=== PATIENT | female | born 1950 | race Caucasian/White ===

== ENCOUNTER 2019-08-12 07:03 | Outpatient (CLI) | payer MEDICARE, SELFPAY ==
--- NOTE | ~2019-08-12 | XR_ITS ---
XR UGI wo kub DATE: 08/12/2019 08:24 INDICATION: History of gastric sleeve. TECHNIQUE: Air contrast upper gastrointestinal series 0.5 minutes fluoroscopy time DAP: 56.621 COMPARISON: None FINDINGS: There is a small sliding hiatal hernia with Schatzki's ring. Normal deglutition and esophageal peristalsis. No stricture, mucosal fold thickening, erosion, ulcer ation or intraluminal mass lesion of the esophagus or stomach or small bowel is detected. IMPRESSION: Small sliding hiatal hernia with Schatzki's ring Reviewed, dictated and finalized at [facility]. Reviewed, dictated and finalized at location [facility].
== END 2019-08-12 07:04 | disposition home or self-care (01) ==
LOC: ANHIMG 07:17
DX: Z90.3 Acquired absence of stomach [part of] (principal); K44.9 Diaphragmatic hernia without obstruction or gangrene; K22.2 Esophageal obstruction
CPT/HCPCS: 74240

== ENCOUNTER 2019-08-18 14:41 | Outpatient (RCR) | payer MEDICARE, SELFPAY | END 2019-11-18 14:44 | disposition home or self-care (01) | LOC: CHSSENLIFE 14:41 | PROVIDERS: Visit Provider Psychiatry & Neurology Psychiatry | DX: F33.41 Major depressive disorder, recurrent, in partial remission (principal) | CPT/HCPCS: 90792; 90834; 90837; 90853; 99213; 99214; G0463 ==

== ENCOUNTER 2019-11-23 10:41 | Outpatient (RCR) | payer MEDICARE, SELFPAY | END 2020-02-10 14:13 | disposition home or self-care (01) | LOC: CHSSENLIFE 10:41 | PROVIDERS: PCP Internal Medicine; Visit Provider Psychiatry & Neurology Psychiatry | DX: F33.41 Major depressive disorder, recurrent, in partial remission (principal) | CPT/HCPCS: 90853; 99213; 99214; G0463 ==

== ENCOUNTER 2021-05-14 11:21 | Outpatient (CLI) | payer BC, MEDICARE, SELFPAY ==
--- NOTE | 2021-05-14 11:29 | EST_ITS ---
Patient Info Name: Dinora Gusman Age: 71 years : 1950 Gender: Female Ht: 59 in Wt: 275 lbs BSA: 2.37 m2 Exam Date: 05/14/2021 12:26 PM Exam Location: [facility] Patient Status: Outpatient Admit Date: 05/14/2021 Staff Ordering Physician: Jani Zamudio DO Attending Provider: Jani Zamudio DO Exam Type: CA stress patricio w NM Summary 1. 1. Negative lexiscan stress test for ischemic ST changes by ECG criteria. 2. 2. Baseline hypertension. 3. 3. Nuclear scan to follow and will be reported separately. Please correlate with it. 4. 4. Patient informed of the above results. Protocol: LEXISCAN Stress ECG Details Stage: REST Duration (min): 4 min : 53 sec HR (bpm): 68 SBP (mmHg): 192 DBP (mmHg): 88 Stage: REST Duration (min): 10 min : 19 sec HR (bpm): 74 SBP (mmHg): 192 DBP (mmHg): 88 Stage: STAGE 1 Duration (min): 0 min : 5 sec HR (bpm): 74 SBP (mmHg): 192 DBP (mmHg): 88 Stage: RECOVERY Duration (min): 0 min : 54 sec HR (bpm): 86 SBP (mmHg): 192 DBP (mmHg): 88 Stage: RECOVERY Duration (min): 1 min : 54 sec HR (bpm): 85 SBP (mmHg): 192 DBP (mmHg): 88 Stage: RECOVERY Duration (min): 2 min : 54 sec HR (bpm): 78 SBP (mmHg): 157 DBP (mmHg): 82 Stage: RECOVERY Duration (min): 3 min : 54 sec HR (bpm): 76 SBP (mmHg): 169 DBP (mmHg): 80 Stage: RECOVERY Duration (min): 4 min : 54 sec HR (bpm): 76 SBP (mmHg): 169 DBP (mmHg): 80 Stage: RECOVERY Duration (min): 5 min : 54 sec HR (bpm): 76 SBP (mmHg): 169 DBP (mmHg): 78 Stage: RECOVERY Duration (min): 6 min : 2 sec HR (bpm): 73 SBP (mmHg): 169 DBP (mmHg): 78 Rest HR: 74 bpm Peak HR: 87 bpm Rest Sys BP: 192 mmHg Peak Sys BP: 169 mmHg Max Pred HR: 150 bpm % Max Pred HR: 58 % Target HR: 128 bpm Max RPP: 14,703 bpm*mmHg Termination Reason: Completed protocol Cardiac Symptoms: Shortness of breath Total Time: 0 min : 5 sec Rest Pitt BP: 88 mmHg Peak Pitt BP: 80 mmHg Total Dose: 0.4 mg Resting ECG Sinus rhythm. Stress ECG No ST changes. Arrhythmias None. Report Signatures
--- NOTE | 2021-05-14 15:29 | WPDCARIOSTRE ---
Nuclear Stress Test INDICATIONS Indications: MCNAIR PROCEDURE Procedure Performed: Myocardial Perf Spect-Multi Procedure: Patient underwent a lexiscan stress test and immediately was injected with 34.5 mCi of cardiolyte. Multiple tomographic images were obtained. These are of good quality. There is evidence of small size, mild inferior perfusion defect with stress imaging. A separate resting images were obtained after patient was injected with 10.7 mCi of cardiolyte. Multiple tomographic images were obtained. These are of good quality. There is evidence of small size, mild inferior perfusion defect with rest imaging. CONCLUSION Conclusion: 1. Myocardial perfusion imaging demonstrating fixed small inferior perfusion defect which is suggestive of diaphragmatic attenuation artifact. 2. No evidence of reversible ischemia. 3. Left ventriculogram demonstrates measured ejection fraction of 73%. No wall motion abnormalities. 4. TID score 1.06 is normal.
== END 2021-05-14 11:22 | disposition home or self-care (01) ==
LOC: CHSIMG 11:25
PROVIDERS: PCP Physician Assistant; Visit Provider Internal Medicine Cardiovascular Disease
DX: R07.9 Chest pain, unspecified (principal)
CPT/HCPCS: 78452; 93017; A9502; J2785

== ENCOUNTER 2021-05-16 10:00 | Outpatient (RCR) | payer BC, MEDICARE, SELFPAY | END 2021-05-16 23:59 | disposition home or self-care (01) | LOC: CHSSENLIFE 10:00 | PROVIDERS: PCP Family Medicine; Visit Provider Psychiatry & Neurology Psychiatry | DX: F32.9 Major depressive disorder, single episode, unspecified (principal) | CPT/HCPCS: 90792; 90837; 90853; 99213; 99214; G0463; J1170; J2250; J3010 ==

== ENCOUNTER 2021-08-14 10:00 | Outpatient (RCR) | payer BC, SELFPAY | END 2021-08-15 23:59 | disposition home or self-care (01) | LOC: CHSSENLIFE 10:00 | PROVIDERS: PCP Family Medicine; Visit Provider Psychiatry & Neurology Psychiatry | DX: F32.9 Major depressive disorder, single episode, unspecified (principal) | CPT/HCPCS: 90853; 99213; G0463 ==

== ENCOUNTER 2021-10-10 11:14 | Inpatient (IN) | payer MEDICARE, MEDICAID, SELFPAY ==
[2021-10-10] VITALS (12 sets, daily range): BP systolic 120–199; BP diastolic 51–90; PULSE 85–114; RESP 16–90; TEMP 36.6–38.8; O2SAT 84–96; BMI 63.5
--- NOTE | ~2021-10-10 | XR_ITS ---
EXAMINATION: XR tibia fibula LT 2V INDICATION: Left leg pain TECHNIQUE: Two views of the left tibia and fibula are obtained. COMPARISON: 04/01/2005 FINDINGS: There is advanced osteoarthritis of the knee and ankle. No fracture is identified. IMPRESSION: 1. No acute osseous abnormality. Reviewed, dictated and finalized at location [facility].
--- NOTE | ~2021-10-10 | XR_ITS ---
EXAMINATION: XR chest 1V portable INDICATION: Shortness of breath TECHNIQUE: Portable AP chest at 1242 hours COMPARISON: 07/21/2009 FINDINGS: Cardiomegaly is noted. There is a mild diffuse interstitial pattern. There is no pleural ef fusion or pneumothorax. IMPRESSION: 1. Cardiomegaly with mild pulmonary edema. Reviewed, dictated and finalized at location [facility].
--- NOTE | ~2021-10-10 | XR_ITS ---
EXAMINATION: XR shoulder RT min 2V INDICATION: Right shoulder pain TECHNIQUE: Three views of the right shoulder are submitted. COMPARISON: None FINDINGS: The examination is limited by the patient's body habitus. Normal alignment. No fracture. Moderate glenohumeral and acromioclavicular osteoarthritis. Soft tissues are unremarkable. IMPRESSION: 1. Moderate osteoarthritis, limited sensitivity for fracture. Reviewed, dictated and finalized at location A.
--- NOTE | ~2021-10-10 | US_ITS ---
EXAMINATION:US venous doppler LE LT INDICATION:Calf pain TECHNIQUE: Multiple grayscale, color flow and Doppler images of the left lower extremity deep venous systems were obtained and reviewed. COMPARISON:No prior studies for comparison. FINDINGS: The common femoral, superficial femoral and popliteal veins demonstrate normal respiratory variation, augmentation and compressibility. Color flow is also seen within the posterior tibial, pe roneal, greater saphenous and profunda veins. IMPRESSION: 1: No lower extremity deep venous thrombosis. Reviewed, dictated and finalized at location A.
--- NOTE | 2021-10-10 11:43 | ECG_ITS ---
Measurements Intervals [place] Rate: 93 P: 94 CA: 164 QRS: 83 QRSD: 89 T: 56 QT: 336 QTc: 418 Interpretive Statements SINUS RHYTHM MINIMAL Q WAVES- INFERIOR LEADS BORDERLINE ECG Electronically Signed On 10-10-2021 12:47:41 CDT by Jani Zamudio D.O.
[2021-10-10 12:07] LABS: Base Excess ABG 2.6 mmol/L (0-2); HCO3 ABG 27.6 mmol/L (23-29); Oxygen Content ABG 16.5 %vol (16.0-22.0); Oxygen Saturation ABG 91.2 % (95-97); Oxyhemoglobin 90.5 % (94-100); PCO2 ABG 43.9 mmHg (35-45); PO2 ABG 58.8 mmHg (75-85); pH ABG 7.42 (7.35-7.45)
[2021-10-10 12:09] LABS: Device ROOM AIR; Modified Allen's Test Pass; Site Drawn LEFT RADIAL
[2021-10-10] MEDS: ONDANSETRON HCL ODT 4 MG TABLET PO (12:10)
[2021-10-10] MEDS: KETOROLAC 30 MG/ML VIAL (*BKC) IM (12:11)
[2021-10-10 12:12] LABS: Basophils Absolute Auto 0.05 K/mm3 (0.00-0.10); Basophils Percent Auto 0.3 % (0.0-1.0); Eosinophils Absolute Auto 0.09 K/mm3 (0.02-0.50); Eosinophils Percent Auto 0.5 % (1.0-6.0); Hematocrit 40.2 % (35.0-42.0); Hemoglobin 12.1 g/dL (11.7-13.8); Immature Granulocyte Absolute 0.12 K/mm3 (0.00-0.00); Immature Granulocyte Percent A 0.6 % (0.0-0.0); Lymphocytes Absolute Auto 0.54 K/mm3 (1.10-4.50); Lymphocytes Percent Auto 2.8 % (18.0-42.0); Mean Corpuscular HGB Conc 30.1 g/dL (32.0-36.0); Mean Corpuscular Hemoglobin 30.1 pg (27.0-31.0); Mean Platelet Volume 9.5 fl (9.2-11.8); Monocytes Absolute Auto 0.69 K/mm3 (0.10-0.90); Monocytes Percent Auto 3.6 % (2.0-11.0); Neutrophils Absolute Auto 17.8 K/mm3 (1.7-7.2); Neutrophils Percent Auto 92.2 % (50.0-70.0); Platelet Count Result 257 K/mm3 (150-420); Red Blood Count 4.02 M/mm3 (4.20-5.40); Red Cell Distribution Width 13.2 % (11.6-14.4); White Blood Count 19.3 K/mm3 (4.8-10.8)
[2021-10-10 12:22] LABS: Add Urine Microscopic? YES; Appearance Urine Cloudy (Clear); Bilirubin Urine Negative (Negative); Blood Urine Negative (Negative); Color Urine Light Yellow (Yellow); Glucose Urine UA Negative (Negative); Ketones Urine Negative (Negative); Leukocyte Esterase Ur Trace (Negative); Nitrate Urine Negative (Negative); Protein Urine Trace (Negative); Urobilinogen Urine 0.2 mg/dL (0.2-1.0)
[2021-10-10 12:26] LABS: RBC Urine None seen /hpf (0-2)
[2021-10-10 12:27] LABS: Lactic Acid Reflex 2.4 mmol/L (0.4-2.0)
[2021-10-10 12:27] LABS: Bacteria Urine 3+ /hpf; Squamous Epithelial Cell Urine Moderate /hpf (Few); WBC Urine 0-3 /hpf (0-3)
[2021-10-10 12:45] LABS: Alanine Aminotransferase 14 U/L (14-59); Albumin Level 3.3 g/dL (3.4-5.0); Alkaline Phosphatase 128 U/L (46-116); Anion Gap 3 mmol/L (8-16); Aspartate Amino Transferase 42 U/L (15-37); Bilirubin,Total 0.6 mg/dL (0.00-1.00); Blood Urea Nitrogen 22 mg/dL (7-18); Calcium 8.9 mg/dL (8.5-10.1); Carbon Dioxide 32 mmol/L (21-32); Chloride 99 mmol/L (98-108); Estimated Glomerular Filt Rate > 60; Glucose 102 mg/dL (70-99); Osmolality Calculated 281 mOsm/kg (285-295); Potassium 5.9 mmol/L (3.5-5.1); Sodium 134 mmol/L (136-145); Total Protein 8.2 g/dL (6.4-8.2); Troponin I 8.6 ng/L (0.00-60.4)
[2021-10-10] MEDS: SODIUM CHLORIDE 0.9% IV 500 ML 999 ML IV CONT (13:59)
[2021-10-10] MEDS: FUROSEMIDE INJ 100 MG/10 ML VIAL 80 MG IV PUSH (13:59)
--- NOTE | 2021-10-10 14:01 | ED.GENADULT ---
HPI - General Adult General Chief complaint: Unspecified Stated complaint: BR[facility]GHT [facility] Time Seen by Provider: 10/10/21 11:17 Source: patient and RN notes reviewed Mode of arrival: wheelchair Limitations: no limitations History of Present Illness MD complaint: right shoulder and left calf pain x 2days + mild SOB and lips cyanotic Onset (ago): day(s) (2) Location: chest, upper extremity and lower extremity Radiation: non-radiation Severity: moderate Severity scale (1-10): 5 Pain Consistency: constant Related Data Home Medications Medication Instructions Recorded Confirmed clonidine HCl 0.1 mg tablet 0.1 mg PO BID tablet 04/23/21 10/10/21 duloxetine 30 mg capsule,delayed 30 mg PO DAILY 04/23/21 10/10/21 release fluoxetine 10 mg capsule 10 mg PO DAILY 04/23/21 10/10/21 gabapentin 300 mg capsule 300 mg PO TID 04/23/21 10/10/21 levothyroxine 25 mcg tablet 25 mcg PO DAILY 04/23/21 10/10/21 valsartan 80 mg tablet 80 mg PO DAILY 04/23/21 10/10/21 Allergies Allergy/AdvReac Type Severity Reaction Status Date / Time codeine Allergy Unknown Unknown Verified 10/10/21 11:39 Penicillins Allergy Unknown Unknown Verified 10/10/21 11:39 venlafaxine [From Effexor] AdvReac Mild Insomnia Verified 10/10/21 11:39 Review of Systems Review of Systems: All systems reviewed & are unremarkable except as noted in HPI and below PMFSH Past Medical History Medical History Acute febrile illness Ankle edema Anxiety Asthma Back pain Bilateral leg edema CHF (congestive heart failure) COPD (chronic obstructive pulmonary disease) COPD with chronic bronchitis Decreased pedal pulses Edema of extremities Elevated alkaline phosphatase level Elevated blood pressure reading Hypercholesteremia Hypertension Knee pain Leg pain Localized edema Major depression Obesity Palpitation Screening for breast cancer Situational anxiety Sleep apnea Tobacco abuse URI (upper respiratory infection) Family History Family History Father Diabetes mellitus Myocardial disease Mother Heart disease Social History Social History Smoking status: Former smoker Tobacco type: cigarettes Alcohol intake: never Substance use: never Spiritual care concerns: No Exam Const: General: cooperative, no acute distress and anxious Nutritional Appearance: obese and edematous Orientation/consciousness: patient oriented x3 Limitations: no limitations HENMT: Head: normal to inspection, No palpable skull fracture present, normocephalic, atraumatic and other (no acute cyanosis or skin mottling seen.) Ears: hearing grossly normal bilaterally and external ears normal General nose exam: Normal external nose present and Normal nares present Face and sinus: normal facial exam and sinuses nontender Mouth: Yes moist mucous membranes Throat: posterior oropharynx normal Eyes: General: appearance normal, both eyes and all related structures Visual Leblanc: normal visual leblanc by confrontation Periorbital: periorbital findings normal Eyelids: eyelids normal Conjunctivae: conjunctivae normal Sclera: sclerae normal Cornea: corneas normal Pupils: Equal, round and reactive pupils present, Pupils normal by confrontation and Pupil accommodation reflex normal EOM: EOMs intact bilaterally Direct Ophthalmoscopy: normal light reflex Neck: Neck: normal visual inspection, full ROM, no lymphadenopathy, no meningeal signs, trachea midline and supple Chest: Chest palpation & inspection: normal palpation of entire chest wall Resp: Effort & Inspection: normal respiratory effort and able to speak in complete sentences Auscultation: crackles and rales Cardio: Jugular venous distension: no JVD Rate: regular rate Rhythm: regular rhythm Peripheral pulses: Peripheral pulses 2+ throughout GI:
[2021-10-10] MEDS: INSULIN HUMAN REGULAR (*BKC) 100 UNITS/ML 12 UNITS IV PUSH (14:06)
[2021-10-10] MEDS: DEXTROSE 50% 25 GM/50 ML SYRINGE IV PUSH (14:08)
[2021-10-10 14:10] LABS: NT Pro B Type Natriuretic Pept 346 pg/mL (0-125)
--- NOTE | 2021-10-10 15:00 | ADMGEN ---
This patient, Dinora Gusman, was admitted to 2nd Floor Room 226-2. Patient/family oriented to hospital policies and general routines including ID bracelet, bed and alarms, visiting hours, pain management, procedures, bathroom and other care routines, personal items, smoking policy, room service/diet, and visiting hours. Information on how to activate the Rapid Response Team has been discussed. Patient/Family are encouraged to report perceived risks to care and to ask questions if they do not understand what they are told or what they should do.
[2021-10-10 15:09] LABS: Reflex Lactic Acid Yes or No Add Lactic
[2021-10-10 15:51] LABS: Lactic Acid 1.8 mmol/L (0.4-2.0)
[2021-10-10] MEDS: GABAPENTIN 300 MG CAPSULE PO (18:00)
[2021-10-10] MEDS: RIVAROXABAN 10 MG TABLET 20 MG PO (18:00)
[2021-10-10] MEDS: ONDANSETRON INJ 4 MG/2 ML VIAL IV PUSH (18:03)
[2021-10-10] MEDS: ACETAMINOPHEN 325 MG TABLET 650 MG PO (18:23)
[2021-10-10] MEDS: cloNIDine HCL 0.1 MG TABLET PO (21:07)
[2021-10-10] MEDS: METOPROLOL TARTRATE 25 MG TABLET PO (21:07)
[2021-10-11] VITALS (9 sets, daily range): BP systolic 132–161; BP diastolic 56–73; PULSE 82–84; RESP 14–20; TEMP 37.3–38.8; O2SAT 91–96
[2021-10-11] MEDS: ACETAMINOPHEN 325 MG TABLET 650 MG PO ×2 (05:04→16:55)
[2021-10-11 05:15] LABS: Basophils Absolute Auto 0.05 K/mm3 (0.00-0.10); Basophils Percent Auto 0.3 % (0.0-1.0); Hemoglobin 11.2 g/dL (11.7-13.8); Immature Granulocyte Absolute 0.09 K/mm3 (0.00-0.00); Immature Granulocyte Percent A 0.5 % (0.0-0.0); Lymphocytes Absolute Auto 0.53 K/mm3 (1.10-4.50); Lymphocytes Percent Auto 3.1 % (18.0-42.0); Mean Corpuscular HGB Conc 31.1 g/dL (32.0-36.0); Mean Corpuscular Hemoglobin 30.7 pg (27.0-31.0); Mean Corpuscular Volume 98.6 fL (78.0-102.0); Mean Platelet Volume 9.3 fl (9.2-11.8); Monocytes Absolute Auto 0.52 K/mm3 (0.10-0.90); Monocytes Percent Auto 3.1 % (2.0-11.0); Neutrophils Absolute Auto 15.7 K/mm3 (1.7-7.2); Platelet Count Result 237 K/mm3 (150-420); Red Blood Count 3.65 M/mm3 (4.20-5.40); Red Cell Distribution Width 13.5 % (11.6-14.4); White Blood Count 16.8 K/mm3 (4.8-10.8)
[2021-10-11 05:26] LABS: Anion Gap 7 mmol/L (8-16); Blood Urea Nitrogen 24 mg/dL (7-18); Calcium 8.7 mg/dL (8.5-10.1); Carbon Dioxide 30 mmol/L (21-32); Chloride 99 mmol/L (98-108); Estimated Glomerular Filt Rate 40; Glucose 132 mg/dL (70-99); Osmolality Calculated 288 mOsm/kg (285-295); Potassium 4.1 mmol/L (3.5-5.1); Sodium 136 mmol/L (136-145)
[2021-10-11] MEDS: LEVOTHYROXINE SODIUM 25 MCG TABLET PO (05:37)
--- NOTE | 2021-10-11 07:09 | PM.IMHP ---
H&P: HPI History of Present Illness Date/Time: 10/11/21 07:09 This is a 71-year-old female that presented to the emergency room with not feeling well was found to be positive for UTI and cellulitis of the left leg. Patient does not ambulate much at home and when she goes out and about she uses a wheelchair electric. Patient has a past medical history Obstructive sleep disorder and she does not tolerate the CPAP per patient, she had a gastric sleeve which she says did not work. Severe hip pain due to her arthritis which limits her walking patient also has lymphedema and she denies using her lymphedema pumps. Patient's labs on admission had a WBC of 19.3, hemoglobin 12.1, HCT40.2, potassium of 5.9 BUN 22, creatinine 0.83, sodium 134, troponin normal at 8. During the ER visit she received a gram of Rocephin, insulin for the elevated potassium and some glucose received a liter of IV fluids and sent to the floor but she will continue to be monitored receive IV antibiotics and will anticipate that she will be seen by physical therapy. Chief Complaint: Cellulitis, UTI , WEakness Review of Systems Review of Systems: UTI, Aute Kidney injury All systems reviewed & are unremarkable except as noted in HPI and below PMFSH Past Medical History Medical History Acute febrile illness Ankle edema Anxiety Asthma Back pain Bilateral leg edema CHF (congestive heart failure) COPD (chronic obstructive pulmonary disease) COPD with chronic bronchitis Decreased pedal pulses Edema of extremities Elevated alkaline phosphatase level Elevated blood pressure reading Hypercholesteremia Hypertension Knee pain Leg pain Localized edema Major depression Obesity Palpitation Screening for breast cancer Situational anxiety Sleep apnea Tobacco abuse URI (upper respiratory infection) Family History Family History Father Diabetes mellitus Myocardial disease Mother Heart disease Social History Social History Smoking status: Former smoker Tobacco type: cigarettes Alcohol intake: never Substance use: never Spiritual care concerns: No Comments At time as signature, I have reviewed and agree with nursing past medical, social, surgical and family history. Please see nursing chart for further information. There is no relevant family history pertinent to the presenting complaint. Meds Home Medications and Allergies Home Medications Medication Instructions Recorded Confirmed Type clonidine HCl 0.1 mg tablet 0.1 mg PO BID tablet 04/23/21 10/10/21 History duloxetine 30 mg capsule,delayed 30 mg PO DAILY 04/23/21 10/10/21 History release fluoxetine 10 mg capsule 10 mg PO DAILY 04/23/21 10/10/21 History gabapentin 300 mg capsule 300 mg PO TID 04/23/21 10/10/21 History levothyroxine 25 mcg tablet 25 mcg PO DAILY 04/23/21 10/10/21 History valsartan 80 mg tablet 80 mg PO DAILY 04/23/21 10/10/21 History metoprolol tartrate 25 mg tablet 25 mg PO BID #60 tablet 07/13/21 10/10/21 Rx rivaroxaban 20 mg tablet 20 mg PO QPM #90 tablet 08/13/21 10/10/21 Rx Allergies Allergy/AdvReac Type Severity Reaction Status Date / Time codeine Allergy Unknown Unknown Verified 10/10/21 11:39 Penicillins Allergy Unknown Unknown Verified 10/10/21 11:39 venlafaxine [From Effexor] AdvReac Mild Insomnia Verified 10/10/21 11:39 Vital Signs Vital Signs - 24 hr 10/10/21 11:15 10/10/21 12:05 10/10/21 14:00 Temperature 98.1 F 98.5 F 97.9 F Pulse Rate 90 87 85 Respiratory Rate 90 H 18 18 Blood Pressure 192/85 H 199/90 H 185/80 H Pulse Oximetry 96 96 96 10/10/21 16:20 10/10/21 18:20 10/10/21 18:23 Temperature 102 F H 102 F H Pulse Rate 114 H Respiratory Rate 18 Blood Pressure 155/66 H Pulse Oximetry 91 84 L 10/10/21 18:25 10/10/21 19:19 10/10/21 21:07 Temperature 98.6
[2021-10-11] MEDS: PANTOPRAZOLE SODIUM IV 40 MG VIAL IV PUSH (09:10)
[2021-10-11] MEDS: METOPROLOL TARTRATE 25 MG TABLET PO ×2 (09:11→21:21)
[2021-10-11] MEDS: GABAPENTIN 300 MG CAPSULE PO ×3 (09:15→16:54)
[2021-10-11] MEDS: FLUoxetine HCL 10 MG CAPSULE PO (09:15)
[2021-10-11] MEDS: DULoxetine HCL 30 MG CAPSULE.DR PO (09:15)
[2021-10-11] MEDS: VALSARTAN 80 MG TABLET PO (09:15)
[2021-10-11] MEDS: cloNIDine HCL 0.1 MG TABLET PO ×2 (09:15→21:21)
[2021-10-11] MEDS: SODIUM CHLORIDE 0.9% IV 1,000 ML 100 ML IV CONT (12:10)
--- NOTE | 2021-10-11 13:50 | PC.NURSE ---
Jenni Haro at [facility]. Faxes not coming through from clinic. Estrellita states the treatment they were providing to patient posterior left thigh consist of miconazole cream, xeroform gauze and covered with gauze. ANIYA Wei notified of treatment wound clinic was following. Currently patient has mepilex covering area. New skin growth noted to area.
[2021-10-11] MEDS: RIVAROXABAN 10 MG TABLET 20 MG PO (16:55)
[2021-10-11] MEDS: HYDROcodone/acetaminophen (*CRX) 5-325 MG TABLET 1 TAB PO (21:20)
[2021-10-12] MEDS: SODIUM CHLORIDE 0.9% IV 1,000 ML 100 ML IV CONT ×3 (00:47→23:30)
[2021-10-12 05:49] VITALS: O2SAT 98
[2021-10-12] MEDS: LEVOTHYROXINE SODIUM 25 MCG TABLET PO (05:53)
[2021-10-12 07:57] LABS: Hematocrit 35.2 % (35.0-42.0); Hemoglobin 10.7 g/dL (11.7-13.8); Mean Corpuscular HGB Conc 30.4 g/dL (32.0-36.0); Mean Corpuscular Hemoglobin 29.8 pg (27.0-31.0); Mean Corpuscular Volume 98.1 fL (78.0-102.0); Mean Platelet Volume 9.3 fl (9.2-11.8); Platelet Count Result 231 K/mm3 (150-420); Red Blood Count 3.59 M/mm3 (4.20-5.40); Red Cell Distribution Width 13.4 % (11.6-14.4); White Blood Count 12.2 K/mm3 (4.8-10.8)
[2021-10-12 08:00] VITALS: BP 184/96; PULSE 91; RESP 18; TEMP 36.6; O2SAT 91
[2021-10-12 08:19] LABS: Anion Gap 4 mmol/L (8-16); Blood Urea Nitrogen 22 mg/dL (7-18); Calcium 8.5 mg/dL (8.5-10.1); Carbon Dioxide 30 mmol/L (21-32); Chloride 103 mmol/L (98-108); Estimated Glomerular Filt Rate 51; Glucose 112 mg/dL (70-99); Osmolality Calculated 288 mOsm/kg (285-295); Potassium 3.8 mmol/L (3.5-5.1); Sodium 137 mmol/L (136-145)
[2021-10-12 08:33] VITALS: PULSE 88
[2021-10-12] MEDS: VALSARTAN 80 MG TABLET PO (08:33)
[2021-10-12] MEDS: PANTOPRAZOLE SODIUM IV 40 MG VIAL IV PUSH (08:33)
[2021-10-12] MEDS: GABAPENTIN 300 MG CAPSULE PO ×3 (08:33→17:44)
[2021-10-12] MEDS: DULoxetine HCL 30 MG CAPSULE.DR PO (08:33)
[2021-10-12] MEDS: METOPROLOL TARTRATE 25 MG TABLET PO ×2 (08:33→21:18)
[2021-10-12] MEDS: FLUoxetine HCL 10 MG CAPSULE PO (08:33)
[2021-10-12] MEDS: cloNIDine HCL 0.1 MG TABLET PO ×2 (08:33→21:18)
--- NOTE | 2021-10-12 10:26 | PM.IMPN ---
Progress Note: A&P Assessment and Plan (1) CHF (congestive heart failure): Qualifiers: Heart failure chronicity: chronic Heart failure type: combined systolic and diastolic Qualified Code(s): I50.42 - Chronic combined systolic (congestive) and diastolic (congestive) heart failure Code(s): I50.9 - Heart failure, unspecified Status: Acute Assessment and Plan: Strict intake andoutput low sodium diet diuretic lasix daily weights (2) Cellulitis of left leg: Code(s): L03.116 - Cellulitis of left lower limb Status: Acute Assessment and Plan: leg elevated IV Rocephin monitor for increased redness or worsening (3) Acute UTI: Code(s): N39.0 - Urinary tract infection, site not specified Status: Acute Assessment and Plan: Messer catheter in place Rocephin IV monitor intake and output CR 1.30...1.07 (4) Acute hyperkalemia: Code(s): E87.5 - Hyperkalemia Status: Acute Assessment and Plan: 4.1 now was 5.9 Resolved Given insulin and glucose (5) Lymphedema: Code(s): I89.0 - Lymphedema, not elsewhere classified Status: Acute Assessment and Plan: Leg elevated IV rocephin for cellulitis will continue to monitor after infection will consider wraps (6) Infection in bloodstream: Code(s): B99.9 - Unspecified infectious disease Status: Acute Assessment and Plan: Positive blood culture gram negative Patient on IV Zosyn we will continue at this time Subjective Date/time seen: 10/12/21 10:26 Patient is feeling a lot better and wanting to go home. At this time patient blood cultures have come back positive for negative Bacilli and she has only had 1 days of IV antibiotics. Patient has had a low grade fever throughout the night and would benefit from a couple more days of IV antibiotics to avoid any set backs. We will continue to monitor vitals Exam Narrative: GENERAL:Ill-appearing, morbidly obese, and in no acute distress. HEAD:Normocephalic, atraumatic. EYES: PERRLA and EOMI. ENT: Nares clear, no rhinorrhea or epistaxis. Mucous membranes moist. CHEST: Clear to auscultation. No respiratory distress. HEART: Regular rate and rhythm. Normal peripheral pulses. ABDOMEN: Soft, nontender, round, normal active bowel sounds. EXTREMITIES: Decreased range of motion. Trace edema.lower extremities have lymphedema noted GI Messer catheter in place draining dark yellow urine SKIN: Warm, dry, no rash. NEURO: No focal deficits. Alert and oriented x3. Objective Data Vital Signs Vital Signs: Vital Signs - 24 hr 10/11/21 16:00 10/11/21 20:00 10/11/21 21:21 Temperature 99.5 F Pulse Rate 83 84 Respiratory Rate 18 Blood Pressure 161/73 H Pulse Oximetry 91 92 10/11/21 23:52 10/12/21 08:33 Temperature 99.9 F H Pulse Rate 82 88 Respiratory Rate 20 Blood Pressure 132/56 L Pulse Oximetry 94 Intake/Output Intake/Output: Intake & Output 10/09/21 10/10/21 10/11/21 10/12/21 23:59 23:59 23:59 23:59 Intake Total 670 1693 1250 Output Total 1650 1150 550 Balance -980 543 700 Meds/Results Medications: Active Medications Generic Name Dose Route Start Last Admin Trade Name Freq PRN Reason Stop Dose Admin Acetaminophen 650 mg 10/10/21 14:19 10/11/21 16:55 Acetaminophen 325 Mg Tablet PO 650 mg Q6HR PRN Administration Mild Pain (1-3) or Fever Hydrocodone Bitart/Acetaminophen 1 tab 10/11/21 13:43 10/11/21 21:20 Hydrocodone/Acetaminophen (*Crx) 5-325 Mg Tablet PO 1 tab BID PRN Administration Pain Rated 4-6 Clonidine HCl 0.1 mg 10/10/21 21:00 10/12/21 08:33 Clonidine Hcl 0.1 Mg Tablet PO 0.1 mg Q12HR FAHAD Administration Duloxetine HCl 30 mg 10/11/21 09:00 10/12/21 08:33 Duloxetine Hcl 30 Mg Capsule.Dr PO 30 mg DAILY FAHDA Administration Fluoxetine HCl 10 mg 10/11/21 09:00 10/12/21 08:33 Fluoxetine Hcl 10 Mg Capsule PO
--- NOTE | 2021-10-12 12:41 | PM.EVENT ---
Event Note Event Note Event Note: Mrs Gusman is in need of a hospital bed that elevates she requires positioning of her body which is not feasible with ordinary bed in order to leave alleviate pain she also requires a head of the bed to be elevated more than 30 degrees due to her congestive heart failure problems and is at risk for aspiration. Due to patient's morbid obesity the pills and wedges are not feasible at this time as they do not resolve the issue.
[2021-10-12 16:45] VITALS: BP 163/58; PULSE 100; RESP 18; TEMP 37.7; O2SAT 91
[2021-10-12] MEDS: RIVAROXABAN 10 MG TABLET 20 MG PO (17:43)
[2021-10-12] MEDS: HYDROcodone/acetaminophen (*CRX) 5-325 MG TABLET 1 TAB PO (17:44)
[2021-10-12 21:18] VITALS: PULSE 100
[2021-10-12] MEDS: OXYBUTYNIN CHLORIDE 5 MG TABLET PO (21:19)
[2021-10-12 23:21] VITALS: BP 156/71; PULSE 81; RESP 18; TEMP 37.1; O2SAT 98
[2021-10-13] MEDS: LEVOTHYROXINE SODIUM 25 MCG TABLET PO (06:19)
[2021-10-13 07:27] VITALS: BP 156/72; PULSE 84; RESP 20; TEMP 37.3; O2SAT 97
[2021-10-13 07:34] LABS: Hematocrit 31.1 % (35.0-42.0); Hemoglobin 9.6 g/dL (11.7-13.8); Mean Corpuscular HGB Conc 30.9 g/dL (32.0-36.0); Mean Corpuscular Hemoglobin 30.3 pg (27.0-31.0); Mean Corpuscular Volume 98.1 fL (78.0-102.0); Mean Platelet Volume 9.7 fl (9.2-11.8); Platelet Count Result 233 K/mm3 (150-420); Red Blood Count 3.17 M/mm3 (4.20-5.40); Red Cell Distribution Width 13.4 % (11.6-14.4); White Blood Count 12.5 K/mm3 (4.8-10.8)
[2021-10-13 07:44] LABS: Anion Gap 5 mmol/L (8-16); Blood Urea Nitrogen 15 mg/dL (7-18); Calcium 8.1 mg/dL (8.5-10.1); Carbon Dioxide 30 mmol/L (21-32); Chloride 102 mmol/L (98-108); Estimated Glomerular Filt Rate > 60; Glucose 115 mg/dL (70-99); Osmolality Calculated 285 mOsm/kg (285-295); Potassium 3.6 mmol/L (3.5-5.1); Sodium 137 mmol/L (136-145)
[2021-10-13 08:26] VITALS: PULSE 84
[2021-10-13] MEDS: METOPROLOL TARTRATE 25 MG TABLET PO ×2 (08:26→20:58)
[2021-10-13] MEDS: PANTOPRAZOLE SODIUM IV 40 MG VIAL IV PUSH (08:26)
--- NOTE | 2021-10-13 08:29 | PM.IMPN ---
Progress Note: A&P Assessment and Plan (1) CHF (congestive heart failure): Qualifiers: Heart failure chronicity: chronic Heart failure type: combined systolic and diastolic Qualified Code(s): I50.42 - Chronic combined systolic (congestive) and diastolic (congestive) heart failure Code(s): I50.9 - Heart failure, unspecified Status: Acute Assessment and Plan: Strict intake andoutput low sodium diet diuretic lasix daily weights (2) Cellulitis of left leg: Code(s): L03.116 - Cellulitis of left lower limb Status: Acute Assessment and Plan: leg elevated IV Rocephin monitor for increased redness or worsening (3) Acute UTI: Code(s): N39.0 - Urinary tract infection, site not specified Status: Acute Assessment and Plan: Messer catheter in place Rocephin IV monitor intake and output CR 1.30...1.07...081 (4) Acute hyperkalemia: Code(s): E87.5 - Hyperkalemia Status: Acute Assessment and Plan: 4.1 now was 5.9 Resolved Given insulin and glucose (5) Lymphedema: Code(s): I89.0 - Lymphedema, not elsewhere classified Status: Acute Assessment and Plan: Leg elevated IV rocephin for cellulitis will continue to monitor after infection will consider wraps (6) Infection in bloodstream: Code(s): B99.9 - Unspecified infectious disease Status: Acute Assessment and Plan: Positive blood culture gram negative Patient on IV Zosyn we will continue at this time Subjective Date/time seen: 10/13/21 08:29 Patient has continued to improve she is not requiring any oxygen during the day has remained afebrile. Creatinine has returned to normal IV fluids have been discontinued she will continue another day of IV antibiotics plan for discharge in the morning. Patient denies any pain, nausea and/or vomiting states she slept well throughout the night patient up in recliner chair using her I-S we will continue to monitor patient Exam Narrative: GENERAL:Ill-appearing, morbidly obese, and in no acute distress. HEAD:Normocephalic, atraumatic. EYES: PERRLA and EOMI. ENT: Nares clear, no rhinorrhea or epistaxis. Mucous membranes moist. CHEST: Clear to auscultation. No respiratory distress. HEART: Regular rate and rhythm. Normal peripheral pulses. ABDOMEN: Soft, nontender, round, normal active bowel sounds. EXTREMITIES: Decreased range of motion. Trace edema.lower extremities have lymphedema noted GI Messer catheter in place draining dark yellow urine SKIN: Warm, dry, no rash. NEURO: No focal deficits. Alert and oriented x3. Objective Data Vital Signs Vital Signs: Vital Signs - 24 hr 10/12/21 08:33 10/12/21 16:45 10/12/21 21:18 Temperature 99.9 F H Pulse Rate 88 100 100 Respiratory Rate 18 Blood Pressure 163/58 H Pulse Oximetry 91 10/12/21 23:21 10/13/21 07:27 10/13/21 08:26 Temperature 98.8 F 99.2 F Pulse Rate 81 84 84 Respiratory Rate 18 20 Blood Pressure 156/71 H 156/72 H Pulse Oximetry 98 97 Intake/Output Intake/Output: Intake & Output 10/10/21 10/11/21 10/12/21 10/13/21 23:59 23:59 23:59 23:59 Intake Total 670 1693 5210 250 Output Total 1650 1150 1150 450 Balance -113 230 9750 -200 Meds/Results Medications: Active Medications Generic Name Dose Route Start Last Admin Trade Name Freq PRN Reason Stop Dose Admin Acetaminophen 650 mg 10/10/21 14:19 10/11/21 16:55 Acetaminophen 325 Mg Tablet PO 650 mg Q6HR PRN Administration Mild Pain (1-3) or Fever Hydrocodone Bitart/Acetaminophen 1 tab 10/11/21 13:43 10/12/21 17:44 Hydrocodone/Acetaminophen (*Crx) 5-325 Mg Tablet PO 1 tab BID PRN Administration Pain Rated 4-6 Clonidine HCl 0.1 mg 10/10/21 21:00 10/12/21 21:18 Clonidine Hcl 0.1 Mg Tablet PO 0.1 mg Q12HR FAHAD Administration Duloxetine HCl 30 mg 10/11/21 09:00 10/12/21 08:33 Duloxetine Hcl 30 Mg Capsule. PO 30
[2021-10-13] MEDS: OXYBUTYNIN CHLORIDE 5 MG TABLET PO ×3 (08:30→17:00)
[2021-10-13] MEDS: VALSARTAN 80 MG TABLET PO (08:31)
[2021-10-13] MEDS: cloNIDine HCL 0.1 MG TABLET PO ×2 (08:39→20:58)
[2021-10-13] MEDS: FLUoxetine HCL 10 MG CAPSULE PO (08:40)
[2021-10-13] MEDS: GABAPENTIN 300 MG CAPSULE PO ×3 (08:41→17:00)
[2021-10-13] MEDS: DULoxetine HCL 30 MG CAPSULE.DR PO (08:41)
[2021-10-13] MEDS: HYDROcodone/acetaminophen (*CRX) 5-325 MG TABLET 1 TAB PO (12:41)
[2021-10-13 15:14] VITALS: BP 141/55; PULSE 80; RESP 16; TEMP 37.4; O2SAT 90
[2021-10-13] MEDS: RIVAROXABAN 10 MG TABLET 20 MG PO (17:00)
[2021-10-13 19:47] VITALS: O2SAT 91
[2021-10-13 20:58] VITALS: PULSE 77
[2021-10-13] MEDS: ACETAMINOPHEN 325 MG TABLET 650 MG PO (21:01)
[2021-10-13 23:55] VITALS: O2SAT 98
[2021-10-14] VITALS: BP 152/57; PULSE 85; RESP 18; TEMP 37.8; O2SAT 95
[2021-10-14] MEDS: HYDROcodone/acetaminophen (*CRX) 5-325 MG TABLET 1 TAB PO (04:09)
[2021-10-14] MEDS: LEVOTHYROXINE SODIUM 25 MCG TABLET PO (06:06)
[2021-10-14 06:14] VITALS: O2SAT 96
[2021-10-14 08:00] VITALS: BP 194/72; PULSE 80; RESP 20; TEMP 36.9; O2SAT 97
[2021-10-14] MEDS: PANTOPRAZOLE SODIUM IV 40 MG VIAL IV PUSH (08:04)
[2021-10-14] MEDS: cloNIDine HCL 0.1 MG TABLET PO (08:06)
[2021-10-14] MEDS: GABAPENTIN 300 MG CAPSULE PO (08:06)
[2021-10-14] MEDS: DULoxetine HCL 30 MG CAPSULE.DR PO (08:06)
[2021-10-14 08:07] VITALS: PULSE 88
[2021-10-14] MEDS: VALSARTAN 80 MG TABLET PO (08:07)
[2021-10-14] MEDS: METOPROLOL TARTRATE 25 MG TABLET PO (08:07)
[2021-10-14] MEDS: FLUoxetine HCL 10 MG CAPSULE PO (08:07)
[2021-10-14] MEDS: OXYBUTYNIN CHLORIDE 5 MG TABLET PO (08:08)
[2021-10-14 08:35] LABS: Hematocrit 34.4 % (35.0-42.0); Hemoglobin 10.6 g/dL (11.7-13.8); Mean Corpuscular HGB Conc 30.8 g/dL (32.0-36.0); Mean Corpuscular Hemoglobin 30.4 pg (27.0-31.0); Mean Corpuscular Volume 98.6 fL (78.0-102.0); Mean Platelet Volume 9.3 fl (9.2-11.8); Platelet Count Result 274 K/mm3 (150-420); Red Blood Count 3.49 M/mm3 (4.20-5.40); Red Cell Distribution Width 13.3 % (11.6-14.4); White Blood Count 11.3 K/mm3 (4.8-10.8)
[2021-10-14 08:46] LABS: Anion Gap 7 mmol/L (8-16); Blood Urea Nitrogen 12 mg/dL (7-18); Calcium 8.7 mg/dL (8.5-10.1); Carbon Dioxide 31 mmol/L (21-32); Chloride 102 mmol/L (98-108); Estimated Glomerular Filt Rate > 60; Glucose 127 mg/dL (70-99); Osmolality Calculated 291 mOsm/kg (285-295); Sodium 140 mmol/L (136-145)
--- NOTE | 2021-10-14 09:41 | PM.DS ---
DS: Admitting Diagnosis Discharge Date 10/14/2021 Admitting Diagnosis Cellulitis, UTI DS: Discharge Diagnosis Discharge Diagnosis (1) CHF (congestive heart failure): Qualifiers: Heart failure chronicity: chronic Heart failure type: combined systolic and diastolic Qualified Code(s): I50.42 - Chronic combined systolic (congestive) and diastolic (congestive) heart failure Code(s): I50.9 - Heart failure, unspecified Status: Acute Assessment and Plan: Strict intake andoutput low sodium diet diuretic lasix daily weights (2) Cellulitis of left leg: Code(s): L03.116 - Cellulitis of left lower limb Status: Acute Assessment and Plan: leg elevated IV Rocephin monitor for increased redness or worsening (3) Acute UTI: Code(s): N39.0 - Urinary tract infection, site not specified Status: Acute Assessment and Plan: Messer catheter in place Rocephin IV monitor intake and output CR 1.30...1.07...081 (4) Acute hyperkalemia: Code(s): E87.5 - Hyperkalemia Status: Acute Assessment and Plan: 4.1 now was 5.9 Resolved Given insulin and glucose (5) Lymphedema: Code(s): I89.0 - Lymphedema, not elsewhere classified Status: Acute Assessment and Plan: Leg elevated IV rocephin for cellulitis will continue to monitor after infection will consider wraps (6) Infection in bloodstream: Code(s): B99.9 - Unspecified infectious disease Status: Acute Assessment and Plan: Positive blood culture gram negative Patient on IV Zosyn we will continue at this time DS: Summary Hospital Course Reason for hospitalization: Cellulitis and Pneumonia Hospital Course: This is a 71-year-old female that presented to the emergency room with a fever was found to have some cellulitis as well some UTI symptoms on admission patient had a fever of 102 she was given some IV fluids WBCs was 19.3, hemoglobin was 11.1 hematocrit was 40.2 platelets was 257, sodium 136, potassium 4.1, BUN 24, creatinine 1.30. Patient has a past medical history of lymphedema, CHF, some COPD, obstructive sleep apnea who refuses to wear CPAP, lymphedema who does not wear her lymphedema pump patient is morbidly obese and ability to get around uses a electric wheelchair at home. Patient has been for feeling sick for the past few days prior to arrival here patient received IV antibiotics, with IV fluids and antipyretics for fevers. Patient's labs continued to trend normal her redness in her legs have improved warmth has declined lymphedema still there. Patient had a Messer catheter placed while here urinated adequate amount of intakes and output. Patient is tolerating food up in chair using I-S patient has remained afebrile for the past 2 days eating and drinking without any difficulties patient states that she is feeling a lot better and is ready to go home labs on discharge WBCs 11.3, hemoglobin 10.6, sodium 140, potassium 4.0, BUN 12, creatinine 0.86. Patient will follow up with her primary care provider and will be seen by home health. Time Spent with Patient Time attestation: Total time spent providing and/or coordinating discharge services: Exam Narrative: GENERAL:Ill-appearing, morbidly obese, and in no acute distress. HEAD:Normocephalic, atraumatic. EYES: PERRLA and EOMI. ENT: Nares clear, no rhinorrhea or epistaxis. Mucous membranes moist. CHEST: Clear to auscultation. No respiratory distress. HEART: Regular rate and rhythm. Normal peripheral pulses. ABDOMEN: Soft, nontender, round, normal active bowel sounds. EXTREMITIES: Decreased range of motion. Trace edema.lower extremities have lymphedema noted GI Messer catheter in place draining dark yellow urine SKIN: Warm, dry, no rash. NEURO: No focal deficits. Alert and oriented x3. DS: Data Data Completed and Pending Labs on day of discharge: Labs from last 24 hours 10/14/21 10/14/21 08:31 0
--- NOTE | 2021-10-14 10:20 | PC.NURSE ---
Patient discharge instructions given to patient and her . Both voiced understanding. Patient left unit in w/c accompanied by nurse and at 1020. Personal belongings sent with patient. Patient left hospital via private vehicle. Emsser catheter and IV access removed prior to discharge.
--- NOTE | 2021-10-16 10:53 | PC.NURSE ---
Unable to contact for discharge call back.
== END 2021-10-14 10:20 | disposition home or self-care (01) | DRG 603 ==
LOC: CHSED 14:07 → CHS2ND 14:31
PROVIDERS: Nurse Practitioner Family; Admitting Provider Internal Medicine; Emergency Provider Emergency Medicine; PCP Family Medicine; Visit Provider Internal Medicine
DX: L03.116 Cellulitis of left lower limb (principal); N39.0 Urinary tract infection, site not specified; I50.42 Chronic combined systolic (congestive) and diastolic (congestive) heart failure; R78.81 Bacteremia; E87.5 Hyperkalemia; I11.0 Hypertensive heart disease with heart failure; J44.9 Chronic obstructive pulmonary disease, unspecified; I89.0 Lymphedema, not elsewhere classified; E78.00 Pure hypercholesterolemia, unspecified; E66.01 Morbid (severe) obesity due to excess calories; B96.5 Pseudomonas (aeruginosa) (mallei) (pseudomallei) as the cause of diseases classified elsewhere; G47.30 Sleep apnea, unspecified; F41.9 Anxiety disorder, unspecified; F32.9 Major depressive disorder, single episode, unspecified; Z87.891 Personal history of nicotine dependence
CPT/HCPCS: 36415; 36600; 71045; 73030; 73590; 80048; 80053; 81001; 82805; 83605; 83880; 84484; 85025; 85027; 87040; 87147; 87186; 93005; 93971; 96361; 96365; 96372; 96375; 97110; 97161; 97165; 99285; A9270; C9113; G0378; J0696; J1815; J1885; J1940; J2405; J2543; J7030; J7040

== ENCOUNTER 2021-10-31 15:10 | Outpatient (CLI) | payer MEDICARE, MEDICAID, SELFPAY ==
[2021-10-31 15:53] LABS: Anion Gap 2 mmol/L (8-16); Blood Urea Nitrogen 23 mg/dL (7-18); Calcium 8.5 mg/dL (8.5-10.1); Carbon Dioxide 37 mmol/L (21-32); Chloride 98 mmol/L (98-108); Estimated Glomerular Filt Rate 51; Glucose 103 mg/dL (70-99); Magnesium 2.1 mg/dL (1.8-2.4); Osmolality Calculated 287 mOsm/kg (285-295); Potassium 4.1 mmol/L (3.5-5.1); Sodium 137 mmol/L (136-145)
== END 2021-10-31 15:11 | disposition home or self-care (01) ==
LOC: CHSLAB 15:14
PROVIDERS: PCP Family Medicine; Visit Provider Internal Medicine Cardiovascular Disease
DX: I89.0 Lymphedema, not elsewhere classified (principal)
CPT/HCPCS: 36415; 80048; 83735; 90853

== ENCOUNTER 2021-11-09 07:52 | Outpatient (CLI) | payer MEDICARE, MEDICAID, SELFPAY ==
--- NOTE | 2021-11-13 13:54 | WPDHOMESLEEP ---
Sleep Study - Home Unattended Date of Study: 11/09/21 Ordering Provider: Jani Zamudio DO Interpreting Provider: Kristi Horan DO Home Sleep Study Type: Watch PAT Height: 1.5 m Weight: 136.078 kg Body Mass Index: 60.5 Neck Circumference (inches): 16 [place]: 16 Reason for Sleep Study Unrefreshing sleep, daytime hypersomnia Sleep History The patient is a 71-year-old female with anxiety, depression, congestive heart failure, COPD, hyperlipidemia, hypertension, heart palpitations, lymphedema, hx of gastric sleeve and previously diagnosed sleep apnea that had a sleep study ordered by her tour conductor to restart PAP therapy. The patient is currently retired. The patient occasionally awakens from sleep short of breath. She occasionally awakens at night with heartburn, belching or cough. She frequently snores but it is never loud enough that others complain. She occasionally has trouble sleeping when she has a cold. She occasionally wakes up gasping for air throughout the night. She frequently has breathing problems at night observed by herself or others. She occasionally sweats excessively at night. She frequently has heart palpitations or irregular heartbeats during the night. She frequently falls asleep during the day but never while driving. She occasionally experiences loss of muscle tone when extremely emotional. She denies having sleep paralysis. She occasionally experiences vivid dreamlike scenes upon awakening or falling asleep. She frequently has nightmares and occasionally remembers her dreams. She frequently has thoughts racing through her mind. She frequently feels sad, depressed and anxious. She frequently notices parts of her body jerk. She occasionally kicks during the night. She occasionally has crawling and aching feelings in her legs as well as leg pain during the night. She denies grinding her teeth during sleep awakening with morning jaw pain. She is occasionally bothered by pain during the day and occasionally awakened by pain during the night. She frequently wakes up feeling stiff in the morning. She occasionally wakes up with sore or achy muscles. She frequently wakes up with pain in the neck, spine and other joints. She goes to bed at 11:00 p.m. on both weekdays and weekends. It takes her 30 minutes to fall asleep. She wakes up 3 times throughout the night to urinate and watch television. She is able to fall back asleep within 1 hour. She wakes up between 8-9 a.m. on , 6 am on Friday and and at 9:00 a.m. on the weekends. She typically gets 5 hours of sleep per night. She does not stay in bed after waking up in the morning. She currently lives with her . She does not consume any caffeinated beverages within 2 hours of bedtime. She does not engage in physical exercise before bedtime. He will watch television before falling asleep. She occasionally takes naps in the afternoon or the evening but they are not refreshing. She will drink a 16 oz cup of caffeinated beverage per day. She denies tobacco, alcohol and recreational drug use. [facility] Past Medical History Medical History Acute febrile illness Ankle edema Anxiety Asthma Back pain Bilateral leg edema CHF (congestive heart failure) COPD (chronic obstructive pulmonary disease) COPD with chronic bronchitis Decreased pedal pulses Edema of extremities Elevated alkaline phosphatase level Elevated blood pressure reading Hypercholesteremia Hypertension Knee pain Leg pain Localized edema Major depression Obesity Palpitation Screening for breast cancer Situational anxiety Sleep apnea Tobacco abuse URI (upper respiratory infection) Family History Family History Father Diabetes mellitus Myocardial disease Mother Heart disease Social History Social History (Reviewed 11/13/21 @ 14:02 by
[2021-11-13 14:09] VITALS: BMI 60.5
== END 2021-11-12 10:46 | disposition home or self-care (01) ==
LOC: ANHCSM 07:54
PROVIDERS: PCP Family Medicine; Visit Provider Internal Medicine Cardiovascular Disease
DX: G47.30 Sleep apnea, unspecified (principal); G47.33 Obstructive sleep apnea (adult) (pediatric)
CPT/HCPCS: 95800

== ENCOUNTER 2021-11-14 15:08 | Outpatient (RCR) | payer MEDICARE, MEDICAID, SELFPAY ==
--- NOTE | 2021-11-14 17:40 | PTOPEVAL ---
Thank you for referring Dinora Gusman to [facility].? The patient is scheduled to be seen for therapy? 2x/week for 8 visits. Please review, sign, date and return this plan of care DANIE. I agree with and certify that the following plan of care is medically necessary. Referring Physician Date Admitting Provider: Attending Provider: Edilson Jeong MD Referring Provider: *PT Outpatient Evaluation Start: 11/14/21 12:58 Freq: Status: Active Protocol: Document 11/14/21 12:59 [facility] (Rec: 11/14/21 16:21 [facility] [id number]) Therapy Assessment Status Assessment Status Assessment Status Evaluation Outpatient Past Medical History Neurological History Hx Neurological Disorders No Significant History Cardiovascular History Hx Atrial Fibrillation Yes: 2020 Hx Congestive Heart Failure Yes Hx Coronary Artery Disease Yes Hx Hypercholesterolemia Yes Hx Hypertension Yes Respiratory History Hx Asthma Yes Hx Chronic Obstructive Pulmonary Disease Yes (COPD) Hx Sleep Apnea Yes Gastrointestinal History Hx Gastric Bypass Surgery Yes: 2010 Genitourinary History Hx Urinary Tract Infection Yes Musculoskeletal History Hx Arthritis Yes Hx Back Pain Yes Hx Crutches or Walker Use Yes Query Text:If Yes, Enter Crutches, Walker, or Both in the Comment Hx Degenerative Disk Disease Yes Hematological History Hx Hematological Disorders No Significant History Endocrine History Hx Hyperthyroidism Yes HEENT History Hx Cataracts Yes Integumentary History Hx Skin Disorders No Significant History Reproductive History Hx Post Menopausal Yes Hx Tubal Ligation Yes Psychosocial History Hx Anxiety Yes Hx Depression Yes Pain History Has Past Pain Affected Your Daily Life Yes History of Long-Term Prescription Pain Yes Medication Use (Opiates) Effective Methods of Pain Control NOTHING Ineffective Methods of Pain Control MEDICATIONS NOT HELPING Anesthesia History Hx Anesthesia Reactions No Significant History Other History Hx Other Medical Conditions Yes: morbid obesity, insomnia Evaluation Information Problem Diagnosis R shoulder pain Onset 08/31/21 Subjective Information Pt reports that her pain Query Text:As Reported By Patient/ started one morning when she Family woke up in August with insidious onset. She reports constant pain in the front of her R shoulder that occasi
== END 2021-11-30 23:59 | disposition home or self-care (01) ==
LOC: CHSPT 15:08
PROVIDERS: PCP Family Medicine; Visit Provider Family Medicine
DX: M25.511 Pain in right shoulder (principal)
CPT/HCPCS: 97014; 97110; 97140; 97161; G0283

== ENCOUNTER 2021-11-15 10:00 | Outpatient (RCR) | payer BC, MEDICARE, MEDICAID, SELFPAY | END 2021-11-19 23:59 | disposition home or self-care (01) | LOC: CHSSENLIFE 10:00 | PROVIDERS: PCP Family Medicine; Visit Provider Psychiatry & Neurology Psychiatry | DX: F32.9 Major depressive disorder, single episode, unspecified (principal) | CPT/HCPCS: 90853; 99213; 99214; G0463 ==

== ENCOUNTER 2021-11-22 09:21 | Outpatient (CLI) | payer MEDICARE, MEDICAID, SELFPAY ==
--- NOTE | ~2021-11-22 | XR_ITS ---
EXAMINATION: XR hip RT min 2V DATE: 11/22/2021 09:44 INDICATION: Right hip pain TECHNIQUE: Two views of right hip were obtained. COMPARISON: 11/11/2018 FINDINGS: There is severe joint space narrowing of the right hip with interval worsening. There is al so remodeling of the femoral head, new since the prior examination. No fracture is identified. There are surgical clips in the right pelvis. The soft tissues are otherwise unremarkable. IMPRESSION: 1. Advanced osteoarthritis of the right hip with interval worsening. Reviewed, dictated and finalized at location F.
== END 2021-11-22 09:22 | disposition home or self-care (01) ==
LOC: CHSIMG 09:25
PROVIDERS: PCP Family Medicine; Visit Provider Nurse Practitioner Family
DX: M16.11 Unilateral primary osteoarthritis, right hip (principal); M25.551 Pain in right hip
CPT/HCPCS: 73502; 90853; 99213; G0463

== ENCOUNTER 2021-11-27 16:35 | Outpatient (CLI) | payer MEDICARE, MEDICAID, SELFPAY ==
--- NOTE | ~2021-11-27 | MR_ITS ---
EXAMINATION: MR hip RT wo con DATE: 11/27/2021 18:03 INDICATION: Right hip pain TECHNIQUE: Magnetic resonance imaging (MRI) of the right hip was performed without intravenous contr ast. Sequences included full-field axial PD-weighted FS FSE and T1-weighted FSE, coronal of the pelvi s with PD-weighted FS FSE, T2-weighted FSE and T1-weighted FSE, small field of view of the right hip with axial PD-weighted FS FSE, sagittal PD-weighted FS FSE, coronal PD-weighted FS FSE and coronal T2 weighted FSE. Additional radial T1-weighted FGR oriented orthogonal to the acetabular rim were obt ained for evaluation of the labrum. COMPARISON: None FINDINGS: Bones/labrum/cartilage: Advanced right hip osteoarthritis with remodeling and loss of bone stock at the cephalad aspect of th e right femoral head and the superior right acetabulum. This results in some superolateral migration of the right femoral head within the enlarged acetabulum. The there is a large marginal osteophyte al avi the inferomedial and posterior inferior aspect of the femoral head which fills the majority of th e secondary widened joint space between the surface of the acetabulum and the original level of the a rticular cortex of the femoral head. Additional prominent marginal osteophytes about the rim of the a cetabulum which have replaced the likely chronically degenerated labrum. Mild osteoarthritis at the l eft hip and moderate bilateral sacroiliac osteoarthritis. Severe disc height loss at L5-S1. Mild spon dylosis in the more cephalad lumbar spine. Right S2 Tarlov cyst. There is some red marrow reexpansion in the spine and pelvis. No fracture, osteonecrosis or pathologic marrow replacing process. Fluid: Symmetric physiologic amount of fluid within both hip joints. Small amount of fluid within the right trochanteric bursa consistent with bursitis. No other abnormal fluid collections. Soft tissues: Relatively symmetric fatty atrophy, moderate of the pelvic musculature mild to moderate of the muscul ature of the proximal thighs. The iliopsoas, gluteal and proximal hamstring tendons are normal. Pelvi c floor relaxation. Prominent diverticulosis along the sigmoid and visualized descending colon. No pa thologically enlarged pelvic/inguinal lymphadenopathy. IMPRESSION: 1. Advanced osteoarthritis at the right hip. 2. Moderate right trochanteric bursitis. 3. Extensive diverticulosis. Reviewed, dictated and finalized at location A.
== END 2021-11-27 16:36 | disposition home or self-care (01) ==
PROVIDERS: PCP Family Medicine; Visit Provider Nurse Practitioner Family
DX: M16.11 Unilateral primary osteoarthritis, right hip (principal); M70.61 Trochanteric bursitis, right hip; M47.816 Spondylosis without myelopathy or radiculopathy, lumbar region; M85.68 Other cyst of bone, other site; K57.90 Diverticulosis of intestine, part unspecified, without perforation or abscess without bleeding
CPT/HCPCS: 73721

== ENCOUNTER 2021-11-29 07:26 | Outpatient (CLI) | payer MEDICARE, MEDICAID, SELFPAY ==
--- NOTE | 2021-12-18 18:25 | WPDSLEEPSTUD ---
Sleep Study Date of Study: 11/29/21 Ordering Provider: Jani Zamudio DO Interpreting Physician: Kristi Horan DO Sleep Study Type: CPAP Titration Height: 1.5 m Weight: 131.542 kg Body Mass Index: 58.6 Neck Circumference (inches): 16 [place]: 16 Reason for Sleep Study The patient had a home sleep study on 11/13/2021 that showed an overall AHI of 20.8 with desaturation down to 53%.? This is consistent with moderate sleep apnea.? Sleep History The patient is a 71-year-old female with anxiety, depression, congestive heart failure, COPD, hyperlipidemia, hypertension, heart palpitations, lymphedema, hx of gastric sleeve and previously diagnosed sleep apnea that had a sleep study ordered by her video clerk to restart PAP therapy. ? The patient is currently retired.? The patient occasionally awakens from sleep short of breath.? She occasionally awakens at night with heartburn, belching or cough.? She frequently snores but it is never loud enough that others complain.? She occasionally has trouble sleeping when she has a cold.? She occasionally wakes up gasping for air throughout the night.? She frequently has breathing problems at night observed by herself or others.? She occasionally sweats excessively at night.? She frequently has heart palpitations or irregular heartbeats during the night.? She frequently falls asleep during the day but never while driving.? She occasionally experiences loss of muscle tone when extremely emotional.? She denies having sleep paralysis.? She occasionally experiences vivid dreamlike scenes upon awakening or falling asleep.? She frequently has nightmares and occasionally remembers her dreams.? She frequently has thoughts racing through her mind.? She frequently feels sad, depressed and anxious.? She frequently notices parts of her body jerk.? She occasionally kicks during the night.? She occasionally has crawling and aching feelings in her legs as well as leg pain during the night.? She denies grinding her teeth during sleep awakening with morning jaw pain.? She is occasionally bothered by pain during the day and occasionally awakened by pain during the night.? She frequently wakes up feeling stiff in the morning.? She occasionally wakes up with sore or achy muscles.? She frequently wakes up with pain in the neck, spine and other joints.? She goes to bed at 11:00 p.m. on both weekdays and weekends.? It takes her 30 minutes to fall asleep.? She wakes up 3 times throughout the night to urinate and watch television.? She is able to fall back asleep within 1 hour.? She wakes up between 8-9 a.m. on , 6 am on Friday and and at 9:00 a.m. on the weekends.? She typically gets 5 hours of sleep per night.? She does not stay in bed after waking up in the morning.? She currently lives with her .? She does not consume any caffeinated beverages within 2 hours of bedtime.? She does not engage in physical exercise before bedtime.? He will watch television before falling asleep.? She occasionally takes naps in the afternoon or the evening but they are not refreshing.? She will drink a 16 oz cup of caffeinated beverage per day.? She denies tobacco, alcohol and recreational drug use. [facility] Past Medical History Medical History Acute febrile illness Ankle edema Anxiety Asthma Back pain Bilateral leg edema CHF (congestive heart failure) COPD (chronic obstructive pulmonary disease) COPD with chronic bronchitis Decreased pedal pulses Edema of extremities Elevated alkaline phosphatase level Elevated blood pressure reading Hypercholesteremia Hypertension Knee pain Leg pain Localized edema Major depression Obesity Palpitation Screening for breast cancer Situational anxiety Sleep apnea Tobacco abuse URI (upper respiratory infection) Family History Family History Father Diabetes mellitus Myoca
[2021-12-18 23:48] VITALS: BMI 58.6
== END 2021-11-30 06:49 | disposition home or self-care (01) ==
LOC: ANHCSM 07:43
PROVIDERS: PCP Family Medicine; Visit Provider Internal Medicine Cardiovascular Disease
DX: G47.33 Obstructive sleep apnea (adult) (pediatric) (principal)
CPT/HCPCS: 95811

== ENCOUNTER 2021-12-19 05:00 | Emergency (ER) | payer MEDICARE, MEDICAID, SELFPAY ==
[2021-12-19] VITALS (12 sets, daily range): BP systolic 127–156; BP diastolic 51–69; PULSE 93–104; RESP 16–29; TEMP 36.8–36.9; O2SAT 92–100
--- NOTE | ~2021-12-19 | XR_ITS ---
EXAMINATION: XR chest 1V portable DATE: 12/19/2021 05:24 INDICATION: Shortness of breath TECHNIQUE: frontal view of the chest was obtained. COMPARISON: Chest radiograph dated 10/10/21 FINDINGS: Mild cardiomegaly with pulmonary vascular congestion. Increased opacities in the right lower lung zon e. No pleural effusion or pneumothorax. IMPRESSION: 1. Opacities in the right lower lung zone which could represent atelectasis, pneumonia or asymmetric mild pulmonary edema. 2. Mild cardiomegaly. Reviewed, dictated and finalized at location A. IMPRESSION: 1. Opacities in the right lower lung zone which could represent atelectasis, pn eumonia or asymmetric mild pulmonary edema. 2. Mild cardiomegaly.
--- NOTE | 2021-12-19 05:09 | ECG_ITS ---
Measurements Intervals [place] Rate: 96 P: 91 OR: 158 QRS: 60 QRSD: 81 T: 46 QT: 342 QTc: 433 Interpretive Statements SINUS RHYTHM BASELINE ARTIFACT- I, II, III, AVR, AVL, AVF, V1 NORMAL ECG Electronically Signed On 12-19-2021 6:38:18 CDT by Jani Zamudio D.O.
--- NOTE | 2021-12-19 05:12 | ED.SOB ---
HPI - SOB/Dyspnea General Chief Complaint: Shortness of Breath/Dyspnea Stated Complaint: Fall/sob History of Present Illness HPI Narrative: Pt states she fell out of bed and then noticed she had CP. The CP has been there for about 1 hr. Pt has been having worsening SOB for the last few days and it feels similar to her CHF episode recently which required admission to the hospital for a few days. Pt has chronic lymphedema to her legs and the swelling is similar. Pt denies fever. Nothing makes the SOB or CP better or worse. Pt denies cough. Related Data Home Medications Medication Instructions Recorded Confirmed clonidine HCl 0.1 mg tablet 0.1 mg PO BID 04/23/21 12/19/21 duloxetine 30 mg capsule,delayed 30 mg PO DAILY 04/23/21 12/19/21 release fluoxetine 10 mg capsule 10 mg PO DAILY 04/23/21 12/19/21 gabapentin 300 mg capsule 300 mg PO TID 04/23/21 12/19/21 Allergies Allergy/AdvReac Type Severity Reaction Status Date / Time Penicillins Allergy Unknown Unknown Verified 12/19/21 05:16 venlafaxine [From Effexor] AdvReac Mild Insomnia Verified 12/19/21 05:16 codeine AdvReac Unknown got tired Verified 12/19/21 05:16 Review of Systems Review of Systems: All systems reviewed & are unremarkable except as noted in HPI and below PMFSH Past Medical History Medical History Acute febrile illness Ankle edema Anxiety Asthma Back pain Bilateral leg edema CHF (congestive heart failure) COPD (chronic obstructive pulmonary disease) COPD with chronic bronchitis Decreased pedal pulses Edema of extremities Elevated alkaline phosphatase level Elevated blood pressure reading Hypercholesteremia Hypertension Knee pain Leg pain Localized edema Major depression Obesity Palpitation Screening for breast cancer Situational anxiety Sleep apnea Tobacco abuse URI (upper respiratory infection) Family History Family History Father Diabetes mellitus Myocardial disease Mother Heart disease Social History Social History Smoking status: Never smoker Tobacco type: cigarettes Alcohol intake: never Substance use: never Spiritual care concerns: No Exam Const: General: no acute distress Nutritional Appearance: obese Orientation/consciousness: patient oriented x3 Limitations: no limitations HENMT: Head: normal to inspection Eyes: Conjunctivae: conjunctivae normal EOM: EOMs intact bilaterally Neck: Neck: normal visual inspection Chest: Chest palpation & inspection: normal inspection of the chest Resp: Effort & Inspection: normal respiratory effort Auscultation: crackles Cardio: Rate: regular rate Rhythm: regular rhythm GI: GI Palp: Yes Soft to palpation Auscultation: normal bowel sounds Back/Spine/Pelvis: Back: no CVA tenderness Skin: General skin exam: normal color Wounds: no wounds Neuro: General: patient oriented x3, moves all extremities, no meningeal signs and no focal motor deficits Speech: normal speech Extrem: General: edema (chronic) bilateral Psych: Mental Status: mental status grossly normal Affect: normal affect Attitude: cooperative Course Course Emergency Course: 0600, pt feels much better after lasix and neb. Pt has no CP and SOB is much better. 0655 still awaiting call back from [place] for transfer, will have to turn over care to Dr Davies at 0700 Vital Signs Vital signs: Vital Signs Temperature 98.2 F 12/19/21 05:00 Pulse Rate 96 12/19/21 05:00 Respiratory Rate 28 H 12/19/21 05:00 Blood Pressure 156/69 H 12/19/21 05:00 Pulse Oximetry 94 12/19/21 05:00 Oxygen Delivery Nasal Cannula 12/19/21 05:00 Oxygen Flow Rate 2 12/19/21 05:00 Temperature 98.2 F 12/19/21 05:00 Pulse Rate 100 12/19/21 05:53 Respiratory Rate 23 H 12/19/21 05:53 Blood Pressure 131/62
[2021-12-19] MEDS: IPRATROPIUM BR 0.02% INH SOLN 0.5 MG/2.5 ML VIAL INHALATION (05:22)
[2021-12-19] MEDS: ALBUTEROL SULFATE NEB 2.5 MG/3 ML INH 5 MG INHALATION (05:23)
[2021-12-19 05:34] LABS: Basophils Absolute Auto 0.03 K/mm3 (0.00-0.10); Basophils Percent Auto 0.2 % (0.0-1.0); Hematocrit 33.7 % (35.0-42.0); Hemoglobin 10.5 g/dL (11.7-13.8); Immature Granulocyte Absolute 0.12 K/mm3 (0.00-0.00); Immature Granulocyte Percent A 0.7 % (0.0-0.0); Lymphocytes Absolute Auto 0.44 K/mm3 (1.10-4.50); Lymphocytes Percent Auto 2.7 % (18.0-42.0); Mean Corpuscular HGB Conc 31.2 g/dL (32.0-36.0); Mean Corpuscular Hemoglobin 29.5 pg (27.0-31.0); Mean Corpuscular Volume 94.7 fL (78.0-102.0); Mean Platelet Volume 8.9 fl (9.2-11.8); Monocytes Absolute Auto 0.82 K/mm3 (0.10-0.90); Neutrophils Percent Auto 91.4 % (50.0-70.0); Platelet Count Result 265 K/mm3 (150-420); Red Blood Count 3.56 M/mm3 (4.20-5.40); Red Cell Distribution Width 15.1 % (11.6-14.4); White Blood Count 16.4 K/mm3 (4.8-10.8)
[2021-12-19] MEDS: FUROSEMIDE INJ 40 MG/4 ML VIAL IV PUSH (05:44)
[2021-12-19 05:48] LABS: INR 1.1; Prothrombin Time 11.9 Seconds (9.50-12.10)
[2021-12-19 05:58] LABS: Alanine Aminotransferase 18 U/L (14-59); Albumin Level 2.8 g/dL (3.4-5.0); Alkaline Phosphatase 118 U/L (46-116); Anion Gap 9 mmol/L (8-16); Aspartate Amino Transferase 21 U/L (15-37); Bilirubin,Total 0.5 mg/dL (0.00-1.00); Blood Urea Nitrogen 16 mg/dL (7-18); Calcium 8.6 mg/dL (8.5-10.1); Carbon Dioxide 27 mmol/L (21-32); Chloride 100 mmol/L (98-108); Estimated Glomerular Filt Rate 52; Glucose 152 mg/dL (70-99); Magnesium 1.5 mg/dL (1.8-2.4); NT Pro B Type Natriuretic Pept 2435 pg/mL (0-125); Osmolality Calculated 286 mOsm/kg (285-295); Potassium 4.1 mmol/L (3.5-5.1); Sodium 136 mmol/L (136-145); Total Protein 6.9 g/dL (6.4-8.2); Troponin I 918.5 ng/L (0.00-60.4)
--- NOTE | 2021-12-19 06:06 | PC.NURSE ---
RN called Andre SotoArea Attendant to attempt to start a transfer and talk to rotating equipment engineer. chick room supervisor instructed RN that she will be talking to her manager community development and the rotating equipment engineer and will be returning a call as soon as possible.
[2021-12-19 06:30] LABS: Add Urine Microscopic? YES; Appearance Urine Clear (Clear); Bilirubin Urine Negative (Negative); Blood Urine Negative (Negative); Color Urine Light Yellow (Yellow); Glucose Urine UA Negative (Negative); Ketones Urine Negative (Negative); Leukocyte Esterase Ur Negative (Negative); Nitrate Urine Negative (Negative); Protein Urine 1+ (Negative); Urobilinogen Urine 0.2 mg/dL (0.2-1.0)
[2021-12-19 06:33] LABS: Bacteria Urine Trace /hpf; RBC Urine None seen /hpf (0-2); Squamous Epithelial Cell Urine Moderate /hpf (Few); WBC Urine 0-3 /hpf (0-3)
[2021-12-19 06:52] LABS: SARS-CoV-2 RNA PCR Negative (Negative)
[2021-12-19] MEDS: ASPIRIN 81 MG CHEWABLE TABLET 324 MG PO (06:58)
[2021-12-19] MEDS: NITROGLYCERIN OINTMENT 1 INCH DOSE TRANSDERM (06:59)
[2021-12-19] MEDS: MAGNESIUM SULF 2 GM/WATER 50ML 2 GM/50 ML BAG IVPB (07:19)
[2021-12-19 09:05] LABS: Troponin I 1358.7 ng/L (0.00-60.4)
== END 2021-12-19 08:47 | disposition short-term general hospital (02) ==
PROVIDERS: Emergency Provider Emergency Medicine; PCP Family Medicine
DX: I21.4 Non-ST elevation (NSTEMI) myocardial infarction (principal); I50.9 Heart failure, unspecified; G47.33 Obstructive sleep apnea (adult) (pediatric); E66.9 Obesity, unspecified; Z20.822 Contact with and (suspected) exposure to COVID-19
CPT/HCPCS: 36415; 71045; 80053; 81001; 83735; 83880; 84484; 85025; 85610; 85730; 93005; 94640; 96365; 96375; 99285; A9270; C9803; J1940; J3475; U0003; U0005

== ENCOUNTER 2021-12-19 09:56 | Inpatient (IN) | payer MEDICARE, MEDICAID, SELFPAY ==
[2021-12-19] VITALS (14 sets, daily range): BP systolic 125–167; BP diastolic 51–69; PULSE 65–102; RESP 16–20; TEMP 36.1–36.9; O2SAT 95–100; BMI 62.5
--- NOTE | 2021-12-19 09:29 | PC.NURSE ---
This patient, Dinora Gusman, was admitted to IMU Room 206-01. Patient/family oriented to hospital policies and general routines including ID bracelet, bed and alarms, visiting hours, pain management, procedures, bathroom and other care routines, personal items, smoking policy, room service/diet, and visiting hours. Information on how to activate the Rapid Response Team has been discussed. Patient/Family are encouraged to report perceived risks to care and to ask questions if they do not understand what they are told or what they should do.
--- NOTE | 2021-12-19 09:48 | ECG_ITS ---
Measurements Intervals [place] Rate: 84 P: 97 [place]: 158 QRS: 54 QRSD: 84 T: 45 QT: 401 QTc: 475 Interpretive Statements SINUS RHYTHM BASELINE WANDER- V6 NORMAL ECG Electronically Signed On 12-19-2021 22:24:53 CDT by Jani Zamudio D.O.
--- NOTE | 2021-12-19 09:50 | PC.NURSE ---
0950-Cardiology called and notified of stat ekg order.
--- NOTE | 2021-12-19 09:58 | ECHO_ITS ---
Patient Info Name: Dinora Gusman Age: 71 years : 1950 Gender: Female Ht: 59 in Wt: 309 lbs BSA: 2.52 m2 HR: 85 bpm BP: 125 / 51 mmHg Heart Rhythm: Sinus Rhythm Technical Quality: Poor Exam Date: 12/19/2021 11:41 AM Exam Location: [facility] Pulmonary Exam Room: 206 Patient Status: Inpatient Admit Date: 12/19/2021 Staff Ordering Physician: Awa Mondragon DO Interior Mechanic: Catrina Tang RDCS Attending Provider: Awa Mondragon DO Referring Physician: Giancarlo JIMENEZ; Exam Type: CA echo dop color flow w con Study Info Indications - CHEST PAIN S/P FALL Complete two-dimensional, color flow and Doppler transthoracic echocardiogram is performed with contrast to opacify the left ventricle and to improve the deliniation of the left ventricle endocardial borders. Contrast/Agitated Saline Contrast/Ag. Saline: Definity Amount: 2.00 ml Administered By: Catrina Tang [facility] Existing IV Access: Yes IV Access Condition: patent with no signs of infiltration Reason for Poor Study: patient body habitus Summary 1. Normal left ventricular size with [id number] concentric left ventricular hypertrophy. Overall good left ventricular systolic function, with no segmental wall motion abnormalities, ejection fraction 63%. Grade 1 diastolic dysfunction. 2. is present. 3. Left atrial chamber dimension is mildly enlarged. 4. No significant valve disease. 5. Dilated inferior vena cava with >50% collapse upon inspiration consistent with elevated right atrial pressure, 10 mmHg. 6. There is small posterior pericardial effusion, 0.8 cm thick, without tamponade. 7. Normal sinus rhythm. 8. Technically difficult study, IV definity echo contrast used. Left Ventricle Left ventricular chamber dimension is normal. Left ventricular systolic function is normal, estimated at 60-65%. There is mildly increased left ventricular wall thickness. Left ventricular septal wall motion is normal. The left ventricular diastolic function is grade I diastolic dysfunction. Right Ventricle Right ventricular chamber dimension is normal. Right ventricular systolic function is normal. Left Atria Left atrial chamber dimension is mildly enlarged. Right Atria Right atrial chamber dimension is normal. Aortic Valve The aortic valve is trileaflet. There is no aortic valve sclerosis. There is no aortic valve stenosis. There is no aortic valve regurgitation. Pulmonic Valve The pulmonic valve is normal. There is no pulmonic valve stenosis. There is no pulmonic regurgitation. Mitral Valve The mitral valve has normal leaflets. There is no mitral valve stenosis. There is trace mitral valve regurgitation. Tricuspid Valve The tricuspid valve leaflets are normal. There is no significant tricuspid valve stenosis. There is trace tricuspid valve regurgitation. Mild pulmonary hypertension, estimated pulmonary arterial systolic pressure is 46 mmHg. Pericardium/Pleural The pericardium appears normal. There is small posterior pericardial effusion, 0.8 cm thick, without tamponade. Inferior Vena Cava Dilated inferior vena cava with >50% collapse upon inspiration consistent with elevated right atrial pressure, 10 mmHg. Aorta The aortic root size at the sinus of Valsalva is normal. The prox ascending aorta size is normal. Left Ventricular Outflow Tract
[2021-12-19 10:47] LABS: Cholesterol 152 mg/dL (0-200); HDL Direct 46 mg/dL; Triglycerides 87 mg/dL (<150)
[2021-12-19 10:59] LABS: LDL Cholesterol Direct 67 mg/dL
[2021-12-19] MEDS: PERFLUTREN LIPID MICROSPHERES 1.5 ML VIAL DILUTED TO 10 ML TOTAL VOLUME IV PUSH (12:11)
--- NOTE | 2021-12-19 12:12 | IVDEFINITY ---
Prior to administration of IV Definity the patient was educated on the risks and benefits of the imaging enhancing agent including potential adverse side effects. The patient verbalized understanding. Allergies were verified. No exclusion criteria were identified and at least one of the following inclusion criteria were met: 1) physician request, 2) patient technically difficult to image (per the [place] [employer] guidelines of two or more segments not discernable within the apical view), or 3) questionable left ventricular function. ?
--- NOTE | 2021-12-19 12:53 | PM.IMHP ---
H&P: HPI History of Present Illness Date/Time: 12/19/21 12:53 Chief Complaint: Chest pain Narrative: Patient is an 71 year old asthma, CHF, COPD who presented to the ED at [facility] for chest pain. She was a direct admit to [place] for cardiology consultation, elevated troponins. It seems that the patient has had issues for the last 4 days. Patient was lying in bed this morning. She tried to get up in which she did she slid out of bed onto her knees. When she got her knee she was unable to get up and was very short of breath. Her chimed in and stated that she has not slept at all and she could not breathe all night. He stated that she has been of weeping and crying and very gas be throughout the night. He stated that she got up out of bed to go the bathroom to hours later she could not get up at all. They were able to get her to the commode however when she tried to get up on her own she fell to the floor. She did have chest pain she stated which is across the left-sided state right there it did not go to her back or her jaw. She stated that her legs have been rubbery and just very weak. She also stated that she has been having nausea with multiple episodes of dry heaving and vomiting. Her to give her some Pepto which she stated helped with the vomiting however did not help with the nausea at all. She states her belly hurts however she is hungry. She also stated that she was recently in the hospital due to turning purple all over from the nose down. They said she was in the hospital and was diuresed that when they found out that she had CHF. She currently does have some numbness and tingling in her fingers and is very cold. She denies any diarrhea or constipation with her last bowel movement being yesterday. She denies any syncope falls, visual changes hearing changes, lightheadedness or headache. She has been having some dizziness however she stated that is new to her and just started last night. She denies any abnormal swelling to her bilateral legs. She also stated that her cough has not changed and she did state that she had a cough and it started a couple days ago but only last a few minutes. She denies any increase in sputum production. it was also found that the patient did have bilateral hip injections 1 on on the left and 1 yesterday on the right. family also reported that the patient has been taking naps during the day which is nothing like her. In the ED was noted that her troponins are elevated and currently her troponin is 1.4 down from 1.5. Cardiology has been consulted. Magnesium was noted to be low at 1.5 she was given 2 g of magnesium IV in the ED. BNP is also 2435 . Chest x-ray indicated of right lower lobe opacity indicating either CHF, pneumonia, atelectasis. Patient currently denies any chest pain at this time. She stated that she short of breath however that is continuous. No issues with nausea vomiting thus far. EKG showed sinus rhythm in the 60s. Patient is currently being admitted to the hospitalist service as an patient. Review of Systems Review of Systems: All systems reviewed & are unremarkable except as noted in HPI and below PMFSH Past Medical History Medical History Acute hyperkalemia Acute UTI Anxiety Asthma Cellulitis of left leg CHF (congestive heart failure) COPD (chronic obstructive pulmonary disease) Hypercholesteremia Hypertension Localized edema Lymphedema Major depression Obesity PAF (paroxysmal atrial fibrillation) Situational anxiety Sleep apnea Tobacco abuse Surgical History Surgical History H/O gastric sleeve H/O: hysterectomy Family History Family History Father Diabetes mellitus Myocardial disease Mother Heart disease Sibling Diabetes mellitus Social
[2021-12-19] MEDS: GABAPENTIN 300 MG CAPSULE PO ×2 (13:22→21:08)
[2021-12-19] MEDS: cloNIDine HCL 0.1 MG TABLET PO ×2 (13:22→21:08)
[2021-12-19] MEDS: METOPROLOL TARTRATE 25 MG TABLET PO ×2 (13:22→21:08)
[2021-12-19] MEDS: ACETAMINOPHEN 325 MG TABLET 650 MG PO ×2 (14:05→21:06)
[2021-12-19] MEDS: FUROSEMIDE INJ 40 MG/4 ML VIAL IV PUSH (14:07)
[2021-12-19 14:23] LABS: Magnesium 2.1 mg/dL (1.6-2.3)
--- NOTE | 2021-12-19 17:08 | PM.CNCAR ---
Assessment and Plan Assessment and plan (1) Elevated troponin: Code(s): R77.8 - Other specified abnormalities of plasma proteins Status: Acute Assessment and Plan: Pt w/ elevated troponins in the setting of increased myocardial demand after the patient rolled out of bed and could not get up. No ischemic EKG changes This does not appear to be an ACS event but a troponin spill due to supply demand mismatch. Negative Lexiscan in May 2021 is reassuring, although I am sure quite technically difficult with lower sensitivity. Advised patient to let her application counselor know if she has progressive chest tightness/pressure, as underlying CAD is not out of the question, although a cardiac catheterization on this patient would be extremely technically difficult. Continue primary prevention Check EKG in the morning Echo pending (2) Acute on chronic diastolic CHF (congestive heart failure): Code(s): I50.33 - Acute on chronic diastolic (congestive) heart failure Status: Acute Assessment and Plan: Patient has developed acute on chronic CHF of the last few days, worse this morning. Continue with diuresis, furosemide 40 mg IV push b.i.d. Add Jardiance Daily BMP (3) PAF (paroxysmal atrial fibrillation): Code(s): I48.0 - Paroxysmal atrial fibrillation Status: Acute Assessment and Plan: History of PAF Treated with Xarelto and metoprolol In normal sinus rhythm on this admission (4) Morbid obesity: Code(s): E66.01 - Morbid (severe) obesity due to excess calories Status: Acute Assessment and Plan: Has sleep apnea as well, with significant O2 desaturations. Waiting on CPAP. History of Present Illness History of Present Illness Consult date/time: 12/19/21 17:08 Reason For Visit: nstemi Narrative: Dinora Gusman is a 71-year-old female whom I was asked to see at the request of Dr. Mondragon for my advice and opinion regarding her elevated troponins in consultation. She is a patient of Dr. Zamudio'mac with HTN, palpitations, paroxysmal atrial fibrillation, chronic diastolic CHF, lymphedema, morbid obesity (BMI 63), and ILANNE. Patient has been short of breath for the last few days with orthopnea. Her chronic LE edema has been unchanged. Apparently she had a lot of orthopnea and emotional upset through the night. This morning she rolled out of bed and couldn't get up. Her legs were weak and she had nausea and vomiting. She was struggling for a while, then felt more SOB and had some chest discomfort and pressure. She went to [place] emergency room and was found to have a h.s. troponin of 919 none 1350 and a proBNP of 2400. She was transferred to [facility] for further evaluation and treatment. Troponins here are 1.5, 1.4, and 1.3. she states that she has not noted chest tightness in the past. Review of Systems Constitutional: Constitutional: Denies fever(s) Eyes: Eyes: Reports no additional eye complaints ENT: Denies epistaxis Cardiovascular: Cardiovascular: Reports chest pain, Reports pedal edema, Reports leg edema, Reports lightheadedness (occasionally), Reports palpitations (Improved recently) and Reports dyspnea Respiratory: Respiratory: Denies chest congestion and Denies dyspnea Gastrointestinal: Gastrointestinal: Denies abdominal pain and Denies hematochezia Musculoskeletal: Musculoskeletal: Reports arthralgias (and legs weak) Comments: Not very active but can walk w a walker Integumentary/Breasts: Skin/Breast: Reports rash (chronic skin changes 2nd lymphedema) Neurologic: Reports system reviewed and no additional complaints, except as documented, Denies behavioral changes and Denies confusion Psychiatric: Psychiatric: Denies behavio
[2021-12-20] VITALS (20 sets, daily range): BP systolic 128–150; BP diastolic 47–79; PULSE 55–91; RESP 16–22; TEMP 35.7–36.9; O2SAT 93–100
[2021-12-20 04:52] LABS: Basophils Percent Auto 0.2 % (0.2-1.2); Eosinophils Percent Auto 0.3 % (0-4.4); Hematocrit 32.2 % (37.0-47.0); Hemoglobin 10.1 g/dL (12.0-15.0); Immature Granulocyte Absolute 0.05 K/mm3 (0.00-0.031); Immature Granulocyte Percent A 0.4 % (0-0.5); Lymphocytes Absolute Auto 1.54 K/mm3 (0.9-3.2); Lymphocytes Percent Auto 12.5 % (18.3-44.2); Mean Corpuscular HGB Conc 31.4 g/dl (32-36); Mean Corpuscular Hemoglobin 28.9 pg (26-34); Mean Corpuscular Volume 92.3 fl (80-100); Mean Platelet Volume 9.4 fl (7.4-10.4); Monocytes Absolute Auto 0.9 K/mm3 (0.1-0.6); Monocytes Percent Auto 6.9 % (2.6-8.5); Neutrophils Absolute Auto 9.8 K/mm3 (1.3-6.7); Neutrophils Percent Auto 79.7 % (45.5-73.1); Platelet Count Result 239 k/mm3 (150-375); Red Blood Count 3.49 M/mm3 (4.2-5.4); Red Cell Distribution Width 15.1 % (11.5-14.5); White Blood Count 12.3 K/mm3 (4.5-10.0)
[2021-12-20 05:14] LABS: Alanine Aminotransferase 14 U/L (6-35); Albumin Level 3.6 g/dL (3.5-5.1); Alkaline Phosphatase 109 U/L (38-126); Anion Gap 3 mmol/L (8-16); Aspartate Amino Transferase 26 U/L (14-36); Bilirubin,Total 0.4 mg/dL (0.2-1.3); Blood Urea Nitrogen 22 mg/dL (7-17); Calcium 8.3 mg/dL (8.4-10.2); Carbon Dioxide 35 mmol/L (22-30); Chloride 100 mmol/L (98-107); Estimated Glomerular Filt Rate 55; Glucose 115 mg/dL (65-110); Magnesium 2.2 mg/dL (1.6-2.3); Potassium 4.1 mmol/L (3.4-5.0); Sodium 138 mmol/L (137-145)
[2021-12-20] MEDS: GABAPENTIN 300 MG CAPSULE PO ×3 (05:51→21:18)
[2021-12-20] MEDS: METOPROLOL TARTRATE 25 MG TABLET PO ×3 (05:51→21:18)
[2021-12-20] MEDS: cloNIDine HCL 0.1 MG TABLET PO ×3 (05:52→21:17)
[2021-12-20] MEDS: LEVOTHYROXINE SODIUM 25 MCG TABLET PO (05:52)
[2021-12-20] MEDS: ACETAMINOPHEN 325 MG TABLET 650 MG PO ×2 (06:01→13:45)
--- NOTE | 2021-12-20 08:00 | ECG_ITS ---
Measurements Intervals [place] Rate: 70 P: 79 CA: 172 QRS: 49 QRSD: 85 T: 45 QT: 440 QTc: 475 Interpretive Statements SINUS RHYTHM WITH SINUS ARRHYTHMIA BASELINE ARTIFACT- I, II, III, AVR, AVL NORMAL ECG Electronically Signed On 12-20-2021 16:13:42 CDT by Jani Zamudio D.O.
--- NOTE | 2021-12-20 08:37 | PM.PNCARD ---
Progress Note: A&P Assessment and Plan (1) Elevated troponin: Code(s): R77.8 - Other specified abnormalities of plasma proteins Status: Acute Assessment and Plan: Pt w/ elevated troponins in the setting of increased myocardial demand after the patient rolled out of bed and could not get up. No ischemic EKG changes EKG from this a.m. is pending This does not appear to be an ACS event but a Type 2 MA due to supply demand mismatch. However, troponin spills are associated with a poorer prognosis. Optimal tx is uncertain for this type of MA (statin? ASA? etc); not much data. LDL 62 on admission, not on a statin; still in view of elevated trop, added atorvastatin 10 mg daily. Negative Lexiscan in May 2021 is reassuring, although I am sure quite technically difficult with lower sensitivity. Advised patient to let her field health officer know if she has progressive chest tightness/pressure, as underlying CAD is not out of the question, although a cardiac catheterization on this patient would be technically difficult; would need to use radial access. Continue primary prevention. (2) Acute on chronic diastolic CHF (congestive heart failure): Code(s): I50.33 - Acute on chronic diastolic (congestive) heart failure Status: Acute Assessment and Plan: Patient has developed acute on chronic CHF of the last few days. Continue with diuresis, furosemide 40 mg IV push b.i.d. for another day Added Jardiance Daily BMP Home Friday/Friday? FU w/ Dr. Zamudio on discharge (3) PAF (paroxysmal atrial fibrillation): Code(s): I48.0 - Paroxysmal atrial fibrillation Status: Acute Assessment and Plan: History of PAF Treated with Xarelto and metoprolol In normal sinus rhythm on this admission (4) Fall: Code(s): W19.XXXA - Unspecified fall, initial encounter Status: Acute Assessment and Plan: Rolled out of bed onto the floor and couldn't get up at home. May benefit fr Ph Tx. (5) Morbid obesity: Code(s): E66.01 - Morbid (severe) obesity due to excess calories Status: Acute Assessment and Plan: Has sleep apnea as well, with significant O2 desaturations. Waiting on CPAP. Subjective Date/time seen: FU for elevated trop 2nd to Type 2 MA, CP, acute on chronic diastolic CHF Date of Service 12/20/21 08:37: Doing better, breathing better, better night. No chest pain or pressure. Able to transfer to the chair; legs not as weak. CPAP off and on overnight. Diuresed. Echo EF 63%, diastolic dysfunction, LVH Review of Systems Constitutional: Constitutional: Denies fever(s) Cardiovascular: Cardiovascular: Denies chest pain, Reports pedal edema (edema pretty good), Reports leg edema, Denies lightheadedness and Denies dyspnea Respiratory: Respiratory: Denies chest congestion, Denies dyspnea and Reports wheezing (slight) Gastrointestinal: Gastrointestinal: Denies abdominal pain and Denies hematochezia Musculoskeletal: Musculoskeletal: Reports no additional musculoskeletal complaints Integumentary/Breasts: Skin/Breast: Reports system reviewed and no additional complaints, except as docu Neurologic: Reports system reviewed and no additional complaints, except as documented, Denies behavioral changes and Denies confusion Psychiatric: Psychiatric: Denies behavioral changes and Denies confusion Exam Narrative: Up in chair, looks good today, NAD, alert Const: General: cooperative, healthy appearing and comfortable; No confusion Orientation/consciousness: oriented to person, patient oriented x3 and No confusion Eyes: EOM: EOMs intact bilaterally Resp: Effort & Inspection: normal respiratory effort Auscultation: clear to auscultation bilaterally Cardio: Rate: regular rate Rhythm: regular rhythm Heart sounds: Murmur heart sound pre
[2021-12-20] MEDS: DULoxetine HCL 30 MG CAPSULE.DR 90 MG PO (08:56)
[2021-12-20] MEDS: FLUoxetine HCL 10 MG CAPSULE PO (08:57)
[2021-12-20] MEDS: ASPIRIN 81 MG CHEWABLE TABLET PO (08:57)
[2021-12-20] MEDS: FUROSEMIDE INJ 40 MG/4 ML VIAL IV PUSH ×2 (08:58→16:52)
[2021-12-20] MEDS: EMPAGLIFLOZIN 10 MG TABLET PO (08:58)
--- NOTE | 2021-12-20 09:12 | PM.IMPN ---
Progress Note: A&P Assessment and Plan (1) Elevated troponin: Code(s): R77.8 - Other specified abnormalities of plasma proteins Status: Acute Assessment and Plan: Troponin elevation thought to be demand ischemia and not CA. Troponin downtrending. Echo w/ EF 63% w/ grade I diastolic dysfunction and biatrial enlargement. HFpEF. Patient improved with diuresis. -Continue bb, asa, statin (2) CHF (congestive heart failure): Code(s): I50.9 - Heart failure, unspecified Status: Acute Assessment and Plan: HFpEF with volume overload. Improved with diuresis. -Continue furosemide 40 mg IV BID -Continue Jardiance -Replete lytes as needed (3) LIANNE (obstructive sleep apnea): Code(s): G47.33 - Obstructive sleep apnea (adult) (pediatric) Status: Acute Assessment and Plan: Continue home CPAP/BIPAP at home settings Patient had sleep study done 2 weeks ago and is still awaiting her CPAP (4) Obesity: Code(s): E66.9 - Obesity, unspecified Status: Acute Assessment and Plan: Will check hemoglobin a1c with morning labs. (5) Leukocytosis: Code(s): D72.829 - Elevated white blood cell count, unspecified Status: Acute Assessment and Plan: Leukocytosis 16.4 on presentation. CXR with opacities in right lower lung that could be atelectasis vs pneumonia vs mild pulmonary edema. UA unremarkable. Afebrile. Given the elevated BNP and patient requiring oxygen, it is thought volume overload is like the cause. Leukocytosis improved this morning but still not resolved. -Procalcitonin -Will send blood cultures (6) PAF (paroxysmal atrial fibrillation): Code(s): I48.0 - Paroxysmal atrial fibrillation Status: Acute Assessment and Plan: On bb and rivaroxaban at home. NSR per EKG. Continue bb and rivaroxaban. (7) Fall: Code(s): W19.XXXA - Unspecified fall, initial encounter Status: Acute Assessment and Plan: Will check CK with morning labs. -PT & OT ordered (8) Hypothyroidism: Code(s): E03.9 - Hypothyroidism, unspecified Status: Acute Assessment and Plan: Takes levothyroxine at home. Continue home medication. (9) Hypertension: Code(s): I10 - Essential (primary) hypertension Status: Acute Assessment and Plan: Takes clonidine and metoprolol at home. Continue home medications. Subjective Date/time seen: 12/20/21 09:12 Patient says she feels better. Denies chest pain, shortness of breath, palpitations, pain in her arm. Says her leg wounds are chronic and managed at home with aloevesta and some other cream. Plus she has home leg pumps she wears for 40 minutes and then wears compression stockings. Review of Systems Cardiovascular: Cardiovascular: Denies chest pain, Reports leg edema, Denies lightheadedness and Denies palpitations Respiratory: Respiratory: Reports dyspnea Exam Narrative: GENERAL: NAD, cooperative HEENT: Normocephalic, atraumatic, anicteric NECK: Supple CV: Normal S1, S2, RRR, No MRG RESP: CTAB, Normal work of breathing. EXTREMITIES: Warm and well perfused, no clubbing, cyanosis. Bilateral lower extremities with darkened skin and thick cobblestone feeling skin. No open wounds. SKIN: warm, dry and intact. NEURO: CN 2-12 grossly intact. Objective Data Vital Signs Vital Signs: Vital Signs - 24 hr 12/19/21 09:24 12/19/21 09:45 12/19/21 12:00 Temperature 97.7 F Pulse Rate 90 90 87 Respiratory Rate 18 Blood Pressure 125/51 L Pulse Oximetry 97 Oxygen Delivery Oxygen Flow Rate 12/19/21 12:00 12/19/21 10:30 12/19/21 13:00 Temperature 98.3 F Pulse Rate 85 88 Respiratory Rate 16 Blood Pressure 167/64 H Pulse Oximetry 95 100 Oxygen Delivery Nasal Cannula Oxygen Flow Rate 2 12/19/21 13:22 12/19/21 14:15 12/19/21 10:
[2021-12-20] MEDS: ATORVASTATIN 10 MG TABLET PO (13:45)
--- NOTE | 2021-12-20 14:20 | PCDIET ---
Received consult per pt request regarding weight loss maintenance. See nutrition intervention education.
--- NOTE | 2021-12-20 14:39 | PCNSR ---
On 12/20/21, the student, Pat Reyes, provided care and completed [facility] documentation on this patient. I have reviewed the student's documentation and agree with the findings.
[2021-12-20 15:05] LABS: Creatine Kinase 98 U/L (30-135)
[2021-12-20 16:57] LABS: Procalcitonin 1.4 ng/mL
[2021-12-21] VITALS (12 sets, daily range): BP systolic 145–156; BP diastolic 71–80; PULSE 55–84; RESP 14–20; TEMP 36.3–36.6; O2SAT 96–100
[2021-12-21 05:35] LABS: Basophils Percent Auto 0.4 % (0.2-1.2); Eosinophils Absolute Auto 0.1 K/mm3 (0-0.3); Eosinophils Percent Auto 0.7 % (0-4.4); Hematocrit 34.6 % (37.0-47.0); Hemoglobin 10.8 g/dL (12.0-15.0); Immature Granulocyte Absolute 0.09 K/mm3 (0.00-0.031); Lymphocytes Absolute Auto 1.62 K/mm3 (0.9-3.2); Mean Corpuscular HGB Conc 31.2 g/dl (32-36); Mean Corpuscular Hemoglobin 28.6 pg (26-34); Mean Corpuscular Volume 91.5 fl (80-100); Monocytes Absolute Auto 0.6 K/mm3 (0.1-0.6); Monocytes Percent Auto 7.1 % (2.6-8.5); Neutrophils Absolute Auto 6.6 K/mm3 (1.3-6.7); Neutrophils Percent Auto 72.8 % (45.5-73.1); Platelet Count Result 283 k/mm3 (150-375); Red Blood Count 3.78 M/mm3 (4.2-5.4)
[2021-12-21 05:47] LABS: Anion Gap 6 mmol/L (8-16); Blood Urea Nitrogen 31 mg/dL (7-17); Carbon Dioxide 35 mmol/L (22-30); Chloride 96 mmol/L (98-107); Estimated Glomerular Filt Rate 49; Glucose 105 mg/dL (65-110); Potassium 3.7 mmol/L (3.4-5.0); Sodium 137 mmol/L (137-145)
[2021-12-21 05:55] LABS: Hemoglobin A1C 5.6 % (<5.7)
[2021-12-21] MEDS: LEVOTHYROXINE SODIUM 25 MCG TABLET PO (06:11)
[2021-12-21] MEDS: cloNIDine HCL 0.1 MG TABLET PO ×2 (06:11→14:53)
[2021-12-21] MEDS: METOPROLOL TARTRATE 25 MG TABLET PO ×2 (06:12→14:53)
[2021-12-21] MEDS: GABAPENTIN 300 MG CAPSULE PO ×2 (06:12→14:54)
--- NOTE | 2021-12-21 08:53 | PM.DS ---
DS: Admitting Diagnosis Discharge Date 12/21/21 Admitting Diagnosis Chest pain DS: Discharge Diagnosis Discharge Diagnosis (1) Elevated troponin: Code(s): R77.8 - Other specified abnormalities of plasma proteins Status: Acute Assessment and Plan: Troponin elevation thought to be demand ischemia and not VA. Troponin downtrending. Echo w/ EF 63% w/ grade I diastolic dysfunction and biatrial enlargement. HFpEF. Patient improved with diuresis. -Continue bb, asa, statin (2) CHF (congestive heart failure): Code(s): I50.9 - Heart failure, unspecified Status: Acute Assessment and Plan: HFpEF with volume overload. Improved with diuresis. Furosemide discontinued due to mild elevation in creatinine. -Continue Jardiance -Replete lytes as needed (3) LIANNE (obstructive sleep apnea): Code(s): G47.33 - Obstructive sleep apnea (adult) (pediatric) Status: Acute Assessment and Plan: Continue home CPAP/BIPAP at home settings Patient had sleep study done 2 weeks ago and is still awaiting her CPAP (4) Obesity: Code(s): E66.9 - Obesity, unspecified Status: Acute Assessment and Plan: Hemoglobin a1c 5.6. (5) Leukocytosis: Code(s): D72.829 - Elevated white blood cell count, unspecified Status: Acute Assessment and Plan: Leukocytosis 16.4 on presentation. CXR with opacities in right lower lung that could be atelectasis vs pneumonia vs mild pulmonary edema. UA unremarkable. Afebrile. Given the elevated BNP and patient requiring oxygen, it is thought volume overload is like the cause. Leukocytosis resolved and procalcitonin is equivocal. Patient has remained afebrile. Blood cultures have no growth. Will defer antibiotics at this time. (6) PAF (paroxysmal atrial fibrillation): Code(s): I48.0 - Paroxysmal atrial fibrillation Status: Acute Assessment and Plan: On bb and rivaroxaban at home. NSR per EKG. Continue bb and rivaroxaban. (7) Fall: Code(s): W19.XXXA - Unspecified fall, initial encounter Status: Acute Assessment and Plan: CK 98. Physical and occupational therapy saw and evaluated the patient. Both determined the patient to be at baseline and in need of no additional therapy. (8) Hypothyroidism: Code(s): E03.9 - Hypothyroidism, unspecified Status: Acute Assessment and Plan: Takes levothyroxine at home. Continue home medication. (9) Hypertension: Code(s): I10 - Essential (primary) hypertension Status: Acute Assessment and Plan: Takes clonidine and metoprolol at home. Continue home medications. (10) Acute kidney injury: Code(s): N17.9 - Acute kidney failure, unspecified Status: Acute Assessment and Plan: Baseline creatinine ~ 0.8-1.0 and creatinine up to 1.1 this morning. Furosemide IV discontinued and patient advised to hold/not take furosemide until after having kidney function rechecked by primary care physician. DS: Summary Hospital Course Reason for hospitalization: Elevated troponin Hospital Course: 71F with a past medical history of chronic obstructive pulmonary disease, asthma, hypertension, lymphedema, obstructive sleep apnea, hyperlipidemia, depression, anxiety and paroxysmal atrial fibrillation on rivarixaban who was transferred to [facility] from [place] for an elevated troponin. Patinet was already established with Dr. Zamudio. Patient reported having shortness of brath for the past few days with orthopnea. Around 0415 the patient rolled out of bed and could not get up. She was transported to [place] ED. She reported leg weakness, nausea and vomiting. At [place] emergency department, patient was found to have a troponin of 919n/L and repeat was 1358.7 ng/L. Patient was transferred to [facility]. Troponin were 1.5 ng/m
[2021-12-21] MEDS: ATORVASTATIN 10 MG TABLET PO (09:25)
[2021-12-21] MEDS: DULoxetine HCL 30 MG CAPSULE.DR 90 MG PO (09:25)
[2021-12-21] MEDS: EMPAGLIFLOZIN 10 MG TABLET PO (09:25)
[2021-12-21] MEDS: ASPIRIN 81 MG CHEWABLE TABLET PO (09:25)
[2021-12-21] MEDS: FLUoxetine HCL 10 MG CAPSULE PO (09:25)
== END 2021-12-21 18:04 | disposition home health service (06) | DRG 291 ==
PROVIDERS: Nurse Practitioner; Student in an Organized Health Care Education/Training Program; Admitting Provider Family Medicine; PCP Family Medicine; Visit Provider Family Medicine
DX: I11.0 Hypertensive heart disease with heart failure (principal); I50.33 Acute on chronic diastolic (congestive) heart failure; I24.8 Other forms of acute ischemic heart disease; Z68.44 Body mass index [BMI] 60.0-69.9, adult; N17.9 Acute kidney failure, unspecified; G47.33 Obstructive sleep apnea (adult) (pediatric); I50.9 Heart failure, unspecified; E66.01 Morbid (severe) obesity due to excess calories; D72.829 Elevated white blood cell count, unspecified; I48.0 Paroxysmal atrial fibrillation; I89.0 Lymphedema, not elsewhere classified; W19.XXXA Unspecified fall, initial encounter; E03.9 Hypothyroidism, unspecified; J44.9 Chronic obstructive pulmonary disease, unspecified; E78.5 Hyperlipidemia, unspecified; F32.A Depression, unspecified; F41.8 Other specified anxiety disorders; F41.9 Anxiety disorder, unspecified; W06.XXXA Fall from bed, initial encounter; Z98.84 Bariatric surgery status; Z87.891 Personal history of nicotine dependence; Z90.710 Acquired absence of both cervix and uterus
CPT/HCPCS: 36415; 80048; 80053; 80061; 82550; 83036; 83735; 84145; 84484; 85025; 87040; 93005; 97161; 97165; A9270; C8929; J1940; Q9957

== ENCOUNTER 2022-01-18 12:23 | Outpatient (CLI) | payer MEDICARE, SELFPAY ==
--- NOTE | ~2022-01-18 | XR_ITS ---
EXAMINATION: XR chest 2V DATE: 01/18/2022 12:51 INDICATION: Congestive heart failure, shortness of breath TECHNIQUE: PA and lateral views of the chest are obtained. COMPARISON: 12/19/2021 FINDINGS: The lungs are free of acute opacities. No pleural effusion or pneumothorax. Cardiomegaly is noted. There is severe thoracic spondylosis. There is calcified atherosclerosis. IMPRESSION: 1. Cardiomegaly. Reviewed, dictated and finalized at location A. IMPRESSION: 1. Cardiomegaly.
[2022-01-18 12:54] LABS: Anion Gap 5 mmol/L (8-16); Blood Urea Nitrogen 30 mg/dL (7-18); Calcium 9.1 mg/dL (8.5-10.1); Carbon Dioxide 34 mmol/L (21-32); Chloride 102 mmol/L (98-108); Estimated Glomerular Filt Rate 42; Glucose 104 mg/dL (70-99); Osmolality Calculated 298 mOsm/kg (285-295); Potassium 4.2 mmol/L (3.5-5.1); Sodium 141 mmol/L (136-145)
== END 2022-01-18 12:24 | disposition home or self-care (01) ==
LOC: CHSLAB 12:26
PROVIDERS: PCP Family Medicine; Visit Provider Family Medicine
DX: I50.9 Heart failure, unspecified (principal); R06.00 Dyspnea, unspecified
CPT/HCPCS: 36415; 71046; 80048

== ENCOUNTER 2022-02-12 10:00 | Outpatient (RCR) | payer MEDICARE, MEDICAID, SELFPAY | END 2022-02-18 23:59 | disposition home or self-care (01) | LOC: CHSSENLIFE 10:00 | PROVIDERS: PCP Family Medicine; Visit Provider Psychiatry & Neurology Psychiatry | DX: F32.9 Major depressive disorder, single episode, unspecified (principal) | CPT/HCPCS: 90853; 99213; G0463 ==

== ENCOUNTER 2022-05-16 10:00 | Outpatient (RCR) | payer MEDICARE, MEDICAID, SELFPAY | END 2022-05-20 23:59 | disposition home or self-care (01) | LOC: CHSSENLIFE 10:00 | PROVIDERS: PCP Family Medicine; Visit Provider Psychiatry & Neurology Psychiatry | DX: F33.1 Major depressive disorder, recurrent, moderate (principal) | CPT/HCPCS: 90853; 99213; G0463 ==

== ENCOUNTER 2022-06-20 10:00 | Outpatient (RCR) | payer MEDICARE, MEDICAID, SELFPAY | END 2022-06-20 14:49 | disposition home or self-care (01) | LOC: CHSSENLIFE 10:00 | PROVIDERS: PCP Family Medicine; Visit Provider Psychiatry & Neurology Psychiatry | DX: F33.1 Major depressive disorder, recurrent, moderate (principal) | CPT/HCPCS: 90853; 99213; G0463 ==

== ENCOUNTER 2022-11-08 10:58 | Outpatient (CLI) | payer MEDICARE, MEDICAID, SELFPAY | END 2022-11-08 10:59 | disposition home or self-care (01) | LOC: CHSCARD 11:00 | PROVIDERS: PCP Family Medicine; Visit Provider Family Medicine | DX: J44.9 Chronic obstructive pulmonary disease, unspecified (principal); R94.2 Abnormal results of pulmonary function studies | CPT/HCPCS: 94060; 94726; 94729 ==

== ENCOUNTER 2022-11-14 09:24 | Outpatient (CLI) | payer MEDICARE, MEDICAID, SELFPAY ==
[2022-11-14 09:43] LABS: Appearance Urine Clear (Clear); Bilirubin Urine Negative (Negative); Blood Urine Negative (Negative); Color Urine Light Yellow (Yellow); Glucose Urine UA 3+ (Negative); Ketones Urine Negative (Negative); Leukocyte Esterase Ur 2+ (Negative); Nitrate Urine Negative (Negative); Protein Urine 1+ (Negative); Specific Grav Ur <= 1.005 (1.010-1.020); Urobilinogen Urine 0.2 mg/dL (0.2-1.0); pH Urine >=9.0 (5.0-8.0)
[2022-11-14 09:50] LABS: Occult Blood Negative (Negative)
[2022-11-14 09:50] LABS: Occult Blood Negative (Negative)
[2022-11-14 09:50] LABS: Occult Blood Negative (Negative)
[2022-11-14 09:56] LABS: Add Urine Microscopic? YES; Bacteria Urine 4+ /hpf; RBC Urine None seen /hpf (0-2); Squamous Epithelial Cell Urine Rare /hpf (Few)
== END 2022-11-14 09:25 | disposition home or self-care (01) ==
LOC: CHSLAB 09:31
PROVIDERS: PCP Family Medicine; Visit Provider Family Medicine
DX: D50.9 Iron deficiency anemia, unspecified (principal)
CPT/HCPCS: 81001; 82272; 90853; 99213; G0463

== ENCOUNTER 2022-12-02 10:00 | Outpatient (RCR) | payer MEDICARE, MEDICAID, SELFPAY | END 2022-12-04 23:59 | disposition home or self-care (01) | LOC: CHSSENLIFE 10:00 | PROVIDERS: PCP Family Medicine; Visit Provider Psychiatry & Neurology Psychiatry | DX: F33.2 Major depressive disorder, recurrent severe without psychotic features (principal) | CPT/HCPCS: 90792; 90853; 99213; G0463 ==

== ENCOUNTER 2022-12-31 11:01 | Outpatient (CLI) | payer MEDICARE, MEDICAID, SELFPAY ==
--- NOTE | ~2022-12-31 | XR_ITS ---
Right Knee Technique: AP, lateral, and oblique views were obtained. Clinical History: Pain Findings: No fracture or dislocation is seen. There is medial compartment narrowing with medial joint line osteophyte formation. There is mild osteophyte formation at the lateral joint line and patella. Diffuse subcutaneous soft tissue edema noted. No joint effusion is seen. Impression: Moderate medial compartment degenerative change, and mild degenerative change of the lateral and horvath llofemoral compartment. Diffuse subcutaneous soft tissue edema. Reviewed, dictated and finalized at location M. Impression: Moderate medial compartment degenerative change, and mild degenerative change o f the lateral and patellofemoral compartment. Diffuse subcutaneous soft tissue edema.
--- NOTE | ~2022-12-31 | XR_ITS ---
Left Knee Technique: AP, lateral, and oblique views were obtained. Clinical History: Pain Findings: No fracture or dislocation is seen. There is severe degenerative change of the medial juan rtment with joint space narrowing and osteophyte formation. There is moderate degenerative change of the lateral and patellofemoral compartment with osteophyte formation. Soft tissues are unremarkable. No joint effusion is seen. Impression: Advanced tricompartmental osteoarthritis, as detailed above, severe in the medial compartment, modera te in the lateral and patellofemoral compartments. Reviewed, dictated and finalized at location M. Impression: Advanced tricompartmental osteoarthritis, as detailed above, severe in the medi al compartment, moderate in the lateral and patellofemoral compartments.
== END 2022-12-31 11:02 | disposition home or self-care (01) ==
LOC: CHSIMG 11:05
PROVIDERS: PCP Family Medicine; Visit Provider Nurse Practitioner Family
DX: M25.561 Pain in right knee (principal); M25.562 Pain in left knee; M79.89 Other specified soft tissue disorders; M17.0 Bilateral primary osteoarthritis of knee
CPT/HCPCS: 73562

== ENCOUNTER 2023-02-04 09:45 | Outpatient (CLI) | payer MEDICARE, MEDICAID, SELFPAY ==
[2023-02-04 10:04] LABS: Basophils Absolute Auto 0.04 K/mm3 (0.00-0.10); Basophils Percent Auto 0.6 % (0.0-1.0); Eosinophils Absolute Auto 0.21 K/mm3 (0.02-0.50); Eosinophils Percent Auto 2.9 % (1.0-6.0); Hematocrit 40.4 % (35.0-42.0); Hemoglobin 11.9 g/dL (11.7-13.8); Immature Granulocyte Absolute 0.03 K/mm3 (0.00-0.00); Immature Granulocyte Percent A 0.4 % (0.0-0.0); Immature Reticulocyte Fraction 22.4 % (2.0-16.52); Lymphocytes Absolute Auto 1.03 K/mm3 (1.10-4.50); Lymphocytes Percent Auto 14.3 % (18.0-42.0); Mean Corpuscular HGB Conc 29.5 g/dL (32.0-36.0); Mean Corpuscular Hemoglobin 28.8 pg (27.0-31.0); Mean Corpuscular Volume 97.8 fL (78.0-102.0); Mean Platelet Volume 9.7 fl (9.2-11.8); Monocytes Absolute Auto 0.44 K/mm3 (0.10-0.90); Monocytes Percent Auto 6.1 % (2.0-11.0); Neutrophils Absolute Auto 5.4 K/mm3 (1.7-7.2); Neutrophils Percent Auto 75.7 % (50.0-70.0); Platelet Count Result 269 K/mm3 (150-420); Red Blood Count 4.13 M/mm3 (4.20-5.40); Red Cell Distribution Width 16.1 % (11.6-14.4); Reticulocyte Hemoglobin Conten 29.1 pg (28.0-35.0); Reticulocytes Absolute 0.08 M/mm3 (0.02-0.1); White Blood Count 7.2 K/mm3 (4.8-10.8)
[2023-02-04 10:50] LABS: Ferritin 49 ng/mL (8-252); Iron 31 ug/dL (50-170); Percent Iron Saturation 10 % (12-57)
== END 2023-02-04 09:46 | disposition home or self-care (01) ==
PROVIDERS: PCP Family Medicine; Visit Provider Family Medicine
DX: D50.9 Iron deficiency anemia, unspecified (principal)
CPT/HCPCS: 36415; 82728; 83540; 83550; 85025; 85046; 90853

== ENCOUNTER 2023-03-04 10:00 | Outpatient (RCR) | payer MEDICARE, MEDICAID, SELFPAY | END 2023-03-05 23:59 | disposition home or self-care (01) | LOC: CHSSENLIFE 10:00 | PROVIDERS: PCP Family Medicine; Visit Provider Psychiatry & Neurology Psychiatry | DX: F33.2 Major depressive disorder, recurrent severe without psychotic features (principal) | CPT/HCPCS: 90853; 99213; G0463 ==

== ENCOUNTER 2023-05-13 12:46 | Outpatient (CLI) | payer MEDICARE, MEDICAID, SELFPAY ==
[2023-05-13 15:00] VITALS: PULSE 89; O2SAT 98
[2023-05-13 15:05] VITALS: PULSE 90; O2SAT 87
[2023-05-13 15:06] VITALS: PULSE 109; O2SAT 91
[2023-05-13 15:15] VITALS: PULSE 93; O2SAT 96
--- NOTE | 2023-05-13 16:12 | HOMEO2EVAL ---
Evaluation was performed at [facility] Home Oxygen Evaluation RC: Home Oxygen (O2) Evaluation Start: 05/13/23 16:07 Freq: Status: Active Protocol: RPE Activity Type Activity Date Activity User E-sign Co-sign Detail Recorded Client Recorded Date Recorded By Document 05/13/23 15:00 DAYANA [id number] 05/13/23 16:12 DAYANA Document 05/13/23 15:05 DAYANA [id number] 05/13/23 16:12 DAYANA Document 05/13/23 15:06 DAYANA [id number] 05/13/23 16:12 DAYANA Document 05/13/23 15:15 DAYANA [id number] 05/13/23 16:12 DAYANA 05/13/23 05/13/23 05/13/23 15:00 15:05 15:06 Home O2 Evaluation [Oxygen] -Test Phase Resting Exercise Exercise -Oxygen Delivery Room Air Room Air Nasal Cannula -Oxygen Flow Rate (L/min) 2 [Pulse Oximetry] -Pulse Oximetry (90-100 %) 98 87 L 91 [Pulse Rate] -Pulse Rate (60-100 beats/min) 89 90 109 H [Comments] -Home Oxygen Evaluation Comments PT REQUIRES 2 L WITH ACTIVITY 05/13/23 15:15 Home O2 Evaluation [Oxygen] -Test Phase Resting -Oxygen Delivery Room Air -Oxygen Flow Rate (L/min) [Pulse Oximetry] -Pulse Oximetry (90-100 %) 96 [Pulse Rate] -Pulse Rate (60-100 beats/min) 93 [Comments] -Home Oxygen Evaluation Comments
--- NOTE | 2023-05-14 12:31 | WPDPFTINT ---
PFT Procedure Performed PFT Procedure Performed Spirometry with Pre/Post Bronchodilator Diffusing Cap (DLCO) Flow Vol Loop PFT Interpretation This is a pulmonary function test with pre and post-bronchodilator spirometry, and diffusing capacity. The test was performed and results interpreted in accordance with the 2019 and 2005 ATS/ERS Task Force guidelines respectively using the Global Lung Function Initiative-2012 reference equations. Patient demonstrated good effort and cooperation. Reproducibility criteria were met. The quality of the pre bronchodilator spirometry maneuver was Grade A and post bronchodilator spirometry maneuver was Grade A. Unable to perform plethysmography testing due to inability to use body box. Findings: Spirometry: There is decreased maximal expiratory airflow at low lung volumes with concave expiratory flow tracing. The contour the inspiratory flow tracing is normal. The pre bronchodilator FVC is 1.13 L, 49% predicted. The pre bronchodilator FEV1 is 0.82 L, 45% predicted. The pre bronchodilator FEV1: FVC ratio 72%. The post bronchodilator FVC is 1.20 L, representing a 6% increase. The post bronchodilator FEV1 is 0.94 L, representing 120 mL increase which corresponds to a 16% increase. The post bronchodilator FEV1: FVC ratio 78%. Diffusing capacity: The diffusing capacity unadjusted for hemoglobin and carboxyhemoglobin is 12.2, 67% predicted. The diffusing capacity adjusted for alveolar volume is 5.98, 133% predicted. In comparison to previous pulmonary function testing on 11/08/2022 the post bronchodilator FVC is unchanged from 1.28 L to 1.20 L. The post bronchodilator FEV1 is unchanged from 0.96 L to 0.94 L. the diffusing capacity unadjusted for hemoglobin and carboxyhemoglobin is unchanged from 12.6 to 12.2. The diffusing capacity adjusted for alveolar volume is unchanged from 5.76 to 5.98. Of note the total lung capacity was 3.41 L, 90% predicted, the residual volume was 2.04 L, 133% predicted and the functional residual capacity was 2.32 L, 253% predicted. Impression: The spirometry is normal without evidence of an obstructive abnormality. The lung volumes were normal on previous PFTs on 11/08/2022. The FVC and FEV1 are severely decreased without an obstructive or restrictive abnormality. This is an abnormal but nonspecific finding. There is no significant improvement after inhaling a single dose of albuterol. The diffusing capacity unadjusted for hemoglobin and carboxyhemoglobin is normal and is increased when adjusted for alveolar volume. In comparison to previous pulmonary function testing on 11/08/2022 there has been no significant change in the FVC, FEV1 or diffusing capacity.
== END 2023-05-13 12:47 | disposition home or self-care (01) ==
LOC: ANHPFT 12:48
PROVIDERS: PCP Family Medicine; Visit Provider Physician Assistant
DX: J44.9 Chronic obstructive pulmonary disease, unspecified (principal)
CPT/HCPCS: 94060; 94729

== ENCOUNTER 2023-06-03 10:00 | Outpatient (RCR) | payer MEDICARE, MEDICAID, SELFPAY ==
--- NOTE | 2023-04-08 09:12 | PC.NURSE ---
The patient called and reported she was ill and would not be attending her scheduled group session today.
[2023-04-10 09:04] VITALS: BP 117/68; PULSE 81; RESP 20; TEMP 36.4; O2SAT 90
--- NOTE | 2023-04-10 09:28 | PC.NURSE ---
No nursing group today due to MD visit.
[2023-04-15 10:23] VITALS: BP 123/67; PULSE 85; RESP 20; TEMP 36.8; O2SAT 90
--- NOTE | 2023-04-17 09:20 | PC.NURSE ---
No nursing group today due to MD visit.
[2023-04-17 10:14] VITALS: BP 129/73; PULSE 78; RESP 20; TEMP 36.4; O2SAT 92
[2023-04-21 10:20] VITALS: BP 141/100; PULSE 84; RESP 20; TEMP 36.6; O2SAT 90
[2023-04-22 11:03] VITALS: BP 129/73; PULSE 78; RESP 20; TEMP 36.4; O2SAT 92
[2023-04-22 11:07] VITALS: BP 129/73; PULSE 78; RESP 20; TEMP 36.4; O2SAT 92
--- NOTE | 2023-04-23 09:13 | PC.NURSE ---
No nursing group due to MD visit.
[2023-04-23 10:10] VITALS: BP 129/65; PULSE 73; RESP 20; TEMP 36.3
--- NOTE | 2023-04-23 12:03 | WPDSLSPROGRE ---
Progress HPI Progress HPI Visit Attended By patient and staff History Obtained From patient Chief Complaint 3 week f/u for depression HPI This is a routine follow-up. Patient continues to enjoy the program and participates well. In therapy she is working on issues such as coping skills and communication. She is on Prozac 10 mg q.a.m. and Cymbalta 90 mg q.a.m.. No recent falls. Patient plans to spend a quiet Thanksgiving with family. Still experiencing middle insomnia, mainly due to a poorly fitting CPAP mask. And she is waiting for a chin strap for it. Pleasant and cooperative, appropriately dressed and groomed, motor activity impaired secondary to physical limitations; patient is in a wheelchair. Concentration is fair. Appetite is good. Average Number of Hours of Sleep 7 Sleep Quality frequent awakening Change in PMFSH Releveant to Presenting Illness No Review of Systems Review of Systems Constitutional Reports denies change (obesity, hypothyroidism) Eyes Reports WNL ENT Reports WNL (LIANNE) Respiratory Reports WNL (LIANNE, COPD) Cardiovascular Reports WNL (atrial fibrillation, CHF, hypertension) Gastrointestinal Reports WNL Musculoskeletal Reports abnormal gait, Reports assistive device, Reports diminished strength and Reports muscle stiffness (osteoarthritis, chronic pain) Neurologic Reports WNL Skin Reports WNL ADL's Reports independent Exam Physical Exam Review of Lab Studies n/a Significant Lab Findings n/a Hygiene good General Behavior/Attitude Toward Examiner pleasant and cooperative Pain Yes Pain Location generalized Pain Characteristics chronic and aching Psychiatric Exam Level of Consciousness alert Orientation person, place, time and situation Speech normal rate/tone/volume/prosody and coherent Language able to comprehend questions Mood less depressed Affect full range, appropriate and congruent Thought Processes/Form logical, linear and goal directed Thought Content decreased depressive symptoms Delusions none Homicidal/Assaultive Ideation none Suicidal Ideation none Hallucinations none Attention/Concentration focused Attention/Concentration Testing Methods observation/interview Short Term Memory Impairment none STM Testing Methods clinical interview (assessment/observation) Prison Memory Impairment none LTM Testing Methods recall of biographical information Intellectual Functioning roughly average Intellectual Functioning Assessed By current events Insight fair Insight Assessed By ability to recognize & acknowledge mental illness, ability to understand the implications of mental illness, understanding of treatment options and ability to comply with treatment Judgement fair Judgement Assessed By exploring recent decision-making MMSE n/a Patient Assets Patient is willing to accept treatment Patient Liabilities patient has multiple medical issues Assessment and Plan Clinical Impression/Diag Clinical Impression/Diagnosis F 33.2, progressing well Progress Overview Reason for Continued Services in an Intensive Outpatient Program patient would decompenste at a lower level of care, not at baseline level of functioning and high risk for relapse Treatment To Be Provided medication management and group/individual/rec therapy Discharge Disposition/Level of Care PCP Anticipated Discharge 8-12 weeks Certification Statement Certification Statement I believe this patient requires the services of the Intensive Outpatient Program and that there is reasonable expectation that the patient will make timely and significant practical improvement in the presenting acute symptoms as a result of this Intensive Outpatient Program. I do not believe this patient will benefit from a lesser level of care or could be adeq
[2023-04-29 10:24] VITALS: BP 140/73; PULSE 72; RESP 20; TEMP 36.3; O2SAT 90
[2023-05-01 09:07] VITALS: BP 137/85; PULSE 102; RESP 20; TEMP 36.4; O2SAT 90
--- NOTE | 2023-05-01 09:22 | PC.NURSE ---
No nursing group today due to MD visit.
--- NOTE | 2023-05-06 08:24 | PC.NURSE ---
The patient will not be attending her group session today due to not calling for transportation.
--- NOTE | 2023-05-08 08:23 | PC.NURSE ---
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 No group session scheduled for today.
--- NOTE | 2023-05-09 10:18 | PC.NURSE ---
The patient has a MD appointment on 05/13/23 and will not be able to attend her scheduled group day.
--- NOTE | 2023-05-15 09:16 | PC.NURSE ---
No nursing group today due to MD visit.
[2023-05-15 10:16] VITALS: BP 140/77; PULSE 82; RESP 20; TEMP 36.7; O2SAT 91
--- NOTE | 2023-05-15 11:19 | WPDSLSPROGRE ---
Progress HPI Progress HPI Visit Attended By patient and staff History Obtained From patient Chief Complaint 3 week f/u for depression HPI this is a routine follow-up. Patient continues to enjoy the program participates well. She is not especially looking forward to , as she enjoyed watching her children open their presents on morning when they were children, and now they are all grown up. She will still get to visit with family over the holidays however and hopefully get to spend time with her great grandchildren. Patient remains on Prozac 10 mg q.a.m. and Cymbalta 90 mg q.a.m.. No recent falls. She is complaining about waking up at night, she does have LIANNE and is still waiting on a chin strap for her mask. In therapy she is working on navigating the holidays, self-care, etc.. Appetite is good. Of note is that she is now on oxygen part of the day. Average Number of Hours of Sleep 7 Sleep Quality frequent awakening Change in PMFSH Releveant to Presenting Illness Yes Describe Changes in PMFSH on Review of Systems Review of Systems Constitutional Reports denies change (obesity, hypothyroidism) Eyes Reports WNL ENT Reports WNL (LIANNE) Respiratory Reports WNL (LIANNE, COPD) Cardiovascular Reports WNL (atrial fibrillation, CHF, hypertension) Gastrointestinal Reports WNL Musculoskeletal Reports abnormal gait, Reports assistive device, Reports diminished strength and Reports muscle stiffness (osteoarthritis, chronic pain) Neurologic Reports WNL Skin Reports WNL ADL's Reports WNL and Reports independent Exam Physical Exam Review of Lab Studies n/a Significant Lab Findings n/a Hygiene good General Behavior/Attitude Toward Examiner pleasant and cooperative Pain Yes Pain Location generalized Pain Characteristics chronic and aching Psychiatric Exam Level of Consciousness alert Orientation person, place, time and situation Speech normal rate/tone/volume/prosody and coherent Language able to comprehend questions Mood less depressed Affect full range, appropriate and congruent Thought Processes/Form logical, linear and goal directed Thought Content diminished depressive symptoms Delusions none Homicidal/Assaultive Ideation none Suicidal Ideation none Hallucinations none Attention/Concentration focused Attention/Concentration Testing Methods observation/interview Short Term Memory Impairment none STM Testing Methods clinical interview (assessment/observation) Shelter Memory Impairment none LTM Testing Methods recall of biographical information Intellectual Functioning roughly average Intellectual Functioning Assessed By fund of knowledge and current events Insight fair and improving Insight Assessed By ability to recognize & acknowledge mental illness, ability to understand the implications of mental illness, understanding of treatment options and ability to comply with treatment Judgement fair and improving Judgement Assessed By exploring recent decision-making MMSE n/a Patient Assets Patient is willing to accept treatment Patient Liabilities multiple medical issues Assessment and Plan Clinical Impression/Diag Clinical Impression/Diagnosis F 33.2, progressing well Progress Overview Reason for Continued Services in an Intensive Outpatient Program continued impaired mood and.or depression, patient would decompenste at a lower level of care and not at baseline level of functioning Treatment To Be Provided medication management and group/individual/rec therapy Discharge Disposition/Level of Care PCP Anticipated Discharge 8-12 weeks Certification Statement Certification Statement I believe this patient requires the services of the Intensive Outpatient Program and that there is reasonable expectatio
[2023-05-20 09:23] VITALS: BP 139/91; PULSE 86; RESP 20; TEMP 36.1; O2SAT 96
--- NOTE | 2023-05-22 08:48 | PC.NURSE ---
No nursing group due to MD visit.
[2023-05-22 14:38] VITALS: BP 133/74; PULSE 85; RESP 20; TEMP 36.2; O2SAT 94
[2023-05-27 09:05] VITALS: BP 114/86; PULSE 87; RESP 20; TEMP 36.2; O2SAT 90
--- NOTE | 2023-05-29 09:00 | PC.NURSE ---
The patient's daughter called and let this nurse know that Dinora would not be attending her group session today due to a mix up with her transportation.
[2023-06-03 10:41] VITALS: BP 142/64; PULSE 72; RESP 20; TEMP 36.6; O2SAT 90
== END 2023-06-04 23:59 | disposition home or self-care (01) ==
LOC: CHSSENLIFE 10:00
PROVIDERS: PCP Family Medicine; Visit Provider Psychiatry & Neurology Psychiatry
DX: F33.2 Major depressive disorder, recurrent severe without psychotic features (principal)
CPT/HCPCS: 90853; 99213; G0463

== ENCOUNTER 2023-06-13 11:01 | Emergency (ER) | payer MEDICARE, MEDICAID, SELFPAY ==
[2023-06-13] VITALS (19 sets, daily range): BP systolic 104–150; BP diastolic 64–84; PULSE 62–76; RESP 12–20; TEMP 36.2; O2SAT 96–100
--- NOTE | ~2023-06-13 | XR_ITS ---
Portable chest x-ray Comparison: 01/18/2022 Clinical History: Shortness of breath Findings: Minimal bibasilar haziness could represent minimal pulmonary edema. Cardiomediastinal niels houette is stable. Bones and soft tissues are unremarkable. Impression: Possible minimal bibasilar pulmonary edema. Reviewed, dictated and finalized at [facility]. [place] Impression: Possible minimal bibasilar pulmonary edema.
--- NOTE | 2023-06-13 11:07 | ECG_ITS ---
Measurements Intervals [place] Rate: 64 P: 62 IA: 176 QRS: 105 QRSD: 88 T: 60 QT: 413 QTc: 426 Interpretive Statements SINUS RHYTHM WITH SINUS ARRHYTHMIA RIGHT AXIS DEVIATION BORDERLINE ECG COMPARED TO ECG 12/20/2021 10:12:16 NO SIGNIFICANT CHANGES Electronically Signed On 06-13-2023 11:44:11 [employer] by Jani Zamudio D.O.
[2023-06-13 11:24] LABS: Basophils Absolute Auto 0.03 K/mm3 (0.00-0.10); Basophils Percent Auto 0.4 % (0.0-1.0); Eosinophils Absolute Auto 0.25 K/mm3 (0.02-0.50); Eosinophils Percent Auto 3.1 % (1.0-6.0); Hematocrit 44.4 % (35.0-42.0); Hemoglobin 12.9 g/dL (11.7-13.8); Immature Granulocyte Absolute 0.04 K/mm3 (0.00-0.00); Immature Granulocyte Percent A 0.5 % (0.0-0.0); Lymphocytes Absolute Auto 0.92 K/mm3 (1.10-4.50); Lymphocytes Percent Auto 11.3 % (18.0-42.0); Mean Corpuscular HGB Conc 29.1 g/dL (32.0-36.0); Mean Corpuscular Hemoglobin 29.3 pg (27.0-31.0); Mean Corpuscular Volume 100.7 fL (78.0-102.0); Mean Platelet Volume 9.4 fl (9.2-11.8); Monocytes Absolute Auto 0.51 K/mm3 (0.10-0.90); Monocytes Percent Auto 6.3 % (2.0-11.0); Neutrophils Absolute Auto 6.4 K/mm3 (1.7-7.2); Neutrophils Percent Auto 78.4 % (50.0-70.0); Platelet Count Result 245 K/mm3 (150-420); Red Blood Count 4.41 M/mm3 (4.20-5.40); White Blood Count 8.2 K/mm3 (4.8-10.8)
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
[2023-06-13] MEDS: methylPREDNISolone SOD SUCC 125 MG VIAL IV PUSH (11:39)
[2023-06-13 11:43] LABS: Lactic Acid Reflex 1.6 mmol/L (0.4-2.0)
[2023-06-13 11:54] LABS: Alanine Aminotransferase 15 U/L (14-59); Albumin Level 2.5 g/dL (3.4-5.0); Alkaline Phosphatase 110 U/L (46-116); Anion Gap 4 mmol/L (8-16); Aspartate Amino Transferase 12 U/L (15-37); Bilirubin,Total 0.5 mg/dL (0.00-1.00); Blood Urea Nitrogen 15 mg/dL (7-18); Calcium 8.5 mg/dL (8.5-10.1); Carbon Dioxide 37 mmol/L (21-32); Chloride 104 mmol/L (98-108); Estimated Glomerular Filt Rate 60; Glucose 94 mg/dL (70-99); Magnesium 1.9 mg/dL (1.8-2.4); NT Pro B Type Natriuretic Pept 1330 pg/mL (0-125); Osmolality Calculated 300 mOsm/kg (285-295); Potassium 4.3 mmol/L (3.5-5.1); Sodium 145 mmol/L (136-145); Total Protein 6.9 g/dL (6.4-8.2); Troponin I 47.4 ng/L (0.00-60.4)
[2023-06-13] MEDS: LEVALBUTEROL NEB 1.25 MG/3 ML INHALATION (12:01)
[2023-06-13] MEDS: FUROSEMIDE INJ 40 MG/4 ML VIAL IV PUSH (12:51)
[2023-06-13 13:04] LABS: Bilirubin Urine Negative (Negative); Blood Urine Negative (Negative); Color Urine Yellow (Yellow); Glucose Urine UA 3+ (Negative); Ketones Urine Negative (Negative); Leukocyte Esterase Ur Negative LEU/UL (Negative); Nitrate Urine Positive (Negative); Protein Urine Trace (Negative); Specific Grav Ur 1.025 (1.010-1.020); Urobilinogen Urine 0.2 mg/dL (0.2-1.0)
[2023-06-13 13:11] LABS: Add Urine Microscopic? YES; Appearance Urine Slightly Cloudy (Clear); RBC Urine None seen /hpf (0-2); Squamous Epithelial Cell Urine Few /hpf (Few); WBC Urine 21-30 /hpf (0-3)
[2023-06-13 13:12] LABS: Bacteria Urine 3+ /hpf
--- NOTE | 2023-06-15 12:26 | PC.NURSE ---
pt urine culture reviewed. rx doxycycline 100mg bid for [address] galvin reviewed. no change with abt at this time.
== END 2023-06-13 13:04 | disposition home or self-care (01) ==
PROVIDERS: Emergency Provider Family Medicine; PCP Family Medicine
DX: J44.0 Chronic obstructive pulmonary disease with (acute) lower respiratory infection (principal); J20.9 Acute bronchitis, unspecified; I11.0 Hypertensive heart disease with heart failure; I50.9 Heart failure, unspecified; I48.0 Paroxysmal atrial fibrillation; Z99.81 Dependence on supplemental oxygen; Z87.891 Personal history of nicotine dependence; Z79.01 Long term (current) use of anticoagulants; Z79.899 Other long term (current) drug therapy
CPT/HCPCS: 36415; 71045; 80053; 81001; 83605; 83735; 83880; 84484; 85025; 85380; 87077; 87086; 87088; 87186; 93005; 94640; 96374; 96375; 99284; J1940; J2930

== ENCOUNTER 2023-09-02 10:00 | Outpatient (RCR) | payer MEDICARE, MEDICAID, SELFPAY ==
[2023-06-05 00:02] VITALS: BP 142/64; PULSE 72; RESP 20; TEMP 36.6; O2SAT 90
[2023-06-05 09:02] VITALS: BP 140/83; PULSE 74; RESP 20; TEMP 36.6; O2SAT 90
--- NOTE | 2023-06-05 09:21 | PC.NURSE ---
No nursing group due to MD visit.
[2023-06-10 10:24] VITALS: BP 145/66; PULSE 67; RESP 20; TEMP 36.4; O2SAT 90
--- NOTE | 2023-06-12 09:06 | PC.NURSE ---
No nursing group today due to MD visit.
[2023-06-12 10:29] VITALS: BP 140/83; PULSE 78; RESP 20; TEMP 36.9; O2SAT 90
--- NOTE | 2023-06-12 12:24 | WPDSLSPROGRE ---
Progress HPI Progress HPI Visit Attended By patient and staff History Obtained From patient Chief Complaint routine follow-up HPI this is a 6 week follow-up. Patient has been absent mainly due to illness. Today she is having difficulty breathing and is wheezing. She says that she has an appointment to see her apron man on Friday. Patient is experiencing some stress today as a result of that. She says just shoot me but denies any active suicidal thoughts or plan. Is glad Magda is over, said that she had a quiet holiday. Patient continues on Prozac 10 mg q.a.m. and Cymbalta 90 mg q.a.m.. She also still waiting on a mask for her CPAP. Not sleeping well recently. Average Number of Hours of Sleep 4 Sleep Quality frequent awakening Change in PMFSH Releveant to Presenting Illness Yes Describe Changes in PMFSH as above Review of Systems Review of Systems Constitutional Reports other ( Obesity, hypothyroidism) Eyes Reports WNL ENT Reports other (LIANNE) Respiratory Reports SOB and other ( wheezing) Cardiovascular Reports other ( atrial fibrillation, CHF, hypertension) Gastrointestinal Reports WNL Musculoskeletal Reports abnormal gait, Reports assistive device, Reports diminished strength, Reports muscle stiffness and Reports other ( osteoarthritis, chronic pain) Neurologic Reports WNL Skin Reports WNL ADL's Reports independent Exam Physical Exam Review of Lab Studies n/a Hygiene good General Behavior/Attitude Toward Examiner pleasant and cooperative Pain Yes Pain Location generalized Pain Characteristics chronic and aching Psychiatric Exam Level of Consciousness alert Orientation person, place, time and situation Speech normal rate/tone/volume/prosody and coherent Language able to comprehend questions Mood depressed Affect blunted, appropriate and congruent Thought Processes/Form logical, linear and goal directed Thought Content depressive symptoms Delusions none Homicidal/Assaultive Ideation none Suicidal Ideation none Hallucinations none Attention/Concentration focused Attention/Concentration Testing Methods observation/interview Short Term Memory Impairment none STM Testing Methods clinical interview (assessment/observation) Customer Loyalty Representative Memory Impairment none LTM Testing Methods recall of biographical information Intellectual Functioning roughly average Intellectual Functioning Assessed By current events Insight fair Insight Assessed By ability to recognize & acknowledge mental illness, ability to understand the implications of mental illness, understanding of treatment options and ability to comply with treatment Judgement fair Judgement Assessed By exploring recent decision-making MMSE n/a Patient Assets patient is willing to accept treatment Patient Liabilities patient has multiple medical issues Assessment and Plan Clinical Impression/Diag Clinical Impression/Diagnosis F 33.2, increase in respiratory symptoms. continue IOP, monitor meds, will follow-up with apron man Progress Overview Reason for Continued Services in an Intensive Outpatient Program continued impaired mood and.or depression, patient would decompenste at a lower level of care, not at baseline level of functioning and high risk for relapse Treatment To Be Provided medication management and group/individual/rec therapy Discharge Disposition/Level of Care PCP Anticipated Discharge 8-12 weeks Certification Statement Certification Statement I believe this patient requires the services of the Intensive Outpatient Program and that there is reasonable expectation that the patient will make timely and significant practical improvement in the presenting acute symptoms as a result of this Intensive Outpatient Program. I do not believe this
--- NOTE | 2023-06-18 11:18 | PC.NURSE ---
The patient will only be attending one group day this week due to weather cancellation.
[2023-06-19 10:13] VITALS: BP 127/88; PULSE 80; RESP 20; TEMP 36.4; O2SAT 90
--- NOTE | 2023-06-19 10:58 | PC.NURSE ---
No nursing group due to MD visit.
[2023-06-24 10:40] VITALS: BP 130/58; PULSE 82; RESP 20; TEMP 36.8; O2SAT 90
--- NOTE | 2023-06-26 09:32 | PC.NURSE ---
No nursing group due to MD visit.
[2023-06-26 10:03] VITALS: BP 115/84; PULSE 75; RESP 20; TEMP 36.7; O2SAT 90
--- NOTE | 2023-07-01 13:49 | SLSTHERAPY ---
Phone call to Dinora following NS for 07/01/2023 group sessions; no answer; voicemail message left requesting Dinora contact [facility] staff. [phone]
--- NOTE | 2023-07-03 09:53 | PC.NURSE ---
No nursing group due to MD visit.
[2023-07-03 10:21] VITALS: BP 144/78; PULSE 87; RESP 20; TEMP 37.1; O2SAT 90
--- NOTE | 2023-07-03 12:07 | WPDSLSPROGRE ---
Progress HPI Progress HPI Visit Attended By patient and staff History Obtained From patient Chief Complaint follow-up for depression and anxiety HPI this is a routine follow-up. Patient enjoys the program participates well. She is working on issues such as coping skills, anxiety reduction, etc.. Shortly after I saw her at our last visit she ended up in the ER with bronchitis and was placed on antibiotics. She has since completed these and today seems much better. Patient continues on Prozac 10 mg q.a.m. and Cymbalta 90 mg q.a.m.. She finally got a mask for her CPAP that works for her and she is sleeping much better. Average Number of Hours of Sleep 8 Sleep Quality sleep throughout the night Change in PMFSH Releveant to Presenting Illness Yes Describe Changes in PMFSH as above Review of Systems Review of Systems Constitutional Reports other ( obesity, hypothyroidism) Eyes Reports WNL ENT Reports other ( LIANNE) Respiratory Reports other ( bronchitis, resolved) Cardiovascular Reports other ( atrial fibrillation, CHF, hypertension) Gastrointestinal Reports WNL Musculoskeletal Reports abnormal gait, Reports assistive device, Reports diminished strength, Reports muscle stiffness and Reports other ( osteoarthritis, chronic pain) Neurologic Reports WNL Skin Reports WNL ADL's Reports WNL Exam Physical Exam Review of Lab Studies no Hygiene good General Behavior/Attitude Toward Examiner pleasant and cooperative Pain Yes Pain Location generalized Pain Characteristics aching Psychiatric Exam Level of Consciousness alert Orientation person, place, time and situation Speech normal rate/tone/volume/prosody and coherent Language able to comprehend questions Mood less depressed Affect full range, appropriate and congruent Thought Processes/Form logical, linear and goal directed Thought Content diminished depressive symptoms Delusions none Homicidal/Assaultive Ideation none Suicidal Ideation none Hallucinations none Attention/Concentration focused Attention/Concentration Testing Methods observation/interview Short Term Memory Impairment none STM Testing Methods clinical interview (assessment/observation) Group Underwriter Memory Impairment none LTM Testing Methods recall of biographical information Intellectual Functioning roughly average Intellectual Functioning Assessed By current events Insight fair and improving Insight Assessed By ability to recognize & acknowledge mental illness, ability to understand the implications of mental illness, understanding of treatment options and ability to comply with treatment Judgement fair Judgement Assessed By exploring recent decision-making and exploring solutions to hyothetical situations/practical dilemmas MMSE n/a Patient Assets patient is willing to accept treatment Patient Liabilities multiple medical illnesses Assessment and Plan Clinical Impression/Diag Clinical Impression/Diagnosis F 33.2, progressing well Progress Overview Reason for Continued Services in an Intensive Outpatient Program continued impaired mood and.or depression, patient would decompenste at a lower level of care, not at baseline level of functioning and high risk for relapse Treatment To Be Provided medication management and group/individual/rec therapy Discharge Disposition/Level of Care PCP Anticipated Discharge 8-12 weeks Certification Statement Certification Statement I believe this patient requires the services of the Intensive Outpatient Program and that there is reasonable expectation that the patient will make timely and significant practical improvement in the presenting acute symptoms as a result of this Intensive Outpatient Program. I do not believe this patient will benefit from a lesser level of care or c
[2023-07-08 10:25] VITALS: BP 143/71; PULSE 74; RESP 20; TEMP 36.6; O2SAT 91
--- NOTE | 2023-07-10 09:28 | PC.NURSE ---
No nursing group today due to MD visit
[2023-07-10 10:14] VITALS: BP 130/75; PULSE 78; RESP 20; TEMP 36.6; O2SAT 90
[2023-07-15 10:40] VITALS: BP 122/70; PULSE 80; RESP 20; TEMP 37; O2SAT 92
--- NOTE | 2023-07-17 09:08 | PC.NURSE ---
No nursing group due to MD visit.
[2023-07-17 10:20] VITALS: BP 126/74; PULSE 82; RESP 20; TEMP 36.7; O2SAT 94
[2023-07-22 10:42] VITALS: BP 128/70; PULSE 84; RESP 20; TEMP 37.1; O2SAT 90
--- NOTE | 2023-07-24 09:29 | PC.NURSE ---
No nursing group due to MD visit.
[2023-07-24 10:05] VITALS: BP 135/60; PULSE 80; RESP 20; TEMP 37.1; O2SAT 92
--- NOTE | 2023-07-24 13:11 | WPDSLSPROGRE ---
Progress HPI Progress HPI Visit Attended By patient and staff History Obtained From patient Chief Complaint 4 week f/u for depression HPI Patient is seen for a routine f/u. her depression is fairly stable. She enjoys the program and participates well. Has fully recovered from bronchitis, and a UTI. She continues on Prozac 10 mg q.a.m., Cymbalta 90 mg q.a.m.. She sleeps much better now that she has gotten a mask for her CPAP and a brand new bed. Average Number of Hours of Sleep 8 Sleep Quality sleep throughout the night Change in PMFSH Releveant to Presenting Illness Yes Describe Changes in PMFSH as per HPI Review of Systems Review of Systems Constitutional Reports other (obesity, hypothyroidism) Eyes Reports WNL ENT Reports other (LIANNE) Respiratory Reports other (LIANNE) Cardiovascular Reports other (hypertension, CHF, A-fib) Gastrointestinal Reports WNL Musculoskeletal Reports abnormal gait, Reports assistive device, Reports diminished strength, Reports muscle stiffness and Reports other (osteoarthritis, chronic pain) Neurologic Reports other (chronic pain, kneecap) Skin Reports WNL ADL's Reports independent Exam Physical Exam Review of Lab Studies n/a Hygiene good General Behavior/Attitude Toward Examiner pleasant and cooperative Pain Yes Pain Location Generalized Pain Characteristics chronic and aching Psychiatric Exam Level of Consciousness alert Orientation person, place, time and situation Speech normal rate/tone/volume/prosody and coherent Language able to comprehend questions Mood euthymic Affect full range, appropriate and congruent Thought Processes/Form logical, linear and goal directed Thought Content diminished depressive symptoms Delusions none Homicidal/Assaultive Ideation none Suicidal Ideation none Hallucinations none Attention/Concentration focused Attention/Concentration Testing Methods observation/interview Short Term Memory Impairment none STM Testing Methods clinical interview (assessment/observation) Residential Memory Impairment none LTM Testing Methods recall of biographical information Intellectual Functioning roughly average Intellectual Functioning Assessed By fund of knowledge Insight fair and improving Insight Assessed By ability to recognize & acknowledge mental illness, ability to understand the implications of mental illness, understanding of treatment options and ability to comply with treatment Judgement fair and improving Judgement Assessed By exploring recent decision-making MMSE n/a Patient Assets patient is willing to accept treatment Patient Liabilities patient has multiple medical issues Assessment and Plan Clinical Impression/Diag Clinical Impression/Diagnosis F 33.2, progressing well Progress Overview Reason for Continued Services in an Intensive Outpatient Program continued impaired mood and.or depression, patient would decompenste at a lower level of care and not at baseline level of functioning Treatment To Be Provided medication management and group/individual/rec therapy Discharge Disposition/Level of Care PCP Anticipated Discharge 8-12 weeks Certification Statement Certification Statement I believe this patient requires the services of the Intensive Outpatient Program and that there is reasonable expectation that the patient will make timely and significant practical improvement in the presenting acute symptoms as a result of this Intensive Outpatient Program. I do not believe this patient will benefit from a lesser level of care or could be adequately and appropriately treated in a less restrictive environment. My decision is based on the preceding clinical information.
[2023-07-29 10:20] VITALS: BP 112/66; PULSE 84; RESP 20; TEMP 36.9; O2SAT 90
[2023-07-31 10:42] VITALS: BP 107/67; PULSE 79; RESP 20; TEMP 37.1; O2SAT 92
--- NOTE | 2023-07-31 16:33 | PC.NURSE ---
No nursing group due to MD visit.
[2023-08-05 09:14] VITALS: BP 136/78; PULSE 81; RESP 20; TEMP 36.4; O2SAT 90
--- NOTE | 2023-08-07 09:21 | PC.NURSE ---
No nursing group today due to MD visit.
[2023-08-07 10:12] VITALS: BP 114/70; PULSE 90; RESP 20; TEMP 37.1; O2SAT 94
[2023-08-12 10:54] VITALS: BP 138/78; PULSE 81; RESP 20; TEMP 36.6; O2SAT 93
[2023-08-14 09:25] VITALS: BP 138/60; PULSE 84; RESP 20; TEMP 36.9; O2SAT 92
--- NOTE | 2023-08-14 09:26 | PC.NURSE ---
No nursing group due to MD visit.
--- NOTE | 2023-08-14 12:44 | WPDSLSPROGRE ---
Progress HPI Progress HPI Visit Attended By patient and staff History Obtained From patient Chief Complaint 3 week follow-up for depression HPI this is a routine follow-up. In therapy she is working on topics such as coping skills. Patient continues on Prozac 10 mg q.a.m. and Cymbalta 90 mg q.a.m. patient enjoys the program, participates well. her depression is essentially stable. She recently saw her tissue recovery technician who made some adjustments to her mask/ CPAP and she is sleeping well. Average Number of Hours of Sleep 8 Sleep Quality sleep throughout the night Change in PMFSH Releveant to Presenting Illness No Review of Systems Review of Systems Constitutional Reports other ( Obesity, hypothyroidism) Eyes Reports WNL ENT Reports other ( LIANNE) Respiratory Reports other ( LIANNE) Cardiovascular Reports other ( hypertension, CHF, AFib) Gastrointestinal Reports WNL Musculoskeletal Reports abnormal gait, Reports assistive device, Reports diminished strength, Reports muscle stiffness and Reports other ( osteoarthritis, chronic pain) Neurologic Reports other ( chronic pain) Skin Reports WNL ADL's Reports WNL Exam Physical Exam Review of Lab Studies n/a Hygiene good General Behavior/Attitude Toward Examiner pleasant and cooperative Pain Yes Pain Location generalized Pain Characteristics chronic Psychiatric Exam Level of Consciousness alert Orientation person, place, time and situation Speech normal rate/tone/volume/prosody and coherent Language able to comprehend questions Mood less depressed Affect full range, appropriate and congruent Thought Processes/Form logical, linear and goal directed Thought Content diminished depressive symptoms Delusions none Homicidal/Assaultive Ideation none Suicidal Ideation none Hallucinations none Attention/Concentration focused Attention/Concentration Testing Methods observation/interview Short Term Memory Impairment none STM Testing Methods clinical interview (assessment/observation) [facility] Memory Impairment none LTM Testing Methods recall of biographical information Intellectual Functioning roughly average Intellectual Functioning Assessed By fund of knowledge Insight fair and improving Insight Assessed By ability to recognize & acknowledge mental illness, ability to understand the implications of mental illness, understanding of treatment options and ability to comply with treatment Judgement fair and improving Judgement Assessed By exploring recent decision-making MMSE n/a Patient Assets patient is willing to accept treatment, able to perform ADLs Patient Liabilities morbid obesity, mobility issues Assessment and Plan Clinical Impression/Diag Clinical Impression/Diagnosis F 33.2, progressing well. Continue meds Progress Overview Reason for Continued Services in an Intensive Outpatient Program continued impaired mood and.or depression, patient would decompenste at a lower level of care and not at baseline level of functioning Treatment To Be Provided medication management and group/individual/rec therapy Discharge Disposition/Level of Care PCP Anticipated Discharge 8-12 weeks Certification Statement Certification Statement I believe this patient requires the services of the Intensive Outpatient Program and that there is reasonable expectation that the patient will make timely and significant practical improvement in the presenting acute symptoms as a result of this Intensive Outpatient Program. I do not believe this patient will benefit from a lesser level of care or could be adequately and appropriately treated in a less restrictive environment. My decision is based on the preceding clinical information.
[2023-08-19 10:31] VITALS: BP 110/82; PULSE 88; RESP 20; TEMP 37.1; O2SAT 90
--- NOTE | 2023-08-21 08:27 | SLSTHERAPY ---
08/21/23 8:27 Phone call received from Dinora cancelling 08/21/23 group attendance due to illness; Dinora is scheduled to return to group 08/26/23.
--- NOTE | 2023-08-26 08:39 | SLSTHERAPY ---
08/26/23 8:39 Phone call received from Dinora's daughter cancelling group attendance today due to illness; Dinora is scheduled to return to group 08/28/23.
[2023-08-28 10:02] VITALS: BP 134/87; PULSE 76; RESP 20; TEMP 36.3; O2SAT 93
--- NOTE | 2023-08-28 10:52 | PC.NURSE ---
No nursing group due to MD visit.
[2023-09-02 11:12] VITALS: BP 147/84; PULSE 93; RESP 20; TEMP 36.2; O2SAT 90
== END 2023-09-03 23:59 | disposition home or self-care (01) ==
LOC: CHSSENLIFE 10:00
PROVIDERS: PCP Family Medicine; Visit Provider Psychiatry & Neurology Psychiatry
DX: F33.2 Major depressive disorder, recurrent severe without psychotic features (principal)
CPT/HCPCS: 90853; 99213; G0463

== ENCOUNTER 2023-09-10 14:10 | Outpatient (CLI) | payer MEDICARE, MEDICAID, SELFPAY ==
--- NOTE | ~2023-09-10 | XR_ITS ---
EXAMINATION: XR shoulder RT min 2V, XR humerus RT DATE: 09/10/2023 15:23 INDICATION: Injury to the right shoulder and upper arm post fall from bed TECHNIQUE: 1. AP internally and externally rotated, AP oblique externally rotated and transscapular Y views of t he right shoulder were obtained. 2. Overlapping proximal and distal, internally and externally rotated views of the right humerus were obtained. COMPARISON: None FINDINGS: Normal alignment at the right shoulder and elbow. No fracture. Polyarticular osteoarthritis, moderat e severity at the right acromioclavicular and glenohumeral joints and mild at the right elbow. Large subacromial spur. Soft tissues are unremarkable. IMPRESSION: 1. No acute osseous abnormality at the right shoulder or upper arm. 2. Large subacromial spur and moderate glenohumeral and acromioclavicular osteoarthritis at the right shoulder. 3. Mild osteoarthritis at the right elbow. Reviewed, dictated and finalized at location B. IMPRESSION: 1. No acute osseous abnormality at the right shoulder or upper arm. 2. Large subacromial spur and moderate glenohumeral and acromioclavicular osteo arthritis at the right shoulder. 3. Mild osteoarthritis at the right elbow.
--- NOTE | ~2023-09-10 | XR_ITS ---
EXAMINATION: XR shoulder LT min 2V, XR humerus LT DATE: 09/10/2023 15:23 INDICATION: Left shoulder and upper arm injury post fall from bed TECHNIQUE: 1. AP internally and externally rotated, AP oblique externally rotated and transscapular Y views of t he affected shoulder were obtained. 2. Overlapping proximal and distal, internally and axillary rotated views of the left humerus were ob tained. COMPARISON: None FINDINGS: Normal alignment at the left shoulder and elbow. No fracture.Polyarticular osteoarthritis, moderate severity at the left glenohumeral joint and mild at the left acromioclavicular and elbow joints. Soft tissues are unremarkable. IMPRESSION: Polyarticular osteoarthritis, moderate at the left glenohumeral joint and mild at the left elbow and acromioclavicular joints. No acute osseous abnormality. Reviewed, dictated and finalized at location B. IMPRESSION: Polyarticular osteoarthritis, moderate at the left glenohumeral joint and mild at the left elbow and acromioclavicular joints. No acute osseous abnormality.
--- NOTE | ~2023-09-10 | CT_ITS ---
EXAMINATION: CT BRAIN W/O DATE: 09/10/2023 15:23 INDICATION: Head injury. TECHNIQUE: Computed tomography (CT) of the head was performed without intravenous contrast. The dose- length product was 681.00 mGy-cm. Automated exposure control and iterative reconstruction technique w ere employed. COMPARISON: No prior studies for comparison. FINDINGS: Mild generalized atrophy. There are scattered mild periventricular and subcortical white ma tter changes, most likely related to small vessel ischemic disease (microangiopathy). No acute hemorr kamilla, infarction, mass or mass effect. Basilar cisterns are patent. Paranasal sinuses and mastoids ar e pneumatized. No ventriculomegaly or midline shift. Midline sagittal images demonstrate a normal corpus callosum, c raniovertebral junction and sella turcica. Basilar cisterns are patent. Paranasal sinuses and mastoids are pneumatized. No depressed skull fractures. IMPRESSION: 1. No acute intracranial abnormality. Reviewed, dictated and finalized at location A.
== END 2023-09-10 14:11 | disposition home or self-care (01) ==
LOC: CHSIMG 14:13
PROVIDERS: PCP Family Medicine; Visit Provider Family Medicine
DX: S09.90XA Unspecified injury of head, initial encounter (principal); M79.601 Pain in right arm; M79.602 Pain in left arm; M19.012 Primary osteoarthritis, left shoulder; M19.011 Primary osteoarthritis, right shoulder; M77.8 Other enthesopathies, not elsewhere classified; M19.022 Primary osteoarthritis, left elbow; M19.021 Primary osteoarthritis, right elbow
CPT/HCPCS: 70450; 73030; 73060

== ENCOUNTER 2023-11-11 13:24 | Outpatient (CLI) | payer MEDICARE, MEDICAID, SELFPAY ==
[2023-11-11 13:51] LABS: Base Excess ABG 7.4 mmol/L (0-2); Carboxyhemoglobin 0.9 % (0-1.5); HCO3 ABG 35.9 mmol/L (23-29); Methemoglobin ABG 0.1 % (0-1.5); Oxygen Saturation ABG 93.1 % (95-97); Oxyhemoglobin 92.2 % (94-100); PO2 ABG 68.3 mmHg (75-85); Reduced Hemoglobin 6.8 % (0-1.5); Total Hemoglobin 13.1 g/dL (12.0-18.0); pH ABG 7.32 (7.35-7.45)
[2023-11-11 13:57] VITALS: PULSE 77; O2SAT 92
[2023-11-11 13:57] LABS: Device NASAL CANNULA; Modified Allen's Test Pass; Site Drawn LEFT RADIAL
[2023-11-11 13:59] VITALS: PULSE 78; O2SAT 90
[2023-11-11 14:00] VITALS: PULSE 80; O2SAT 86
[2023-11-11 14:01] VITALS: PULSE 94; O2SAT 88
[2023-11-11 14:02] VITALS: PULSE 95; O2SAT 90
--- NOTE | 2023-11-11 14:54 | HOMEO2EVAL ---
Evaluation was performed at [facility] Home Oxygen Evaluation RC: Home Oxygen (O2) Evaluation Start: 11/11/23 14:45 Freq: Status: Active Protocol: RPE Activity Type Activity Date Activity User E-sign Co-sign Detail Recorded Client Recorded Date Recorded By Document 11/11/23 13:57 RES [id number] 11/11/23 14:48 RES Document 11/11/23 13:59 RES [id number] 11/11/23 14:48 RES Document 11/11/23 14:00 RES [id number] 11/11/23 14:54 RES Document 11/11/23 14:01 RES [id number] 11/11/23 14:54 RES Document 11/11/23 14:02 RES [id number] 11/11/23 14:54 RES 11/11/23 11/11/23 11/11/23 13:57 13:59 14:00 Home O2 Evaluation [Oxygen] -Test Phase Resting Resting Exercise -Oxygen Delivery Room Air Nasal Cannula Nasal Cannula -Oxygen Flow Rate (L/min) 2 2 -Fraction of Inspired Oxygen (%) 21 28 28 [Pulse Oximetry] -Pulse Oximetry (90-100 %) 92 90 86 L [Pulse Rate] -Pulse Rate (60-100 beats/min) 77 78 80 [Evaluation] -Activity Tolerance Good Good Good -Rating of Perceived Dyspnea (PD) +2 Mild, Some +2 Mild, Some +3 Moderate Difficulty, Difficulty, Difficulty, But Noticeable to Noticeable to Can Continue the Observer the Observer -Rate of Perceived Exertion (PE) 9 Very light 9 Very light 12 Query Text:Click the Protocol Button to View the RPE Scale [Exercise] -Ambulation Distance (feet) -Ambulation Distance (meters) [Comments] -Home Oxygen Evaluation Comments Patient rested patient desated on RA for 2 min on 2lpm and desated to increased to 88%, pt placed 4lpm on 2lpm sats increased to 90 % [Charges] -Evaluation Charges O2 Evaluation Charge 11/11/23 11/11/23 14:01 14:02 Home O2 Evaluation [Oxygen] -Test Phase Exercise Resting -Oxygen Delivery Nasal Cannula Nasal Cannula -Oxygen Flow Rate (L/min) 4 4 -Fraction of Inspired Oxygen (%) 36 36 [Pulse Oximetry] -Pulse Oximetry (90-100 %) 88 L 90 [Pulse Rate] -Pulse Rate (60-100 beats/min) 94 95 [Evaluation] -Activity Tolerance Fair Fair -Rating of Perceived Dyspnea (PD) +4 Severe Difficulty, Participant Cannot Continue -Rate of Perceived Exertion (PE) 15 Hard 15 Hard Query Text:Click the Protocol Button to View the RPE Scale [Exercise] -Ambulation Distance (feet) 75 -Ambulation Distance (meters) 22.85 [Comments] -Home Oxygen Evaluation Comments Patient had to after patient stop due to leg rested for a weakness and minute her sats SOB. went from 90% to 95% on 4lpm [Charges] -Evaluation Charges
== END 2023-11-11 13:25 | disposition home or self-care (01) ==
LOC: CHSLAB 13:26
PROVIDERS: PCP Family Medicine; Visit Provider Nurse Practitioner Family
DX: R06.00 Dyspnea, unspecified (principal); R09.02 Hypoxemia
CPT/HCPCS: 36600; 82375; 82805; 83050; 94618

== ENCOUNTER 2023-11-12 12:45 | Emergency (ER) | payer MEDICARE, MEDICAID, SELFPAY ==
[2023-11-12] VITALS (14 sets, daily range): BP systolic 111–178; BP diastolic 58–117; PULSE 66–75; RESP 14–26; TEMP 36.9; O2SAT 88–100
--- NOTE | ~2023-11-12 | XR_ITS ---
Portable chest x-ray Comparison: 06/13/2023 Clinical History: Shortness of breath Findings: Possible minimal central congestive change, with low lung volumes. Cardiomediastinal silh ouette is stable. Bones and soft tissues are unremarkable. Impression: Possible minimal central congestive change, with low lung volumes. Reviewed, dictated and finalized at location . Impression: Possible minimal central congestive change, with low lung volumes.
--- NOTE | 2023-11-12 13:08 | ED.SOB ---
HPI - SOB/Dyspnea General Chief Complaint: Recheck/Abnormal Lab/Rx Stated Complaint: shortness of breath Time Seen by Provider: 11/12/23 13:07 Source: patient Mode of arrival: ambulatory Limitations: no limitations History of Present Illness HPI Narrative: 73-year-old female with a history of ex smoking, obesity, LIANNE on CPAP, COPD, negative cardiac Lexiscan in 2020, diastolic CHF on home oxygen has been sent to the ER for -- evaluation of worsening hypoxic hypercarbic respiratory failure. She had an ABG on 4 L which was noted to be 732/71/68/93%. Patient has been adjusting her oxygen requirements anyway from 1 liters/minute to 4 liters/minute. She states that she has been advised by her pulmonary office to increased oxygen requirement. No fever or chills. Patient has chronic shortness of breath without any worsening. Chronic cough with sputum production. occasional mucopurulent sputum no chest pain the patient is currently not using her CPAP machine MD elicited complaint: shortness of breath and cough Pertinent past history: COPD and congestive heart failure Onset (ago): year(s) Timing: constant Severity: moderate Exacerbating factors: exertion Relieving factors: oxygen and rest Known history of: COPD and congestive heart failure Associated symptoms: denies other symptoms, cough and sputum production Treatment prior to arrival: none Related Data Home oxygen amount: 2 liters Home Medications Medication Instructions Recorded Confirmed clonidine HCl 0.1 mg tablet 0.1 mg PO TID 04/23/21 11/12/23 duloxetine 30 mg capsule,delayed 90 mg PO DAILY 04/23/21 11/12/23 release fluoxetine 10 mg capsule 10 mg PO DAILY 04/23/21 11/12/23 aspirin 81 mg chewable tablet 81 mg PO DAILY@0800 11/12/23 11/12/23 (Children's Aspirin) Allergies Allergy/AdvReac Type Severity Reaction Status Date / Time Penicillins Allergy Unknown Unknown Verified 11/12/23 13:07 venlafaxine [From Effexor] AdvReac Mild Insomnia Verified 11/12/23 13:07 codeine AdvReac Unknown got tired Verified 11/12/23 13:07 Review of Systems Review of Systems: All systems reviewed & are unremarkable except as noted in HPI and below Constitutional: Constitutional: Reports as per HPI and Reports no additional constitutional complaints Eyes: Eyes: Reports as per HPI and Reports no additional eye complaints ENT: Reports system reviewed and no additional complaints, except as documented and Reports as per HPI Cardiovascular: Cardiovascular: Reports as per HPI and Reports no additional cardiovascular complaints Respiratory: Respiratory: Reports as per HPI, Reports no additional respiratory complaints, Reports cough and Reports dyspnea Gastrointestinal: Gastrointestinal: Reports as per HPI and Reports no additional gastrointestinal complaints Genitourinary: Genitourinary: Reports no additional female genitourinary complaints and Reports as per HPI Musculoskeletal: Musculoskeletal: Reports no additional musculoskeletal complaints and Reports as per HPI Integumentary/Breasts: Skin/Breast: Reports system reviewed and no additional complaints, except as docu and Reports as per HPI Neurologic: Reports system reviewed and no additional complaints, except as documented and Reports as per HPI Psychiatric: Psychiatric: Reports no additional psychiatric complaints and Reports as per HPI Endocrine: Endocrine: Reports no additional endocrine complaints and Reports as per HPI Hematologic/Lymphatic: Hematologic/Lymphatic: Reports no additional hematologic/lymphatic complaints and Reports as per HPI Comments: bilateral leg swe Allergic/Immunologic: Allergic/Immunologic: Reports as per HPI [facility] Past Medical History Medical History Acute hyperkalemia Acute UTI Anxiety Asthma Cellulitis of left leg CHF (congestive heart failure) COPD (chronic obstructive pulmonary disease) Hypercholesteremia Hypertension L
--- NOTE | 2023-11-12 13:37 | ECG_ITS ---
Test Date: 2023-11-12 13:45:54 Measurements Intervals [place] Rate: 69 P: 47 [place]: 169 QRS: 109 QRSD: 85 T: 52 QT: 389 QTc: 418 Interpretive Statements SINUS RHYTHM RIGHT AXIS DEVIATION [QRS AXIS > 100] LOW QRS VOLTAGE IN PRECORDIAL LEADS [QRS DEFLECTION < 1.0 mV IN CHEST LEADS] No previous ECG available for comparison Electronically Signed On 11-12-2023 13:56:04 CDT by Lynn Orozco M.D.
[2023-11-12 14:04] LABS: Base Excess ABG 11.5 mmol/L (0-2); HCO3 ABG 39.8 mmol/L (23-29); Oxygen Content ABG 15.5 %vol (16.0-22.0); Oxygen Saturation ABG 87.4 % (95-97); Oxyhemoglobin 86.4 % (94-100); PO2 ABG 52.4 mmHg (75-85); Total Hemoglobin 12.8 g/dL (12.0-18.0); pH ABG 7.36 (7.35-7.45)
[2023-11-12 14:07] LABS: Modified Allen's Test Pass; PCO2 ABG 71.4 mmHg (35-45); Site Drawn LEFT RADIAL
[2023-11-12 14:08] LABS: Basophils Absolute Auto 0.02 K/mm3 (0.00-0.10); Basophils Percent Auto 0.3 % (0.0-1.0); Device NASAL CANNULA; Eosinophils Absolute Auto 0.16 K/mm3 (0.02-0.50); Eosinophils Percent Auto 2.6 % (1.0-6.0); Hematocrit 40.2 % (35.0-42.0); Hemoglobin 11.4 g/dL (11.7-13.8); Immature Granulocyte Absolute 0.01 K/mm3 (0.00-0.00); Immature Granulocyte Percent A 0.2 % (0.0-0.0); Lymphocytes Absolute Auto 0.98 K/mm3 (1.10-4.50); Lymphocytes Percent Auto 16.1 % (18.0-42.0); Mean Corpuscular HGB Conc 28.4 g/dL (32-36); Mean Corpuscular Hemoglobin 29.4 pg (27.0-31.0); Mean Corpuscular Volume 103.6 fL (78.0-102.0); Mean Platelet Volume 9.2 fl (9.2-11.8); Monocytes Absolute Auto 0.37 K/mm3 (0.10-0.90); Monocytes Percent Auto 6.1 % (2.0-11.0); Neutrophils Absolute Auto 4.54 K/mm3 (1.70-7.20); Neutrophils Percent Auto 74.7 % (50.0-70.0); Platelet Count Result 237 K/mm3 (150-420); Red Blood Count 3.88 M/mm3 (4.20-5.40); Red Cell Distribution Width 14.2 % (11.6-14.4); White Blood Count 6.1 K/mm3 (4.8-10.8)
--- NOTE | 2023-11-12 14:12 | PC.NURSE ---
AND DAUGHTER ARE AT BEDSIDE. PT O2 HAS BEEN TURNED UP TO 2L PER ERP POST ABG RESULTS. PT DENIES ANY NEEDS OR COMPLAINTS. WILL CONTINUE TO MONITOR. NAD NOTED.
[2023-11-12 14:24] LABS: SARS-CoV-2 RNA PCR Negative (Negative)
[2023-11-12 14:31] LABS: Lactic Acid Reflex 1.1 mmol/L (0.4-2.0)
[2023-11-12 14:32] LABS: Alanine Aminotransferase 15 U/L (14-59); Albumin Level 2.8 g/dL (3.4-5.0); Alkaline Phosphatase 99 U/L (46-116); Anion Gap -1 mmol/L (4-12); Aspartate Amino Transferase 15 U/L (15-37); Bilirubin,Total 0.4 mg/dL (0.00-1.00); Blood Urea Nitrogen 15 mg/dL (7-18); Calcium 9.1 mg/dL (8.5-10.1); Carbon Dioxide 43 mmol/L (21-32); Chloride 104 mmol/L (98-108); Estimated Glomerular Filt Rate > 60; Glucose 109 mg/dL (70-99); Magnesium 1.9 mg/dL (1.8-2.4); NT Pro B Type Natriuretic Pept 585 pg/mL (0-125); Osmolality Calculated 303 mOsm/kg (285-295); Potassium 4.6 mmol/L (3.5-5.1); Sodium 146 mmol/L (136-145); Thyroid Stimulating Hormone 1.23 uIU/mL (0.36-3.74); Total Protein 6.9 g/dL (6.4-8.2)
[2023-11-12 14:37] LABS: Troponin I 11.1 ng/L (0.00-60.4)
[2023-11-12 14:38] LABS: Influenza A QL RT-PCR Negative (Negative); Influenza B QL RT-PCR Negative (Negative); RSV RNA, RT-PCR Negative (Negative)
--- NOTE | 2023-11-12 15:01 | PC.NURSE ---
ERP AT BEDSIDE ATTEMPTING ABG DRAW WITH BEDSIDE DOPPLER. FAMILY AT BEDSIDE. WILL CONTINUE TO MONITOR.
--- NOTE | 2023-11-12 15:53 | PC.NURSE ---
PT ALONG WITH , AND DAUGHTERS REPORT SHE DOES NOT WANT TRANSFERRED TO [facility], STATES SHE WOULD LIKE TO GO HOME AND THEN TAKE HERSELF TO THE ER AT [facility] LATER THIS EVENING OR TOMORROW. PT AND FAMILY ARE EDUCATED ON THE RISKS AND BENEFITS OF TRANSFER AND SIGNING AMA. PT AND FAMILY VERBALIZED UNDERSTANDING OF RISKS AND BENEFITS. ERP IS AWARE, HAD ALREADY HAD A PRIOR DISCUSSION ABOUT BEING TRANSFERRED, AT THAT TIME PT AND FAMILY WERE NOT AGREEING WITH TRANSFER. PT URGED TO GO TO [facility] SOON SHE COULD DUE TO ALTERED LAB VALUES. NO RESP DISTRESS NOTED UPON LEAVING ER. PT SIGNS AMA FORM. LIBRARY INFORMATION TECHNICIAN AT [facility] NOTIFIED.
== END 2023-11-12 15:45 | disposition left against medical advice (07) ==
PROVIDERS: Emergency Provider Internal Medicine Critical Care Medicine; PCP Family Medicine
DX: J96.21 Acute and chronic respiratory failure with hypoxia (principal); J44.9 Chronic obstructive pulmonary disease, unspecified; I11.0 Hypertensive heart disease with heart failure; I50.30 Unspecified diastolic (congestive) heart failure; I48.0 Paroxysmal atrial fibrillation; Z20.822 Contact with and (suspected) exposure to COVID-19; Z87.891 Personal history of nicotine dependence
CPT/HCPCS: 36415; 36600; 71045; 80053; 82805; 83605; 83735; 83880; 84443; 84484; 85025; 87637; 93005; 99284

== ENCOUNTER 2023-11-12 16:39 | Inpatient (IN) | payer MEDICARE, MEDICAID, SELFPAY ==
[2023-11-12] VITALS (12 sets, daily range): BP systolic 144–207; BP diastolic 66–96; PULSE 79–89; RESP 12–99; TEMP 36.8–36.9; O2SAT 91–100; BMI 65.0
--- NOTE | ~2023-11-12 | XR_ITS ---
EXAMINATION: XR chest 1V portable DATE: 11/23/2023 12:29 INDICATION: Atelectasis TECHNIQUE: frontal view of the chest was obtained. COMPARISON: Chest radiograph dated 11/22/2023 FINDINGS: Right upper extremity peripherally inserted central venous catheter (PICC) tip at the superior cavoa trial junction. Lung volumes are decreased, more prominent on the right. Airspace opacities in the bi lateral lower lungs. There also appears be an increased interstitial pattern most evident in the righ t lower lung zone consistent with mild pulmonary edema. No pneumothorax or definitive pleural effusio n. Cardiomegaly. IMPRESSION: 1. Decreased lung volumes with opacities at the bilateral lung bases, right greater than left which c ould represent associated atelectasis or pneumonia. 2. Cardiomegaly with mild pulmonary edema. Reviewed, dictated and finalized at location A. IMPRESSION: 1. Decreased lung volumes with opacities at the bilateral lung bases, right gre ater than left which could represent associated atelectasis or pneumonia. 2. Cardiomegaly with mild pulmonary edema.
--- NOTE | ~2023-11-12 | XR_ITS ---
EXAMINATION: XR chest 1V portable DATE: 11/17/2023 08:25 INDICATION: Shortness of breath. TECHNIQUE: A single frontal view of the chest was obtained on 2 radiographs. COMPARISON: Chest view 11/14/2023 FINDINGS: There are airspace opacities at right lung base. There are airspace opacities in left upper lobe. There is a small right pleural effusion. No pneumothorax. Cardiomegaly is noted. IMPRESSION: 1. Worsened airspace opacities at right lung base and in left upper lobe, consistent with pneumonia v ersus a combination of pulmonary edema and atelectasis. 2. Small right pleural effusion. 3. Cardiomegaly. Reviewed, dictated and finalized at location E. IMPRESSION: 1. Worsened airspace opacities at right lung base and in left upper lobe, consi stent with pneumonia versus a combination of pulmonary edema and atelectasis. 2. Small right pleural effusion. 3. Cardiomegaly.
--- NOTE | ~2023-11-12 | XR_ITS ---
EXAMINATION: XR chest 1V portable DATE: 11/21/2023 05:25 INDICATION: Congestive heart failure. Shortness of breath. TECHNIQUE: A single frontal view of the chest was obtained. COMPARISON: Chest single view 11/18/2023, chest CT 11/17/2023 FINDINGS: There is chronic elevation of right hemidiaphragm. There is mild atelectasis at right lung base. There is a diffuse interstitial pattern, consistent mild pulmonary edema. There is a small righ t pleural effusion. No pneumothorax. Cardiomegaly is noted. A right upper extremity peripherally inse rted central venous catheter (PICC) is seen with tip at the superior cavoatrial junction. IMPRESSION: 1. Mild pulmonary edema. 2. Small right pleural effusion. 3. Chronic elevation of right hemidiaphragm. 4. Cardiomegaly. Reviewed, dictated and finalized at location A.
--- NOTE | ~2023-11-12 | XR_ITS ---
EXAMINATION: XR chest PICC line DATE: 11/17/2023 11:52 INDICATION: Right PICC line placement TECHNIQUE: frontal view of the chest was obtained. COMPARISON: Chest radiograph dated 11/17/2023 at 8:14 AM FINDINGS: Right upper extremity peripherally inserted central venous catheter (PICC) extends at least to the menjivar perior cavoatrial junction with distal tip superimposed over the infrahilar vasculature and obscured by underpenetration. Cardiomegaly with pulmonary vascular congestion. Persistent elevation right daria diaphragm with airspace opacities at bilateral lung bases. No pneumothorax or left-sided pleural effu jalil. Possible small right pleural effusion. IMPRESSION: 1. Right upper extremity PICC line extending to at least the superior cavoatrial junction but with di stal tip obscured. This has been subsequently repositioned. 2. Elevation of right hemidiaphragm with opacities at the bilateral lung bases which could represent atelectasis and/or pneumonia and possible small right pleural effusion. 3. Cardiomegaly with pulmonary vascular congestion. Reviewed, dictated and finalized at location A. IMPRESSION: 1. Right upper extremity PICC line extending to at least the superior cavoatria l junction but with distal tip obscured. This has been subsequently repositione d. 2. Elevation of right hemidiaphragm with opacities at the bilateral lung bases which could represent atelectasis and/or pneumonia and possible small right ple ural effusion. 3. Cardiomegaly with pulmonary vascular congestion.
--- NOTE | ~2023-11-12 | XR_ITS ---
EXAMINATION: XR chest PICC line DATE: 11/17/2023 12:07 INDICATION: Right PICC line repositioning TECHNIQUE: Portable AP view of the chest was obtained. COMPARISON: Chest radiograph dated 11/17/2023 at 11:49 AM. FINDINGS: Right upper extremity peripherally inserted central venous catheter (PICC) tip at the high right atr ium near the superior cavoatrial junction. Unchanged opacities along the elevated right hemidiaphragm . Mild opacities at the left lower lung zone. No pneumothorax or left-sided pleural effusion. Small r ight pleural effusion not excludable. Cardiomegaly with pulmonary vascular congestion. IMPRESSION: 1. Right upper 70 PICC line tip in the high right atrium near the superior caval atrial junction. 2. Unchanged elevation of the right hemidiaphragm with bibasilar opacities which could represent atel ectasis and/or pneumonia. 3. Cardiomegaly with pulmonary vascular congestion. Reviewed, dictated and finalized at location A. IMPRESSION: 1. Right upper 70 PICC line tip in the high right atrium near the superior cava l atrial junction. 2. Unchanged elevation of the right hemidiaphragm with bibasilar opacities whic h could represent atelectasis and/or pneumonia. 3. Cardiomegaly with pulmonary vascular congestion.
--- NOTE | ~2023-11-12 | XR_ITS ---
XR chest 1V portable DATE: 11/22/2023 05:49 INDICATION: Shortness of breath, congestive heart failure, atelectasis TECHNIQUE: Portable AP chest on 11/22/2023 at 0532 hours COMPARISON: 11/21/2019 portable AP chest at 0522 hours FINDINGS: Right upper terminate PICC catheter tip is situated near the superior cavoatrial junction. Cardiomegaly. Aortic arch calcification. There is prominence of the minor fissure suggesting subpleural edema. Mild pulmonary interstitial pro minence may indicate pulmonary interstitial edema. There is infiltrate and/or atelectasis in both lower lung zones, right greater than left. There is mi ld elevation of the right leaf of the diaphragm. Mild blunting of the costophrenic angles may indicat e small pleural effusions. Diffuse osteopenia. IMPRESSION: Cardiomegaly, mild congestive change Bilateral lower lung infiltrate or atelectasis, right greater than left Reviewed, dictated and finalized at location A.
--- NOTE | ~2023-11-12 | XR_ITS ---
Portable chest x-ray Comparison: 11/12/2023 Clinical History: Shortness of breath Findings: Left-sided Mediport in place. Probable mild central congestive changes and possible minima l interstitial edema. Cardiomediastinal silhouette is stable. Bones and soft tissues are unremarkabl e. Impression: Mild central congestive change and possible minimal interstitial edema. Left-sided PICC line in place. Stable cardiomegaly. Reviewed, dictated and finalized at location M. Impression: Mild central congestive change and possible minimal interstitial edema. Left-sided PICC line in place. Stable cardiomegaly.
--- NOTE | ~2023-11-12 | CT_ITS ---
EXAMINATION: CTA chest PE protocol DATE: 11/17/2023 09:04 INDICATION: Hypoxia. Tachycardia. TECHNIQUE: Computed tomography angiography (CTA) of the chest was performed with 100 mL Omnipaque-350 intravenous contrast timed to evaluate the pulmonary arteries. Coronal maximum intensity projection 3D-reconstructions were created by the technologist. Automated exposure control and iterative reconst ruction technique were employed. The dose-length product was 954.85 mGy-cm. COMPARISON: None. FINDINGS: The lung volumes are small. There are airspace opacities with volume loss involving the low er lobes, right middle lobe, and left upper lobe, likely atelectasis. There is smooth septal thickeni ng in the lungs, consistent mild pulmonary edema. No pleural effusion. Cardiomegaly is noted. No cee cardial effusion. There is no pulmonary embolus. There are gallstones in the gallbladder, which is no rmal in size. 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 There is a small sliding hiatal hernia. There is severe thoracic spondylosis. IMPRESSION: 1. No pulmonary embolus. 2. Small lung volumes with bilateral atelectasis. 3. Mild pulmonary edema. Reviewed, dictated and finalized at location E.
--- NOTE | ~2023-11-12 | XR_ITS ---
EXAMINATION: XR chest 1V portable DATE: 11/24/2023 09:48 INDICATION: Atelectasis. TECHNIQUE: A single frontal view of the chest was obtained. COMPARISON: Chest single view 11/23/2023, chest CT 11/17/2023 FINDINGS: There is mild elevation of right hemidiaphragm. There are airspace opacities at right lung base. There is an interstitial pattern in the lungs, consistent mild pulmonary edema. No pleural effu jalil or pneumothorax. Cardiomegaly is noted. A right upper extremity peripherally inserted central ve nous catheter (PICC) is seen with tip in the right internal jugular vein. IMPRESSION: 1. Stable airspace opacities at right lung base, consistent with atelectasis versus pneumonia. 2. Mild pulmonary edema. 3. Cardiomegaly. 4. PICC tip in abnormal position in the right internal jugular vein. Reviewed, dictated and finalized at location A. IMPRESSION: 1. Stable airspace opacities at right lung base, consistent with atelectasis ve rsus pneumonia. 2. Mild pulmonary edema. 3. Cardiomegaly. 4. PICC tip in abnormal position in the right internal jugular vein.
--- NOTE | ~2023-11-12 | XR_ITS ---
EXAMINATION: XR chest 1V portable DATE: 11/18/2023 05:11 INDICATION: Chronic obstructive pulmonary disease exacerbation. Pneumonia. TECHNIQUE: A single frontal view of the chest was obtained. COMPARISON: Chest single view 11/17/2023, chest CT 11/17/2023 FINDINGS: There is mild elevation of right hemidiaphragm. There is a diffuse interstitial pattern in the lungs, consistent with mild pulmonary edema. There is mild atelectasis at the lung bases. No pleu ral effusion or pneumothorax. Cardiomegaly is noted. A right upper extremity peripherally inserted ce ntral venous catheter (PICC) is seen with tip at the superior cavoatrial junction. IMPRESSION: 1. Mild pulmonary edema. 2. Mild atelectasis at the lung bases. 3. Cardiomegaly. Reviewed, dictated and finalized at location E.
--- NOTE | ~2023-11-12 | XR_ITS ---
XR chest 1V portable Ordering provider: Coby Simms MD History: 73 years Female with . sob . Comparison: November 12, 2023 FINDINGS: MEDIASTINUM: The cardiac silhouette is moderately enlarged. Congestive devon. LUNGS: No effusion or pneumothorax. Bilateral prominent markings with interstitial thickening. OTHER: Degenerative changes of the spine. No free air under the diaphragm. IMPRESSION: Bilateral prominent markings with interstitial thickening suggestive of pulmonary edema versus pneum onitis. Underlying fibrotic changes are also possible. Reviewed, dictated and finalized at location A. IMPRESSION: Bilateral prominent markings with interstitial thickening suggestive of pulmon tj edema versus pneumonitis. Underlying fibrotic changes are also possible.
--- NOTE | 2023-11-12 16:57 | ECG_ITS ---
Test Date: 2023-11-12 16:55:23 Measurements Intervals [place] Rate: 82 P: 78 [place]: 171 QRS: 52 QRSD: 86 T: 25 QT: 354 QTc: 414 Interpretive Statements SINUS RHYTHM WITH OCCASIONAL SUPRAVENTRICULAR PREMATURE COMPLEXES Compared to ECG 11/12/2023 13:45:54 NO SIGNIFICANT CHANGES Electronically Signed On 11-13-2023 12:38:33 CDT by Lynn Orozco M.D.
[2023-11-12 17:20] LABS: Basophils Percent Auto 0.4 % (0.2-1.2); Eosinophils Absolute Auto 0.2 K/mm3 (0-0.3); Eosinophils Percent Auto 2.4 % (0-4.4); Hematocrit 41.3 % (37.0-47.0); Hemoglobin 11.8 g/dL (12.0-15.0); Immature Granulocyte Absolute 0.01 K/mm3 (0.00-0.031); Immature Granulocyte Percent A 0.1 % (0-0.5); Lymphocytes Absolute Auto 0.97 K/mm3 (0.9-3.2); Lymphocytes Percent Auto 12.5 % (18.3-44.2); Mean Corpuscular HGB Conc 28.6 g/dl (32-36); Mean Corpuscular Hemoglobin 29.4 pg (26-34); Mean Platelet Volume 9.4 fl (7.4-10.4); Monocytes Absolute Auto 0.5 K/mm3 (0.1-0.6); Neutrophils Absolute Auto 6.1 K/mm3 (1.3-6.7); Neutrophils Percent Auto 78.6 % (45.5-73.1); Platelet Count Result 271 k/mm3 (150-375); Red Blood Count 4.01 M/mm3 (4.2-5.4); Red Cell Distribution Width 14.2 % (11.5-14.5); White Blood Count 7.8 K/mm3 (4.5-10.0)
--- NOTE | 2023-11-12 17:21 | ED.RECABL ---
HPI - Recheck/Abnormal Lab/Rx General Chief Complaint: Recheck/Abnormal Lab/Rx <Alexa Vasquez PA-C - Last Filed: 11/12/23 19:42> Stated Complaint: abdnormal blood gas <Alexa Vasquez PA-C - Last Filed: 11/12/23 19:42> Time Seen by Provider: 11/12/23 16:58 <Alexa Vasquez PA-C - Last Filed: 11/12/23 19:42> History of Present Illness HPI narrative: 73-year-old female with history of chronic hypoxic respiratory failure, COPD, hypothyroidism, hypertension, paroxysmal AFib, CHF, morbid obesity, LIANNE presents to the emergency department with her and daughter at bedside for shortness of breath. Patient's linux server administrator is Dr. Villanueva. states she recently saw her linux server administrator within the past few weeks and was advised to increase her oxygen demand from 1 L p.r.n. nasal cannula to 1-2 L at rest and 3 L with exertion. She went to have outpatient blood gases drawn yesterday and was called today by the linux server administrator office and advised to come to the ER due to abnormal blood gases. Patient went to [place] [id number] emergency department where she had chest x-ray and labs performed. Unfortunately hospital staff was having difficulty obtaining a blood gas, therefore patient left AMA and came to our ED for further evaluation. She is reporting exertional dyspnea that is significantly worsened within the past month as well as orthopnea. She is reporting a nonproductive cough for the past week that is changed from her baseline. she is also reporting some right-sided intermittent chest pressure that has been ongoing for quite a while. She denies known aggravating or alleviating factors, no radiating symptoms. States she has chronic swelling to her lower extremities due to lymphedema but does not feel like they have increased in size recently. She states she has been compliant with her medications including Eliquis, except she does admit that she has not been compliant with her 40 mg of Lasix daily because she does not like getting up to go to the bathroom. She is not ambulatory gets around the house with a motor scooter. Family also notes the patient has been refusing CPAP. Her head of operation and logistics is Dr. Zimmerman. <Alexa Vasquez PA-C - Last Filed: 11/12/23 19:42> Related Data Home Medications: Home Medications Medication Instructions Recorded Confirmed clonidine HCl 0.1 mg tablet 0.1 mg PO TID 04/23/21 11/12/23 duloxetine 30 mg capsule,delayed 90 mg PO DAILY 04/23/21 11/12/23 release fluoxetine 10 mg capsule 10 mg PO DAILY 04/23/21 11/12/23 aspirin 81 mg chewable tablet 81 mg PO DAILY@0800 11/12/23 11/12/23 (Children's Aspirin) <Alexa Vasquez PA-C - Last Filed: 11/12/23 19:42> Allergies/Adverse Reactions: Allergies Allergy/AdvReac Type Severity Reaction Status Date / Time Penicillins Allergy Unknown Unknown Verified 11/12/23 13:07 venlafaxine [From Effexor] AdvReac Mild Insomnia Verified 11/12/23 13:07 codeine AdvReac Unknown got tired Verified 11/12/23 13:07 <Alexa Vasquez PA-C - Last Filed: 11/12/23 19:42> Review of Systems Review of Systems: CONSTITUTIONAL: Denies fever, chills, or sweats. EYES: Denies visual changes, redness, or discharge. ENT: Denies rhinorrhea, congestion, sore throat, or otalgia. CARDIOVASCULAR: see HPI RESPIRATORY: See HPI GASTROINTESTINAL: Denies abdominal pain, nausea, vomiting, or diarrhea. GENITOURINARY: Denies dysuria or hematuria. SKIN: Denies rash or itching. MUSCULOSKELETAL: Denies back pain, joint pain, or myalgia. NEUROLOGIC: Denies headache, numbness, or weakness. PSYCHIATRIC: Denies anxiety or depression. <Alexa Vasquez PA-C - Last Filed: 11/12/23 19:42> [facility] Past Medical History Medical History: Medical History Acute hyperkalemia Acute UTI Anxiety Asthma Cellulitis of left leg CHF (congestive heart failure) COPD (chronic obstructive pulmonary disease) Hypercholester
[2023-11-12 17:32] LABS: Alanine Aminotransferase 12 U/L (6-35); Albumin Level 3.8 g/dL (3.5-5.1); Alkaline Phosphatase 106 U/L (38-126); Aspartate Amino Transferase 21 U/L (14-36); Bilirubin,Total 0.7 mg/dL (0.2-1.3); Blood Urea Nitrogen 16 mg/dL (7-17); Carbon Dioxide > 40 mmol/L (22-30); Chloride 99 mmol/L (98-107); Estimated Glomerular Filt Rate > 60; Glucose 106 mg/dL (65-110); Sodium 144 mmol/L (137-145)
[2023-11-12 17:54] LABS: Platelet Estimate Adequate (Adequate); Schistocytes None Seen
[2023-11-12 17:55] LABS: Hypochromasia 1+
[2023-11-12 17:57] LABS: Lipase 38 U/L (23-300); Magnesium 1.9 mg/dL (1.6-2.3)
[2023-11-12] MEDS: IPRATROPIUM 0.5 MG/ALBUTEROL SULFATE 2.5 MG AMPUL.NEB 3 ML INHALATION ×4 (18:00→20:46)
[2023-11-12 18:07] LABS: Alveolar/Arterial O2 Gradient 44.3 mmHg; Base Excess ABG 9.5 mEq/l (+/-2.0); Fractional Inspired Oxygen 28 %; HCO3 ABG 37.6 mEq/l (22.0-26.0); Oxygen Content ABG 16.7 %vol (16.0-22.0); Oxygen Saturation ABG 93.4 % (95.0-100.0); Oxyhemoglobin 93.2 % THb (90.0-100.0); PO2 ABG 73.1 mmHg (80.0-100.0); PO2 FiO2 Ratio Arterial Blood 2.61 %; Total Hemoglobin 12.7 g/dL (12.0-18.0)
[2023-11-12 18:10] LABS: NT Pro B Type Natriuretic Pept 573 pg/mL (19.9-100); Troponin I < 0.012 ng/mL (0.000-0.034)
[2023-11-12 18:11] LABS: PCO2 ABG 69.7 mmHg (35.0-45.0)
[2023-11-12 18:12] LABS: Device NASAL CANNULA; Site Drawn LEFT BRACHIAL
[2023-11-12 18:31] LABS: INR 1.4
[2023-11-12 18:32] LABS: Partial Thromboplastin Time 35.4 Seconds (22.3-36.8)
[2023-11-12] MEDS: FUROSEMIDE INJ 40 MG/4 ML VIAL IV PUSH (18:49)
[2023-11-12 19:22] LABS: Appearance Urine Cloudy (Clear); Bacteria Urine 4+ /hpf; Bilirubin Urine Negative (Negative); Blood Urine Negative (Negative); Color Urine Yellow (Yellow); Glucose Urine UA 3+ mg/dL (Negative); Ketones Urine Trace mg/dL (Negative); Leukocyte Esterase Ur 1+ LEU/UL (Negative); Need Manual Microscopic Reviewed; Nitrate Urine Positive (Negative); Non Pathogenic Casts 0-2; Protein Urine Trace mg/dL (Negative); RBC Urine 21-50 /hpf (0-2); Specific Grav Ur 1.027 (1.001-1.035); Squamous Epithelial Cell Urine Few /hpf (Few); WBC Urine 51-100 /hpf (0-3); pH Urine 5.5 (5.0-9.0)
[2023-11-12 19:24] LABS: Add Urine Microscopic? YES
--- NOTE | 2023-11-12 19:38 | PM.IMHP ---
H&P: HPI History of Present Illness Date/Time: 11/12/23 19:38 Chief Complaint: sob Narrative: This is a 73-year-old female with past medical history significant for morbid obesity, obstructive sleep apnea on CPAP at nighttime, chronic hypoxic respiratory failure, congestive heart failure, COPD, chronic lymphedema, paroxysmal atrial fibrillation, tobacco dependence. Patient presents to the emergency room due to shortness of breath worsening over the last few days or so. Patient had denies any fevers, rigors, chills, cough, sputum production her only complaint is shortness of breath. States that she went to her primary care physicians who order lab work and upon receiving results she was prompted to come to the emergency room. XR chest 1V portable Ordering provider: Coby Simms MD History: 73 years Female with . sob . Comparison: November 12, 2023 FINDINGS: MEDIASTINUM: The cardiac silhouette is moderately enlarged. Congestive devon. LUNGS: No effusion or pneumothorax. Bilateral prominent markings with interstitial thickening. OTHER: Degenerative changes of the spine. No free air under the diaphragm. IMPRESSION: Bilateral prominent markings with interstitial thickening suggestive of pulmonary edema versus pneumonitis. Underlying fibrotic changes are also possible. Review of Systems Review of Systems: shortness of breath Constitutional: Constitutional: Denies chills, Reports fatigue, Denies fever(s), Denies malaise, Denies night sweats, Denies poor appetite and Reports weakness Eyes: Eyes: Denies change in vision ENT: Denies dysphagia and Denies odynophagia Cardiovascular: Cardiovascular: Denies chest pain, Reports leg edema, Denies radiating jaw, neck or arm pain and Denies palpitations Respiratory: Respiratory: Denies chest congestion, Reports cough, Denies excessive phlegm production and Denies wheezing Gastrointestinal: Gastrointestinal: Denies abdominal pain, Denies dyspepsia, Denies diarrhea, Denies nausea and Denies vomiting Genitourinary: Genitourinary: Denies dysuria Musculoskeletal: Musculoskeletal: Denies myalgias Integumentary/Breasts: Skin/Breast: Denies rash Neurologic: Denies focal weakness and Denies Sensory deficit (Neuro) Psychiatric: Psychiatric: Reports no additional psychiatric complaints and Reports as per HPI Endocrine: Endocrine: Denies cold intolerance, Denies heat intolerance, Denies polyphagia, Denies polydipsia and Denies polyuria Hematologic/Lymphatic: Hematologic/Lymphatic: Reports no additional hematologic/lymphatic complaints and Reports as per HPI Allergic/Immunologic: Allergic/Immunologic: Reports no additional allergic/immunologic complaints and Reports as per HPI [facility] Past Medical History Medical History Acute hyperkalemia Acute UTI Anxiety Asthma Cellulitis of left leg CHF (congestive heart failure) COPD (chronic obstructive pulmonary disease) Hypercholesteremia Hypertension Localized edema Lymphedema Major depression Morbid obesity Obesity PAF (paroxysmal atrial fibrillation) PAF (paroxysmal atrial fibrillation) Situational anxiety Sleep apnea Tobacco abuse Surgical History Surgical History H/O gastric sleeve H/O: hysterectomy Family History Family History Father Diabetes mellitus Myocardial disease Mother Heart disease Sibling Diabetes mellitus Social History Social History Social History: Patient lives with her of 53 years, Tariq, who is her surrogate. She does not want any life sustaining measures including CPR or Intubation. She wishes to be a DNR at this time. She had 4 kids 3 girls and a boy. Smoking packs per day: 1.5 Smoking cigarettes per day: 30.0 Years smoked: 15
[2023-11-12] MEDS: methylPREDNISolone SOD SUCC 125 MG VIAL IV PUSH (19:52)
--- NOTE | 2023-11-12 20:40 | ECG_ITS ---
Test Date: 2023-11-12 20:47:04 Measurements Intervals [place] Rate: 83 P: 77 [place]: 164 QRS: 35 QRSD: 85 T: 20 QT: 375 QTc: 441 Interpretive Statements SINUS RHYTHM WITH OCCASIONAL SUPRAVENTRICULAR PREMATURE COMPLEXES Compared to ECG 11/12/2023 16:55:23 No significant changes Electronically Signed On 11-13-2023 12:41:54 CDT by Lynn Orozco M.D.
[2023-11-12 21:15] LABS: Troponin I < 0.012 ng/mL (0.000-0.034)
[2023-11-12] MEDS: AZITHROMYCIN 500 MG/NS 250 ML 500 MG/250 ML BAG 250 MG IVPB (21:52)
--- NOTE | 2023-11-12 22:07 | ADMGEN ---
This patient, Dinora Gusman, was admitted to Medical Room 248-01. Patient/family oriented to hospital policies and general routines including ID bracelet, bed and alarms, visiting hours, pain management, procedures, bathroom and other care routines, personal items, smoking policy, room service/diet, and visiting hours. Information on how to activate the Rapid Response Team has been discussed. Patient/Family are encouraged to report perceived risks to care and to ask questions if they do not understand what they are told or what they should do.
[2023-11-12 23:52] LABS: Troponin I < 0.012 ng/mL (0.000-0.034)
[2023-11-13] VITALS (19 sets, daily range): BP systolic 152–172; BP diastolic 72–94; PULSE 85–100; RESP 16–20; TEMP 36–36.9; O2SAT 88–100
[2023-11-13] MEDS: methylPREDNISolone SOD SUCC 125 MG VIAL 60 MG IV PUSH ×4 (00:39→17:45)
[2023-11-13] MEDS: WATER FOR IRRIGATION, STERILE 500 ML BOTTLE (00:39)
[2023-11-13] MEDS: LEVOTHYROXINE SODIUM 25 MCG TABLET PO (06:28)
[2023-11-13] MEDS: IPRATROPIUM 0.5 MG/ALBUTEROL SULFATE 2.5 MG AMPUL.NEB 3 ML INHALATION ×4 (07:23→21:36)
[2023-11-13] MEDS: FLUTICASONE/SALMETEROL 115-21 MCG INHALER 1 PUFF 2 PUFF INHALATION ×2 (07:26→21:35)
[2023-11-13 09:04] LABS: Basophils Percent Auto 0.1 % (0.2-1.2); Hematocrit 42.8 % (37.0-47.0); Hemoglobin 12.4 g/dL (12.0-15.0); Immature Granulocyte Absolute 0.03 K/mm3 (0.00-0.031); Immature Granulocyte Percent A 0.4 % (0-0.5); Lymphocytes Absolute Auto 0.49 K/mm3 (0.9-3.2); Lymphocytes Percent Auto 7.1 % (18.3-44.2); Mean Corpuscular Hemoglobin 29.8 pg (26-34); Mean Corpuscular Volume 102.9 fl (80-100); Mean Platelet Volume 10.1 fl (7.4-10.4); Monocytes Percent Auto 0.3 % (2.6-8.5); Neutrophils Absolute Auto 6.4 K/mm3 (1.3-6.7); Neutrophils Percent Auto 92.1 % (45.5-73.1); Platelet Count Result 287 k/mm3 (150-375); Red Blood Count 4.16 M/mm3 (4.2-5.4); Red Cell Distribution Width 14.1 % (11.5-14.5); White Blood Count 6.9 K/mm3 (4.5-10.0)
[2023-11-13 09:19] LABS: Blood Urea Nitrogen 20 mg/dL (7-17); Calcium 9.2 mg/dL (8.4-10.2); Carbon Dioxide > 40 mmol/L (22-30); Chloride 97 mmol/L (98-107); Estimated Glomerular Filt Rate > 60; Glucose 171 mg/dL (65-110); Potassium 4.2 mmol/L (3.4-5.0); Sodium 144 mmol/L (137-145)
[2023-11-13] MEDS: APIXABAN 5 MG TABLET PO ×2 (09:33→17:45)
[2023-11-13] MEDS: DULoxetine HCL 60 MG CAPSULE.DR PO (09:33)
[2023-11-13] MEDS: DULoxetine HCL 30 MG CAPSULE.DR PO (09:34)
[2023-11-13] MEDS: cloNIDine HCL 0.1 MG TABLET PO ×3 (09:34→17:45)
[2023-11-13] MEDS: FLUoxetine HCL 10 MG CAPSULE PO (09:34)
[2023-11-13] MEDS: ATORVASTATIN 10 MG TABLET PO (09:34)
[2023-11-13] MEDS: ASPIRIN 81 MG CHEWABLE TABLET PO (09:34)
[2023-11-13] MEDS: EMPAGLIFLOZIN 10 MG TABLET PO (09:34)
[2023-11-13] MEDS: LOSARTAN POTASSIUM 25 MG TABLET PO (09:34)
[2023-11-13] MEDS: carvediloL 12.5 MG TABLET PO ×2 (09:46→20:31)
[2023-11-13] MEDS: ACETAMINOPHEN 325 MG TABLET 650 MG PO (09:52)
--- NOTE | 2023-11-13 11:02 | PM.IMPN ---
Progress Note: A&P Assessment and Plan (1) Acute on chronic respiratory failure with hypoxia: Code(s): J96.21 - Acute and chronic respiratory failure with hypoxia Status: Acute Assessment and Plan: continue to wean O2 for a saturation of 88-92% Likely due to fluid overload a versus pneumonia as she has not been compliant with her Lasix proBNP slightly elevated at 573 Currently on 3L at rest Give additional dose of IV lasix tonight Restart oral IV lasix tomorrow Will repeat Echo (2) Lung infiltrate: Code(s): R91.8 - Other nonspecific abnormal finding of lung field Status: Acute Assessment and Plan: Continue Rocephin and Zithromax (3) UTI (urinary tract infection): Qualifiers: Hematuria presence: with hematuria Urinary tract infection type: acute cystitis Qualified Code(s): N30.01 - Acute cystitis with hematuria Code(s): N39.0 - Urinary tract infection, site not specified Status: Acute Assessment and Plan: UA showed 3+ urine glucose, trace ketones, positive nitrate, 1+ leukocyte, 21-50 urine RBC, urine WBC 51 dose 100, urine bacteria 4+ Urine culture pending Continue Rocephin (4) Acute exacerbation of chronic obstructive pulmonary disease: Code(s): J44.1 - Chronic obstructive pulmonary disease with (acute) exacerbation Status: Acute Assessment and Plan: see above (5) Pulmonary edema: Qualifiers: Chronicity: acute Qualified Code(s): J81.0 - Acute pulmonary edema Code(s): J81.1 - Chronic pulmonary edema Status: Chronic Assessment and Plan: see above (6) PAF (paroxysmal atrial fibrillation): Code(s): I48.0 - Paroxysmal atrial fibrillation Status: Chronic Assessment and Plan: continue eliquis (7) LIANNE (obstructive sleep apnea): Code(s): G47.33 - Obstructive sleep apnea (adult) (pediatric) Status: Chronic Assessment and Plan: CPAP at nighttime Time Spent With Patient Time with patient: 25 - 35 minutes Subjective Date/time seen: 11/13/23 11:02 Interval history: this is a 73-year-old female who presented to the hospital on 11/12/2023 with complaints of shortness of breath. Patient was recently seen by her pile driving supervisor Dr. Villanueva and was advised to increase her oxygen demand from 1 L p.r.n. to 1-2 L at rest and 3 L with exertion. She had outpatient blood gas drawn yesterday and was called by her pile driving supervisor office and was advised to come to the ER due to abnormal blood gases. She presented here for further evaluation. She is supposed to be taking 40 mg of Lasix daily however she has not been compliant with this as she does not like getting up to go to the bathroom. She knew is not ambulatory and gets around the house with a motor scooter. Family reported in the ED that she also refuses to wear her CPAP. Workup in the hospital included a chest x-ray which shown minimal central congestive changes with low lung volumes. She had a 2nd chest x-ray done few hours later which showed bilateral prominent markings with interstitial thickening suggestive of pulmonary edema versus pneumonitis, underlying fibrotic changes also possible. Initial labs shown a normal white blood cell count of 6.1, hemoglobin 11.4, INR 1.4, sodium 146, proBNP 585, TSH 1.23, lipase 38. ABG from 11/11/2023 showed a pH of 7.32, pCO2 of 71.0, PO2 is 68.3, bicarb 35.9 on 4 L nasal cannula. Blood gas yesterday showed improvement of pH of 7.35, pCO2 of 69.7, PO2 73.1, bicarb 37.6 on 2 L nasal cannula. She was given 40 mg IV Lasix while in the ED, was given a dose of 125 mg IV push Solu-Medrol, started on Rocephin and azithromycin. On examination today patient is alert and oriented x3, lying in the bed. patient denies any fever, chills, nausea, vomiting, diarrhea, abdominal pain, shortness of breath, or chest pain. Patient states that she is feeling much better after starting Lasix. We will g
[2023-11-13] MEDS: AZITHROMYCIN 500 MG/NS 250 ML 500 MG/250 ML BAG 250 MG IVPB (21:16)
[2023-11-14] VITALS (25 sets, daily range): BP systolic 136–180; BP diastolic 76–110; PULSE 70–142; RESP 14–22; TEMP 36.4–36.9; O2SAT 90–95; BMI 63.7
--- NOTE | 2023-11-14 | ECHO_ITS ---
Patient Info Name: Dinora Gusman Age: 73 years : 1950 Gender: Female Ht: 59 in Wt: 322 lbs BSA: 2.58 m2 HR: 87 bpm BP: 178 / 98 mmHg Heart Rhythm: Sinus Rhythm Technical Quality: Poor Exam Date: 11/14/2023 7:25 AM Exam Location: Echo Lab Patient Status: Inpatient Admit Date: 11/13/2023 Staff Ordering Physician: Marcy Bella APRN Financial Accounting Analyst: Jovan Rivers RDCS Attending Provider: Marcy Bella APRN Referring Physician: Shayne BELLA; Exam Type: CA echo dop color flow w con Study Info Indications - SOB Complete two-dimensional, color flow and Doppler transthoracic echocardiogram is performed with contrast to opacify the left ventricle and to improve the deliniation of the left ventricle endocardial borders. Contrast/Agitated Saline Contrast/Ag. Saline: Definity Amount: 5.00 ml Existing IV Access: Yes Reason for Poor Study: patient body habitus Summary 1. Technically challenging echocardiogram presumably because of obesity. 2. Definity contrast utilized to improve visualization. 3. Hyperdynamic left ventricular systolic function with concentric LVH. 4. Grade 2 diastolic noncompliance. 5. No significant valvular dysfunction. Left Ventricle Left ventricular chamber dimension is normal. Left ventricular systolic function is hyperdynamic, estimated at >70%. There is mild concentric increased left ventricular wall thickness. The left ventricular diastolic function is grade II diastolic dysfunction. Right Ventricle Right ventricular chamber dimension is normal. Left Atria Left atrial chamber dimension is mildly enlarged. Right Atria Right atrial chamber dimension is normal. Aortic Valve The aortic valve is not well visualized. There is no aortic valve stenosis. Pulmonic Valve The pulmonic valve is not well visualized. Mitral Valve The mitral valve has normal leaflets. Tricuspid Valve The tricuspid valve leaflets are not well visualized. Pericardium/Pleural The pericardium appears normal. Aorta The aortic root size at the sinus of Valsalva is normal. Left Ventricular Outflow Tract Name Value Normal LVOT 2D LVOT Diameter 2.01 cm LVOT Doppler LVOT Peak Gradient 10 mmHg LVOT Mean Gradient 6 mmHg LVOT VTI 36.11 cm LVOT VTI/AV VTI Ratio 0.87 LVOT Stroke Volume 115.03 ml LVOT CO 9.99 l/min LVOT CI 3.87 L/min/m2 Pulmonic Valve Name Value Normal PV Doppler PV Peak Gradient 7 mmHg Mitral Valve Name Value Normal MV Doppler
[2023-11-14] MEDS: methylPREDNISolone SOD SUCC 125 MG VIAL 60 MG IV PUSH ×4 (00:58→17:27)
[2023-11-14] MEDS: IPRATROPIUM 0.5 MG/ALBUTEROL SULFATE 2.5 MG AMPUL.NEB 3 ML INHALATION ×2 (02:58→08:02)
[2023-11-14 05:17] LABS: Basophils Percent Auto 0.1 % (0.2-1.2); Hematocrit 39.5 % (37.0-47.0); Hemoglobin 11.7 g/dL (12.0-15.0); Immature Granulocyte Absolute 0.03 K/mm3 (0.00-0.031); Immature Granulocyte Percent A 0.4 % (0-0.5); Lymphocytes Absolute Auto 0.59 K/mm3 (0.9-3.2); Lymphocytes Percent Auto 7.3 % (18.3-44.2); Mean Corpuscular HGB Conc 29.6 g/dl (32-36); Mean Corpuscular Hemoglobin 29.8 pg (26-34); Mean Corpuscular Volume 100.8 fl (80-100); Monocytes Absolute Auto 0.1 K/mm3 (0.1-0.6); Monocytes Percent Auto 1.5 % (2.6-8.5); Neutrophils Absolute Auto 7.4 K/mm3 (1.3-6.7); Neutrophils Percent Auto 90.7 % (45.5-73.1); Platelet Count Result 256 k/mm3 (150-375); Red Blood Count 3.92 M/mm3 (4.2-5.4); Red Cell Distribution Width 14.1 % (11.5-14.5); White Blood Count 8.1 K/mm3 (4.5-10.0)
[2023-11-14 05:40] LABS: Alanine Aminotransferase 11 U/L (6-35); Albumin Level 3.8 g/dL (3.5-5.1); Alkaline Phosphatase 95 U/L (38-126); Aspartate Amino Transferase 22 U/L (14-36); Bilirubin,Total 0.5 mg/dL (0.2-1.3); Blood Urea Nitrogen 23 mg/dL (7-17); Calcium 8.8 mg/dL (8.4-10.2); Carbon Dioxide > 40 mmol/L (22-30); Chloride 97 mmol/L (98-107); Estimated Glomerular Filt Rate > 60; Glucose 178 mg/dL (65-110); Potassium 4.5 mmol/L (3.4-5.0); Sodium 145 mmol/L (137-145)
[2023-11-14] MEDS: LEVOTHYROXINE SODIUM 25 MCG TABLET PO (06:12)
[2023-11-14] MEDS: FLUTICASONE/SALMETEROL 115-21 MCG INHALER 1 PUFF 2 PUFF INHALATION ×2 (08:04→20:02)
[2023-11-14] MEDS: ASPIRIN 81 MG CHEWABLE TABLET PO (08:17)
[2023-11-14] MEDS: APIXABAN 5 MG TABLET PO ×2 (08:17→16:53)
[2023-11-14] MEDS: FLUoxetine HCL 10 MG CAPSULE PO (08:18)
[2023-11-14] MEDS: DULoxetine HCL 30 MG CAPSULE.DR PO (08:18)
[2023-11-14] MEDS: EMPAGLIFLOZIN 10 MG TABLET PO (08:18)
[2023-11-14] MEDS: ATORVASTATIN 10 MG TABLET PO (08:18)
[2023-11-14] MEDS: DULoxetine HCL 60 MG CAPSULE.DR PO (08:18)
[2023-11-14] MEDS: LOSARTAN POTASSIUM 25 MG TABLET PO ×2 (08:18→14:36)
[2023-11-14] MEDS: cloNIDine HCL 0.1 MG TABLET PO ×3 (08:18→16:53)
[2023-11-14] MEDS: carvediloL 12.5 MG TABLET PO (08:18)
--- NOTE | 2023-11-14 09:08 | ECG_ITS ---
Test Date: 2023-11-14 09:19:37 Measurements Intervals [place] Rate: 146 P: 0 [place]: 0 QRS: 42 QRSD: 88 T: 9 QT: 291 QTc: 455 Interpretive Statements ATRIAL FIBRILLATION WITH RAPID VENTRICULAR RESPONSE ABNORMAL RHYTHM ECG Compared to ECG 11/12/2023 20:47:04 Sinus rhythm no longer present Electronically Signed On 11-15-2023 15:48:14 CDT by Ricardo Hernandez M.D.
--- NOTE | 2023-11-14 09:09 | PC.NURSE ---
Marcy Bella FIBERGLASS PIPE COVERING SUPERVISOR notified of patients heart rate jumping up in 140's on tele after albuterol treatment given. BP 150/100. New orders received.
[2023-11-14] MEDS: PERFLUTREN LIPID MICROSPHERES 1.5 ML VIAL DILUTED TO 10 ML TOTAL VOLUME IV PUSH (09:18)
--- NOTE | 2023-11-14 09:19 | IVDEFINITY ---
Prior to administration of IV Definity the patient was educated on the risks and benefits of the imaging enhancing agent including potential adverse side effects. The patient verbalized understanding. Allergies were verified. No exclusion criteria were identified and at least one of the following inclusion criteria were met: 1) physician request, 2) patient technically difficult to image (per the [place] [employer] guidelines of two or more segments not discernable within the apical view), or 3) questionable left ventricular function. ?
[2023-11-14] MEDS: METOPROLOL TARTRATE INJ 5 MG/5 ML VIAL IV PUSH ×2 (09:25→16:53)
--- NOTE | 2023-11-14 11:46 | PC.NURSE ---
Marcy Bella Crm Coordinator notified of heart rate still in 120's afib and. Patient asymptomatic. Marcy will be up to see patient.
--- NOTE | 2023-11-14 13:09 | P.PNIM_ITS ---
Progress Note: A&P Assessment and Plan (1) Acute on chronic respiratory failure with hypoxia: Code(s): J96.21 - Acute and chronic respiratory failure with hypoxia Status: Acute Assessment and Plan: 11/13/23: * continue to wean O2 for a saturation of 88-92% * Likely due to fluid overload a versus pneumonia as she has not been compliant with her Lasix * proBNP slightly elevated at 573 * Currently on 3L at rest * Give additional dose of IV lasix tonight * Restart oral lasix tomorrow * Will repeat Echo 11/14/23: * Repeat echo showing normal LV systolic function with an estimated EF of 70% with grade 2 diastolic dysfunction. * Lasix 40 mg daily ordered * Will give a dose of IV Lasix 40 mg now * Still requiring 3L of oxygen at rest * Change albuterol to xopenex considering HR went up to 140's sustained today. * Continue to wean oxygen * CXR today showing mild central congestive changes (2) Lung infiltrate: Code(s): R91.8 - Other nonspecific abnormal finding of lung field Status: Acute Assessment and Plan: 11/13/23: * Continue Rocephin and Zithromax 11/14/23: * no change to current treatment plan (3) UTI (urinary tract infection): Qualifiers: Hematuria presence: with hematuria Urinary tract infection type: acute cystitis Qualified Code(s): N30.01 - Acute cystitis with hematuria Code(s): N39.0 - Urinary tract infection, site not specified Status: Acute Assessment and Plan: 11/13/23: * UA showed 3+ urine glucose, trace ketones, positive nitrate, 1+ leukocyte, 21- 50 urine RBC, urine WBC 51 dose 100, urine bacteria 4+ * Urine culture pending * Continue Rocephin 11/14/23: * Urine culture showing E coli on preliminary read * Continue Rocephin (4) Acute exacerbation of chronic obstructive pulmonary disease: Code(s): J44.1 - Chronic obstructive pulmonary disease with (acute) exacerbation Status: Acute Assessment and Plan: see above (5) Pulmonary edema: Qualifiers: Chronicity: acute Qualified Code(s): J81.0 - Acute pulmonary edema Code(s): J81.1 - Chronic pulmonary edema Status: Chronic Assessment and Plan: see above (6) PAF (paroxysmal atrial fibrillation): Code(s): I48.0 - Paroxysmal atrial fibrillation Status: Chronic Assessment and Plan: 11/13/23: * continue eliquis 11/14/23: * Continue Eliquis * Patient given 1 time dose of Metoprolol 5mg IV push and a dose of IV Cardizem when HR was in the 140's today. Cardizem brought patient down into the 90's initially and then she started creeping back up to the 130's. * Currently take Coreg12.5 mg BID for rate control. Will put this on hold * Will start Cardizem 30 mg t.i.d. for rate control * She will likely need adjustment in her Coreg once rate controlled. (7) LIANNE (obstructive sleep apnea): Code(s): G47.33 - Obstructive sleep apnea (adult) (pediatric) Status: Chronic Assessment and Plan: 11/13/23 * CPAP at nighttime 11/14/23: * no changes Time Spent With Patient Time with patient: 25 - 35 minutes Subjective Date/time seen: 11/14/23 13:09 Interval history: 11/13/23: This is a 73-year-old female who presented to the hospital on 11/12/2023 with complaints of shortness of breath. Patient was recently seen by her basting cleaner Dr. Villanueva and was advised to increase her oxygen demand from 1 L p.r.n. to 1-2 L at rest and 3 L with exertion. She had outpatient blood gas drawn yesterday and was called by
--- NOTE | 2023-11-14 13:09 | PM.IMPN ---
Progress Note: A&P Assessment and Plan (1) Acute on chronic respiratory failure with hypoxia: Code(s): J96.21 - Acute and chronic respiratory failure with hypoxia Status: Acute Assessment and Plan: 11/13/23: continue to wean O2 for a saturation of 88-92% Likely due to fluid overload a versus pneumonia as she has not been compliant with her Lasix proBNP slightly elevated at 573 Currently on 3L at rest Give additional dose of IV lasix tonight Restart oral lasix tomorrow Will repeat Echo 11/14/23: Repeat echo showing normal LV systolic function with an estimated EF of 70% with grade 2 diastolic dysfunction. Lasix 40 mg daily ordered Will give a dose of IV Lasix 40 mg now Still requiring 3L of oxygen at rest Change albuterol to xopenex considering HR went up to 140's sustained today. Continue to wean oxygen CXR today showing mild central congestive changes (2) Lung infiltrate: Code(s): R91.8 - Other nonspecific abnormal finding of lung field Status: Acute Assessment and Plan: 11/13/23: Continue Rocephin and Zithromax 11/14/23: no change to current treatment plan (3) UTI (urinary tract infection): Qualifiers: Hematuria presence: with hematuria Urinary tract infection type: acute cystitis Qualified Code(s): N30.01 - Acute cystitis with hematuria Code(s): N39.0 - Urinary tract infection, site not specified Status: Acute Assessment and Plan: 11/13/23: UA showed 3+ urine glucose, trace ketones, positive nitrate, 1+ leukocyte, 21-50 urine RBC, urine WBC 51 dose 100, urine bacteria 4+ Urine culture pending Continue Rocephin 11/14/23: Urine culture showing E coli on preliminary read Continue Rocephin (4) Acute exacerbation of chronic obstructive pulmonary disease: Code(s): J44.1 - Chronic obstructive pulmonary disease with (acute) exacerbation Status: Acute Assessment and Plan: see above (5) Pulmonary edema: Qualifiers: Chronicity: acute Qualified Code(s): J81.0 - Acute pulmonary edema Code(s): J81.1 - Chronic pulmonary edema Status: Chronic Assessment and Plan: see above (6) PAF (paroxysmal atrial fibrillation): Code(s): I48.0 - Paroxysmal atrial fibrillation Status: Chronic Assessment and Plan: 11/13/23: continue eliquis 11/14/23: Continue Eliquis Patient given 1 time dose of Metoprolol 5mg IV push and a dose of IV Cardizem when HR was in the 140's today. Cardizem brought patient down into the 90's initially and then she started creeping back up to the 130's. Currently take Coreg12.5 mg BID for rate control. Will put this on hold Will start Cardizem 30 mg t.i.d. for rate control She will likely need adjustment in her Coreg once rate controlled. (7) LIANNE (obstructive sleep apnea): Code(s): G47.33 - Obstructive sleep apnea (adult) (pediatric) Status: Chronic Assessment and Plan: 11/13/23 CPAP at nighttime 11/14/23: no changes Time Spent With Patient Time with patient: 25 - 35 minutes Subjective Date/time seen: 11/14/23 13:09 Interval history: 11/13/23: This is a 73-year-old female who presented to the hospital on 11/12/2023 with complaints of shortness of breath. Patient was recently seen by her change consultant Dr. Villanueva and was advised to increase her oxygen demand from 1 L p.r.n. to 1-2 L at rest and 3 L with exertion. She had outpatient blood gas drawn yesterday and was called by her change consultant office and was advised to come to the ER due to abnormal blood gases. She presented here for further evaluation. She is supposed to be taking 40 mg of Lasix daily however she has not been compliant with this as she does not like getting up to go to the bathroom. She knew is not ambulatory and gets around the house with a motor scooter. Family reported in the ED that she also refuses to wear her CPAP. Workup in the hospital included a
[2023-11-14] MEDS: dilTIAZem HCl INJ 25 MG/5 ML VIAL IV PUSH (13:21)
[2023-11-14] MEDS: FUROSEMIDE INJ 40 MG/4 ML VIAL IV PUSH (13:30)
[2023-11-14] MEDS: dilTIAZem HCL 30 MG TABLET PO (15:32)
--- NOTE | 2023-11-14 16:46 | PC.NURSE ---
Marcy Bella [employer] notified of heart rate staying in 120's to 130's still after po cardizem given
--- NOTE | 2023-11-14 18:03 | PC.NURSE ---
This patient, Dinora Gusman, was transferred to IMU on 11/14/23 at 1803. Personal belongings sent with patient. Report given to Ester CRISTOBAL. Appropriate documentation sent with patient.
[2023-11-14] MEDS: dilTIAZem 100 MG/100 ML 100 MG/100 ML BAG IV CONT (18:33)
[2023-11-14] MEDS: AZITHROMYCIN 500 MG/NS 250 ML 500 MG/250 ML BAG 250 MG IVPB (22:35)
[2023-11-15] VITALS (24 sets, daily range): BP systolic 138–169; BP diastolic 62–99; PULSE 98–148; RESP 16–28; TEMP 36.3–36.7; O2SAT 90–96
[2023-11-15 04:23] LABS: Basophils Percent Auto 0.1 % (0.2-1.2); Hematocrit 43.4 % (37.0-47.0); Hemoglobin 12.9 g/dL (12.0-15.0); Immature Granulocyte Absolute 0.04 K/mm3 (0.00-0.031); Immature Granulocyte Percent A 0.4 % (0-0.5); Lymphocytes Absolute Auto 0.49 K/mm3 (0.9-3.2); Lymphocytes Percent Auto 4.5 % (18.3-44.2); Mean Corpuscular HGB Conc 29.7 g/dl (32-36); Mean Corpuscular Hemoglobin 29.8 pg (26-34); Mean Corpuscular Volume 100.2 fl (80-100); Mean Platelet Volume 10.1 fl (7.4-10.4); Monocytes Absolute Auto 0.2 K/mm3 (0.1-0.6); Monocytes Percent Auto 1.9 % (2.6-8.5); Neutrophils Absolute Auto 10.1 K/mm3 (1.3-6.7); Neutrophils Percent Auto 93.1 % (45.5-73.1); Platelet Count Result 319 k/mm3 (150-375); Red Blood Count 4.33 M/mm3 (4.2-5.4); White Blood Count 10.9 K/mm3 (4.5-10.0)
[2023-11-15] MEDS: methylPREDNISolone SOD SUCC 125 MG VIAL 60 MG IV PUSH ×3 (05:29→19:20)
[2023-11-15] MEDS: LEVOTHYROXINE SODIUM 25 MCG TABLET PO (05:38)
[2023-11-15] MEDS: FLUTICASONE/SALMETEROL 115-21 MCG INHALER 1 PUFF 2 PUFF INHALATION ×2 (08:14→20:12)
[2023-11-15] MEDS: ASPIRIN 81 MG CHEWABLE TABLET PO (08:34)
[2023-11-15] MEDS: DULoxetine HCL 30 MG CAPSULE.DR PO (08:34)
[2023-11-15] MEDS: DULoxetine HCL 60 MG CAPSULE.DR PO (08:34)
[2023-11-15] MEDS: EMPAGLIFLOZIN 10 MG TABLET PO (08:35)
[2023-11-15] MEDS: FLUoxetine HCL 10 MG CAPSULE PO (08:35)
[2023-11-15] MEDS: ATORVASTATIN 10 MG TABLET PO (08:35)
[2023-11-15] MEDS: cloNIDine HCL 0.1 MG TABLET PO (08:35)
[2023-11-15] MEDS: FUROSEMIDE 40 MG TABLET PO (08:35)
[2023-11-15] MEDS: APIXABAN 5 MG TABLET PO ×2 (08:36→16:29)
--- NOTE | 2023-11-15 08:44 | P.PNIM_ITS ---
Progress Note: A&P Assessment and Plan (1) Acute on chronic respiratory failure with hypoxia: Code(s): J96.21 - Acute and chronic respiratory failure with hypoxia Status: Acute Assessment and Plan: 11/13/23: * continue to wean O2 for a saturation of 88-92% * Likely due to fluid overload a versus pneumonia as she has not been compliant with her Lasix * proBNP slightly elevated at 573 * Currently on 3L at rest * Give additional dose of IV lasix tonight * Restart oral lasix tomorrow * Will repeat Echo 11/14/23: * Repeat echo showing normal LV systolic function with an estimated EF of 70% with grade 2 diastolic dysfunction. * Lasix 40 mg daily ordered * Will give a dose of IV Lasix 40 mg now * Still requiring 3L of oxygen at rest * Change albuterol to xopenex considering HR went up to 140's sustained today. * Continue to wean oxygen * CXR today showing mild central congestive changes 11/15/23: * continue oral Lasix * continue Xopenex breathing treatments needed * continue to wean oxygen (2) Lung infiltrate: Code(s): R91.8 - Other nonspecific abnormal finding of lung field Status: Acute Assessment and Plan: 11/13/23: * Continue Rocephin and Zithromax 11/14/23: * no change to current treatment plan (3) UTI (urinary tract infection): Qualifiers: Hematuria presence: with hematuria Urinary tract infection type: acute cystitis Qualified Code(s): N30.01 - Acute cystitis with hematuria Code(s): N39.0 - Urinary tract infection, site not specified Status: Acute Assessment and Plan: 11/13/23: * UA showed 3+ urine glucose, trace ketones, positive nitrate, 1+ leukocyte, 21- 50 urine RBC, urine WBC 51 dose 100, urine bacteria 4+ * Urine culture pending * Continue Rocephin 11/14/23: * Urine culture showing E coli on preliminary read * Continue Rocephin 11/15/23: * urine culture showing E coli on final read * Rocephin changed over to cefdinir (4) Acute exacerbation of chronic obstructive pulmonary disease: Code(s): J44.1 - Chronic obstructive pulmonary disease with (acute) exacerbation Status: Acute Assessment and Plan: see above (5) Pulmonary edema: Qualifiers: Chronicity: acute Qualified Code(s): J81.0 - Acute pulmonary edema Code(s): J81.1 - Chronic pulmonary edema Status: Chronic Assessment and Plan: see above (6) PAF (paroxysmal atrial fibrillation): Code(s): I48.0 - Paroxysmal atrial fibrillation Status: Chronic Assessment and Plan: 11/13/23: * continue eliquis 11/14/23: * Continue Eliquis * Patient given 1 time dose of Metoprolol 5mg IV push and a dose of IV Cardizem when HR was in the 140's today. Cardizem brought patient down into the 90's initially and then she started creeping back up to the 130's. * Currently take Coreg12.5 mg BID for rate control. Will put this on hold * Will start Cardizem 30 mg t.i.d. for rate control * She will likely need adjustment in her Coreg once rate controlled. 11/15/23: * Cardiazem infusion discontinued * cardiology consulted and transitioned patient to oral cardizem, started Metoprolol and Jardiance. She is still not rate controlled with HR of 120- 140's * Will stay in IMU today * continue Eliquis (7) LIANNE (obstructive sleep apnea): Code(s): G47.33 - Obstructive sleep apnea (adult) (pediatric) Status: Chronic Assessment and Plan: 11/13/23 * CPAP at nighttime 11/14/23: * no changes
--- NOTE | 2023-11-15 08:44 | PM.IMPN ---
Progress Note: A&P Assessment and Plan (1) Acute on chronic respiratory failure with hypoxia: Code(s): J96.21 - Acute and chronic respiratory failure with hypoxia Status: Acute Assessment and Plan: 11/13/23: continue to wean O2 for a saturation of 88-92% Likely due to fluid overload a versus pneumonia as she has not been compliant with her Lasix proBNP slightly elevated at 573 Currently on 3L at rest Give additional dose of IV lasix tonight Restart oral lasix tomorrow Will repeat Echo 11/14/23: Repeat echo showing normal LV systolic function with an estimated EF of 70% with grade 2 diastolic dysfunction. Lasix 40 mg daily ordered Will give a dose of IV Lasix 40 mg now Still requiring 3L of oxygen at rest Change albuterol to xopenex considering HR went up to 140's sustained today. Continue to wean oxygen CXR today showing mild central congestive changes 11/15/23: continue oral Lasix continue Xopenex breathing treatments needed continue to wean oxygen (2) Lung infiltrate: Code(s): R91.8 - Other nonspecific abnormal finding of lung field Status: Acute Assessment and Plan: 11/13/23: Continue Rocephin and Zithromax 11/14/23: no change to current treatment plan (3) UTI (urinary tract infection): Qualifiers: Hematuria presence: with hematuria Urinary tract infection type: acute cystitis Qualified Code(s): N30.01 - Acute cystitis with hematuria Code(s): N39.0 - Urinary tract infection, site not specified Status: Acute Assessment and Plan: 11/13/23: UA showed 3+ urine glucose, trace ketones, positive nitrate, 1+ leukocyte, 21-50 urine RBC, urine WBC 51 dose 100, urine bacteria 4+ Urine culture pending Continue Rocephin 11/14/23: Urine culture showing E coli on preliminary read Continue Rocephin 11/15/23: urine culture showing E coli on final read Rocephin changed over to cefdinir (4) Acute exacerbation of chronic obstructive pulmonary disease: Code(s): J44.1 - Chronic obstructive pulmonary disease with (acute) exacerbation Status: Acute Assessment and Plan: see above (5) Pulmonary edema: Qualifiers: Chronicity: acute Qualified Code(s): J81.0 - Acute pulmonary edema Code(s): J81.1 - Chronic pulmonary edema Status: Chronic Assessment and Plan: see above (6) PAF (paroxysmal atrial fibrillation): Code(s): I48.0 - Paroxysmal atrial fibrillation Status: Chronic Assessment and Plan: 11/13/23: continue eliquis 11/14/23: Continue Eliquis Patient given 1 time dose of Metoprolol 5mg IV push and a dose of IV Cardizem when HR was in the 140's today. Cardizem brought patient down into the 90's initially and then she started creeping back up to the 130's. Currently take Coreg12.5 mg BID for rate control. Will put this on hold Will start Cardizem 30 mg t.i.d. for rate control She will likely need adjustment in her Coreg once rate controlled. 11/15/23: Cardiazem infusion discontinued cardiology consulted and transitioned patient to oral cardizem, started Metoprolol and Jardiance. She is still not rate controlled with HR of 120-140's Will stay in IMU today continue Eliquis (7) LIANNE (obstructive sleep apnea): Code(s): G47.33 - Obstructive sleep apnea (adult) (pediatric) Status: Chronic Assessment and Plan: 11/13/23 CPAP at nighttime 11/14/23: no changes Time Spent With Patient Time with patient: 25 - 35 minutes Subjective Date/time seen: 11/15/23 08:44 Interval history: 11/13/23: This is a 73-year-old female who presented to the hospital on 11/12/2023 with complaints of shortness of breath. Patient was recently seen by her review scheduling coordinator Dr. Villanueva and was advised to increase her oxygen demand from 1 L p.r.n. to 1-2 L at rest and 3 L with exertion. She had outpatient blood gas drawn yesterday and was called by her pulmonolog
[2023-11-15] MEDS: CEFDINIR 300 MG CAPSULE PO ×2 (10:51→21:10)
--- NOTE | 2023-11-15 12:58 | PM.CNCAR ---
Assessment and Plan Assessment and plan (1) PAF (paroxysmal atrial fibrillation): Code(s): I48.0 - Paroxysmal atrial fibrillation Status: Chronic Plan Assessment Paroxysmal atrial fibrillation with RVR in the setting of acute respiratory failure. Acute on chronic hypercapnic and hypoxemic respiratory failure secondary to chronic lung disease and obesity Acute on chronic diastolic heart failure Morbid obese Obstructive sleep apnea Plan Lasix 40 mg IV b.i.d. Eliquis 5 mg b.i.d. Carvedilol 12.5 mg b.i.d. Start diltiazem 30 mg q.i.d. Jardiance 10 mg daily DC albuterol DC losartan any use blood pressure for escalation of AV destin blocking agents History of Present Illness History of Present Illness Consult date/time: 11/15/23 12:58 Reason For Visit: Acute on chronic hypoxic respiratory failure Narrative: 71-year-old female patient with history of chronic lung disease presented to the hospital because of progressive shortness of breath. Shortness of breath was present at rest on mild activity. It was associated with this. She has history of chronic lung disease COPD. She visited her primary care physician order blood gases that showed hypoxemia and CO2 retention. She was admitted to the hospital for evaluation management of acute hypoxemic and hypercapnic respiratory failure. She received albuterol and following she developed atrial fibrillation with RVR. Patient has a history of over sensitivity to albuterol with tachyarrhythmia. Her heart rate has been 120 to 140 over night and she was started on diltiazem drip. She has been on Lasix at home but has not been compliant with her medications. She has limited physical activity. Review of Systems Review of Systems: All systems reviewed & are unremarkable except as noted in HPI and below PMFSH Past Medical History Medical History Acute hyperkalemia Acute UTI Anxiety Asthma Cellulitis of left leg CHF (congestive heart failure) COPD (chronic obstructive pulmonary disease) Hypercholesteremia Hypertension Localized edema Lymphedema Major depression Morbid obesity Obesity PAF (paroxysmal atrial fibrillation) PAF (paroxysmal atrial fibrillation) Situational anxiety Sleep apnea Tobacco abuse Surgical History Surgical History H/O gastric sleeve H/O: hysterectomy Family History Family History Father Diabetes mellitus Myocardial disease Mother Heart disease Sibling Diabetes mellitus Social History Social History Social History: Patient lives with her of 53 years, Tariq, who is her surrogate. She does not want any life sustaining measures including CPR or Intubation. She wishes to be a DNR at this time. She had 4 kids 3 girls and a boy. Smoking packs per day: 1.5 Smoking cigarettes per day: 30.0 Years smoked: 15 Smoking pack-years: 22.50 Smoking status: Never smoker Tobacco type: cigarettes Second hand tobacco smoke exposure: No Alcohol intake: never Substance use: never Substance use type: does not use Do You Feel Safe in your Home?: Yes Lack of Transportation: No Lack of Food: Sometimes True Current Housing: I Have Housing Concerned About Future Housing: No Difficulty Paying Gas/Electric Bills: No Difficulty Paying for Meds: No Currently Unemployed: No Education: High School Diploma/GED Difficulty w/ Childcare or Family Care: No Living arrangements: with family Occupation/Education: retired 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
[2023-11-15] MEDS: dilTIAZem 100 MG/100 ML 100 MG/100 ML BAG IV CONT (13:26)
[2023-11-15] MEDS: dilTIAZem HCL 60 MG TABLET PO ×2 (15:00→19:20)
[2023-11-15] MEDS: FAMOTIDINE 20 MG TABLET PO ×2 (16:29→21:10)
[2023-11-15] MEDS: METOPROLOL TARTRATE 25 MG TABLET PO (21:10)
[2023-11-15] MEDS: AZITHROMYCIN 500 MG/NS 250 ML 500 MG/250 ML BAG 250 MG IVPB (21:10)
[2023-11-15] MEDS: LEVALBUTEROL NEB 1.25 MG/3 ML INHALATION (22:34)
[2023-11-16] VITALS (24 sets, daily range): BP systolic 128–186; BP diastolic 64–97; PULSE 84–152; RESP 16–25; TEMP 36.2–36.7; O2SAT 90–96
[2023-11-16] MEDS: dilTIAZem HCL 60 MG TABLET PO ×5 (00:01→23:51)
[2023-11-16] MEDS: methylPREDNISolone SOD SUCC 125 MG VIAL 60 MG IV PUSH ×5 (00:03→23:50)
[2023-11-16 04:21] LABS: Hematocrit 46.1 % (37.0-47.0); Hemoglobin 13.5 g/dL (12.0-15.0); Immature Granulocyte Absolute 0.04 K/mm3 (0.00-0.031); Immature Granulocyte Percent A 0.5 % (0-0.5); Lymphocytes Percent Auto 5.1 % (18.3-44.2); Mean Corpuscular HGB Conc 29.3 g/dl (32-36); Mean Corpuscular Hemoglobin 29.6 pg (26-34); Mean Corpuscular Volume 101.1 fl (80-100); Monocytes Absolute Auto 0.2 K/mm3 (0.1-0.6); Monocytes Percent Auto 1.9 % (2.6-8.5); Neutrophils Absolute Auto 7.3 K/mm3 (1.3-6.7); Neutrophils Percent Auto 92.5 % (45.5-73.1); Platelet Count Result 331 k/mm3 (150-375); Red Blood Count 4.56 M/mm3 (4.2-5.4); Red Cell Distribution Width 14.2 % (11.5-14.5); White Blood Count 7.9 K/mm3 (4.5-10.0)
[2023-11-16] MEDS: LEVOTHYROXINE SODIUM 25 MCG TABLET PO (06:22)
[2023-11-16] MEDS: FLUTICASONE/SALMETEROL 115-21 MCG INHALER 1 PUFF 2 PUFF INHALATION ×2 (08:21→19:31)
[2023-11-16] MEDS: LEVALBUTEROL NEB 1.25 MG/3 ML INHALATION ×2 (08:25→22:52)
[2023-11-16] MEDS: APIXABAN 5 MG TABLET PO ×2 (08:38→18:26)
[2023-11-16] MEDS: EMPAGLIFLOZIN 10 MG TABLET PO (08:38)
[2023-11-16] MEDS: FLUoxetine HCL 10 MG CAPSULE PO (08:38)
[2023-11-16] MEDS: ATORVASTATIN 10 MG TABLET PO (08:38)
[2023-11-16] MEDS: DULoxetine HCL 60 MG CAPSULE.DR PO (08:38)
[2023-11-16] MEDS: ASPIRIN 81 MG CHEWABLE TABLET PO (08:38)
[2023-11-16] MEDS: METOPROLOL TARTRATE 25 MG TABLET PO ×2 (08:38→20:35)
[2023-11-16] MEDS: DULoxetine HCL 30 MG CAPSULE.DR PO (08:39)
[2023-11-16] MEDS: FAMOTIDINE 20 MG TABLET PO ×2 (08:39→20:35)
[2023-11-16] MEDS: FUROSEMIDE 40 MG TABLET PO (08:39)
[2023-11-16] MEDS: CEFDINIR 300 MG CAPSULE PO ×2 (08:39→20:35)
--- NOTE | 2023-11-16 09:33 | P.PNIM_ITS ---
Progress Note: A&P Assessment and Plan (1) Acute on chronic respiratory failure with hypoxia: Code(s): J96.21 - Acute and chronic respiratory failure with hypoxia Status: Acute Assessment and Plan: 11/13/23: * continue to wean O2 for a saturation of 88-92% * Likely due to fluid overload a versus pneumonia as she has not been compliant with her Lasix * proBNP slightly elevated at 573 * Currently on 3L at rest * Give additional dose of IV lasix tonight * Restart oral lasix tomorrow * Will repeat Echo 11/14/23: * Repeat echo showing normal LV systolic function with an estimated EF of 70% with grade 2 diastolic dysfunction. * Lasix 40 mg daily ordered * Will give a dose of IV Lasix 40 mg now * Still requiring 3L of oxygen at rest * Change albuterol to xopenex considering HR went up to 140's sustained today. * Continue to wean oxygen * CXR today showing mild central congestive changes 11/15/23: * continue oral Lasix * continue Xopenex breathing treatments needed * continue to wean oxygen 11/16/23: * Currently on 2L NC with use of accessory muscles * Continue with current treatment plan (2) Lung infiltrate: Code(s): R91.8 - Other nonspecific abnormal finding of lung field Status: Acute Assessment and Plan: 11/13/23: * Continue Rocephin and Zithromax 11/14/23: * no change to current treatment plan (3) UTI (urinary tract infection): Qualifiers: Hematuria presence: with hematuria Urinary tract infection type: acute cystitis Qualified Code(s): N30.01 - Acute cystitis with hematuria Code(s): N39.0 - Urinary tract infection, site not specified Status: Acute Assessment and Plan: 11/13/23: * UA showed 3+ urine glucose, trace ketones, positive nitrate, 1+ leukocyte, 21- 50 urine RBC, urine WBC 51 dose 100, urine bacteria 4+ * Urine culture pending * Continue Rocephin 11/14/23: * Urine culture showing E coli on preliminary read * Continue Rocephin 11/15/23: * urine culture showing E coli on final read * Rocephin changed over to cefdinir 11/16/23: * No change to current treatment plan (4) Acute exacerbation of chronic obstructive pulmonary disease: Code(s): J44.1 - Chronic obstructive pulmonary disease with (acute) exacerbation Status: Acute Assessment and Plan: see above (5) Pulmonary edema: Qualifiers: Chronicity: acute Qualified Code(s): J81.0 - Acute pulmonary edema Code(s): J81.1 - Chronic pulmonary edema Status: Chronic Assessment and Plan: see above (6) PAF (paroxysmal atrial fibrillation): Code(s): I48.0 - Paroxysmal atrial fibrillation Status: Chronic Assessment and Plan: 11/13/23: * continue eliquis 11/14/23: * Continue Eliquis * Patient given 1 time dose of Metoprolol 5mg IV push and a dose of IV Cardizem when HR was in the 140's today. Cardizem brought patient down into the 90's initially and then she started creeping back up to the 130's. * Currently take Coreg12.5 mg BID for rate control. Will put this on hold * Will start Cardizem 30 mg t.i.d. for rate control * She will likely need adjustment in her Coreg once rate controlled. 11/15/23: * Cardiazem infusion discontinued * cardiology consulted and transitioned patient to oral cardizem, started Metoprolol and Jardiance. She is still not rate controlled with HR of 120- 140's * Will stay in IMU today * continue Eliquis 11/16/23: * HR improved 110-117 * May need further adjusti
--- NOTE | 2023-11-16 09:33 | PM.IMPN ---
Progress Note: A&P Assessment and Plan (1) Acute on chronic respiratory failure with hypoxia: Code(s): J96.21 - Acute and chronic respiratory failure with hypoxia Status: Acute Assessment and Plan: 11/13/23: continue to wean O2 for a saturation of 88-92% Likely due to fluid overload a versus pneumonia as she has not been compliant with her Lasix proBNP slightly elevated at 573 Currently on 3L at rest Give additional dose of IV lasix tonight Restart oral lasix tomorrow Will repeat Echo 11/14/23: Repeat echo showing normal LV systolic function with an estimated EF of 70% with grade 2 diastolic dysfunction. Lasix 40 mg daily ordered Will give a dose of IV Lasix 40 mg now Still requiring 3L of oxygen at rest Change albuterol to xopenex considering HR went up to 140's sustained today. Continue to wean oxygen CXR today showing mild central congestive changes 11/15/23: continue oral Lasix continue Xopenex breathing treatments needed continue to wean oxygen 11/16/23: Currently on 2L NC with use of accessory muscles Continue with current treatment plan (2) Lung infiltrate: Code(s): R91.8 - Other nonspecific abnormal finding of lung field Status: Acute Assessment and Plan: 11/13/23: Continue Rocephin and Zithromax 11/14/23: no change to current treatment plan (3) UTI (urinary tract infection): Qualifiers: Hematuria presence: with hematuria Urinary tract infection type: acute cystitis Qualified Code(s): N30.01 - Acute cystitis with hematuria Code(s): N39.0 - Urinary tract infection, site not specified Status: Acute Assessment and Plan: 11/13/23: UA showed 3+ urine glucose, trace ketones, positive nitrate, 1+ leukocyte, 21-50 urine RBC, urine WBC 51 dose 100, urine bacteria 4+ Urine culture pending Continue Rocephin 11/14/23: Urine culture showing E coli on preliminary read Continue Rocephin 11/15/23: urine culture showing E coli on final read Rocephin changed over to cefdinir 11/16/23: No change to current treatment plan (4) Acute exacerbation of chronic obstructive pulmonary disease: Code(s): J44.1 - Chronic obstructive pulmonary disease with (acute) exacerbation Status: Acute Assessment and Plan: see above (5) Pulmonary edema: Qualifiers: Chronicity: acute Qualified Code(s): J81.0 - Acute pulmonary edema Code(s): J81.1 - Chronic pulmonary edema Status: Chronic Assessment and Plan: see above (6) PAF (paroxysmal atrial fibrillation): Code(s): I48.0 - Paroxysmal atrial fibrillation Status: Chronic Assessment and Plan: 11/13/23: continue eliquis 11/14/23: Continue Eliquis Patient given 1 time dose of Metoprolol 5mg IV push and a dose of IV Cardizem when HR was in the 140's today. Cardizem brought patient down into the 90's initially and then she started creeping back up to the 130's. Currently take Coreg12.5 mg BID for rate control. Will put this on hold Will start Cardizem 30 mg t.i.d. for rate control She will likely need adjustment in her Coreg once rate controlled. 11/15/23: Cardiazem infusion discontinued cardiology consulted and transitioned patient to oral cardizem, started Metoprolol and Jardiance. She is still not rate controlled with HR of 120-140's Will stay in IMU today continue Eliquis 11/16/23: HR improved 110-117 May need further adjusting per Cardiology team Keep in IMU again today for closer monitoring (7) LIANNE (obstructive sleep apnea): Code(s): G47.33 - Obstructive sleep apnea (adult) (pediatric) Status: Chronic Assessment and Plan: 11/13/23 CPAP at nighttime 11/14/23: no changes Time Spent With Patient Time with patient: 25 - 35 minutes Subjective Date/time seen: 11/16/23 09:33 Interval history: 11/13/23: This is a 73-year-old female who presented to the hospital on
--- NOTE | 2023-11-16 12:09 | PM.PNCARD ---
Progress Note: A&P Assessment and Plan (1) Acute on chronic respiratory failure with hypoxia: Code(s): J96.21 - Acute and chronic respiratory failure with hypoxia Status: Acute Plan Paroxysmal atrial fibrillation with RVR in the setting of acute respiratory failure. Acute on chronic hypercapnic and hypoxemic respiratory failure secondary to chronic lung disease and obesity Acute on chronic diastolic heart failure Morbid obese Obstructive sleep apnea Plan Lasix 40 mg IV b.i.d. Eliquis 5 mg b.i.d. Carvedilol 12.5 mg b.i.d. Increase diltiazem 90 mg q.i.d. Jardiance 10 mg daily Subjective Date/time seen: 11/16/23 12:09 Interval history: feels better SOb is present but improving HR in Tele 110 to 120 Review of Systems Review of Systems: All systems reviewed & are unremarkable except as noted in HPI and below Exam Const: General: comfortable and no acute distress Other: Able to lie flat Resp: Auscultation: wheezes lower bilaterally and lung sounds not diminished Other: No chest wall tenderness Cardio: Rate: regular rate Rhythm: regular rhythm Heart sounds: no gallops, no murmurs and no rubs GI: GI Palp: Yes Soft to palpation and No Tenderness to palpation present (GI) Auscultation: normal bowel sounds Extrem: General: no edema Other: Normal capillary refills Intact distal pulses. Objective Data Vital Signs Vital Signs: Vital Signs - 24 hr 11/15/23 13:26 11/15/23 13:26 11/15/23 14:00 Temperature Pulse Rate 122 H 122 H 117 H Respiratory Rate Blood Pressure Pulse Oximetry Oxygen Delivery Oxygen Flow Rate 11/15/23 16:00 11/15/23 16:30 11/15/23 16:00 Temperature 36.7 C Pulse Rate 115 H 120 H 125 H Respiratory Rate 28 H Blood Pressure 138/98 H Pulse Oximetry 93 Oxygen Delivery Oxygen Flow Rate 11/15/23 18:00 11/15/23 16:00 11/15/23 19:52 Temperature 36.3 C L Pulse Rate 129 H 145 H Respiratory Rate 26 H Blood Pressure 169/95 H Pulse Oximetry 95 90 Oxygen Delivery Nasal Cannula Oxygen Flow Rate 2 11/15/23 20:16 11/15/23 20:17 11/15/23 21:10 Temperature Pulse Rate 140 H 133 H Respiratory Rate 18 Blood Pressure Pulse Oximetry 91 Oxygen Delivery Nasal Cannula Oxygen Flow Rate 2 11/15/23 20:00 11/15/23 20:00 11/15/23 22:00 Temperature Pulse Rate 148 H 123 H Respiratory Rate Blood Pressure Pulse Oximetry 91 Oxygen Delivery Nasal Cannula Oxygen Flow Rate 2 11/15/23 22:36 11/15/23 22:42 11/16/23 00:16 Temperature Pulse Rate 114 H 111 H 135 H Respiratory Rate 18 18 25 H Blood Pressure Pulse Oximetry 95 Oxygen Delivery BiPAP Oxygen Flow Rate 11/16/23 00:00 11/16/23 00:00 11/16/23 00:00 Temperature 36.2 C L Pulse Rate 111 H 108 H Respiratory Rate 22 H Blood Pressure 151/75 H Pulse Oximetry 90 94 Oxygen Delivery Nasal Cannula Oxygen Flow Rate 2 11/16/23 04:00 11/16/23 02:00 11/16/23 04:00 Temperature 36.4 C L Pulse Rate 117 H 110 H 152 H Respiratory Rate 20 Blood Pressure 147/87 H Pulse Oximetry 92 Oxygen Delivery Oxygen Flow Rate 11/16/23 04:00 11/16/23 06:00 11/16/23 08:38 Temperature Pulse Rate 114 H 112 H Respiratory Rate Blood Pressure Pulse Oximetry 95 Oxygen Delivery Nasal Cannula Oxygen Flow Rate 2 11/16/23 08:20 11/16/23 08:34 11/16/23 08:00 Temperature 36.6 C Pulse Rate 110 H 115 H Respiratory Rate 18 16 Blood Pressure 128/97 H Pulse Oximetry 92 93 Oxygen Delivery Nasal Cannula Oxygen Flow Rate 2 Intake/Output Intake/Output: Intake & Output 11/13/23 11/14/23 11/15/23 11/16/23 23:59 23:59 23:59 23:59 Intake Total 1520 1347.3 1232.6 300 Output Total 2900 1750 650 700 Balance -1380 -402.7 582.6 -400 Meds/Results Medications: Active Medications Generic Name Dose Route Start Last Admin Trade Name Freq PRN Reason Stop Dose
[2023-11-16] MEDS: dilTIAZem HCL 30 MG TABLET PO ×3 (13:24→23:50)
[2023-11-16] MEDS: AZITHROMYCIN 500 MG/NS 250 ML 500 MG/250 ML BAG 250 MG IVPB (20:42)
[2023-11-16] MEDS: hydrALAZINE HCL 20 MG/ML VIAL 10 MG IV PUSH (20:56)
[2023-11-16] MEDS: LORazepam INJ (*CRX) 2 MG/ML VIAL 1 MG IV PUSH (23:50)
[2023-11-17] VITALS (41 sets, daily range): BP systolic 120–187; BP diastolic 64–129; PULSE 89–144; RESP 14–28; TEMP 36.4–37.2; O2SAT 91–100
--- NOTE | 2023-11-17 00:03 | PC.NURSE ---
Spoke with Dr. Howell at 2322 via telephone regarding patient being anxious and having insomnia. One time order of 1mg Ativan IVP was placed; administered at 2350. Will continue to monitor patient closely.
[2023-11-17] MEDS: flumazeniL 0.5 MG/5 ML VIAL IV PUSH ×2 (02:10→02:20)
[2023-11-17] MEDS: WATER FOR IRRIGATION, STERILE 1,000 ML BOTTLE 1000 ML (02:30)
--- NOTE | 2023-11-17 02:47 | PC.NURSE ---
0145 patient noted to be off monitor. Found with leads off, oxygen off, and gown pulled down. Patient then began crying due to incontinence. While cleaning patient while laying flat she became cyanotic with oxygen in the 70s. Patient not able to take deep breaths. Dr Howell called for fumazenil order. Dr Howell immediately at bedside. 0.5mg flumazemil given with increase in level of consciousness at 0210 and again at 0220. Patient currently on 11 liters hi-bharathi and continuous pulse ox.
[2023-11-17 04:43] LABS: Basophils Percent Auto 0.1 % (0.2-1.2); Hematocrit 45.7 % (37.0-47.0); Immature Granulocyte Absolute 0.09 K/mm3 (0.00-0.031); Immature Granulocyte Percent A 0.9 % (0-0.5); Lymphocytes Absolute Auto 0.25 K/mm3 (0.9-3.2); Lymphocytes Percent Auto 2.5 % (18.3-44.2); Mean Corpuscular HGB Conc 28.4 g/dl (32-36); Mean Corpuscular Hemoglobin 29.3 pg (26-34); Mean Corpuscular Volume 103.2 fl (80-100); Mean Platelet Volume 10.4 fl (7.4-10.4); Monocytes Absolute Auto 0.3 K/mm3 (0.1-0.6); Monocytes Percent Auto 2.6 % (2.6-8.5); Neutrophils Absolute Auto 9.2 K/mm3 (1.3-6.7); Neutrophils Percent Auto 93.9 % (45.5-73.1); Platelet Count Result 327 k/mm3 (150-375); Red Blood Count 4.43 M/mm3 (4.2-5.4); Red Cell Distribution Width 14.1 % (11.5-14.5); White Blood Count 9.8 K/mm3 (4.5-10.0)
[2023-11-17 05:10] LABS: Large Platelets Present; Platelet Clumps Present; Platelet Estimate Adequate (Adequate)
[2023-11-17 05:11] LABS: Anisocytosis 1+; Schistocytes None Seen
[2023-11-17] MEDS: LEVOTHYROXINE SODIUM 25 MCG TABLET PO (05:49)
[2023-11-17] MEDS: methylPREDNISolone SOD SUCC 125 MG VIAL 60 MG IV PUSH ×2 (05:50→17:38)
[2023-11-17] MEDS: dilTIAZem HCL 30 MG TABLET PO (05:50)
[2023-11-17] MEDS: dilTIAZem HCL 60 MG TABLET PO (05:50)
[2023-11-17] MEDS: DULoxetine HCL 30 MG CAPSULE.DR PO (08:00)
[2023-11-17 08:08] LABS: Alveolar/Arterial O2 Gradient 247.2 mmHg; Base Excess ABG 13.4 mEq/l (+/-2.0); Fractional Inspired Oxygen 60 %; HCO3 ABG 44.9 mEq/l (22.0-26.0); Oxygen Content ABG 19.3 %vol (16.0-22.0); Oxygen Saturation ABG 92.3 % (95.0-100.0); Oxyhemoglobin 92.5 % THb (90.0-100.0); PO2 ABG 74.8 mmHg (80.0-100.0); PO2 FiO2 Ratio Arterial Blood 1.25 %; Total Hemoglobin 14.8 g/dL (12.0-18.0)
[2023-11-17 08:12] LABS: pH ABG 7.287 (7.350-7.450)
[2023-11-17 08:13] LABS: Device HIGH FLOW NASAL CANN; PCO2 ABG 96.2 mmHg (35.0-45.0); Site Drawn RIGHT RADIAL
--- NOTE | 2023-11-17 08:20 | ECG_ITS ---
Test Date: 2023-11-17 08:36:01 Measurements Intervals [place] Rate: 101 P: 0 UT: 0 QRS: 57 QRSD: 91 T: 12 QT: 365 QTc: 474 Interpretive Statements ATRIAL FIBRILLATION WITH RAPID VENTRICULAR RESPONSE WITH ABERRANT CONDUCTION OR VENTRICULAR PREMATURE COMPLEXES NONSPECIFIC ST & T-WAVE ABNORMALITY ABNORMAL RHYTHM ECG Compared to ECG 11/14/2023 09:19:37 THE HEART RATE RESPONSE TO ATRIAL FIBRILLATION IS BETTER CONTROLLED Electronically Signed On 11-17-2023 15:19:38 CDT by Domingo Baez M.D.
[2023-11-17] MEDS: FLUTICASONE/SALMETEROL 115-21 MCG INHALER 1 PUFF 2 PUFF INHALATION (08:21)
--- NOTE | 2023-11-17 08:21 | P.PNIM_ITS ---
Progress Note: A&P Assessment and Plan (1) Acute on chronic respiratory failure with hypoxia: Code(s): J96.21 - Acute and chronic respiratory failure with hypoxia Status: Acute Assessment and Plan: 11/13/23: * continue to wean O2 for a saturation of 88-92% * Likely due to fluid overload a versus pneumonia as she has not been compliant with her Lasix * proBNP slightly elevated at 573 * Currently on 3L at rest * Give additional dose of IV lasix tonight * Restart oral lasix tomorrow * Will repeat Echo 11/14/23: * Repeat echo showing normal LV systolic function with an estimated EF of 70% with grade 2 diastolic dysfunction. * Lasix 40 mg daily ordered * Will give a dose of IV Lasix 40 mg now * Still requiring 3L of oxygen at rest * Change albuterol to xopenex considering HR went up to 140's sustained today. * Continue to wean oxygen * CXR today showing mild central congestive changes 11/15/23: * continue oral Lasix * continue Xopenex breathing treatments needed * continue to wean oxygen 11/16/23: * Currently on 2L NC with use of accessory muscles * Continue with current treatment plan 11/16: * Increased work of breathing, use of accessory muscles, increased oxygen requirements on 10 L hi-flow * Stat ABG ordered--ph7.28/CO2 96.2/pO2 74.8/ HCO3 44.9 * Placed on BiPAP 13/12, rate 12, fio2 100% wean for spo2 > 90% * Repeat ABG in 1 hour post BiPAP * IVP Lasix 40 mg 1 x now * CTA for r/o PE---a-fib in the 120's, increased o2. Noncompliant with Eliquis * Xopenex and ipratropium breathing treatments scheduled q 6 hours * Currently on solu-medrol 60 mg IVP Q 6 hours * BNP 5640, trop negative * K+ 3.1 and diuresis with Lasix today. Replace with K 40 meq PO and K+40 meq IVPB x1 (2) Lung infiltrate: Code(s): R91.8 - Other nonspecific abnormal finding of lung field Status: Acute Assessment and Plan: 11/13/23: * Continue Rocephin and Zithromax 11/14/23: * no change to current treatment plan (3) UTI (urinary tract infection): Qualifiers: Hematuria presence: with hematuria Urinary tract infection type: acute cystitis Qualified Code(s): N30.01 - Acute cystitis with hematuria Code(s): N39.0 - Urinary tract infection, site not specified Status: Acute Assessment and Plan: 11/13/23: * UA showed 3+ urine glucose, trace ketones, positive nitrate, 1+ leukocyte, 21- 50 urine RBC, urine WBC 51 dose 100, urine bacteria 4+ * Urine culture pending * Continue Rocephin 11/14/23: * Urine culture showing E coli on preliminary read * Continue Rocephin 11/15/23: * urine culture showing E coli on final read * Rocephin changed over to cefdinir 11/16: * UTI will be have completed treatment after 11/16 (4) Acute exacerbation of chronic obstructive pulmonary disease: Code(s): J44.1 - Chronic obstructive pulmonary disease with (acute) exacerbation Status: Acute Assessment and Plan: see above 1 (5) Pulmonary edema: Qualifiers: Chronicity: acute Qualified Code(s): J81.0 - Acute pulmonary edema Code(s): J81.1 - Chronic pulmonary edema Status: Chronic Assessment and Plan: see above 1 (6) PAF (paroxysmal atrial fibrillation): Code(s): I48.0 - Paroxysmal atrial fibrillation Status: Chronic Assessment and Plan: 11/13/23: * continue eliquis 11/14/23: * Continue Eliquis * Patient given 1 time dose of Metoprolol 5mg IV push and a dose of IV Cardizem when HR was in the 14
--- NOTE | 2023-11-17 08:21 | PM.IMPN ---
Progress Note: A&P Assessment and Plan (1) Acute on chronic respiratory failure with hypoxia: Code(s): J96.21 - Acute and chronic respiratory failure with hypoxia Status: Acute Assessment and Plan: 11/13/23: continue to wean O2 for a saturation of 88-92% Likely due to fluid overload a versus pneumonia as she has not been compliant with her Lasix proBNP slightly elevated at 573 Currently on 3L at rest Give additional dose of IV lasix tonight Restart oral lasix tomorrow Will repeat Echo 11/14/23: Repeat echo showing normal LV systolic function with an estimated EF of 70% with grade 2 diastolic dysfunction. Lasix 40 mg daily ordered Will give a dose of IV Lasix 40 mg now Still requiring 3L of oxygen at rest Change albuterol to xopenex considering HR went up to 140's sustained today. Continue to wean oxygen CXR today showing mild central congestive changes 11/15/23: continue oral Lasix continue Xopenex breathing treatments needed continue to wean oxygen 11/16/23: Currently on 2L NC with use of accessory muscles Continue with current treatment plan 11/16: Increased work of breathing, use of accessory muscles, increased oxygen requirements on 10 L hi-flow Stat ABG ordered--ph7.28/CO2 96.2/pO2 74.8/ HCO3 44.9 Placed on BiPAP 13/12, rate 12, fio2 100% wean for spo2 > 90% Repeat ABG in 1 hour post BiPAP IVP Lasix 40 mg 1 x now CTA for r/o PE---a-fib in the 120's, increased o2. Noncompliant with Eliquis Xopenex and ipratropium breathing treatments scheduled q 6 hours Currently on solu-medrol 60 mg IVP Q 6 hours BNP 5640, trop negative K+ 3.1 and diuresis with Lasix today. Replace with K 40 meq PO and K+40 meq IVPB x1 (2) Lung infiltrate: Code(s): R91.8 - Other nonspecific abnormal finding of lung field Status: Acute Assessment and Plan: 11/13/23: Continue Rocephin and Zithromax 11/14/23: no change to current treatment plan (3) UTI (urinary tract infection): Qualifiers: Hematuria presence: with hematuria Urinary tract infection type: acute cystitis Qualified Code(s): N30.01 - Acute cystitis with hematuria Code(s): N39.0 - Urinary tract infection, site not specified Status: Acute Assessment and Plan: 11/13/23: UA showed 3+ urine glucose, trace ketones, positive nitrate, 1+ leukocyte, 21-50 urine RBC, urine WBC 51 dose 100, urine bacteria 4+ Urine culture pending Continue Rocephin 11/14/23: Urine culture showing E coli on preliminary read Continue Rocephin 11/15/23: urine culture showing E coli on final read Rocephin changed over to cefdinir 11/16: UTI will be have completed treatment after 11/16 (4) Acute exacerbation of chronic obstructive pulmonary disease: Code(s): J44.1 - Chronic obstructive pulmonary disease with (acute) exacerbation Status: Acute Assessment and Plan: see above 1 (5) Pulmonary edema: Qualifiers: Chronicity: acute Qualified Code(s): J81.0 - Acute pulmonary edema Code(s): J81.1 - Chronic pulmonary edema Status: Chronic Assessment and Plan: see above 1 (6) PAF (paroxysmal atrial fibrillation): Code(s): I48.0 - Paroxysmal atrial fibrillation Status: Chronic Assessment and Plan: 11/13/23: continue eliquis 11/14/23: Continue Eliquis Patient given 1 time dose of Metoprolol 5mg IV push and a dose of IV Cardizem when HR was in the 140's today. Cardizem brought patient down into the 90's initially and then she started creeping back up to the 130's. Currently take Coreg12.5 mg BID for rate control. Will put this on hold Will start Cardizem 30 mg t.i.d. for rate control She will likely need adjustment in her Coreg once rate controlled. 11/15/23: Cardiazem infusion discontinued cardiology consulted and transitioned patient to oral Cardizem, started Metoprolol and Jardiance. She is still not rate controlled w
[2023-11-17] MEDS: APIXABAN 5 MG TABLET PO ×2 (08:30→16:23)
[2023-11-17] MEDS: EMPAGLIFLOZIN 10 MG TABLET PO (08:30)
[2023-11-17] MEDS: ASPIRIN 81 MG CHEWABLE TABLET PO (08:30)
[2023-11-17] MEDS: DULoxetine HCL 60 MG CAPSULE.DR PO (08:30)
[2023-11-17] MEDS: ATORVASTATIN 10 MG TABLET PO (08:30)
[2023-11-17] MEDS: FAMOTIDINE 20 MG TABLET PO (08:30)
[2023-11-17 08:34] LABS: Magnesium 2.4 mg/dL (1.6-2.3)
[2023-11-17 08:38] LABS: Blood Urea Nitrogen 49 mg/dL (7-17); Calcium 8.5 mg/dL (8.4-10.2); Carbon Dioxide > 40 mmol/L (22-30); Chloride 93 mmol/L (98-107); Estimated Glomerular Filt Rate 55; Glucose 286 mg/dL (65-110); Potassium 3.1 mmol/L (3.4-5.0); Sodium 144 mmol/L (137-145)
[2023-11-17 08:45] LABS: NT Pro B Type Natriuretic Pept 5640 pg/mL (19.9-100)
[2023-11-17 08:46] LABS: Troponin I 0.021 ng/mL (0.000-0.034)
--- NOTE | 2023-11-17 08:53 | PM.PNCARD ---
Progress Note: A&P Assessment and Plan (1) Acute on chronic respiratory failure with hypoxia: Code(s): J96.21 - Acute and chronic respiratory failure with hypoxia Status: Acute (2) PAF (paroxysmal atrial fibrillation): Code(s): I48.0 - Paroxysmal atrial fibrillation Status: Chronic (3) long term current use of anticoagulant: Code(s): Z79.01 - long term (current) use of anticoagulants Status: Acute (4) Acute on chronic diastolic CHF (congestive heart failure): Code(s): I50.33 - Acute on chronic diastolic (congestive) heart failure Status: Acute Plan Paroxysmal atrial fibrillation with RVR in the setting of acute respiratory failure. Acute on chronic hypercapnic and hypoxemic respiratory failure secondary to chronic lung disease and obesity Acute on chronic diastolic heart failure Morbid obese Obstructive sleep apnea Plan Lasix 40 mg IV t.i.d. Eliquis 5 mg b.i.d. Increase metoprolol to 25mg q6h Increase diltiazem 90 mg q.i.d. If she remains tachycardic, may need to shift to amiodarone Jardiance 10 mg daily She is being transferred to the ICU for higher level of care in the event she requires mechanical ventilation. Subjective Date/time seen: 11/17/23 08:53 Interval history: Cardiology follow up for atrial fibrillation, CHF feels better SOb is present but improving HR in Tele 110 to 120 Date of service 11/17/2023: Respiratory status has worsened, she is now on continuous BiPAP. Heart rate remains elevated, 120's generally. Review of Systems Review of Systems: All systems reviewed & are unremarkable except as noted in HPI and below Exam Const: General: comfortable and ill appearing chronically HENMT: Face/Nose/Sinus: Normal nares present and no epistaxis Mouth: Yes moist mucous membranes Eyes: Sclera: sclerae normal Pupils: Equal, round and reactive pupils present Neck: Neck: supple Carotids: bruit Resp: Effort & Inspection: abnormal respiratory effort (Continuous BiPAP support) and uses accessory muscles Auscultation: wheezes lower bilaterally and lung sounds not diminished Other: No chest wall tenderness Cardio: Rate: tachycardic Rhythm: abnormal rhythm irregularly irregular Heart sounds: no gallops, no murmurs and no rubs GI: Auscultation: normal bowel sounds Skin: General skin exam: normal color, rashes and/or lesions noted and no erythema Other: Warm Neuro: General: other (Awakens to voice and follows commands) Cranial nerves: Yes Equal, round and reactive pupils present Speech: normal speech Other: No obvious focal deficit or facial asymmetry Extrem: General: no edema Other: Normal capillary refills Intact distal pulses. Objective Data Vital Signs Vital Signs: Vital Signs - 24 hr 11/16/23 12:00 11/16/23 12:00 11/16/23 14:59 Temperature 36.6 C Pulse Rate 108 H Respiratory Rate 24 H Blood Pressure 186/92 H Pulse Oximetry 90 95 92 Oxygen Delivery Nasal Cannula Nasal Cannula Oxygen Flow Rate 2 2 11/16/23 10:00 11/16/23 12:00 11/16/23 14:00 Temperature Pulse Rate 140 H 112 H 116 H Respiratory Rate Blood Pressure Pulse Oximetry Oxygen Delivery Oxygen Flow Rate 11/16/23 16:00 11/16/23 16:00 11/16/23 19:35 Temperature 36.7 C Pulse Rate 99 107 H Respiratory Rate 20 20 Blood Pressure 164/85 H Pulse Oximetry 90 95 Oxygen Delivery Nasal Cannula Oxygen Flow Rate 2 11/16/23 19:35 11/16/23 16:00 11/16/23 18:00 Temperature Pulse Rate 115 H 115 H Respiratory Rate Blood Pressure Pulse Oximetry 93 Oxygen Delivery Nasal Cannula Oxygen Flow Rate 2 11/16/23 20:35 11/16/23 20:47 11/16/23 22:52 Temperature 36.7 C Pulse Rate 112 H 84 104 H Respiratory Rate 20 20 Blood Pressure 178/88 H Pulse Oximetry 93 Oxygen Delivery Oxygen Flow Rate 11/16/23 20:00 11/16/23 22:00 11/17/23 00:00 Temperature Pulse
[2023-11-17] MEDS: FUROSEMIDE INJ 40 MG/4 ML VIAL IV PUSH (09:30)
[2023-11-17 10:15] LABS: Alveolar/Arterial O2 Gradient 169.7 mmHg; Base Excess ABG 14.7 mEq/l (+/-2.0); Fractional Inspired Oxygen 50 %; HCO3 ABG 46.5 mEq/l (22.0-26.0); Oxygen Content ABG 18.4 %vol (16.0-22.0); Oxygen Saturation ABG 91.4 % (95.0-100.0); PO2 ABG 72.8 mmHg (80.0-100.0); PO2 FiO2 Ratio Arterial Blood 1.46 %; Total Hemoglobin 14.2 g/dL (12.0-18.0)
[2023-11-17 10:16] LABS: Device NON-INVASIVE VENT; Modified Allen's Test Pass; PCO2 ABG 101.3 mmHg (35.0-45.0); Site Drawn LEFT RADIAL
[2023-11-17 10:17] LABS: Non-Invasive Expiratory Pressure 7 CMH2O; Non-Invasive Inspiratory Pressure 14 CMH2O; Non-Invasive Vent Rate 12 /MIN
--- NOTE | 2023-11-17 10:39 | PC.NURSE ---
This patient, Dinora Gusman, was received from [[id number]] on 11/17/23 at 1039. Patient/family oriented to unit policies and routines. Report received from Adela CRISTOBAL
--- NOTE | 2023-11-17 10:48 | PM.CNPUL ---
Assessment and Plan Assessment and plan (1) Pulmonary edema: Qualifiers: Chronicity: acute Qualified Code(s): J81.0 - Acute pulmonary edema Code(s): J81.1 - Chronic pulmonary edema Status: Chronic (2) Acute on chronic respiratory failure with hypoxia: Code(s): J96.21 - Acute and chronic respiratory failure with hypoxia Status: Acute Assessment and Plan: This 73-year-old female with a history of obesity hypoventilation syndrome and chronic hypoxemic hypercapnic respiratory failure, who has been noncompliant with CPAP support, presented with increasing shortness of breath and worsening hypoxemic hypercapnic respiratory failure. She was diagnosed with congestive heart failure related to atrial fibrillation with a rapid ventricular response. The patient is currently receiving BiPAP support for acute on chronic hypercapnic respiratory failure and hypoxemic respiratory failure. BiPAP pressures were adjusted to 18/7 to address the worsening hypercapnia. A chest CT revealed evidence of pulmonary edema related to congestive heart failure/atrial fibrillation and a right lower lobe infiltrate, most likely due to atelectasis. Plan: The patient's acute on chronic hypercapnic hypoxemic respiratory failure appears to be primarily related to obesity hypoventilation syndrome, likely exacerbated by noncompliance with CPAP. Her condition was complicated by atrial fibrillation with rapid ventricular response, leading to pulmonary edema and worsening respiratory failure. The chest CT shows a right lower lobe infiltrate, probably atelectasis. After discussing the case with the hospitalist, I recommend discontinuing vancomycin and continuing cefepime and Zithromax for now. There is no evidence of asthma exacerbation, so the IV Solu-Medrol will be decreased. The patient should be evaluated for transfer to the intensive care unit. We will continue to monitor the patient closely. Arterial blood gases will be repeated based on the most recent BiPAP settings. (3) Morbid obesity: Code(s): E66.01 - Morbid (severe) obesity due to excess calories Status: Acute (4) PAF (paroxysmal atrial fibrillation): Code(s): I48.0 - Paroxysmal atrial fibrillation Status: Chronic (5) Acute on chronic diastolic CHF (congestive heart failure): Code(s): I50.33 - Acute on chronic diastolic (congestive) heart failure Status: Acute (6) LIANNE (obstructive sleep apnea): Code(s): G47.33 - Obstructive sleep apnea (adult) (pediatric) Status: Chronic History of Present Illness History of Present Illness Consult date: 11/17/23 Chief complaint: Acute on chronic hypoxic respiratory failure Narrative: This 73-year-old female was admitted to the hospital 5 days ago due to shortness of breath and abnormal arterial blood gases. She has a long history of obesity hypoventilation syndrome and chronic hypoxemic hypercapnic respiratory failure, managed with supplemental oxygen and CPAP support at 17 cm H2O following a sleep study conducted approximately 2 years ago. The patient also has a history of obstructive airway disease, most likely asthma, and has been on maintenance bronchodilators. Reportedly, she has been noncompliant with CPAP support. Prior to this hospitalization, she experienced shortness of breath, and arterial blood gas measurements revealed hypoxemic hypercapnic respiratory failure, prompting her referral to the emergency room. She was hospitalized and treated for hypoxemic respiratory failure with BiPAP support. During her treatment with short-acting bronchodilators, she was found to be in atrial fibrillation with a rapid ventricular response. Currently, the patient remains on BiPAP support, with arterial blood gases still showing a low pH and elevated pCO2 around 100 mmHg. Her BiPAP settings are 14/7 with a rate of 12. The patient is unable to provide details of her present illness due to her current BiPAP suppo
[2023-11-17] MEDS: FLUoxetine HCL 10 MG CAPSULE PO (10:51)
[2023-11-17] MEDS: METOPROLOL TARTRATE 25 MG TABLET PO (11:02)
--- NOTE | 2023-11-17 11:08 | WPDCNINT ---
Assessment and Plan Assessment and plan (1) Acute respiratory failure with hypercapnia: Code(s): J96.02 - Acute respiratory failure with hypercapnia Status: Acute Assessment and Plan: Acute hypercapnic respiratory failure likely related to COPD exacerbation, pneumonia, atelectasis, obesity hypoventilation syndrome, noncompliance of CPAP -11/16: patient on BiPAP, worsening pCO2 this morning and was transferred to the ICU -will obtain ABG, if pCO2 levels not improving much, will have to intubate the patient and place on mechanical ventilation. I did discuss this with the patient and she is agreeable -continue steroids -continue cefepime, azithromycin and vancomycin (11/16) -continue bronchodilators (2) Acute exacerbation of chronic obstructive pulmonary disease: Code(s): J44.1 - Chronic obstructive pulmonary disease with (acute) exacerbation Status: Acute Assessment and Plan: As above (3) Acute on chronic diastolic CHF (congestive heart failure): Code(s): I50.33 - Acute on chronic diastolic (congestive) heart failure Status: Acute Assessment and Plan: Could be related to AFib RVR, has diastolic grade 2 dysfunction on the echo cardio, -continue Lasix daily, will monitor renal function -currently negative fluid balance since admission 11/14/2023: Echocardiogram Summary 1. Technically challenging echocardiogram presumably because of obesity. 2. Definity contrast utilized to improve visualization. 3. Hyperdynamic left ventricular systolic function with concentric LVH. 4. Grade 2 diastolic noncompliance. 5. No significant valvular dysfunction. (4) Hypertension: Code(s): I10 - Essential (primary) hypertension Status: Acute Assessment and Plan: Patient diltiazem, metoprolol, furosemide -will add p.r.n. hydralazine (5) Electrolyte imbalance: Code(s): E87.8 - Other disorders of electrolyte and fluid balance, not elsewhere classified Status: Acute Assessment and Plan: Potassium will be replaced (6) Hypothyroidism: Code(s): E03.9 - Hypothyroidism, unspecified Status: Acute Assessment and Plan: Continue leave with a (7) UTI (urinary tract infection): Qualifiers: Hematuria presence: with hematuria Urinary tract infection type: acute cystitis Qualified Code(s): N30.01 - Acute cystitis with hematuria Code(s): N39.0 - Urinary tract infection, site not specified Status: Acute Assessment and Plan: UTI on admission on 11/11 -11/11: Urine cultures growing E coli -continue antibiotics as above Plan DVT prophylaxis: Eliquis Stress ulcer prophylaxis: Famotidine Nutrition: NPO Code Status: Full code Critical Care Time Spent: 49 minutes -updated patient with her condition, plan of care, she is aware that she will be moving to the ICU and may requiring intubation and mechanical ventilation to which she is agreeable. Also discussed with her regarding a PICC line which she is agreeable to Due to a high probability of clinically significant, life threatening deterioration, the patient required my highest level of preparedness to intervene emergently and I personally spent this critical care time directly and personally managing the patient. This critical care time included obtaining a history; examining the patient; pulse oximetry; ordering and review of studies; arranging urgent treatment with development of a management plan; evaluation of patient's response to treatment; frequent reassessment; and discussions with other providers. It was exclusive of separately billable procedures and treating other patients and teaching time. Please see Assessment and Plan section and the rest of the note for further information on patient assessment and treatment This dictation may have been done utilizing a voice recognition system. Attempts have been made to correct errors. However, there may be unco
[2023-11-17] MEDS: LIDOCAINE HCL 1% PF INJ 5 ML VIAL INFILTRATE (11:15)
--- NOTE | 2023-11-17 11:20 | PC.NURSE ---
At 0730, pt was noted to have dyspnea at rest, on 10 L of oxygen with a heart rate of 120. Tomeka Mao was called. ABG drawn, stat CT chest ordered. Pt with critical pCO2 of 96. Started on Bi-pap. Repeat ABG with worsening CO2 level. Pt transferred to ICU bed 1. Will continue to monitor.
[2023-11-17 11:48] LABS: Alveolar/Arterial O2 Gradient 78.6 mmHg; Carboxyhemoglobin 0.7 % THb (0-2.0); Fractional Inspired Oxygen 30 %; Oxygen Content ABG 17.5 %vol (16.0-22.0); Oxygen Saturation ABG 87.9 % (95.0-100.0); Oxyhemoglobin 88.6 % THb (90.0-100.0); PO2 ABG 56.1 mmHg (80.0-100.0); PO2 FiO2 Ratio Arterial Blood 1.87 %; Reduced Hemoglobin 10.7 %THb (0-5.0); Total Hemoglobin 14.1 g/dL (12.0-18.0); pH ABG 7.391 (7.350-7.450)
[2023-11-17 11:50] LABS: Device NON-INVASIVE VENT; Modified Allen's Test Pass; Non-Invasive Expiratory Pressure 7 CMH2O; Non-Invasive Inspiratory Pressure 24 CMH2O; Non-Invasive Vent Rate 12 /MIN; PCO2 ABG 67.4 mmHg (35.0-45.0); Site Drawn LEFT RADIAL
[2023-11-17] MEDS: LEVALBUTEROL NEB 1.25 MG/3 ML 5 MG INHALATION (12:04)
[2023-11-17] MEDS: methylPREDNISolone SOD SUCC 125 MG VIAL IV PUSH (12:09)
[2023-11-17] MEDS: hydrALAZINE HCL 20 MG/ML VIAL 10 MG IV PUSH (12:10)
[2023-11-17] MEDS: POTASSIUM CHLORIDE INJ 40 MEQ in SODIUM CHLORIDE 0.9% IV 500 ML 130 MEQ IVPB (12:15)
[2023-11-17 12:21] LABS: Glucose Point of Care 191 mg/dl (65-105)
[2023-11-17] MEDS: CEFEPIME 2 GM/NS 50 ML 2 GM/50 ML BAG IVPB ×2 (12:21→21:07)
[2023-11-17] MEDS: PANTOPRAZOLE SODIUM IV 40 MG VIAL IV PUSH ×2 (12:28→21:06)
[2023-11-17] MEDS: METOPROLOL TARTRATE INJ 5 MG/5 ML VIAL IV PUSH (12:28)
[2023-11-17] MEDS: VANCOMYCIN 1,250 MG/NS 250 ML 1,250 MG/250 ML BAG 166.67 MG IVPB ×2 (12:59)
[2023-11-17] MEDS: CENTRAL LINE FLUSH 10 ML IV PUSH ×2 (13:00→21:07)
[2023-11-17] MEDS: IPRATROPIUM BR 0.02% INH SOLN 0.5 MG/2.5 ML VIAL INHALATION ×2 (14:06→20:07)
[2023-11-17] MEDS: LEVALBUTEROL NEB 1.25 MG/3 ML INHALATION ×2 (14:06→20:07)
[2023-11-17] MEDS: dilTIAZem 100 MG/100 ML 100 MG/100 ML BAG IV CONT (14:14)
[2023-11-17 16:26] LABS: MRSA (PCR) DETECTED (NOT DETECTE)
[2023-11-17 17:34] LABS: Glucose Point of Care 182 mg/dl (65-105)
[2023-11-17] MEDS: AMIODARONE 150 MG/D5W 100 ML 150 MG/100 ML BAG 600 MG IV CONT (18:40)
[2023-11-17] MEDS: AMIODARONE 360 MG/D5W 200 ML 360 MG/200 ML BAG 33.33 MG IV CONT (18:40)
[2023-11-17] MEDS: AZITHROMYCIN 500 MG/NS 250 ML 500 MG/250 ML BAG 250 MG IVPB (21:07)
[2023-11-17] MEDS: METOPROLOL TARTRATE INJ 5 MG/5 ML VIAL 2.5 MG IV PUSH (22:03)
[2023-11-18] VITALS (37 sets, daily range): BP systolic 129–171; BP diastolic 72–129; PULSE 82–141; RESP 13–30; TEMP 36.7–37.4; O2SAT 90–98
[2023-11-18] MEDS: INSULIN ASPART (*BKC) 100 UNITS/ML SUB-Q ×4 (00:09→16:50)
[2023-11-18] MEDS: AMIODARONE 360 MG/D5W 200 ML 360 MG/200 ML BAG 33.33 MG IV CONT ×5 (00:12→23:32)
[2023-11-18] MEDS: methylPREDNISolone SOD SUCC 125 MG VIAL 60 MG IV PUSH ×3 (00:13→11:50)
[2023-11-18 00:23] LABS: Glucose Point of Care 209 mg/dl (65-105)
[2023-11-18] MEDS: LEVALBUTEROL NEB 1.25 MG/3 ML INHALATION ×4 (01:42→19:15)
[2023-11-18] MEDS: IPRATROPIUM BR 0.02% INH SOLN 0.5 MG/2.5 ML VIAL INHALATION ×4 (01:42→19:13)
[2023-11-18] MEDS: hydrALAZINE HCL 20 MG/ML VIAL 10 MG IV PUSH (02:23)
[2023-11-18] MEDS: CENTRAL LINE FLUSH 10 ML IV PUSH ×3 (05:04→19:59)
[2023-11-18] MEDS: METOPROLOL TARTRATE INJ 5 MG/5 ML VIAL 2.5 MG IV PUSH ×2 (05:04→18:20)
[2023-11-18 05:13] LABS: Glucose Point of Care 214 mg/dl (65-105)
[2023-11-18 05:14] LABS: Alveolar/Arterial O2 Gradient 100.9 mmHg; Base Excess ABG 13.3 mEq/l (+/-2.0); HCO3 ABG 40.6 mEq/l (22.0-26.0); Oxygen Content ABG 17.7 %vol (16.0-22.0); Oxygen Saturation ABG 94.6 % (95.0-100.0); PO2 ABG 73.8 mmHg (80.0-100.0); Total Hemoglobin 13.4 g/dL (12.0-18.0); pH ABG 7.418 (7.350-7.450)
[2023-11-18 05:15] LABS: Carboxyhemoglobin 0.9 % THb (0-2.0); Fractional Inspired Oxygen 35 %; Methemoglobin ABG 0.1 %THb (0-1.5); Oxyhemoglobin 93.7 % THb (90.0-100.0); PO2 FiO2 Ratio Arterial Blood 2.11 %; Reduced Hemoglobin 5.3 %THb (0-5.0)
[2023-11-18 05:16] LABS: Device BIPAP; Expiratory Pressure 7 cmH2O; Inspiratory Pressure 24 cmH2O; Modified Allen's Test Pass; PCO2 ABG 64.4 mmHg (35.0-45.0); Site Drawn LEFT RADIAL
[2023-11-18 06:38] LABS: Basophils Percent Auto 0.2 % (0.2-1.2); Hematocrit 41.8 % (37.0-47.0); Hemoglobin 12.1 g/dL (12.0-15.0); Immature Granulocyte Absolute 0.08 K/mm3 (0.00-0.031); Immature Granulocyte Percent A 1.2 % (0-0.5); Lymphocytes Absolute Auto 0.25 K/mm3 (0.9-3.2); Lymphocytes Percent Auto 3.9 % (18.3-44.2); Mean Corpuscular HGB Conc 28.9 g/dl (32-36); Mean Corpuscular Hemoglobin 29.6 pg (26-34); Mean Corpuscular Volume 102.2 fl (80-100); Mean Platelet Volume 10.7 fl (7.4-10.4); Monocytes Absolute Auto 0.2 K/mm3 (0.1-0.6); Monocytes Percent Auto 3.1 % (2.6-8.5); Neutrophils Absolute Auto 5.9 K/mm3 (1.3-6.7); Neutrophils Percent Auto 91.6 % (45.5-73.1); Nucleated Red Blood Cells Perc 0.3 % (0.0-0.2); Platelet Count Result 247 k/mm3 (150-375); Red Blood Count 4.09 M/mm3 (4.2-5.4); Red Cell Distribution Width 14.4 % (11.5-14.5); White Blood Count 6.5 K/mm3 (4.5-10.0)
[2023-11-18 06:56] LABS: Alanine Aminotransferase 30 U/L (6-35); Albumin Level 3.5 g/dL (3.5-5.1); Alkaline Phosphatase 74 U/L (38-126); Aspartate Amino Transferase 25 U/L (14-36); Bilirubin,Total 0.7 mg/dL (0.2-1.3); Blood Urea Nitrogen 45 mg/dL (7-17); Carbon Dioxide > 40 mmol/L (22-30); Chloride 93 mmol/L (98-107); Estimated Glomerular Filt Rate 55; Glucose 298 mg/dL (65-110); Magnesium 2.2 mg/dL (1.6-2.3); Phosphorus 2.2 mg/dL (2.5-4.5); Sodium 143 mmol/L (137-145)
[2023-11-18 08:02] LABS: Hypochromasia 1+; Platelet Estimate Adequate (Adequate); Schistocytes None Seen
[2023-11-18 08:03] LABS: Glucose Point of Care 191 mg/dl (65-105)
[2023-11-18] MEDS: POTASSIUM CHLORIDE 20 MEQ PACKET (FOR LIQUID) 40 MEQ PO (08:23)
[2023-11-18] MEDS: CEFEPIME 2 GM/NS 50 ML 2 GM/50 ML BAG IVPB ×2 (08:24→20:00)
[2023-11-18] MEDS: ATORVASTATIN 10 MG TABLET PO (08:24)
[2023-11-18] MEDS: APIXABAN 5 MG TABLET PO ×2 (08:24→16:48)
[2023-11-18] MEDS: METOPROLOL TARTRATE 25 MG TABLET PO (08:24)
[2023-11-18] MEDS: FUROSEMIDE INJ 40 MG/4 ML VIAL IV PUSH (08:24)
[2023-11-18] MEDS: ASPIRIN 81 MG CHEWABLE TABLET PO (08:24)
[2023-11-18] MEDS: PANTOPRAZOLE SODIUM IV 40 MG VIAL IV PUSH ×2 (08:24→19:59)
[2023-11-18 08:25] LABS: Procalcitonin 0.1 ng/mL
[2023-11-18] MEDS: INSULIN GLARGINE (*BKC) 100 UNITS/ML 20 UNITS SUB-Q (08:25)
[2023-11-18] MEDS: POTASSIUM PHOS,M-BASIC-D-BASIC 20 MMOL in SODIUM CHLORIDE 0.9% IV 250 ML 64.17 MMOL IVPB (08:25)
--- NOTE | 2023-11-18 08:38 | WPDINTPN ---
Progress Note: A&P Assessment and Plan (1) Acute respiratory failure with hypercapnia: Code(s): J96.02 - Acute respiratory failure with hypercapnia Status: Acute Assessment and Plan: Acute hypercapnic respiratory failure likely related to COPD, pulmonary edema, ? pneumonia, atelectasis, obesity hypoventilation syndrome, noncompliance of CPAP -11/16: patient on BiPAP, worsening pCO2 this morning and was transferred to the ICU - 11/17 ABG reviewed and pCO2 improved along with mental status -will transition patient to nasal cannula this morning and continue using BiPAP p.r.n. and at night -continue steroids but decrease dose -continue cefepime and vancomycin (11/16) -continue bronchodilators -continue diuretics (2) Acute exacerbation of chronic obstructive pulmonary disease: Code(s): J44.1 - Chronic obstructive pulmonary disease with (acute) exacerbation Status: Acute Assessment and Plan: As above (3) Acute on chronic diastolic CHF (congestive heart failure): Code(s): I50.33 - Acute on chronic diastolic (congestive) heart failure Status: Acute Assessment and Plan: Could be related to AFib RVR, has diastolic grade 2 dysfunction on the echo cardio, -continue Lasix daily, will monitor renal function -currently negative fluid balance since admission 11/14/2023: Echocardiogram Summary 1. Technically challenging echocardiogram presumably because of obesity. 2. Definity contrast utilized to improve visualization. 3. Hyperdynamic left ventricular systolic function with concentric LVH. 4. Grade 2 diastolic noncompliance. 5. No significant valvular dysfunction. (4) Hypertension: Code(s): I10 - Essential (primary) hypertension Status: Acute Assessment and Plan: Patient metoprolol, furosemide (5) Electrolyte imbalance: Code(s): E87.8 - Other disorders of electrolyte and fluid balance, not elsewhere classified Status: Acute Assessment and Plan: Potassium and phosphate will be replaced (6) Hypothyroidism: Code(s): E03.9 - Hypothyroidism, unspecified Status: Acute Assessment and Plan: Continue llevothyroxine (7) UTI (urinary tract infection): Qualifiers: Hematuria presence: with hematuria Urinary tract infection type: acute cystitis Qualified Code(s): N30.01 - Acute cystitis with hematuria Code(s): N39.0 - Urinary tract infection, site not specified Status: Acute Assessment and Plan: UTI on admission on 11/11 -11/11: Urine cultures growing E coli -continue antibiotics as above (8) Pulmonary edema: Qualifiers: Chronicity: acute Qualified Code(s): J81.0 - Acute pulmonary edema Code(s): J81.1 - Chronic pulmonary edema Status: Chronic Assessment and Plan: See above (9) Atrial fibrillation with RVR: Code(s): I48.91 - Unspecified atrial fibrillation Status: Acute Assessment and Plan: Continue amiodarone infusion Eliquis Start p.o. beta-steff Cardiology following Plan DVT prophylaxis: Eliquis Stress ulcer prophylaxis: Protonix Nutrition: Resume diet Code Status: Full code Critical Care Time Spent: 30 minutes Due to a high probability of clinically significant, life threatening deterioration, the patient required my highest level of preparedness to intervene emergently and I personally spent this critical care time directly and personally managing the patient. This critical care time included obtaining a history; examining the patient; pulse oximetry; ordering and review of studies; arranging urgent treatment with development of a management plan; evaluation of patient's response to treatment; frequent reassessment; and discussions with other providers. It was exclusive of separately billable procedures and treating other patients and teaching time. Please see Assessment and Plan section and the rest of the note for furthe
[2023-11-18] MEDS: FLUTICASONE/SALMETEROL 115-21 MCG INHALER 1 PUFF 2 PUFF INHALATION ×2 (08:59→19:15)
[2023-11-18 11:44] LABS: Glucose Point of Care 289 mg/dl (65-105)
--- NOTE | 2023-11-18 14:00 | PM.PNCARD ---
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 Acute on chronic hypercapnic and hypoxemic respiratory failure secondary to chronic lung disease and obesity Acute on chronic diastolic heart failure Morbid obese Obstructive sleep apnea Plan Lasix 40 mg IV daily Eliquis 5 mg b.i.d. Increase metoprolol to 37.5mg q6h Continue amiodarone gtt p.r.n. IV metoprolol for heart rate sustained >130 Jardiance 10 mg daily Continue telemetry Subjective Date/time seen: 11/18/23 14:00 Interval history: Cardiology follow up for atrial fibrillation, CHF feels better SOb is present but improving HR in Tele 110 to 120 Date of service 11/17/2023: Respiratory status has worsened, she is now on continuous BiPAP. Heart rate remains elevated, 120's generally. Date of service 11/18/2023: She remains on continuous BiPAP but is more alert and responsive today. Heart rate remains elevated on amiodarone drip and metoprolol. She is asymptomatic in this regard. Review of Systems Review of Systems: All systems reviewed & are unremarkable except as noted in HPI and below Exam Const: General: comfortable, no acute distress and ill appearing chronically Other: Able to lie flat HENMT: Face/Nose/Sinus: Normal nares present and no epistaxis Mouth: Yes moist mucous membranes Eyes: Sclera: sclerae normal Pupils: Equal, round and reactive pupils present Neck: Neck: supple and no JVD Carotids: bruit Resp: Effort & Inspection: abnormal respiratory effort (Continuous BiPAP support) Auscultation: diminished lung sounds Other: No chest wall tenderness Cardio: Rate: tachycardic Rhythm: abnormal rhythm irregularly irregular Heart sounds: no gallops, no murmurs and no rubs GI: Auscultation: normal bowel sounds Skin: General skin exam: normal color, rashes and/or lesions noted and no erythema Other: Warm Neuro: General: patient oriented x3 Cranial nerves: Yes Equal, round and reactive pupils present Speech: normal speech Other: No obvious focal deficit or facial asymmetry Extrem: General: no edema Other: Normal capillary refills Intact distal pulses. Objective Data Vital Signs Vital Signs: Vital Signs - 24 hr 11/17/23 14:02 11/17/23 14:06 11/17/23 14:14 Temperature Pulse Rate 111 H 120 H 132 H Respiratory Rate 16 18 Blood Pressure 141/100 H Pulse Oximetry 98 Oxygen Delivery BiPAP Oxygen Flow Rate Fraction of Inspired Oxygen 11/17/23 14:18 11/17/23 15:26 11/17/23 15:47 Temperature Pulse Rate 129 H 136 H 112 H Respiratory Rate 19 14 Blood Pressure 120/99 H Pulse Oximetry 98 Oxygen Delivery BiPAP Oxygen Flow Rate Fraction of Inspired Oxygen 11/17/23 16:00 11/17/23 16:29 11/17/23 16:00 Temperature 36.9 C Pulse Rate 116 H 140 H 110 H Respiratory Rate 20 Blood Pressure 150/87 H 150/87 H Pulse Oximetry 97 Oxygen Delivery Oxygen Flow Rate Fraction of Inspired Oxygen 11/17/23 16:00 11/17/23 18:00 11/17/23 18:00 Temperature 37.0 C Pulse Rate 119 H 119 H Respiratory Rate 28 H Blood Pressure 138/101 H Pulse Oximetry 96 92 Oxygen Delivery BiPAP Oxygen Flow Rate Fraction of Inspired Oxygen 35 11/17/23 18:05 11/17/23 18:40 11/17/23 18:40 Temperature Pulse Rate 14
[2023-11-18] MEDS: METOPROLOL TARTRATE TAB 25 MG, METOPROLOL TARTRATE TAB 12.5 MG 37.5 MG PO ×2 (15:26→19:59)
[2023-11-18 15:43] LABS: Glucose Point of Care 275 mg/dl (65-105)
[2023-11-18] MEDS: AZITHROMYCIN 500 MG/NS 250 ML 500 MG/250 ML BAG 250 MG IVPB (19:53)
[2023-11-19] VITALS (36 sets, daily range): BP systolic 130–182; BP diastolic 78–123; PULSE 99–130; RESP 15–28; TEMP 36.4–37.2; O2SAT 88–100
[2023-11-19] MEDS: LEVALBUTEROL NEB 1.25 MG/3 ML INHALATION (01:32)
[2023-11-19] MEDS: IPRATROPIUM BR 0.02% INH SOLN 0.5 MG/2.5 ML VIAL INHALATION (01:32)
[2023-11-19] MEDS: METOPROLOL TARTRATE TAB 25 MG, METOPROLOL TARTRATE TAB 12.5 MG 37.5 MG PO ×4 (02:47→19:21)
[2023-11-19 04:39] LABS: Glucose Point of Care 248 mg/dl (65-105)
[2023-11-19 05:12] LABS: Basophils Percent Auto 0.1 % (0.2-1.2); Hematocrit 41.1 % (37.0-47.0); Hemoglobin 12.1 g/dL (12.0-15.0); Immature Granulocyte Absolute 0.11 K/mm3 (0.00-0.031); Immature Granulocyte Percent A 1.2 % (0-0.5); Lymphocytes Absolute Auto 0.18 K/mm3 (0.9-3.2); Mean Corpuscular HGB Conc 29.4 g/dl (32-36); Mean Corpuscular Hemoglobin 29.7 pg (26-34); Mean Platelet Volume 10.5 fl (7.4-10.4); Monocytes Absolute Auto 0.2 K/mm3 (0.1-0.6); Monocytes Percent Auto 2.7 % (2.6-8.5); Neutrophils Absolute Auto 8.3 K/mm3 (1.3-6.7); Nucleated Red Blood Cells Perc 0.5 % (0.0-0.2); Platelet Count Result 235 k/mm3 (150-375); Red Blood Count 4.07 M/mm3 (4.2-5.4); Red Cell Distribution Width 14.6 % (11.5-14.5); White Blood Count 8.9 K/mm3 (4.5-10.0)
[2023-11-19 05:42] LABS: Alanine Aminotransferase 24 U/L (6-35); Albumin Level 3.6 g/dL (3.5-5.1); Alkaline Phosphatase 74 U/L (38-126); Aspartate Amino Transferase 19 U/L (14-36); Bilirubin,Total 0.7 mg/dL (0.2-1.3); Blood Urea Nitrogen 46 mg/dL (7-17); Calcium 8.2 mg/dL (8.4-10.2); Carbon Dioxide > 40 mmol/L (22-30); Chloride 95 mmol/L (98-107); Estimated Glomerular Filt Rate 55; Glucose 229 mg/dL (65-110); Magnesium 2.2 mg/dL (1.6-2.3); Potassium 3.4 mmol/L (3.4-5.0); Sodium 144 mmol/L (137-145)
[2023-11-19] MEDS: AMIODARONE 360 MG/D5W 200 ML 360 MG/200 ML BAG 33.33 MG IV CONT ×4 (05:47→23:58)
[2023-11-19] MEDS: LEVOTHYROXINE SODIUM 25 MCG TABLET PO (05:47)
[2023-11-19] MEDS: CENTRAL LINE FLUSH 10 ML IV PUSH ×3 (05:48→21:03)
[2023-11-19 05:56] LABS: Ovalocytes 1+; Platelet Estimate Adequate (Adequate); Schistocytes None Seen
[2023-11-19 07:55] LABS: Glucose Point of Care 220 mg/dl (65-105)
[2023-11-19] MEDS: FLUTICASONE/SALMETEROL 115-21 MCG INHALER 1 PUFF 2 PUFF INHALATION ×2 (08:12→21:03)
--- NOTE | 2023-11-19 08:20 | WPDINTPN ---
Progress Note: A&P Assessment and Plan (1) Acute respiratory failure with hypercapnia: Code(s): J96.02 - Acute respiratory failure with hypercapnia Status: Acute Assessment and Plan: Acute hypercapnic respiratory failure likely related to COPD, pulmonary edema, ? pneumonia, atelectasis, obesity hypoventilation syndrome, noncompliance of CPAP -11/16: patient on BiPAP, worsening pCO2 this morning and was transferred to the ICU - 11/17 ABG reviewed and pCO2 improved along with mental status -patient transition to to nasal cannula. continue using BiPAP p.r.n. and at night -continue steroids but decrease dose -continue cefepime. Discontinue vancomycin (11/16) -continue bronchodilators and change to p.r.n. -continue diuretics (2) Acute exacerbation of chronic obstructive pulmonary disease: Code(s): J44.1 - Chronic obstructive pulmonary disease with (acute) exacerbation Status: Acute Assessment and Plan: As above (3) Acute on chronic diastolic CHF (congestive heart failure): Code(s): I50.33 - Acute on chronic diastolic (congestive) heart failure Status: Acute Assessment and Plan: Could be related to AFib RVR, has diastolic grade 2 dysfunction on the echo cardio, -continue Lasix daily, will monitor renal function -currently negative fluid balance since admission 11/14/2023: Echocardiogram Summary 1. Technically challenging echocardiogram presumably because of obesity. 2. Definity contrast utilized to improve visualization. 3. Hyperdynamic left ventricular systolic function with concentric LVH. 4. Grade 2 diastolic noncompliance. 5. No significant valvular dysfunction. (4) Hypertension: Code(s): I10 - Essential (primary) hypertension Status: Acute Assessment and Plan: Patient metoprolol, furosemide (5) Electrolyte imbalance: Code(s): E87.8 - Other disorders of electrolyte and fluid balance, not elsewhere classified Status: Acute Assessment and Plan: Potassium and phosphate will be replaced (6) Hypothyroidism: Code(s): E03.9 - Hypothyroidism, unspecified Status: Acute Assessment and Plan: Continue levothyroxine (7) UTI (urinary tract infection): Qualifiers: Hematuria presence: with hematuria Urinary tract infection type: acute cystitis Qualified Code(s): N30.01 - Acute cystitis with hematuria Code(s): N39.0 - Urinary tract infection, site not specified Status: Acute Assessment and Plan: UTI on admission on 11/11 -11/11: Urine cultures growing E coli -continue antibiotics as above (8) Pulmonary edema: Qualifiers: Chronicity: acute Qualified Code(s): J81.0 - Acute pulmonary edema Code(s): J81.1 - Chronic pulmonary edema Status: Chronic Assessment and Plan: See above (9) Atrial fibrillation with RVR: Code(s): I48.91 - Unspecified atrial fibrillation Status: Acute Assessment and Plan: Continue amiodarone infusion. Will give another bolus Eliquis Continue p.o. beta-steff Cardiology managing Plan DVT prophylaxis: Eliquis Stress ulcer prophylaxis: Protonix Nutrition: Consistent carbohydrate diet Consult PT OT Continue IS Code Status: Full code Subjective Date/time seen: 11/19/23 She states she feels much better this morning and denies any new complaints. She denies feeling short of breath. She wore BiPAP overnight. Continues to be in AFib with RVR and on amiodarone infusion. Oxygen 1-2 L by nasal cannula. Patient denies fever, chest pain, shortness of breath, cough, nausea vomiting, abdominal pain,, diarrhea, headache or constipation.. All other systems were reviewed and were negative Urine output is adequate Review of Systems Review of Systems: All systems reviewed & are unremarkable except as noted in HPI and below Exam Narrative: General: Pleasant female alert awake and in no acute
[2023-11-19] MEDS: ATORVASTATIN 10 MG TABLET PO (08:23)
[2023-11-19] MEDS: ASPIRIN 81 MG CHEWABLE TABLET PO (08:23)
[2023-11-19] MEDS: EMPAGLIFLOZIN 10 MG TABLET PO (08:23)
[2023-11-19] MEDS: APIXABAN 5 MG TABLET PO ×2 (08:23→16:40)
[2023-11-19] MEDS: FUROSEMIDE INJ 40 MG/4 ML VIAL IV PUSH (08:24)
[2023-11-19] MEDS: methylPREDNISolone SOD SUCC 125 MG VIAL 60 MG IV PUSH (08:24)
[2023-11-19] MEDS: CEFEPIME 2 GM/NS 50 ML 2 GM/50 ML BAG IVPB ×2 (08:24→20:58)
[2023-11-19] MEDS: PANTOPRAZOLE SODIUM IV 40 MG VIAL IV PUSH ×2 (08:24→21:03)
[2023-11-19] MEDS: AMIODARONE 150 MG/D5W 100 ML 150 MG/100 ML BAG 600 MG IV CONT (08:38)
[2023-11-19] MEDS: INSULIN ASPART (*BKC) 100 UNITS/ML SUB-Q ×3 (08:40→21:02)
[2023-11-19] MEDS: INSULIN GLARGINE (*BKC) 100 UNITS/ML 30 UNITS SUB-Q (08:42)
--- NOTE | 2023-11-19 10:03 | PM.CNCAR ---
Assessment and Plan Assessment and plan (1) Atrial fibrillation with RVR: Code(s): I48.91 - Unspecified atrial fibrillation Status: Acute Assessment and Plan: Recurrence of atrial fib, likely due to pulm status. On Eliquis. Start Dilitazem 60 mg PO every 6 hours for improved HR control. On Metoprolol 37.5 mg every 6 hours. On Amiodarone drip. Hopefully she will cardiovert with this. (2) Acute exacerbation of chronic obstructive pulmonary disease: Code(s): J44.1 - Chronic obstructive pulmonary disease with (acute) exacerbation Status: Acute Assessment and Plan: Pulm is following. (3) Acute on chronic respiratory failure with hypoxia: Code(s): J96.21 - Acute and chronic respiratory failure with hypoxia Status: Acute (4) Hypertension: Code(s): I10 - Essential (primary) hypertension Status: Acute Assessment and Plan: High. Start Diltiazem. History of Present Illness History of Present Illness Consult date/time: 11/19/23 10:03 Reason For Visit: Acute on chronic hypoxic respiratory failure Narrative: 73 yr old woman who is my regular cardiology patient and a patient of Ann-Marie Mccracken presents to ER with sob. She has a history of hypertension, PAF, LIANNE on CPAP (Sees Antelmo Villanueva), gastric sleeve surgery. She has been in hospital from about a week now and sob is improving. She is still in atrial fib with RVR. Denies chest pain, orthopnea, PND, dizziness. Normally, reports she has improved at walking 50 feet now since receiving injections in her hip pain from arthritis. She has palpitations lasting 5 minutes about once a week. She is using CPAP but has some leaks in mask. She used lymphedema pump twice a day and edema improved. Cardiovascular Procedures Decommissioning Well Site Manager:: 10/28/03 [facility] cardiac cath: Normal coronaries. Echo/MUGA:: 12/19/21 Echo: TDS, EF 63%, grade I diastolic dysfunction, mild LAE, mild-mod LVH, small posterior pericardial effusion. 01/18/21 Echo: EF 55-60%, trace AI/MR, mild LAE. Electrophysiology:: 06/13/23 EKG: Sinus rhythm with sinus arrhythmia, RAD. 10/10/21 EKG: Sinus rhythm. 06/25/21 24 days event monitor: Sinus rhythm, HR range 50-120 bpm; average HR 67 bpm, 1% PAC's, 1 atrial fib at 98 bpm on 07/11/21 at 07:48, and <1% PVC. 01/16/21 EKG: Sinus bradycardia at 50 bpm. Stress Tests:: 05/14/21 Lexiscan myoview: Negative for ischemia. 11/09/21 Sleep study: Mod LIANNE with desaturation to 53%. 10/10/21 Venous duplex: Negative for DVT in left leg. Review of Systems Review of Systems: All systems reviewed & are unremarkable except as noted in HPI and below Constitutional: Constitutional: Reports as per HPI, Denies chills, Reports fatigue and Denies fever(s) Cardiovascular: Cardiovascular: Reports as per HPI, Denies chest pain and Reports irregular heart rhythm Respiratory: Respiratory: Reports as per HPI and Reports dyspnea Gastrointestinal: Gastrointestinal: Reports as per HPI and Denies abdominal pain Genitourinary: Genitourinary: Reports as per HPI and Denies dysuria Musculoskeletal: Musculoskeletal: Reports as per HPI Neurologic: Reports as per HPI, Denies dizziness and Denies syncope [facility] Past Medical History Medical History Acute hyperkalemia Acute UTI Anxiety Asthma Cellulitis of left leg CHF (congestive heart failure) COPD (chronic obstructive pulmonary disease) Hypercholesteremia Hypertension Localized edema Lymphedema Major depression Morbid obesity Obesity PAF (paroxysmal atrial fibrillation) PAF (paroxysmal atrial fibrillation) Situational anxiety Sleep apnea Tobacco abuse Surgical History Surgical History H/O gastric sleeve H/O: hysterectomy Family History Family History Father Diabetes mellitus Myocardial disease Mother Hea
[2023-11-19 11:38] LABS: Glucose Point of Care 256 mg/dl (65-105)
[2023-11-19] MEDS: dilTIAZem HCL 60 MG TABLET PO ×3 (11:44→22:28)
[2023-11-19 16:35] LABS: Glucose Point of Care 189 mg/dl (65-105)
[2023-11-19] MEDS: METOPROLOL TARTRATE INJ 5 MG/5 ML VIAL 2.5 MG IV PUSH ×2 (16:39→22:29)
[2023-11-19 21:06] LABS: Glucose Point of Care 201 mg/dl (65-105)
[2023-11-20] VITALS (31 sets, daily range): BP systolic 136–177; BP diastolic 87–148; PULSE 93–131; RESP 13–34; TEMP 36.2–37.1; O2SAT 90–98
[2023-11-20] MEDS: METOPROLOL TARTRATE TAB 25 MG, METOPROLOL TARTRATE TAB 12.5 MG 37.5 MG PO ×4 (03:04→20:38)
[2023-11-20 05:49] LABS: Basophils Percent Auto 0.3 % (0.2-1.2); Hematocrit 46.1 % (37.0-47.0); Hemoglobin 13.3 g/dL (12.0-15.0); Immature Granulocyte Absolute 0.21 K/mm3 (0.00-0.031); Immature Granulocyte Percent A 1.6 % (0-0.5); Lymphocytes Absolute Auto 0.31 K/mm3 (0.9-3.2); Lymphocytes Percent Auto 2.3 % (18.3-44.2); Mean Corpuscular HGB Conc 28.9 g/dl (32-36); Mean Corpuscular Hemoglobin 29.7 pg (26-34); Mean Corpuscular Volume 102.9 fl (80-100); Mean Platelet Volume 11.1 fl (7.4-10.4); Monocytes Absolute Auto 0.5 K/mm3 (0.1-0.6); Neutrophils Absolute Auto 12.1 K/mm3 (1.3-6.7); Neutrophils Percent Auto 91.8 % (45.5-73.1); Nucleated Red Blood Cells Perc 0.2 % (0.0-0.2); Platelet Count Result 230 k/mm3 (150-375); Red Blood Count 4.48 M/mm3 (4.2-5.4); Red Cell Distribution Width 14.3 % (11.5-14.5); White Blood Count 13.2 K/mm3 (4.5-10.0)
[2023-11-20 06:10] LABS: Alanine Aminotransferase 23 U/L (6-35); Albumin Level 3.8 g/dL (3.5-5.1); Alkaline Phosphatase 74 U/L (38-126); Aspartate Amino Transferase 18 U/L (14-36); Bilirubin,Total 0.6 mg/dL (0.2-1.3); Blood Urea Nitrogen 45 mg/dL (7-17); Calcium 8.4 mg/dL (8.4-10.2); Carbon Dioxide > 40 mmol/L (22-30); Chloride 92 mmol/L (98-107); Estimated Glomerular Filt Rate > 60; Glucose 185 mg/dL (65-110); Magnesium 2.3 mg/dL (1.6-2.3); Potassium 3.4 mmol/L (3.4-5.0); Sodium 144 mmol/L (137-145)
[2023-11-20 06:38] LABS: Anisocytosis 1+; Platelet Estimate Adequate (Adequate); Schistocytes None Seen
[2023-11-20] MEDS: LEVOTHYROXINE SODIUM 25 MCG TABLET PO (06:40)
[2023-11-20] MEDS: dilTIAZem HCL 60 MG TABLET PO (06:40)
[2023-11-20] MEDS: CENTRAL LINE FLUSH 10 ML IV PUSH ×3 (06:55→20:54)
--- NOTE | 2023-11-20 07:38 | PM.PNCARD ---
Progress Note: A&P Assessment and Plan (1) Atrial fibrillation with RVR: Code(s): I48.91 - Unspecified atrial fibrillation Status: Acute Assessment and Plan: Recurrence of atrial fib, likely due to pulm status. On Eliquis. Increase Dilitazem 90 mg PO every 6 hours for improved HR control. On Metoprolol 37.5 mg every 6 hours. On Amiodarone drip. Hopefully she will cardiovert with this. Start Clonidine 0.1 mg BID. (2) Acute exacerbation of chronic obstructive pulmonary disease: Code(s): J44.1 - Chronic obstructive pulmonary disease with (acute) exacerbation Status: Acute Assessment and Plan: Pulm is following. (3) Acute on chronic respiratory failure with hypoxia: Code(s): J96.21 - Acute and chronic respiratory failure with hypoxia Status: Acute (4) Hypertension: Code(s): I10 - Essential (primary) hypertension Status: Acute Assessment and Plan: High. Increase Diltiazem 90 mg every 6 hours. Start Clonidine 0.1 mg BID. Subjective Date/time seen: 11/20/23 07:38 Interval history: Reports sob. No chest pain. Exam Const: General: cooperative, healthy appearing, comfortable and obese Nutritional Appearance: obese Orientation/consciousness: oriented to person, oriented to place and oriented to time Resp: Auscultation: no crackles, no rales, no rhonchi, no wheezes and diminished lung sounds Cardio: Rate: tachycardic Rhythm: abnormal rhythm Heart sounds: no murmurs Peripheral pulses: dorsalis pedis present Neuro: General: oriented to person, oriented to place and oriented to time Extrem: Right lower extremity: edema Left lower extremity: edema Other: Lymphedema is mild. Objective Data Vital Signs Vital Signs: Vital Signs - 24 hr 11/19/23 08:10 11/19/23 08:12 11/19/23 08:12 Temperature Pulse Rate 128 H Respiratory Rate 20 Blood Pressure Pulse Oximetry 88 L 92 Oxygen Delivery Nasal Cannula Nasal Cannula Oxygen Flow Rate 2 3 Fraction of Inspired Oxygen 28 32 11/19/23 08:00 11/19/23 08:38 11/19/23 08:00 Temperature 98.4 F Pulse Rate 115 H 113 H 126 H Respiratory Rate 20 Blood Pressure 142/101 H Pulse Oximetry 93 Oxygen Delivery Oxygen Flow Rate Fraction of Inspired Oxygen 11/19/23 09:08 11/19/23 09:09 11/19/23 08:00 Temperature 98.5 F Pulse Rate 108 H 126 H 126 H Respiratory Rate 19 19 Blood Pressure 142/101 H Pulse Oximetry 91 91 Oxygen Delivery Nasal Cannula Oxygen Flow Rate 4 Fraction of Inspired Oxygen 11/19/23 11:48 11/19/23 11:52 11/19/23 12:00 Temperature Pulse Rate 126 H 126 H 110 H Respiratory Rate Blood Pressure 142/101 H 142/101 H Pulse Oximetry Oxygen Delivery Oxygen Flow Rate Fraction of Inspired Oxygen 11/19/23 12:00 11/19/23 12:00 11/19/23 14:00 Temperature 98.9 F Pulse Rate 110 H 120 H 120 H Respiratory Rate 19 28 H Blood Pressure 176/123 H Pulse Oximetry 91 92 Oxygen Delivery Nasal Cannula Oxygen Flow Rate 3 Fraction of Inspired Oxygen 11/19/23 14:00 11/19/23 16:00 11/19/23 16:00 Temperature 98.8 F 98.7 F Pulse Rate 120 H 101 H 101 H Respiratory Rate 23 H 25 H Blood Pressure 154/98 H 150/78 H Pulse Oximetry 94 93 Oxygen Delivery Oxygen Flow Rate Fraction of Inspired Oxygen 11/19/23 16:00 11/19/23 17:53 11/19/23 17:58 Temperature Pulse Rate 101 H 101 H 101 H Respiratory Rate 25 H Blood Pressure 150/78 H 150/78 H Pulse Oximetry 93 Oxygen Delivery Nasal Cannula Oxygen Flow Rate 3 Fraction of Inspired Oxygen 11/19/23 18:00 11/19/23 18:00 11/19/23 19:21 Temperature 98.7 F Pulse Rate 118 H 118 H 120 H Respiratory Rate 24 H Blood Pressure Pulse Oximetry 90 Oxygen Delivery Oxygen Flow Rate Fraction of Inspired Oxygen 11/19/23 20:00 11/19/23 20:00 11/19/23 20:00 Temperature 98 F Pulse Rate 117 H 117 H 116 H Respiratory Rate 28 H 27 H B
[2023-11-20] MEDS: FLUTICASONE/SALMETEROL 115-21 MCG INHALER 1 PUFF 2 PUFF INHALATION ×2 (08:02→17:26)
[2023-11-20] MEDS: PANTOPRAZOLE SODIUM IV 40 MG VIAL IV PUSH ×2 (08:09→20:54)
[2023-11-20] MEDS: APIXABAN 5 MG TABLET PO ×2 (08:09→17:39)
[2023-11-20] MEDS: FUROSEMIDE INJ 40 MG/4 ML VIAL IV PUSH ×2 (08:09→20:39)
[2023-11-20] MEDS: ASPIRIN 81 MG CHEWABLE TABLET PO (08:09)
[2023-11-20] MEDS: EMPAGLIFLOZIN 10 MG TABLET PO (08:09)
[2023-11-20] MEDS: ATORVASTATIN 10 MG TABLET PO (08:09)
[2023-11-20] MEDS: CEFEPIME 2 GM/NS 50 ML 2 GM/50 ML BAG IVPB ×2 (08:10→20:39)
[2023-11-20] MEDS: INSULIN GLARGINE (*BKC) 100 UNITS/ML 35 UNITS SUB-Q (08:11)
[2023-11-20] MEDS: methylPREDNISolone SOD SUCC 40 MG VIAL IV PUSH ×2 (08:12→08:15)
--- NOTE | 2023-11-20 08:12 | WPDINTPN ---
Progress Note: A&P Assessment and Plan (1) Acute respiratory failure with hypercapnia: Code(s): J96.02 - Acute respiratory failure with hypercapnia Status: Acute Assessment and Plan: Acute hypercapnic respiratory failure likely related to COPD, pulmonary edema, ? pneumonia, atelectasis, obesity hypoventilation syndrome, noncompliance of CPAP -11/16: patient on BiPAP, worsening pCO2 this morning and was transferred to the ICU - 11/17 ABG reviewed and pCO2 improved along with mental status -continue nasal cannula this morning and continue using BiPAP p.r.n. and at night -continue steroids but decrease dose -continue cefepime. Discontinued vancomycin -continue bronchodilators -continue diuretics (2) Acute exacerbation of chronic obstructive pulmonary disease: Code(s): J44.1 - Chronic obstructive pulmonary disease with (acute) exacerbation Status: Acute Assessment and Plan: As above (3) Acute on chronic diastolic CHF (congestive heart failure): Code(s): I50.33 - Acute on chronic diastolic (congestive) heart failure Status: Acute Assessment and Plan: Could be related to AFib RVR, has diastolic grade 2 dysfunction on the echo cardio, -continue Lasix daily, will monitor renal function -currently negative fluid balance since admission 11/14/2023: Echocardiogram Summary 1. Technically challenging echocardiogram presumably because of obesity. 2. Definity contrast utilized to improve visualization. 3. Hyperdynamic left ventricular systolic function with concentric LVH. 4. Grade 2 diastolic noncompliance. 5. No significant valvular dysfunction. (4) Hypertension: Code(s): I10 - Essential (primary) hypertension Status: Acute Assessment and Plan: Patient metoprolol, furosemide (5) Electrolyte imbalance: Code(s): E87.8 - Other disorders of electrolyte and fluid balance, not elsewhere classified Status: Acute Assessment and Plan: Potassium will be replaced (6) Hypothyroidism: Code(s): E03.9 - Hypothyroidism, unspecified Status: Acute Assessment and Plan: Continue llevothyroxine (7) UTI (urinary tract infection): Qualifiers: Hematuria presence: with hematuria Urinary tract infection type: acute cystitis Qualified Code(s): N30.01 - Acute cystitis with hematuria Code(s): N39.0 - Urinary tract infection, site not specified Status: Acute Assessment and Plan: UTI on admission on 11/11 -06/12: Urine cultures growing E coli -continue antibiotics as above (8) Pulmonary edema: Qualifiers: Chronicity: acute Qualified Code(s): J81.0 - Acute pulmonary edema Code(s): J81.1 - Chronic pulmonary edema Status: Chronic Assessment and Plan: See above (9) Atrial fibrillation with RVR: Code(s): I48.91 - Unspecified atrial fibrillation Status: Acute Assessment and Plan: Continue amiodarone infusion Continue Eliquis Start p.o. beta-steff and Cardizem Cardiology managing (10) Hyperglycemia: Code(s): R73.9 - Hyperglycemia, unspecified Status: Acute Assessment and Plan: Patient does not have any history of diabetes but blood sugars were elevated. Could be secondary to steroids or patient may have underlying diabetes. Check HbA1c Increase Lantus and continue sliding scale Plan DVT prophylaxis: Eliquis Stress ulcer prophylaxis: Protonix Nutrition: Consistent carbohydrate diet Consult PT OT Continue IS Code Status: Full code Subjective Date/time seen: 11/20/23 Overnight events reviewed. Afebrile Wore BiPAP overnight and on nasal cannula this morning She is eating breakfast in bed and denies any new complaints and states that she is feeling better as compared to yesterday.. She states her breathing is better as compared to yesterday. She has dry cough. Denies any other complaints in all other systems were
[2023-11-20] MEDS: POTASSIUM CHLORIDE 20 MEQ PACKET (FOR LIQUID) 40 MEQ PO (08:22)
[2023-11-20] MEDS: cloNIDine HCL 0.1 MG TABLET PO ×3 (08:23→20:38)
[2023-11-20] MEDS: AMIODARONE 360 MG/D5W 200 ML 360 MG/200 ML BAG 33.33 MG IV CONT ×3 (08:23→20:39)
[2023-11-20 09:10] LABS: Hemoglobin A1C 6.1 % (<5.7)
--- NOTE | 2023-11-20 10:21 | PM.IMPN ---
Progress Note: A&P Assessment and Plan (1) Atrial fibrillation with RVR: Code(s): I48.91 - Unspecified atrial fibrillation Status: Acute (2) Acute respiratory failure with hypercapnia: Code(s): J96.02 - Acute respiratory failure with hypercapnia Status: Acute (3) Lung infiltrate: Code(s): R91.8 - Other nonspecific abnormal finding of lung field Status: Acute (4) Acute exacerbation of chronic obstructive pulmonary disease: Code(s): J44.1 - Chronic obstructive pulmonary disease with (acute) exacerbation Status: Acute (5) UTI (urinary tract infection): Qualifiers: Hematuria presence: with hematuria Urinary tract infection type: acute cystitis Qualified Code(s): N30.01 - Acute cystitis with hematuria Code(s): N39.0 - Urinary tract infection, site not specified Status: Acute Plan (1) Acute respiratory failure with hypercapnia: Code(s): J96.02 - Acute respiratory failure with hypercapnia Status: Acute Assessment and Plan: Acute hypercapnic respiratory failure likely related to COPD, pulmonary edema, ? pneumonia, atelectasis, obesity hypoventilation syndrome, noncompliance of CPAP -11/16: patient on BiPAP, worsening pCO2 this morning and was transferred to the ICU - 11/17 ABG reviewed and pCO2 improved along with mental status -continue nasal cannula this morning and continue using BiPAP p.r.n. and at night -continue steroids but decrease dose -continue cefepime. Discontinued vancomycin -continue bronchodilators -continue diuretics (2) Acute exacerbation of chronic obstructive pulmonary disease: Code(s): J44.1 - Chronic obstructive pulmonary disease with (acute) exacerbation Status: Acute Assessment and Plan: As above (3) Acute on chronic diastolic CHF (congestive heart failure): Code(s): I50.33 - Acute on chronic diastolic (congestive) heart failure Status: Acute Assessment and Plan: Could be related to AFib RVR, has diastolic grade 2 dysfunction on the echo cardio, -continue Lasix daily, will monitor renal function -currently negative fluid balance since admission 11/14/2023: Echocardiogram Summary 1. Technically challenging echocardiogram presumably because of obesity. 2. Definity contrast utilized to improve visualization. 3. Hyperdynamic left ventricular systolic function with concentric LVH. 4. Grade 2 diastolic noncompliance. 5. No significant valvular dysfunction. (4) Hypertension: Code(s): I10 - Essential (primary) hypertension Status: Acute Assessment and Plan: Patient metoprolol, furosemide (5) Electrolyte imbalance: Code(s): E87.8 - Other disorders of electrolyte and fluid balance, not elsewhere classified Status: Acute Assessment and Plan: Potassium will be replaced (6) Hypothyroidism: Code(s): E03.9 - Hypothyroidism, unspecified Status: Acute Assessment and Plan: Continue llevothyroxine (7) UTI (urinary tract infection): Qualifiers: Hematuria presence: with hematuria Urinary tract infection type: acute cystitis Qualified Code(s): N30.01 - Acute cystitis with hematuria Code(s): N39.0 - Urinary tract infection, site not specified Status: Acute Assessment and Plan: UTI on admission on 11/11 -11/11: Urine cultures growing E coli -continue antibiotics as above (8) Pulmonary edema: Qualifiers: Chronicity: acute Qualified Code(s): J81.0 - Acute pulmonary edema Code(s): J81.1 - Chronic pulmonary edema Status: Chronic Assessment and Plan: See above (9) Atrial fibrillation with RVR: Code(s): I48.91 - Unspecified atrial fibrillation Status: Acute Assessment and Plan: Continue amiodarone infusion Continue Eliquis Start p.o. beta-steff and Cardizem Cardiology managing (10) Hyperglycemia: Code(s): R73.
[2023-11-20 11:24] LABS: Glucose Point of Care 236 mg/dl (65-105)
[2023-11-20] MEDS: dilTIAZem HCL 30 MG TABLET 90 MG PO ×3 (12:06→23:02)
[2023-11-20] MEDS: INSULIN ASPART (*BKC) 100 UNITS/ML SUB-Q ×2 (12:06→17:39)
[2023-11-20 16:38] LABS: Glucose Point of Care 212 mg/dl (65-105)
[2023-11-20 20:52] LABS: Glucose Point of Care 193 mg/dl (65-105)
[2023-11-21] VITALS (29 sets, daily range): BP systolic 130–171; BP diastolic 76–137; PULSE 100–135; RESP 14–26; TEMP 36.1–37.1; O2SAT 92–98
[2023-11-21] MEDS: METOPROLOL TARTRATE TAB 25 MG, METOPROLOL TARTRATE TAB 12.5 MG 37.5 MG PO ×2 (03:40→08:26)
[2023-11-21] MEDS: AMIODARONE 360 MG/D5W 200 ML 360 MG/200 ML BAG 33.33 MG IV CONT (04:00)
[2023-11-21] MEDS: cloNIDine HCL 0.1 MG TABLET PO ×3 (05:27→21:55)
[2023-11-21] MEDS: dilTIAZem HCL 30 MG TABLET 90 MG PO ×2 (05:28→12:29)
[2023-11-21 05:33] LABS: Basophils Percent Auto 0.2 % (0.2-1.2); Hematocrit 45.2 % (37.0-47.0); Hemoglobin 13.6 g/dL (12.0-15.0); Immature Granulocyte Absolute 0.21 K/mm3 (0.00-0.031); Immature Granulocyte Percent A 1.7 % (0-0.5); Lymphocytes Absolute Auto 0.48 K/mm3 (0.9-3.2); Lymphocytes Percent Auto 3.9 % (18.3-44.2); Mean Corpuscular HGB Conc 30.1 g/dl (32-36); Mean Corpuscular Hemoglobin 30.2 pg (26-34); Mean Corpuscular Volume 100.4 fl (80-100); Mean Platelet Volume 11.1 fl (7.4-10.4); Monocytes Absolute Auto 0.6 K/mm3 (0.1-0.6); Monocytes Percent Auto 4.5 % (2.6-8.5); Neutrophils Absolute Auto 11.1 K/mm3 (1.3-6.7); Neutrophils Percent Auto 89.7 % (45.5-73.1); Nucleated Red Blood Cells Perc 0.2 % (0.0-0.2); Platelet Count Result 218 k/mm3 (150-375); Red Cell Distribution Width 14.2 % (11.5-14.5); White Blood Count 12.3 K/mm3 (4.5-10.0)
[2023-11-21] MEDS: LEVOTHYROXINE SODIUM 25 MCG TABLET PO (05:33)
[2023-11-21 05:50] LABS: Anisocytosis 1+; Hypochromasia 1+; Platelet Estimate Adequate (Adequate); Schistocytes None Seen
[2023-11-21 05:53] LABS: Alanine Aminotransferase 23 U/L (6-35); Albumin Level 3.9 g/dL (3.5-5.1); Alkaline Phosphatase 81 U/L (38-126); Aspartate Amino Transferase 20 U/L (14-36); Bilirubin,Total 0.8 mg/dL (0.2-1.3); Blood Urea Nitrogen 45 mg/dL (7-17); Calcium 8.3 mg/dL (8.4-10.2); Carbon Dioxide > 40 mmol/L (22-30); Chloride 85 mmol/L (98-107); Estimated Glomerular Filt Rate > 60; Glucose 174 mg/dL (65-110); Magnesium 2.2 mg/dL (1.6-2.3); Potassium 3.4 mmol/L (3.4-5.0); Sodium 142 mmol/L (137-145)
[2023-11-21] MEDS: CENTRAL LINE FLUSH 10 ML IV PUSH ×3 (06:26→21:57)
--- NOTE | 2023-11-21 07:20 | ECG_ITS ---
Test Date: 2023-11-21 09:19:00 Measurements Intervals [place] Rate: 101 P: 0 MA: 0 QRS: 69 QRSD: 103 T: 77 QT: 399 QTc: 518 Interpretive Statements ATRIAL FIBRILLATION WITH RAPID VENTRICULAR RESPONSE WITH ABERRANT CONDUCTION OR VENTRICULAR PREMATURE COMPLEXES ABNORMAL ECG Compared to ECG 11/17/2023 08:36:01 T-wave abnormality no longer present Electronically Signed On 11-21-2023 10:59:07 CDT by Wes Verde M.D.
--- NOTE | 2023-11-21 07:55 | PM.PNCARD ---
Progress Note: A&P Assessment and Plan (1) Atrial fibrillation with RVR: Code(s): I48.91 - Unspecified atrial fibrillation Status: Acute Assessment and Plan: Recurrence of atrial fib, likely due to pulm status. On Eliquis. On Dilitazem 90 mg PO every 6 hours for improved HR control. On Metoprolol 37.5 mg every 6 hours. On Amiodarone drip. Stop Amiodarone drip as she is sufficiently loaded. Start Amiodarone 200 mg BID in hopes she will cardiovert. Check EKG. (2) Acute exacerbation of chronic obstructive pulmonary disease: Code(s): J44.1 - Chronic obstructive pulmonary disease with (acute) exacerbation Status: Acute Assessment and Plan: Pulm is following. (3) Acute on chronic respiratory failure with hypoxia: Code(s): J96.21 - Acute and chronic respiratory failure with hypoxia Status: Acute (4) Hypertension: Code(s): I10 - Essential (primary) hypertension Status: Acute Assessment and Plan: Improved. Subjective Date/time seen: 11/21/23 07:55 Interval history: Reports sob. No chest pain. Exam Const: General: cooperative, healthy appearing, comfortable and obese Nutritional Appearance: obese Orientation/consciousness: oriented to person, oriented to place and oriented to time Resp: Auscultation: no crackles, no rales, no rhonchi, no wheezes and diminished lung sounds Cardio: Rate: tachycardic Rhythm: abnormal rhythm Heart sounds: no murmurs Peripheral pulses: dorsalis pedis present Neuro: General: oriented to person, oriented to place and oriented to time Extrem: Right lower extremity: edema Left lower extremity: edema Other: Lymphedema is mild. Objective Data Vital Signs Vital Signs: Vital Signs - 24 hr 11/20/23 08:02 11/20/23 08:02 11/20/23 08:23 Temperature Pulse Rate 123 H 123 H Respiratory Rate 22 H Blood Pressure 168/96 H Pulse Oximetry 94 Oxygen Delivery Nasal Cannula Oxygen Flow Rate 4 Fraction of Inspired Oxygen 36 11/20/23 08:00 11/20/23 08:00 11/20/23 08:00 Temperature 98.1 F Pulse Rate 118 H 118 H 123 H Respiratory Rate 26 H 22 H Blood Pressure 172/136 H Pulse Oximetry 94 94 Oxygen Delivery Nasal Cannula Oxygen Flow Rate 4 Fraction of Inspired Oxygen 11/20/23 09:39 11/20/23 10:00 11/20/23 10:00 Temperature Pulse Rate 121 H 121 H Respiratory Rate 34 H Blood Pressure 142/110 H Pulse Oximetry 90 Oxygen Delivery Nasal Cannula Oxygen Flow Rate 4 Fraction of Inspired Oxygen 11/20/23 12:00 11/20/23 12:00 11/20/23 12:00 Temperature 98.7 F Pulse Rate 131 H 131 H 131 H Respiratory Rate 28 H 28 H Blood Pressure 171/148 H Pulse Oximetry 95 95 Oxygen Delivery Nasal Cannula Oxygen Flow Rate 3 Fraction of Inspired Oxygen 11/20/23 11:00 11/20/23 14:00 11/20/23 14:00 Temperature Pulse Rate 104 H 103 H Respiratory Rate 18 Blood Pressure 136/103 H Pulse Oximetry 96 Oxygen Delivery Nasal Cannula Oxygen Flow Rate 4 Fraction of Inspired Oxygen 11/20/23 14:24 11/20/23 14:26 11/20/23 16:00 Temperature Pulse Rate 103 H 103 H 104 H Respiratory Rate Blood Pressure 136/103 H 136/103 H Pulse Oximetry Oxygen Delivery Oxygen Flow Rate Fraction of Inspired Oxygen 11/20/23 16:00 11/20/23 16:00 11/20/23 17:24 Temperature 98.7 F Pulse Rate 104 H 104 H Respiratory Rate 31 H 31 H Blood Pressure 172/110 H Pulse Oximetry 94 94 91 Oxygen Delivery Nasal Cannula Nasal Cannula Oxygen Flow Rate 3 3 Fraction of Inspired Oxygen 32 11/20/23 17:26 11/20/23 18:00 11/20/23 18:00 Temperature 98.1 F Pulse Rate 106 H 118 H 118 H Respiratory Rate 21 H 25 H Blood Pressure 164/115 H Pulse Oximetry 94 Oxygen Delivery Oxygen Flow Rate Fraction of Inspired Oxygen 11/20/23 19:37 11/20/23 19:38 11/20/23 20:00 Temperature 97.6 F Pulse Rate 114 H 114 H 116 H Respiratory Rate 25 H 28
[2023-11-21] MEDS: FLUTICASONE/SALMETEROL 115-21 MCG INHALER 1 PUFF 2 PUFF INHALATION ×2 (08:16→20:49)
--- NOTE | 2023-11-21 08:23 | WPDINTPN ---
Progress Note: A&P Assessment and Plan (1) Acute respiratory failure with hypercapnia: Code(s): J96.02 - Acute respiratory failure with hypercapnia Status: Acute Assessment and Plan: Acute hypercapnic respiratory failure likely related to COPD, pulmonary edema, ? pneumonia, atelectasis, obesity hypoventilation syndrome, noncompliance of CPAP -11/16: patient on BiPAP, worsening pCO2 this morning and was transferred to the ICU - 11/17 ABG reviewed and pCO2 improved along with mental status -chest x-ray reviewed -continue nasal cannula this morning and continue using BiPAP p.r.n. and at night -will discontinue further dosing of steroids -continue cefepime through today. Discontinued vancomycin -continue bronchodilators -continue diuretics (2) Acute exacerbation of chronic obstructive pulmonary disease: Code(s): J44.1 - Chronic obstructive pulmonary disease with (acute) exacerbation Status: Acute Assessment and Plan: As above (3) Acute on chronic diastolic CHF (congestive heart failure): Code(s): I50.33 - Acute on chronic diastolic (congestive) heart failure Status: Acute Assessment and Plan: Could be related to AFib RVR, has diastolic grade 2 dysfunction on the echo cardio, -continue Lasix daily, will monitor renal function -currently negative fluid balance since admission 11/14/2023: Echocardiogram Summary 1. Technically challenging echocardiogram presumably because of obesity. 2. Definity contrast utilized to improve visualization. 3. Hyperdynamic left ventricular systolic function with concentric LVH. 4. Grade 2 diastolic noncompliance. 5. No significant valvular dysfunction. (4) Hypertension: Code(s): I10 - Essential (primary) hypertension Status: Acute Assessment and Plan: Patient metoprolol, furosemide (5) Electrolyte imbalance: Code(s): E87.8 - Other disorders of electrolyte and fluid balance, not elsewhere classified Status: Acute Assessment and Plan: Potassium will be replaced (6) Hypothyroidism: Code(s): E03.9 - Hypothyroidism, unspecified Status: Acute Assessment and Plan: Continue levothyroxine (7) UTI (urinary tract infection): Qualifiers: Hematuria presence: with hematuria Urinary tract infection type: acute cystitis Qualified Code(s): N30.01 - Acute cystitis with hematuria Code(s): N39.0 - Urinary tract infection, site not specified Status: Acute Assessment and Plan: UTI on admission on 11/11 -11/11: Urine cultures growing E coli -continue antibiotics as above (8) Pulmonary edema: Qualifiers: Chronicity: acute Qualified Code(s): J81.0 - Acute pulmonary edema Code(s): J81.1 - Chronic pulmonary edema Status: Chronic Assessment and Plan: See above (9) Atrial fibrillation with RVR: Code(s): I48.91 - Unspecified atrial fibrillation Status: Acute Assessment and Plan: Continue amiodarone infusion Continue Eliquis Continue p.o. beta-steff and Cardizem Cardiology managing (10) Hyperglycemia: Code(s): R73.9 - Hyperglycemia, unspecified Status: Acute Assessment and Plan: Patient does not have any history of diabetes but blood sugars were elevated. Could be secondary to steroids or patient may have underlying diabetes. Will discontinue steroids today Check HbA1c Continue Lantus and continue sliding scale Plan DVT prophylaxis: Eliquis Stress ulcer prophylaxis: Protonix Nutrition: Consistent carbohydrate diet Consult PT OT Continue IS Code Status: Full code Discuss case with Pulmonary Transfer out ICU today Subjective Date/time seen: 11/21/23 Overnight events reviewed. Afebrile Patient wore BiPAP overnight and on nasal cannula this morning Continues to be in AFib with RVR but heart rate is improved as compared to last couple of days. She continues to be on amiod
[2023-11-21] MEDS: EMPAGLIFLOZIN 10 MG TABLET PO (08:25)
[2023-11-21] MEDS: ASPIRIN 81 MG CHEWABLE TABLET PO (08:25)
[2023-11-21] MEDS: POTASSIUM CHLORIDE 20 MEQ PACKET (FOR LIQUID) 40 MEQ PO (08:25)
[2023-11-21] MEDS: ATORVASTATIN 10 MG TABLET PO (08:25)
[2023-11-21] MEDS: FUROSEMIDE INJ 40 MG/4 ML VIAL IV PUSH ×2 (08:26→17:08)
[2023-11-21] MEDS: APIXABAN 5 MG TABLET PO ×2 (08:26→17:08)
[2023-11-21] MEDS: PANTOPRAZOLE SODIUM IV 40 MG VIAL IV PUSH ×2 (08:26→20:33)
[2023-11-21] MEDS: AMIODARONE HCL 200 MG TABLET PO ×2 (08:27→20:33)
[2023-11-21] MEDS: CEFEPIME 2 GM/NS 50 ML 2 GM/50 ML BAG IVPB ×2 (08:27→20:33)
[2023-11-21] MEDS: INSULIN GLARGINE (*BKC) 100 UNITS/ML 30 UNITS SUB-Q (08:32)
--- NOTE | 2023-11-21 08:36 | PM.PNPUL ---
Progress Note: A&P Assessment and Plan (1) Acute on chronic respiratory failure with hypoxia: Code(s): J96.21 - Acute and chronic respiratory failure with hypoxia Status: Acute Assessment and Plan: This 73-year-old female, with severe obesity and known sleep-disordered breathing, has not been adherent to treatment. She has a history of obstructive airway disease, likely asthma, for which she has been on maintenance bronchodilators. Her medical history also includes paroxysmal atrial fibrillation, anemia, previous bariatric surgery, and chronic lymphedema. She presented with increasing shortness of breath and was treated for acute on chronic hypercapnic respiratory failure related to congestive heart failure and atrial fibrillation. The patient was transferred to the intensive care unit, where she received BiPAP support, antibiotics, and medications for congestive heart failure and atrial fibrillation. She is now back in normal sinus rhythm and fully awake. Chest X-rays show bilateral lower lobe atelectasis, worse on the right, which has persisted despite BiPAP support. There is a question of a chronically elevated right hemidiaphragm, as a chest X-ray from last June showed a normal right diaphragm. Plan: Continue BiPAP support at night for obesity hypoventilation. Increase BiPAP pressures and provide support during the day to address lower lobe atelectasis. Maintain the use of incentive spirometry. Add a mucolytic agent to her nebulized regimen to address possible bronchial secretion retention. We will continue to follow the patient along with you. (2) Morbid obesity: Code(s): E66.01 - Morbid (severe) obesity due to excess calories Status: Acute (3) PAF (paroxysmal atrial fibrillation): Code(s): I48.0 - Paroxysmal atrial fibrillation Status: Chronic (4) Acute on chronic diastolic CHF (congestive heart failure): Code(s): I50.33 - Acute on chronic diastolic (congestive) heart failure Status: Acute (5) LIANNE (obstructive sleep apnea): Code(s): G47.33 - Obstructive sleep apnea (adult) (pediatric) Status: Chronic (6) Acute respiratory failure with hypercapnia: Code(s): J96.02 - Acute respiratory failure with hypercapnia Status: Acute Subjective Date/time seen: 11/21/23 08:36 Interval history: This 73-year-old female with history of obesity hypoventilation noncompliant with CPAP treatment was transferred to the intensive care unit because of a uncontrolled hypercapnic respiratory failure and atrial fibrillation. The patient was treated in the intensive care unit for congestive heart failure and atrial fibrillation with BiPAP support her respiratory status has significantly improved. She is currently in normal sinus rhythm and patient is fully awake not complaining of any new respiratory symptoms. Patient will be transferred to IMU care. Review of chest x-rays showed persistent right lower lobe atelectasis and a smaller left lower lobe atelectasis. There is a question of chronically elevated right hemidiaphragm over the last 6 months. Exam Narrative: GENERAL APPEARANCE: Well developed, well nourished, alert in no apparent respiratory distress sitting up in bed SKIN: Inspection of the skin reveals no rashes, ulcerations or petechiae. HEENT: Sclerae anicteric and conjunctivae pink and moist. Extraocular movements were intact and pupils were equal, round. NECK: Supple. There was no thyroid enlargement, and no tenderness, or masses were felt. CHEST: Asymmetrical chest wall expansion LUNGS: Decreased breath sounds at bases posteriorly no wheezing CARDIAC: There was a regular rate and rhythm without any murmurs, gallops, rubs. ABDOMEN: Soft and nontender with normal bowel sounds. There was no organomegaly. EXTR: Chronic stasis dermatitis changes with a mild pedal edema in lower extremities. NEUROLOGIC: Patient alert oriented x3, moving all extre
--- NOTE | 2023-11-21 09:05 | PCNWS ---
Weekly nutritional screen. Patient is tolerating current diet with adequate intake. No weight loss reported. No nutritional needs at this time.
[2023-11-21] MEDS: ACETYLCYSTEINE 20% INHAL SOLN 800 MG/4 ML VIAL 200 MG INHALATION ×2 (09:57→20:48)
--- NOTE | 2023-11-21 10:14 | P.PNIM_ITS ---
Progress Note: A&P Assessment and Plan (1) Atrial fibrillation with RVR: Code(s): I48.91 - Unspecified atrial fibrillation Status: Acute (2) Acute respiratory failure with hypercapnia: Code(s): J96.02 - Acute respiratory failure with hypercapnia Status: Acute (3) Lung infiltrate: Code(s): R91.8 - Other nonspecific abnormal finding of lung field Status: Acute (4) Acute exacerbation of chronic obstructive pulmonary disease: Code(s): J44.1 - Chronic obstructive pulmonary disease with (acute) exacerbation Status: Acute (5) UTI (urinary tract infection): Qualifiers: Hematuria presence: with hematuria Urinary tract infection type: acute cystitis Qualified Code(s): N30.01 - Acute cystitis with hematuria Code(s): N39.0 - Urinary tract infection, site not specified Status: Acute Plan Acute hypercapnic respiratory failure likely related to COPD, pulmonary edema, pneumonia, atelectasis, obesity hypoventilation syndrome, noncompliance of CPAP -11/16: patient on BiPAP, worsening pCO2 this morning and was transferred to the ICU - 11/17 ABG reviewed and pCO2 improved along with mental status -continue nasal cannula this morning and continue using BiPAP p.r.n. and at night -continue steroids but decrease dose -continue cefepime since 11/16. Discontinued vancomycin -continue bronchodilators -continue Lasix of 40 mg IV daily (2) Acute exacerbation of chronic obstructive pulmonary disease: Code(s): J44.1 - Chronic obstructive pulmonary disease with (acute) exacerbation Status: Acute Assessment and Plan: As above (3) Acute on chronic diastolic CHF (congestive heart failure): Code(s): I50.33 - Acute on chronic diastolic (congestive) heart failure Status: Acute Assessment and Plan: Could be related to AFib RVR, has diastolic grade 2 dysfunction on the echo cardio, -continue Lasix daily, will monitor renal function -currently negative fluid balance since admission 11/14/2023: Echocardiogram Summary 1. Technically challenging echocardiogram presumably because of obesity. 2. Definity contrast utilized to improve visualization. 3. Hyperdynamic left ventricular systolic function with concentric LVH. 4. Grade 2 diastolic noncompliance. 5. No significant valvular dysfunction. (4) Hypertension: Code(s): I10 - Essential (primary) hypertension Status: Acute Assessment and Plan: Patient metoprolol, furosemide (5) Electrolyte imbalance: Code(s): E87.8 - Other disorders of electrolyte and fluid balance, not elsewhere classified Status: Acute Assessment and Plan: Potassium will be replaced Corrected (6) Hypothyroidism: Code(s): E03.9 - Hypothyroidism, unspecified Status: Acute Assessment and Plan: Levothyroxine (7) UTI (urinary tract infection): Qualifiers: Hematuria presence: with hematuria Urinary tract infection type: acute cystitis Qualified Code(s): N30.01 - Acute cystitis with hematuria Code(s): N39.0 - Urinary tract infection, site not specified Status: Acute Assessment and Plan: UTI on admission on 11/11 -11/11: Urine cultures growing E coli -continue antibiotics as above (8) Pulmonary edema: Qualifiers: Chronicity: acute Qualified Code(s): J81.0 - Acute pulmonary edema Code(s): J81.1 - Chronic pulmonary edema Status: Chronic Assessment and Plan:
[2023-11-21 12:00] LABS: Glucose Point of Care 175 mg/dl (65-105)
[2023-11-21] MEDS: METOPROLOL TARTRATE 50 MG TAB PO ×2 (13:30→17:08)
[2023-11-21] MEDS: IPRATROPIUM BR 0.02% INH SOLN 0.5 MG/2.5 ML VIAL INHALATION ×2 (14:07→20:00)
[2023-11-21 16:26] LABS: Glucose Point of Care 153 mg/dl (65-105)
[2023-11-21] MEDS: dilTIAZem 100 MG/100 ML 100 MG/100 ML BAG IV CONT (17:08)
[2023-11-22] VITALS (30 sets, daily range): BP systolic 110–158; BP diastolic 79–104; PULSE 94–139; RESP 18–27; TEMP 36.4–36.8; O2SAT 92–99
[2023-11-22] MEDS: METOPROLOL TARTRATE 50 MG TAB PO ×4 (00:26→17:22)
[2023-11-22] MEDS: IPRATROPIUM BR 0.02% INH SOLN 0.5 MG/2.5 ML VIAL INHALATION ×4 (01:53→21:28)
[2023-11-22 05:52] LABS: Glucose Point of Care 171 mg/dl (65-105)
[2023-11-22] MEDS: cloNIDine HCL 0.1 MG TABLET PO ×2 (06:05→17:23)
[2023-11-22] MEDS: CENTRAL LINE FLUSH 10 ML IV PUSH ×3 (06:05→22:00)
[2023-11-22] MEDS: LEVOTHYROXINE SODIUM 25 MCG TABLET PO (06:06)
[2023-11-22 06:17] LABS: Basophils Percent Auto 0.2 % (0.2-1.2); Eosinophils Absolute Auto 0.1 K/mm3 (0-0.3); Eosinophils Percent Auto 0.3 % (0-4.4); Hematocrit 48.6 % (37.0-47.0); Hemoglobin 14.4 g/dL (12.0-15.0); Immature Granulocyte Percent A 1.7 % (0-0.5); Lymphocytes Absolute Auto 1.06 K/mm3 (0.9-3.2); Lymphocytes Percent Auto 6.2 % (18.3-44.2); Mean Corpuscular HGB Conc 29.6 g/dl (32-36); Mean Corpuscular Hemoglobin 29.8 pg (26-34); Mean Corpuscular Volume 100.4 fl (80-100); Monocytes Absolute Auto 1.1 K/mm3 (0.1-0.6); Monocytes Percent Auto 6.5 % (2.6-8.5); Neutrophils Absolute Auto 14.6 K/mm3 (1.3-6.7); Neutrophils Percent Auto 85.1 % (45.5-73.1); Platelet Count Result 220 k/mm3 (150-375); Red Blood Count 4.84 M/mm3 (4.2-5.4); White Blood Count 17.2 K/mm3 (4.5-10.0)
[2023-11-22 06:28] LABS: Alanine Aminotransferase 22 U/L (6-35); Albumin Level 3.9 g/dL (3.5-5.1); Alkaline Phosphatase 85 U/L (38-126); Aspartate Amino Transferase 18 U/L (14-36); Blood Urea Nitrogen 46 mg/dL (7-17); Calcium 8.4 mg/dL (8.4-10.2); Carbon Dioxide > 40 mmol/L (22-30); Chloride 81 mmol/L (98-107); Estimated Glomerular Filt Rate 55; Glucose 128 mg/dL (65-110); Magnesium 2.2 mg/dL (1.6-2.3); Potassium 3.3 mmol/L (3.4-5.0); Sodium 141 mmol/L (137-145)
[2023-11-22 06:52] LABS: Hypochromasia 1+; Platelet Estimate Adequate (Adequate); Schistocytes None Seen; Stomatocytes 1+
[2023-11-22] MEDS: ASPIRIN 81 MG CHEWABLE TABLET PO (07:54)
[2023-11-22] MEDS: EMPAGLIFLOZIN 10 MG TABLET PO (08:00)
[2023-11-22] MEDS: ATORVASTATIN 10 MG TABLET PO (08:00)
[2023-11-22] MEDS: APIXABAN 5 MG TABLET PO ×2 (08:00→17:22)
[2023-11-22] MEDS: FUROSEMIDE INJ 40 MG/4 ML VIAL IV PUSH (08:00)
[2023-11-22] MEDS: AMIODARONE HCL 200 MG TABLET PO ×2 (08:00→20:04)
[2023-11-22] MEDS: PANTOPRAZOLE SODIUM IV 40 MG VIAL IV PUSH ×2 (08:00→20:03)
[2023-11-22] MEDS: DULoxetine HCL 30 MG CAPSULE.DR PO (08:00)
[2023-11-22] MEDS: INSULIN GLARGINE (*BKC) 100 UNITS/ML 30 UNITS SUB-Q (08:01)
[2023-11-22 08:12] LABS: Glucose Point of Care 125 mg/dl (65-105)
[2023-11-22] MEDS: FLUTICASONE/SALMETEROL 115-21 MCG INHALER 1 PUFF 2 PUFF INHALATION ×2 (08:50→21:28)
[2023-11-22] MEDS: ACETYLCYSTEINE 20% INHAL SOLN 800 MG/4 ML VIAL 200 MG INHALATION ×2 (08:50→21:28)
--- NOTE | 2023-11-22 08:52 | PM.PNCARD ---
Progress Note: A&P Assessment and Plan (1) Atrial fibrillation with RVR: Code(s): I48.91 - Unspecified atrial fibrillation Status: Acute Assessment and Plan: Recurrence of atrial fib, likely due to pulm status. On Eliquis. Stop Amiodarone drip as she is sufficiently loaded. On Amiodarone 200 mg BID in hopes she will cardiovert. Changed Diltiazem to drip and titrating up to 15 mg/hr for HR control. On Metoprolol Tartate 50 mg PO every 6 hours. On Clonidine. (2) Acute exacerbation of chronic obstructive pulmonary disease: Code(s): J44.1 - Chronic obstructive pulmonary disease with (acute) exacerbation Status: Acute Assessment and Plan: Pulm is following. (3) Acute on chronic respiratory failure with hypoxia: Code(s): J96.21 - Acute and chronic respiratory failure with hypoxia Status: Acute (4) Hypertension: Code(s): I10 - Essential (primary) hypertension Status: Acute Assessment and Plan: Stable. Decrease Clonidine 0.1 mg BID. Subjective Date/time seen: 11/22/23 08:52 Interval history: Reports sob. No chest pain. Exam Const: General: cooperative, healthy appearing, comfortable and obese Nutritional Appearance: obese Orientation/consciousness: oriented to person, oriented to place and oriented to time Resp: Auscultation: no crackles, no rales, no rhonchi, no wheezes and diminished lung sounds Cardio: Rate: tachycardic Rhythm: abnormal rhythm Heart sounds: no murmurs Peripheral pulses: dorsalis pedis present Neuro: General: oriented to person, oriented to place and oriented to time Extrem: Right lower extremity: edema Left lower extremity: edema Other: Lymphedema is mild. Objective Data Vital Signs Vital Signs: Vital Signs - 24 hr 11/21/23 09:58 11/21/23 10:00 11/21/23 10:11 Temperature Pulse Rate 100 100 118 H Respiratory Rate 19 19 18 Blood Pressure Pulse Oximetry 92 Oxygen Delivery BiPAP Oxygen Flow Rate Fraction of Inspired Oxygen 11/21/23 10:00 11/21/23 10:00 11/21/23 12:00 Temperature Pulse Rate 109 H 109 H 132 H Respiratory Rate 18 Blood Pressure 166/137 H Pulse Oximetry 96 Oxygen Delivery Oxygen Flow Rate Fraction of Inspired Oxygen 11/21/23 12:00 11/21/23 12:00 11/21/23 14:00 Temperature 98.3 F Pulse Rate 132 H 132 H 129 H Respiratory Rate 23 H 23 H Blood Pressure 171/100 H Pulse Oximetry 98 98 Oxygen Delivery Nasal Cannula Oxygen Flow Rate 4 Fraction of Inspired Oxygen 11/21/23 14:08 11/21/23 14:08 11/21/23 14:17 Temperature Pulse Rate 112 H 128 H 114 H Respiratory Rate 22 H 18 22 H Blood Pressure Pulse Oximetry 97 Oxygen Delivery BiPAP Oxygen Flow Rate Fraction of Inspired Oxygen 11/21/23 16:00 11/21/23 16:00 11/21/23 16:00 Temperature 98.7 F Pulse Rate 135 H 135 H 135 H Respiratory Rate 17 17 Blood Pressure 171/100 H Pulse Oximetry 96 96 Oxygen Delivery BiPAP Oxygen Flow Rate Fraction of Inspired Oxygen 35 11/21/23 16:38 11/21/23 17:08 11/21/23 18:00 Temperature Pulse Rate 130 H 119 H 107 H Respiratory Rate 21 H Blood Pressure Pulse Oximetry 96 Oxygen Delivery BiPAP Oxygen Flow Rate Fraction of Inspired Oxygen 11/21/23 18:22 11/21/23 20:33 11/21/23 20:49 Temperature Pulse Rate 107 H 117 H 116 H Respiratory Rate 22 H Blood Pressure 171/100 H Pulse Oximetry Oxygen Delivery Oxygen Flow Rate Fraction of Inspired Oxygen 11/21/23 20:59 11/21/23 21:03 11/21/23 20:00 Temperature 97.7 F Pulse Rate 108 H 115 H Respiratory Rate 16 25 H Blood Pressure 141/108 H Pulse Oximetry 92 94 Oxygen Delivery Nasal Cannula Oxygen Flow Rate 3 Fraction of Inspired Oxygen 11/21/23 20:00 11/21/23 20:00 11/21/23 22:00 Temperature Pulse Rate 110 H 112 H Respiratory Rate Blood Pressure Pulse Oximetry 95 Oxygen Delivery Nasal Cannul
--- NOTE | 2023-11-22 09:27 | PM.PNPUL ---
Progress Note: A&P Assessment and Plan (1) Acute on chronic respiratory failure with hypoxia: Code(s): J96.21 - Acute and chronic respiratory failure with hypoxia Status: Acute Assessment and Plan: This 73-year-old female, with severe obesity and known sleep-disordered breathing, has not been adherent to treatment. She has a history of obstructive airway disease, likely asthma, for which she has been on maintenance bronchodilators. Her medical history also includes paroxysmal atrial fibrillation, anemia, previous bariatric surgery, and chronic lymphedema. She presented with increasing shortness of breath and was treated for acute on chronic hypercapnic respiratory failure related to congestive heart failure and atrial fibrillation. The patient was transferred to the intensive care unit, where she received BiPAP support, antibiotics, and medications for congestive heart failure and atrial fibrillation. She is now back in normal sinus rhythm and fully awake. Chest X-rays showed bilateral lower lobe atelectasis, worse on the right, for which she has been treated with high BiPAP pressures, incentive spirometry, nebulized bronchodilators and mucolytic agents in an effort to re-expand lung bases. On today's chest x-ray there is better aeration of the right lung base. Plan: Will continue with current regimen out of bed to chair, BiPAP support as stated above, incentive spirometry nebulized medications. Repeat chest x-ray in a.m.. Case was discussed with the hospitalist and the respiratory therapist. We will continue to follow the patient along with you. (2) Morbid obesity: Code(s): E66.01 - Morbid (severe) obesity due to excess calories Status: Acute (3) PAF (paroxysmal atrial fibrillation): Code(s): I48.0 - Paroxysmal atrial fibrillation Status: Chronic (4) Acute on chronic diastolic CHF (congestive heart failure): Code(s): I50.33 - Acute on chronic diastolic (congestive) heart failure Status: Acute (5) LIANNE (obstructive sleep apnea): Code(s): G47.33 - Obstructive sleep apnea (adult) (pediatric) Status: Chronic (6) Acute respiratory failure with hypercapnia: Code(s): J96.02 - Acute respiratory failure with hypercapnia Status: Acute Subjective Date/time seen: 11/22/23 09:27 Interval history: Patient has had no new respiratory issues over the last 24 hours. She stated she her breathing seems to be improving. Doing incentive spirometry and also receiving BiPAP support with relatively high pressures /14, during the day and also at night. Review of Systems Review of Systems: All systems reviewed & are unremarkable except as noted in HPI and below (HPI and below) Exam Narrative: GENERAL APPEARANCE: Well developed, well nourished, alert in no apparent respiratory distress sitting up in bed SKIN: Inspection of the skin reveals no rashes, ulcerations or petechiae. HEENT: Sclerae anicteric and conjunctivae pink and moist. Extraocular movements were intact and pupils were equal, round. NECK: Supple. There was no thyroid enlargement, and no tenderness, or masses were felt. CHEST: Asymmetrical chest wall expansion LUNGS: Decreased breath sounds at bases posteriorly no wheezing CARDIAC: There was a regular rate and rhythm without any murmurs, gallops, rubs. ABDOMEN: Soft and nontender with normal bowel sounds. There was no organomegaly. EXTR: Chronic stasis dermatitis changes with a mild pedal edema in lower extremities. NEUROLOGIC: Patient alert oriented x3, moving all extremities Objective Data Vital Signs Vital Signs: Vital Signs - 24 hr 11/21/23 09:58 11/21/23 10:00 11/21/23 10:11 Temperature Pulse Rate 100 100 118 H Respiratory Rate 19 19 18 Blood Pressure Pulse Oximetry 92 Oxygen Delivery BiPAP Oxygen Flow Rate Fraction of Inspired Oxygen 11/21/23 10:11/21/23 10:11/21/23 12:00 Temperature Pulse Rat
[2023-11-22] MEDS: dilTIAZem 100 MG/100 ML 100 MG/100 ML BAG IV CONT (10:10)
--- NOTE | 2023-11-22 10:20 | PM.IMPN ---
Progress Note: A&P Assessment and Plan (1) Atrial fibrillation with RVR: Code(s): I48.91 - Unspecified atrial fibrillation Status: Acute (2) Acute respiratory failure with hypercapnia: Code(s): J96.02 - Acute respiratory failure with hypercapnia Status: Acute (3) Lung infiltrate: Code(s): R91.8 - Other nonspecific abnormal finding of lung field Status: Acute (4) Acute exacerbation of chronic obstructive pulmonary disease: Code(s): J44.1 - Chronic obstructive pulmonary disease with (acute) exacerbation Status: Acute (5) UTI (urinary tract infection): Qualifiers: Hematuria presence: with hematuria Urinary tract infection type: acute cystitis Qualified Code(s): N30.01 - Acute cystitis with hematuria Code(s): N39.0 - Urinary tract infection, site not specified Status: Acute Plan Acute hypercapnic respiratory failure likely related to COPD, pulmonary edema, pneumonia, atelectasis, obesity hypoventilation syndrome, noncompliance of CPAP -11/16: patient on BiPAP, worsening pCO2 this morning and was transferred to the ICU - 11/17 ABG reviewed and pCO2 improved along with mental status -continue nasal cannula this morning and continue using BiPAP p.r.n. and at night -continue steroids but decrease dose -continue cefepime since 11/16. Discontinued vancomycin -continue bronchodilators -continue Lasix of 40 mg IV daily Patient continued to have negative input output balance (2) Acute exacerbation of chronic obstructive pulmonary disease: Code(s): J44.1 - Chronic obstructive pulmonary disease with (acute) exacerbation Status: Acute Assessment and Plan: As above (3) Acute on chronic diastolic CHF (congestive heart failure): Code(s): I50.33 - Acute on chronic diastolic (congestive) heart failure Status: Acute Assessment and Plan: Could be related to AFib RVR, has diastolic grade 2 dysfunction on the echo cardio, -continue Lasix daily, will monitor renal function -currently negative fluid balance since admission 11/14/2023: Echocardiogram Summary 1. Technically challenging echocardiogram presumably because of obesity. 2. Definity contrast utilized to improve visualization. 3. Hyperdynamic left ventricular systolic function with concentric LVH. 4. Grade 2 diastolic noncompliance. 5. No significant valvular dysfunction. (4) Hypertension: Code(s): I10 - Essential (primary) hypertension Status: Acute Assessment and Plan: Patient metoprolol, furosemide (5) Electrolyte imbalance: Code(s): E87.8 - Other disorders of electrolyte and fluid balance, not elsewhere classified Status: Acute Assessment and Plan: Potassium will be replaced Corrected (6) Hypothyroidism: Code(s): E03.9 - Hypothyroidism, unspecified Status: Acute Assessment and Plan: Levothyroxine (7) UTI (urinary tract infection): Qualifiers: Hematuria presence: with hematuria Urinary tract infection type: acute cystitis Qualified Code(s): N30.01 - Acute cystitis with hematuria Code(s): N39.0 - Urinary tract infection, site not specified Status: Acute Assessment and Plan: UTI on admission on 11/11 -11/11: Urine cultures growing E coli -continue antibiotics as above (8) Pulmonary edema: Qualifiers: Chronicity: acute Qualified Code(s): J81.0 - Acute pulmonary edema Code(s): J81.1 - Chronic pulmonary edema Status: Chronic Assessment and Plan: On Lasix 40 mg IV daily (9) Atrial fibrillation with RVR: Code(s): I48.91 - Unspecified atrial fibrillation Status: Acute Assessment and Plan: Received amiodarone infusion Continue Eliquis Start p.o. beta-steff and Cardizem, changed to amiodarone 200 mg b.i.d. p.o. Cardiology managing (10) Hyperglycemia: Code(s): R73.9 - Hyperglycemi
[2023-11-22] MEDS: METOPROLOL TARTRATE INJ 5 MG/5 ML VIAL 2.5 MG IV PUSH (12:08)
[2023-11-22 12:15] LABS: Glucose Point of Care 173 mg/dl (65-105)
[2023-11-22 16:44] LABS: Glucose Point of Care 131 mg/dl (65-105)
[2023-11-22] MEDS: dilTIAZem 100 MG/100 ML 100 MG/100 ML BAG 15 MG IV CONT (18:55)
[2023-11-22 20:41] LABS: Glucose Point of Care 172 mg/dl (65-105)
[2023-11-23] VITALS (37 sets, daily range): BP systolic 119–172; BP diastolic 72–109; PULSE 60–131; RESP 18–26; TEMP 36.2–36.8; O2SAT 90–100
[2023-11-23] MEDS: METOPROLOL TARTRATE 50 MG TAB PO ×4 (01:17→22:10)
[2023-11-23] MEDS: dilTIAZem 100 MG/100 ML 100 MG/100 ML BAG 15 MG IV CONT ×3 (01:19→15:29)
[2023-11-23] MEDS: IPRATROPIUM BR 0.02% INH SOLN 0.5 MG/2.5 ML VIAL INHALATION ×4 (02:54→21:04)
[2023-11-23 04:53] LABS: Basophils Percent Auto 0.2 % (0.2-1.2); Eosinophils Absolute Auto 0.1 K/mm3 (0-0.3); Eosinophils Percent Auto 0.7 % (0-4.4); Hematocrit 46.4 % (37.0-47.0); Hemoglobin 14.1 g/dL (12.0-15.0); Immature Granulocyte Absolute 0.28 K/mm3 (0.00-0.031); Immature Granulocyte Percent A 1.9 % (0-0.5); Lymphocytes Absolute Auto 1.26 K/mm3 (0.9-3.2); Lymphocytes Percent Auto 8.4 % (18.3-44.2); Mean Corpuscular HGB Conc 30.4 g/dl (32-36); Mean Corpuscular Hemoglobin 29.9 pg (26-34); Mean Corpuscular Volume 98.5 fl (80-100); Mean Platelet Volume 11.3 fl (7.4-10.4); Monocytes Absolute Auto 1.1 K/mm3 (0.1-0.6); Monocytes Percent Auto 7.1 % (2.6-8.5); Neutrophils Absolute Auto 12.3 K/mm3 (1.3-6.7); Neutrophils Percent Auto 81.7 % (45.5-73.1); Nucleated Red Blood Cells Perc 0.1 % (0.0-0.2); Platelet Count Result 192 k/mm3 (150-375); Red Blood Count 4.71 M/mm3 (4.2-5.4); Red Cell Distribution Width 14.1 % (11.5-14.5)
[2023-11-23 05:14] LABS: Alanine Aminotransferase 18 U/L (6-35); Albumin Level 3.5 g/dL (3.5-5.1); Alkaline Phosphatase 84 U/L (38-126); Aspartate Amino Transferase 20 U/L (14-36); Blood Urea Nitrogen 45 mg/dL (7-17); Calcium 8.5 mg/dL (8.4-10.2); Carbon Dioxide > 40 mmol/L (22-30); Chloride 83 mmol/L (98-107); Estimated Glomerular Filt Rate > 60; Glucose 131 mg/dL (65-110); Sodium 140 mmol/L (137-145)
--- NOTE | 2023-11-23 05:55 | PC.NURSE ---
This patient, Dinora Gusman, was received from ICU-01 on 11/23/23 at 0540. Patient/family oriented to unit policies and routines
[2023-11-23] MEDS: cloNIDine HCL 0.1 MG TABLET PO ×2 (06:20→17:03)
[2023-11-23] MEDS: CENTRAL LINE FLUSH 10 ML IV PUSH ×2 (06:21→22:11)
[2023-11-23] MEDS: LEVOTHYROXINE SODIUM 25 MCG TABLET PO (06:21)
[2023-11-23] MEDS: ACETYLCYSTEINE 20% INHAL SOLN 800 MG/4 ML VIAL 200 MG INHALATION ×2 (07:48→21:03)
[2023-11-23] MEDS: FLUTICASONE/SALMETEROL 115-21 MCG INHALER 1 PUFF 2 PUFF INHALATION ×2 (07:53→21:07)
--- NOTE | 2023-11-23 07:53 | PM.PNCARD ---
Progress Note: A&P Assessment and Plan (1) Atrial fibrillation with RVR: Code(s): I48.91 - Unspecified atrial fibrillation Status: Acute Assessment and Plan: Recurrence of atrial fib, likely due to pulm status. On Eliquis. Stop Amiodarone drip as she is sufficiently loaded. On Amiodarone 200 mg BID in hopes she will cardiovert. On Diltiazem to drip at 15 mg/hr for HR control. On Metoprolol Tartate 50 mg PO every 6 hours. On Clonidine. Due to persistence of atrial fib, will plan on DC cardioversion tomorrow with anesthesia. Keep NPO after midnight. (2) Acute exacerbation of chronic obstructive pulmonary disease: Code(s): J44.1 - Chronic obstructive pulmonary disease with (acute) exacerbation Status: Acute Assessment and Plan: Pulm is following. (3) Acute on chronic respiratory failure with hypoxia: Code(s): J96.21 - Acute and chronic respiratory failure with hypoxia Status: Acute (4) Hypertension: Code(s): I10 - Essential (primary) hypertension Status: Acute Assessment and Plan: Stable. On Clonidine 0.1 mg BID. Subjective Date/time seen: 11/23/23 07:53 Interval history: Reports minimal sob. No chest pain. Exam Const: General: cooperative, healthy appearing, comfortable and obese Nutritional Appearance: obese Orientation/consciousness: oriented to person, oriented to place and oriented to time Resp: Auscultation: no crackles, no rales, no rhonchi, no wheezes and diminished lung sounds Cardio: Rate: tachycardic Rhythm: abnormal rhythm Heart sounds: no murmurs Peripheral pulses: dorsalis pedis present Neuro: General: oriented to person, oriented to place and oriented to time Extrem: Right lower extremity: edema Left lower extremity: edema Other: Lymphedema is mild. Objective Data Vital Signs Vital Signs: Vital Signs - 24 hr 11/22/23 08:00 11/22/23 08:00 11/22/23 08:00 Temperature 97.5 F L Pulse Rate 119 H 116 H 116 H Respiratory Rate 20 Blood Pressure 137/92 H Pulse Oximetry 96 Oxygen Delivery Oxygen Flow Rate Fraction of Inspired Oxygen 11/22/23 08:00 11/22/23 08:50 11/22/23 08:50 Temperature Pulse Rate 116 H 119 H Respiratory Rate 20 18 Blood Pressure Pulse Oximetry 96 92 Oxygen Delivery Nasal Cannula Nasal Cannula Oxygen Flow Rate 4 4 Fraction of Inspired Oxygen 11/22/23 09:01 11/22/23 10:00 11/22/23 12:04 Temperature Pulse Rate 110 H 125 H 133 H Respiratory Rate 18 Blood Pressure Pulse Oximetry Oxygen Delivery Oxygen Flow Rate Fraction of Inspired Oxygen 11/22/23 10:10 11/22/23 10:10 11/22/23 12:08 Temperature Pulse Rate 134 H 134 H 136 H Respiratory Rate Blood Pressure 141/104 H 141/104 H Pulse Oximetry Oxygen Delivery Oxygen Flow Rate Fraction of Inspired Oxygen 11/22/23 13:00 11/22/23 12:00 11/22/23 12:00 Temperature Pulse Rate 131 H 123 H 123 H Respiratory Rate Blood Pressure 152/102 H 152/102 H Pulse Oximetry Oxygen Delivery Oxygen Flow Rate Fraction of Inspired Oxygen 11/22/23 12:00 11/22/23 12:00 11/22/23 13:48 Temperature 97.9 F Pulse Rate 123 H 123 H 115 H Respiratory Rate 26 H 26 H 18 Blood Pressure 152/102 H Pulse Oximetry 99 99 Oxygen Delivery Nasal Cannula Oxygen Flow Rate 3 Fraction of Inspired Oxygen 11/22/23 13:56 11/22/23 14:00 11/22/23 14:00 Temperature 98.3 F Pulse Rate 104 H 125 H 125 H Respiratory Rate 18 18 Blood Pressure 155/98 H Pulse Oximetry 93 Oxygen Delivery Oxygen Flow Rate Fraction of Inspired Oxygen 11/22/23 17:22 11/22/23 16:00 11/22/23 16:00 Temperature 98.3 F Pulse Rate 139 H 119 H 119 H Respiratory Rate 25 H Blood Pressure 158/93 H Pulse Oximetry 94 Oxygen Delivery Oxygen Flow Rate Fraction of Inspired Oxygen 11/22/23 18:00 11/22/23 16:00 11/22/23 18:55 Temperature Pulse Rate 1
[2023-11-23 08:16] LABS: Glucose Point of Care 222 mg/dl (65-105)
[2023-11-23] MEDS: ASPIRIN 81 MG CHEWABLE TABLET PO (08:49)
[2023-11-23] MEDS: AMIODARONE HCL 200 MG TABLET PO ×2 (08:49→22:09)
[2023-11-23] MEDS: ATORVASTATIN 10 MG TABLET PO (08:49)
[2023-11-23] MEDS: DULoxetine HCL 30 MG CAPSULE.DR PO (08:49)
[2023-11-23] MEDS: SODIUM CHLORIDE 0.9% IV 1,000 ML 30 ML IV CONT (08:49)
[2023-11-23] MEDS: EMPAGLIFLOZIN 10 MG TABLET PO (08:49)
[2023-11-23] MEDS: APIXABAN 5 MG TABLET PO ×2 (08:49→17:03)
[2023-11-23] MEDS: PANTOPRAZOLE SODIUM IV 40 MG VIAL IV PUSH ×2 (08:50→22:10)
[2023-11-23] MEDS: FUROSEMIDE INJ 40 MG/4 ML VIAL IV PUSH (08:50)
[2023-11-23] MEDS: INSULIN ASPART (*BKC) 100 UNITS/ML SUB-Q (08:51)
[2023-11-23] MEDS: INSULIN GLARGINE (*BKC) 100 UNITS/ML 30 UNITS SUB-Q (08:53)
--- NOTE | 2023-11-23 09:15 | PM.IMPN ---
Progress Note: A&P Assessment and Plan (1) Atrial fibrillation with RVR: Code(s): I48.91 - Unspecified atrial fibrillation Status: Acute (2) Acute respiratory failure with hypercapnia: Code(s): J96.02 - Acute respiratory failure with hypercapnia Status: Acute (3) Lung infiltrate: Code(s): R91.8 - Other nonspecific abnormal finding of lung field Status: Acute (4) Acute exacerbation of chronic obstructive pulmonary disease: Code(s): J44.1 - Chronic obstructive pulmonary disease with (acute) exacerbation Status: Acute (5) UTI (urinary tract infection): Qualifiers: Hematuria presence: with hematuria Urinary tract infection type: acute cystitis Qualified Code(s): N30.01 - Acute cystitis with hematuria Code(s): N39.0 - Urinary tract infection, site not specified Status: Acute Plan Acute hypercapnic respiratory failure , Possible resulting from COPD exacerbation, pulmonary edema, pneumonia, atelectasis, obesity hypoventilation syndrome, noncompliance of CPAP -11/16: patient on BiPAP, worsening pCO2 this morning and was transferred to the ICU - 11/17 ABG reviewed and pCO2 improved along with mental status -continue nasal cannula this morning and continue using BiPAP p.r.n. and at night -continue steroids but decrease dose -continue cefepime since 11/16. Discontinued vancomycin -continue bronchodilators Repeated chest x-ray today showed cardiomegaly and mild pulmonary edema Continue with Lasix of 40 mg IV daily Patient continued to have negative input output balance (2) Acute exacerbation of chronic obstructive pulmonary disease: Code(s): J44.1 - Chronic obstructive pulmonary disease with (acute) exacerbation Status: Acute Assessment and Plan: As above Acute on chronic diastolic CHF (congestive heart failure): Code(s): I50.33 - Acute on chronic diastolic (congestive) heart failure Status: Acute Assessment and Plan: diastolic grade 2 dysfunction on the echo cardio, -continue Lasix daily, will monitor renal function -currently negative fluid balance since admission 11/14/2023: Echocardiogram Summary 1. Technically challenging echocardiogram presumably because of obesity. 2. Definity contrast utilized to improve visualization. 3. Hyperdynamic left ventricular systolic function with concentric LVH. 4. Grade 2 diastolic noncompliance. 5. No significant valvular dysfunction. X-ray shows cardiomegaly mild pulmonary congestion 11/22 Continue furosemide 40 mg IV push Atrial fibrillation with RVR: Code(s): I48.91 - Unspecified atrial fibrillation Status: Acute Assessment and Plan: Received amiodarone infusion, changed to amiodarone 200 mg b.i.d. p.o. Continue Eliquis Continue. beta-steff and Cardizem Cartridges plans cardioversion tomorrow Hypertension: Code(s): I10 - Essential (primary) hypertension Status: Acute Assessment and Plan: Patient metoprolol, furosemide Electrolyte imbalance: Code(s): E87.8 - Other disorders of electrolyte and fluid balance, not elsewhere classified Status: Acute Assessment and Plan: Potassium will be replaced Corrected Hypothyroidism: Code(s): E03.9 - Hypothyroidism, unspecified Status: Acute Assessment and Plan: Levothyroxine UTI (urinary tract infection): Qualifiers: Hematuria presence: with hematuria Urinary tract infection type: acute cystitis Qualified Code(s): N30.01 - Acute cystitis with hematuria Code(s): N39.0 - Urinary tract infection, site not specified Status: Acute Assessment and Plan: UTI on admission on 11/11 -11/11: Urine cultures growing E coli Completed antibiotics treatment Hyperglycemia: Code(s): R73.9 - Hyperglycemia, unspecified Status: Acute Assessment and Plan: Patient does not have any histo
--- NOTE | 2023-11-23 09:57 | ECG_ITS ---
Test Date: 2023-11-23 10:30:07 Measurements Intervals [place] Rate: 112 P: 0 [place]: 0 QRS: 59 QRSD: 93 T: 93 QT: 384 QTc: 525 Interpretive Statements ATRIAL FIBRILLATION WITH RAPID VENTRICULAR RESPONSE NONSPECIFIC ST & T-WAVE ABNORMALITY ABNORMAL RHYTHM ECG Compared to ECG 11/21/2023 09:19:00 PATIENT IS MORE TACHYCARDIC Electronically Signed On 11-24-2023 07:11:49 CDT by Domingo Baez M.D.
--- NOTE | 2023-11-23 09:58 | PC.NURSE ---
pt reported feeling palpitations to Dr. Bazzi, verbal order for EKG. Pt currently on cardizem at 15ml/hr, scheduled for cardioversion and ALIRIO tomorrow 11/23.
--- NOTE | 2023-11-23 11:11 | PM.PNPUL ---
Progress Note: A&P Assessment and Plan (1) Acute on chronic respiratory failure with hypoxia: Code(s): J96.21 - Acute and chronic respiratory failure with hypoxia Status: Acute Assessment and Plan: This 73-year-old female, with severe obesity and known sleep-disordered breathing, has not been adherent to treatment. She has a history of obstructive airway disease, likely asthma, for which she has been on maintenance bronchodilators. Her medical history also includes paroxysmal atrial fibrillation, anemia, previous bariatric surgery, and chronic lymphedema. She presented with increasing shortness of breath and was treated for acute on chronic hypercapnic respiratory failure related to congestive heart failure and atrial fibrillation. The patient was transferred to the intensive care unit, where she received BiPAP support, antibiotics, and medications for congestive heart failure and atrial fibrillation. Chest X-rays showed bilateral lower lobe atelectasis, worse on the right, for which she has been treated with high BiPAP pressures, incentive spirometry, nebulized bronchodilators and mucolytic agents in an effort to re-expand lung bases. On yesterday's chest x-ray there is better aeration of the right lung base. Physical exam today showed cardiac arrhythmia but lung exam is about unchanged. Plan: Will continue with current regimen out of bed to chair, BiPAP support as stated above, incentive spirometry nebulized medications. Repeat chest x-ray. We will continue to follow the patient along with you. (2) Morbid obesity: Code(s): E66.01 - Morbid (severe) obesity due to excess calories Status: Acute (3) PAF (paroxysmal atrial fibrillation): Code(s): I48.0 - Paroxysmal atrial fibrillation Status: Chronic (4) Acute on chronic diastolic CHF (congestive heart failure): Code(s): I50.33 - Acute on chronic diastolic (congestive) heart failure Status: Acute (5) LIANNE (obstructive sleep apnea): Code(s): G47.33 - Obstructive sleep apnea (adult) (pediatric) Status: Chronic (6) Acute respiratory failure with hypercapnia: Code(s): J96.02 - Acute respiratory failure with hypercapnia Status: Acute Subjective Date/time seen: 11/23/23 11:11 Interval history: Patient has no new respiratory symptoms shortness of breath about the same. Complaining of some palpitations. Has been using a BiPAP support at night and p.r.n. during the day. Also using incentive spirometer. Review of Systems Review of Systems: All systems reviewed & are unremarkable except as noted in HPI and below (HPI and below) Exam Narrative: GENERAL APPEARANCE: Well developed, well nourished, alert in no apparent respiratory distress sitting up in bed SKIN: Inspection of the skin reveals no rashes, ulcerations or petechiae. HEENT: Sclerae anicteric and conjunctivae pink and moist. Extraocular movements were intact and pupils were equal, round. NECK: Supple. There was no thyroid enlargement, and no tenderness, or masses were felt. CHEST: Asymmetrical chest wall expansion LUNGS: Decreased breath sounds at bases posteriorly no wheezing CARDIAC: There was a irregular rate and rhythm without any murmurs, gallops, rubs. ABDOMEN: Soft and nontender with normal bowel sounds. There was no organomegaly. EXTR: Chronic stasis dermatitis changes with a mild pedal edema in lower extremities. NEUROLOGIC: Patient alert oriented x3, moving all extremities Objective Data Vital Signs Vital Signs: Vital Signs - 24 hr 11/22/23 12:04 11/22/23 12:08 11/22/23 13:00 Temperature Pulse Rate 133 H 136 H 131 H Respiratory Rate Blood Pressure 152/102 H Pulse Oximetry Oxygen Delivery Oxygen Flow Rate Fraction of Inspired Oxygen 11/22/23 12:00 11/22/23 12:00 11/22/23 12:00 Temperature 36.6 C Pulse Rate 123 H 123 H 123 H Respiratory Rate 26 H Blood Pressure 152/102 H 152/102 H Puls
--- NOTE | 2023-11-23 12:02 | PCOTNOTE ---
Pt currently has bedrest orders as of 11/22 at 8am for upcoming procedure on 11/23. Due to current bedrest orders, pt is not approrpirate for therapy treatment at this time. Will continue per poc duration/frequency when appropriate.
[2023-11-23 12:30] LABS: Glucose Point of Care 192 mg/dl (65-105)
--- NOTE | 2023-11-23 15:37 | PC.NURSE ---
Notified Dr. Zamudio pt converted to SR. Verbal orders to stop cardizem drip, change metoprolol tartrate to 50mg BID, stat EKG, and cancel cardioversion for tomorrow.
--- NOTE | 2023-11-23 15:44 | ECG_ITS ---
Measurements Intervals [place] Rate: 60 P: 207 [place]: 149 QRS: 50 QRSD: 104 T: 90 QT: 432 QTc: 434 Interpretive Statements ECTOPIC, NON SINUS ATRIAL RHYTHM LONG QT INTERVAL ABNORMAL ECG Compared to ECG 11/23/2023 10:30:07 ECTOPIC ATRIAL RHYTHM REPLACES ATRIAL FIBRILLATION, QT INTERVAL IS LONG Electronically Signed On 11-24-2023 07:19:09 CDT by Domingo Baez M.D. Dictated By: Domingo Baez MD 11/23/23 1544 Signed By: <Electronically signed by Domingo Baez MD in [place]> 11/24/23 0719 [facility]
[2023-11-23 16:41] LABS: Glucose Point of Care 142 mg/dl (65-105)
[2023-11-23 20:35] LABS: Glucose Point of Care 187 mg/dl (65-105)
[2023-11-24] VITALS (19 sets, daily range): BP systolic 139–149; BP diastolic 69–98; PULSE 59–104; RESP 18–24; TEMP 36.3–36.6; O2SAT 97–100
[2023-11-24] MEDS: IPRATROPIUM BR 0.02% INH SOLN 0.5 MG/2.5 ML VIAL INHALATION ×3 (02:57→14:14)
[2023-11-24] MEDS: LEVOTHYROXINE SODIUM 25 MCG TABLET PO (05:59)
[2023-11-24] MEDS: cloNIDine HCL 0.1 MG TABLET PO (05:59)
[2023-11-24] MEDS: CENTRAL LINE FLUSH 10 ML IV PUSH (06:00)
[2023-11-24] MEDS: CENTRAL LINE FLUSH 20 ML IV PUSH (06:01)
[2023-11-24 06:39] LABS: Basophils Percent Auto 0.2 % (0.2-1.2); Eosinophils Absolute Auto 0.2 K/mm3 (0-0.3); Hematocrit 47.6 % (37.0-47.0); Hemoglobin 14.1 g/dL (12.0-15.0); Immature Granulocyte Absolute 0.26 K/mm3 (0.00-0.031); Immature Granulocyte Percent A 1.5 % (0-0.5); Lymphocytes Absolute Auto 1.38 K/mm3 (0.9-3.2); Lymphocytes Percent Auto 7.8 % (18.3-44.2); Mean Corpuscular HGB Conc 29.6 g/dl (32-36); Mean Corpuscular Hemoglobin 29.5 pg (26-34); Mean Corpuscular Volume 99.6 fl (80-100); Mean Platelet Volume 11.9 fl (7.4-10.4); Monocytes Absolute Auto 1.1 K/mm3 (0.1-0.6); Monocytes Percent Auto 6.1 % (2.6-8.5); Neutrophils Absolute Auto 14.8 K/mm3 (1.3-6.7); Neutrophils Percent Auto 83.4 % (45.5-73.1); Platelet Count Result 190 k/mm3 (150-375); Red Blood Count 4.78 M/mm3 (4.2-5.4); Red Cell Distribution Width 14.1 % (11.5-14.5); White Blood Count 17.8 K/mm3 (4.5-10.0)
[2023-11-24 06:44] LABS: Alanine Aminotransferase 16 U/L (6-35); Albumin Level 3.5 g/dL (3.5-5.1); Alkaline Phosphatase 118 U/L (38-126); Aspartate Amino Transferase 16 U/L (14-36); Bilirubin,Total 0.8 mg/dL (0.2-1.3); Blood Urea Nitrogen 47 mg/dL (7-17); Calcium 8.5 mg/dL (8.4-10.2); Carbon Dioxide > 40 mmol/L (22-30); Chloride 84 mmol/L (98-107); Estimated Glomerular Filt Rate 55; Glucose 109 mg/dL (65-110); Magnesium 2.1 mg/dL (1.6-2.3); Potassium 3.1 mmol/L (3.4-5.0); Sodium 140 mmol/L (137-145)
[2023-11-24 07:31] LABS: Glucose Point of Care 94 mg/dl (65-105)
--- NOTE | 2023-11-24 07:39 | PM.PNCARD ---
Progress Note: A&P Assessment and Plan (1) Atrial fibrillation with RVR: Code(s): I48.91 - Unspecified atrial fibrillation Status: Acute Assessment and Plan: Recurrence of atrial fib, likely due to pulm status. On Eliquis. Stop Amiodarone drip as she is sufficiently loaded. On Amiodarone 200 mg BID in hopes she will cardiovert. On Diltiazem to drip at 15 mg/hr for HR control. On Metoprolol Tartate 50 mg PO every 6 hours. On Clonidine. She finally cardioverted on 11/23/23. Stopped Diltiazem drip, change Metoprolol Tartate 50 mg BID. Continue Amiodarone 200 mg BID. Change Lasix 40 mg IV to 40 mg PO daily. May d/c home from cardiology standpoint and f/u with me in 1 week. (2) Acute exacerbation of chronic obstructive pulmonary disease: Code(s): J44.1 - Chronic obstructive pulmonary disease with (acute) exacerbation Status: Acute Assessment and Plan: Pulm is following. (3) Acute on chronic respiratory failure with hypoxia: Code(s): J96.21 - Acute and chronic respiratory failure with hypoxia Status: Acute (4) Hypertension: Code(s): I10 - Essential (primary) hypertension Status: Acute Assessment and Plan: Stable. On Clonidine 0.1 mg BID. Restart Losartan 50 mg daily. Subjective Date/time seen: 11/24/23 07:39 Interval history: She cardioverted to sinus rhythm yesterday afternoon. Reports minimal sob. No chest pain. Exam Const: General: cooperative, healthy appearing, comfortable and obese Nutritional Appearance: obese Orientation/consciousness: oriented to person, oriented to place and oriented to time Resp: Auscultation: no crackles, no rales, no rhonchi, no wheezes and diminished lung sounds Cardio: Rate: regular rate Rhythm: regular rhythm Heart sounds: no murmurs Peripheral pulses: dorsalis pedis present Neuro: General: oriented to person, oriented to place and oriented to time Extrem: Right lower extremity: edema Left lower extremity: edema Other: Lymphedema is mild. Objective Data Vital Signs Vital Signs: Vital Signs - 24 hr 11/23/23 07:48 11/23/23 07:48 11/23/23 07:58 Temperature Pulse Rate 108 H 110 H Respiratory Rate 24 H 24 H Blood Pressure Pulse Oximetry 100 Oxygen Delivery Nasal Cannula Oxygen Flow Rate 3 Fraction of Inspired Oxygen 11/23/23 08:00 11/23/23 08:49 11/23/23 08:00 Temperature 97.8 F Pulse Rate 98 118 H 98 Respiratory Rate 18 Blood Pressure 128/108 H 128/108 H Pulse Oximetry 90 Oxygen Delivery Oxygen Flow Rate Fraction of Inspired Oxygen 11/23/23 08:50 11/23/23 08:00 11/23/23 08:00 Temperature Pulse Rate 118 H 108 H Respiratory Rate Blood Pressure Pulse Oximetry 90 Oxygen Delivery Nasal Cannula Oxygen Flow Rate 3 Fraction of Inspired Oxygen 11/23/23 10:00 11/23/23 12:00 11/23/23 12:32 Temperature 97.2 F L Pulse Rate 106 H 122 H 112 H Respiratory Rate 18 Blood Pressure 172/109 H Pulse Oximetry 100 Oxygen Delivery Oxygen Flow Rate Fraction of Inspired Oxygen 11/23/23 12:00 11/23/23 12:00 11/23/23 10:00 Temperature Pulse Rate 131 H 106 H Respiratory Rate Blood Pressure 138/99 H Pulse Oximetry 100 Oxygen Delivery Nasal Cannula Oxygen Flow Rate 3 Fraction of Inspired Oxygen 11/23/23 12:00 11/23/23 10:00 11/23/23 14:17 Temperature 97.6 F Pulse Rate 131 H 110 H 121 H Respiratory Rate 18 Blood Pressure 172/109 H 149/109 H 150/83 H Pulse Oximetry 96 Oxygen Delivery Oxygen Flow Rate Fraction of Inspired Oxygen 11/23/23 14:24 11/23/23 14:38 11/23/23 15:29 Temperature Pulse Rate 115 H 114 H 60 Respiratory Rate 22 H 22 H Blood Pressure Pulse Oximetry Oxygen Delivery Oxygen Flow Rate Fraction of Inspired Oxygen 11/23/23 15:29 11/23/23 14:00 11/23/23 15:40 Temperature Pulse Rate 60 121 H 62 Respiratory Rate Blood Pressure 150/8
[2023-11-24] MEDS: ACETYLCYSTEINE 20% INHAL SOLN 800 MG/4 ML VIAL 200 MG INHALATION (07:52)
[2023-11-24] MEDS: FLUTICASONE/SALMETEROL 115-21 MCG INHALER 1 PUFF 2 PUFF INHALATION (07:53)
[2023-11-24 08:09] LABS: Hypochromasia 1+; Microcytosis 1+ (NORMAL); Platelet Estimate Adequate (Adequate); Schistocytes None Seen; Stomatocytes 1+
--- NOTE | 2023-11-24 08:34 | PM.IMPN ---
Progress Note: A&P Assessment and Plan (1) Atrial fibrillation with RVR: Code(s): I48.91 - Unspecified atrial fibrillation Status: Acute (2) Acute respiratory failure with hypercapnia: Code(s): J96.02 - Acute respiratory failure with hypercapnia Status: Acute (3) Lung infiltrate: Code(s): R91.8 - Other nonspecific abnormal finding of lung field Status: Acute (4) Acute exacerbation of chronic obstructive pulmonary disease: Code(s): J44.1 - Chronic obstructive pulmonary disease with (acute) exacerbation Status: Acute (5) UTI (urinary tract infection): Qualifiers: Hematuria presence: with hematuria Urinary tract infection type: acute cystitis Qualified Code(s): N30.01 - Acute cystitis with hematuria Code(s): N39.0 - Urinary tract infection, site not specified Status: Acute Plan Acute hypercapnic respiratory failure , Possible resulting from COPD exacerbation, pulmonary edema, pneumonia, atelectasis, obesity hypoventilation syndrome, noncompliance of CPAP -11/16: patient on BiPAP, worsening pCO2 this morning and was transferred to the ICU - 11/17 ABG reviewed and pCO2 improved along with mental status -continue nasal cannula this morning and continue using BiPAP p.r.n. and at night -continue steroids but decrease dose -continue cefepime since 11/16. Discontinued vancomycin -continue bronchodilators Repeated chest x-ray today showed cardiomegaly and mild pulmonary edema, stable airspace opacity and right lung base 11/23 Change Lasix of 40 mg IV daily to 40 mg daily p.o. per cardiology Patient continued to have negative input output balance.-894 mL over the night Acute exacerbation of chronic obstructive pulmonary disease: Code(s): J44.1 - Chronic obstructive pulmonary disease with (acute) exacerbation Status: Acute Assessment and Plan: Management per snuff maker plans Acute on chronic diastolic CHF (congestive heart failure): Code(s): I50.33 - Acute on chronic diastolic (congestive) heart failure Status: Acute Assessment and Plan: diastolic grade 2 dysfunction on the echo cardio, -continue Lasix daily, will monitor renal function -currently negative fluid balance since admission 11/14/2023: Echocardiogram Summary 1. Technically challenging echocardiogram presumably because of obesity. 2. Definity contrast utilized to improve visualization. 3. Hyperdynamic left ventricular systolic function with concentric LVH. 4. Grade 2 diastolic noncompliance. 5. No significant valvular dysfunction. X-ray shows cardiomegaly mild pulmonary congestion 11/22 See above Continue Lasix 40 mg daily p.o. Atrial fibrillation with RVR: Code(s): I48.91 - Unspecified atrial fibrillation Status: Acute Assessment and Plan: Received amiodarone infusion, changed to amiodarone 200 mg b.i.d. p.o. Continue Eliquis Continue. beta-steff and Cardizem Cardioversion performed by prosthetic dentist now patient has sinus rhythm Hypertension: Code(s): I10 - Essential (primary) hypertension Status: Acute Assessment and Plan: Patient metoprolol, furosemide Electrolyte imbalance: Code(s): E87.8 - Other disorders of electrolyte and fluid balance, not elsewhere classified Status: Acute Assessment and Plan: Potassium will be replaced Corrected Hypothyroidism: Code(s): E03.9 - Hypothyroidism, unspecified Status: Acute Assessment and Plan: Levothyroxine UTI (urinary tract infection): Qualifiers: Hematuria presence: with hematuria Urinary tract infection type: acute cystitis Qualified Code(s): N30.01 - Acute cystitis with hematuria Code(s): N39.0 - Urinary tract infection, site not specified Status: Acute Assessment and Plan: UTI on admission on 11/11 -11/11: Urine cultures growing E coli Completed antibiotics hemant
[2023-11-24] MEDS: FUROSEMIDE 40 MG TABLET PO (09:06)
[2023-11-24] MEDS: AMIODARONE HCL 200 MG TABLET PO (09:06)
[2023-11-24] MEDS: ATORVASTATIN 10 MG TABLET PO (09:06)
[2023-11-24] MEDS: PANTOPRAZOLE SODIUM IV 40 MG VIAL IV PUSH (09:06)
[2023-11-24] MEDS: LOSARTAN POTASSIUM 50 MG TABLET PO (09:06)
[2023-11-24] MEDS: KCL 20 MEQ/SW 100 ML 100 ML 50 MEQ IVPB (09:07)
[2023-11-24] MEDS: APIXABAN 5 MG TABLET PO (09:07)
[2023-11-24] MEDS: ASPIRIN 81 MG CHEWABLE TABLET PO (09:07)
[2023-11-24] MEDS: METOPROLOL TARTRATE 50 MG TAB PO (09:07)
[2023-11-24] MEDS: POTASSIUM CHLORIDE 20 MEQ PACKET (FOR LIQUID) 40 MEQ PO (09:07)
[2023-11-24] MEDS: EMPAGLIFLOZIN 10 MG TABLET PO (09:07)
[2023-11-24] MEDS: DULoxetine HCL 30 MG CAPSULE.DR PO (09:07)
[2023-11-24] MEDS: INSULIN GLARGINE (*BKC) 100 UNITS/ML 30 UNITS SUB-Q (09:08)
[2023-11-24 09:20] LABS: Phosphorus 3.7 mg/dL (2.5-4.5)
--- NOTE | 2023-11-24 09:27 | PM.PNPUL ---
Progress Note: A&P Assessment and Plan (1) Acute on chronic respiratory failure with hypoxia: Code(s): J96.21 - Acute and chronic respiratory failure with hypoxia Status: Acute Assessment and Plan: This 73-year-old female, with severe obesity and known sleep-disordered breathing, has not been adherent to treatment. She has a history of obstructive airway disease, likely asthma, for which she has been on maintenance bronchodilators. Her medical history also includes paroxysmal atrial fibrillation, anemia, previous bariatric surgery, and chronic lymphedema. She presented with increasing shortness of breath and was treated for acute on chronic hypercapnic respiratory failure related to congestive heart failure and atrial fibrillation. The patient was transferred to the intensive care unit, where she received BiPAP support, antibiotics, and medications for congestive heart failure and atrial fibrillation. Chest X-rays showed bilateral lower lobe atelectasis, worse on the right, for which she has been treated with high BiPAP pressures, incentive spirometry, nebulized bronchodilators and mucolytic agents in an effort to re-expand lung bases. Plan: Will continue with current regimen out of bed to chair, BiPAP support as stated above, incentive spirometry nebulized medications. Repeat chest x-ray today to assess resolution of lower lobe atelectasis. (2) Morbid obesity: Code(s): E66.01 - Morbid (severe) obesity due to excess calories Status: Acute (3) PAF (paroxysmal atrial fibrillation): Code(s): I48.0 - Paroxysmal atrial fibrillation Status: Chronic (4) Acute on chronic diastolic CHF (congestive heart failure): Code(s): I50.33 - Acute on chronic diastolic (congestive) heart failure Status: Acute (5) LIANNE (obstructive sleep apnea): Code(s): G47.33 - Obstructive sleep apnea (adult) (pediatric) Status: Chronic (6) Acute respiratory failure with hypercapnia: Code(s): J96.02 - Acute respiratory failure with hypercapnia Status: Acute Subjective Date/time seen: 11/24/23 09:27 Interval history: Patient stated she is doing better. Used BiPAP support last night. Also using incentive spirometer. No new symptoms. Review of Systems Review of Systems: All systems reviewed & are unremarkable except as noted in HPI and below (HPI and below) Exam Narrative: GENERAL APPEARANCE: Well developed, well nourished, alert in no apparent respiratory distress sitting up in bed SKIN: Inspection of the skin reveals no rashes, ulcerations or petechiae. HEENT: Sclerae anicteric and conjunctivae pink and moist. Extraocular movements were intact and pupils were equal, round. NECK: Supple. There was no thyroid enlargement, and no tenderness, or masses were felt. CHEST: Asymmetrical chest wall expansion LUNGS: Decreased breath sounds at bases posteriorly no wheezing CARDIAC: There was a irregular rate and rhythm without any murmurs, gallops, rubs. ABDOMEN: Soft and nontender with normal bowel sounds. There was no organomegaly. EXTR: Chronic stasis dermatitis changes with a mild pedal edema in lower extremities. NEUROLOGIC: Patient alert oriented x3, moving all extremities Objective Data Vital Signs Vital Signs: Vital Signs - 24 hr 11/23/23 10:00 11/23/23 12:00 11/23/23 12:32 Temperature 36.2 C L Pulse Rate 106 H 122 H 112 H Respiratory Rate 18 Blood Pressure 172/109 H Pulse Oximetry 100 Oxygen Delivery Oxygen Flow Rate Fraction of Inspired Oxygen 11/23/23 12:00 11/23/23 12:00 11/23/23 10:00 Temperature Pulse Rate 131 H 106 H Respiratory Rate Blood Pressure 138/99 H Pulse Oximetry 100 Oxygen Delivery Nasal Cannula Oxygen Flow Rate 3 Fraction of Inspired Oxygen 11/23/23 12:00 11/23/23 10:00 11/23/23 14:17 Temperature 36.4 C Pulse Rate 131 H 110 H 121 H Respiratory Rate 18 Blood Pressure 172/109 H 149/109 H 1
--- NOTE | 2023-11-24 11:37 | PM.DS ---
DS: Admitting Diagnosis Discharge Date 11/23 Admitting Diagnosis (1) Atrial fibrillation with RVR: Code(s): I48.91 - Unspecified atrial fibrillation Status: Acute (2) Acute respiratory failure with hypercapnia: Code(s): J96.02 - Acute respiratory failure with hypercapnia Status: Acute (3) Lung infiltrate: Code(s): R91.8 - Other nonspecific abnormal finding of lung field Status: Acute (4) Acute exacerbation of chronic obstructive pulmonary disease: Code(s): J44.1 - Chronic obstructive pulmonary disease with (acute) exacerbation Status: Acute (5) UTI (urinary tract infection): Qualifiers: Hematuria presence: with hematuria Urinary tract infection type: acute cystitis Qualified Code(s): N30.01 - Acute cystitis with hematuria Code(s): N39.0 - Urinary tract infection, site not specified Status: Acute DS: Discharge Diagnosis Discharge Diagnosis (1) Atrial fibrillation with RVR: Code(s): I48.91 - Unspecified atrial fibrillation Status: Acute (2) Acute respiratory failure with hypercapnia: Code(s): J96.02 - Acute respiratory failure with hypercapnia Status: Acute (3) Lung infiltrate: Code(s): R91.8 - Other nonspecific abnormal finding of lung field Status: Acute (4) Acute exacerbation of chronic obstructive pulmonary disease: Code(s): J44.1 - Chronic obstructive pulmonary disease with (acute) exacerbation Status: Acute (5) UTI (urinary tract infection): Qualifiers: Hematuria presence: with hematuria Urinary tract infection type: acute cystitis Qualified Code(s): N30.01 - Acute cystitis with hematuria Code(s): N39.0 - Urinary tract infection, site not specified Status: Acute DS: Summary Hospital Course Hospital Course: Per H&P, This is a 73-year-old female with past medical history significant for morbid obesity, obstructive sleep apnea on CPAP at nighttime, chronic hypoxic respiratory failure, congestive heart failure, COPD, chronic lymphedema, paroxysmal atrial fibrillation, tobacco dependence. Patient presents to the emergency room due to shortness of breath worsening over the last few days or so. Patient had denies any fevers, rigors, chills, cough, sputum production her only complaint is shortness of breath. States that she went to her primary care physicians who order lab work and upon receiving results she was prompted to come to the emergency room. The following med issues have been addressed during hospital Acute hypercapnic respiratory failure , Possible resulting from COPD exacerbation, pulmonary edema, pneumonia, atelectasis, obesity hypoventilation syndrome, noncompliance of CPAP -11/16: patient on BiPAP, worsening pCO2 this morning and was transferred to the ICU - 11/17 ABG reviewed and pCO2 improved along with mental status -continue nasal cannula this morning and continue using BiPAP p.r.n. and at night -continue steroids but decrease dose -continue cefepime since 11/16. Discontinued vancomycin -continue bronchodilators Repeated chest x-ray today showed cardiomegaly and mild pulmonary edema, stable airspace opacity and right lung base 11/23 Change Lasix of 40 mg IV daily to 40 mg daily p.o. 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
[2023-11-24 11:48] LABS: Glucose Point of Care 92 mg/dl (65-105)
== END 2023-11-24 14:49 | DRG 189 ==
LOC: ANHED 19:42 → ANH3MEDSUR 20:39 → ANH2MED 21:40 → ANHIMU 11-14 18:04 → ANHICU 11-17 10:39 → ANHIMU 11-24 11:49 → ANHICU 11-25 08:38 → ANHIMU 11-25 08:38
PROVIDERS: Internal Medicine; Nurse Practitioner Acute Care; Student in an Organized Health Care Education/Training Program; Admitting Provider Internal Medicine; Emergency Provider Physician Assistant; PCP Family Medicine; Visit Provider Hospitalist
DX: J96.21 Acute and chronic respiratory failure with hypoxia (principal); J81.0 Acute pulmonary edema; I50.33 Acute on chronic diastolic (congestive) heart failure; J44.1 Chronic obstructive pulmonary disease with (acute) exacerbation; N30.01 Acute cystitis with hematuria; Z68.44 Body mass index [BMI] 60.0-69.9, adult; I11.0 Hypertensive heart disease with heart failure; J96.02 Acute respiratory failure with hypercapnia; B96.20 Unspecified Escherichia coli [E. coli] as the cause of diseases classified elsewhere; E66.01 Morbid (severe) obesity due to excess calories; E87.8 Other disorders of electrolyte and fluid balance, not elsewhere classified; E03.9 Hypothyroidism, unspecified; E87.5 Hyperkalemia; G47.33 Obstructive sleep apnea (adult) (pediatric); I89.0 Lymphedema, not elsewhere classified; I48.0 Paroxysmal atrial fibrillation; R91.8 Other nonspecific abnormal finding of lung field; R73.9 Hyperglycemia, unspecified; Z66 Do not resuscitate; Z99.89 Dependence on other enabling machines and devices; Z79.01 Long term (current) use of anticoagulants; Z79.82 Long term (current) use of aspirin; Z88.0 Allergy status to penicillin; Z98.84 Bariatric surgery status; Z90.710 Acquired absence of both cervix and uterus; Z91.148 Patient's other noncompliance with medication regimen for other reason; Z91.199 Patient's noncompliance with other medical treatment and regimen due to unspecified reason
CPT/HCPCS: 36415; 36569; 36600; 71045; 71275; 80048; 80053; 81001; 82375; 82805; 82948; 83036; 83050; 83690; 83735; 83880; 84100; 84145; 84484; 85025; 85610; 85730; 87040; 87077; 87086; 87088; 87186; 87641; 93005; 94003; 94640; 96365; 96367; 96375; 97161; 97166; 97530; 99285; A9270; C8929; C9113; G0378; J0282; J0360; J0456; J0692; J0696; J1815; J1940; J2060; J2919; J3370; J3480; J7030; J7040; J7050; Q9957; Q9967

== ENCOUNTER 2023-12-03 11:30 | Outpatient (RCR) | payer MEDICARE, MEDICAID, SELFPAY ==
[2023-09-04 00:02] VITALS: BP 147/84; PULSE 93; RESP 20; TEMP 36.2; O2SAT 90
--- NOTE | 2023-09-09 09:13 | PC.NURSE ---
No nursing group due to nurse meeting.
[2023-09-09 09:17] VITALS: BP 137/81; PULSE 82; RESP 20; TEMP 36.3; O2SAT 90
--- NOTE | 2023-09-11 10:00 | PC.NURSE ---
No nursing group due to MD visit.
[2023-09-11 10:18] VITALS: BP 140/85; PULSE 76; RESP 20; TEMP 36.2; O2SAT 90
--- NOTE | 2023-09-11 11:43 | WPDSLSPROGRE ---
Progress HPI Progress HPI Visit Attended By patient and staff History Obtained From patient Chief Complaint 4 Week follow-up for depression HPI this is a routine follow-up for depression. Patient missed last week as she had a fall out of bed, went to the ER, evaluated and fortunately found to have no serious injury. She has some bed railings now that she can install if she wishes. Patient also had a UTI recently, was on antibiotics, has now resolved. She is otherwise sleeping well since her coupon redemption clerk adjusted her mask/ CPAP. Patient continues on Prozac 10 mg q.a.m. and Cymbalta 90 mg q.a.m.. she has a large bruise on the left side of her neck. Average Number of Hours of Sleep 8 Sleep Quality sleep throughout the night Change in PMFSH Releveant to Presenting Illness Yes Describe Changes in PMFSH As above Review of Systems Review of Systems Constitutional Reports other ( obesity, hypothyroidism) Eyes Reports WNL ENT Reports other ( LIANNE) Respiratory Reports other ( LIANNE) Cardiovascular Reports other ( hypertension, CHF, AFib) Gastrointestinal Reports WNL Musculoskeletal Reports abnormal gait, Reports assistive device, Reports diminished strength, Reports muscle stiffness and Reports other ( chronic pain) Neurologic Reports other ( chronic pain) Skin Reports bruising ADL's Reports WNL Exam Physical Exam Review of Lab Studies n/a Hygiene good General Behavior/Attitude Toward Examiner pleasant and cooperative Pain Yes Pain Location Generalized Pain Characteristics chronic Psychiatric Exam Level of Consciousness alert Orientation person, place, time and situation Speech normal rate/tone/volume/prosody and coherent Language able to comprehend questions Mood less depressed Affect full range, appropriate and congruent Thought Processes/Form logical, linear and goal directed Thought Content diminished depressive symptoms Delusions none Homicidal/Assaultive Ideation none Suicidal Ideation none Hallucinations none Attention/Concentration focused Attention/Concentration Testing Methods observation/interview Short Term Memory Impairment none STM Testing Methods clinical interview (assessment/observation) Battery Hand Memory Impairment none LTM Testing Methods recall of biographical information Intellectual Functioning roughly average Intellectual Functioning Assessed By current events Insight fair and improving Insight Assessed By ability to recognize & acknowledge mental illness, ability to understand the implications of mental illness, understanding of treatment options and ability to comply with treatment Judgement fair and improving Judgement Assessed By exploring recent decision-making MMSE n/a Patient Assets patient is willing to accept treatment, able to perform ADLs Patient Liabilities morbid obesity, mobility issues Assessment and Plan Clinical Impression/Diag Clinical Impression/Diagnosis F 33.2, progressing well, continue meds Progress Overview Reason for Continued Services in an Intensive Outpatient Program continued impaired mood and.or depression, patient would decompenste at a lower level of care, not at baseline level of functioning and high risk for relapse Treatment To Be Provided medication management and group/individual/rec therapy Discharge Disposition/Level of Care PCP Anticipated Discharge 8-12 weeks Certification Statement Certification Statement I believe this patient requires the services of the Intensive Outpatient Program and that there is reasonable expectation that the patient will make timely and significant practical improvement in the presenting acute symptoms as a result of this Intensive Outpatient Program. I do not believe this patient will benefit from a lesser level of care or co
[2023-09-16 10:26] VITALS: BP 140/68; PULSE 78; RESP 20; TEMP 37; O2SAT 95
[2023-09-18 10:12] VITALS: BP 140/74; PULSE 84; RESP 20; TEMP 37; O2SAT 90
--- NOTE | 2023-09-18 10:25 | PC.NURSE ---
No nursing group due to MD visit.
--- NOTE | 2023-09-23 13:51 | SLSTHERAPY ---
09/23/2023 13:52 Dinora no-showed/no-called for group 09/23/2023.
--- NOTE | 2023-09-25 09:56 | PC.NURSE ---
No nursing group due to MD visit.
[2023-09-25 10:35] VITALS: BP 150/85; PULSE 78; RESP 20; TEMP 36.6; O2SAT 96
[2023-09-30 10:17] VITALS: BP 139/75; PULSE 73; RESP 20; TEMP 36.9; O2SAT 94
[2023-10-02 10:29] VITALS: BP 140/70; PULSE 70; RESP 20; TEMP 36.4; O2SAT 92
[2023-10-07 10:09] VITALS: BP 123/61; PULSE 77; RESP 20; TEMP 36.3; O2SAT 90
--- NOTE | 2023-10-09 09:03 | PC.NURSE ---
No nursing group due to MD visit.
[2023-10-09 10:20] VITALS: BP 134/65; PULSE 82; RESP 20; TEMP 36.4; O2SAT 94
--- NOTE | 2023-10-09 11:01 | WPDSLSPROGRE ---
Progress HPI Progress HPI Visit Attended By patient and staff History Obtained From patient Chief Complaint Four-week follow-up for depression HPI this is a routine follow-up for depression. Patient continues to enjoy the program and participates well. She is working on coping skills, anxiety reduction, among other topics. She is not using her CPAP because the back of her head is still sore from her fall. However she has had no further falls since I saw her last. Patient states that she does use oxygen at night which is helping her sleep. She continues on Prozac 10 mg q.a.m. and Cymbalta 90 mg q.a.m.. Average Number of Hours of Sleep 8 Sleep Quality sleep throughout the night Change in PMFSH Releveant to Presenting Illness No Review of Systems Review of Systems Constitutional Reports other ( Obesity, hypothyroidism) Eyes Reports WNL ENT Reports WNL Respiratory Reports other ( LIANNE) Cardiovascular Reports other ( hypertension, AFib) Gastrointestinal Reports WNL Musculoskeletal Reports abnormal gait, Reports assistive device, Reports diminished strength, Reports muscle stiffness and Reports other ( chronic pain) Neurologic Reports WNL Skin Reports WNL ADL's Reports WNL Exam Physical Exam Review of Lab Studies n/a Hygiene good General Behavior/Attitude Toward Examiner pleasant and cooperative Pain Yes Pain Location generalized Pain Characteristics chronic Psychiatric Exam Level of Consciousness alert Orientation person, place, time and situation Speech normal rate/tone/volume/prosody and coherent Language able to comprehend questions Mood less depressed Affect full range, appropriate and congruent Thought Processes/Form logical, linear and goal directed Thought Content diminished depressive symptoms Delusions none Homicidal/Assaultive Ideation none Suicidal Ideation none Hallucinations none Attention/Concentration focused Attention/Concentration Testing Methods observation/interview Short Term Memory Impairment none STM Testing Methods clinical interview (assessment/observation) Care Home Memory Impairment none LTM Testing Methods recall of biographical information Intellectual Functioning roughly average Intellectual Functioning Assessed By fund of knowledge Insight fair and improving Insight Assessed By ability to recognize & acknowledge mental illness, ability to understand the implications of mental illness, understanding of treatment options and ability to comply with treatment Judgement fair Judgement Assessed By exploring recent decision-making MMSE n/a Patient Assets patient is willing to accept treatment, able to perform ADLs Patient Liabilities morbid obesity, mobility issues Assessment and Plan Clinical Impression/Diag Clinical Impression/Diagnosis F 33.2, progressing well, continue meds, continue IOP Progress Overview Reason for Continued Services in an Intensive Outpatient Program continued impaired mood and.or depression, patient would decompenste at a lower level of care and not at baseline level of functioning Treatment To Be Provided medication management and group/individual/rec therapy Discharge Disposition/Level of Care PCP Anticipated Discharge 8-12 weeks Certification Statement Certification Statement I believe this patient requires the services of the Intensive Outpatient Program and that there is reasonable expectation that the patient will make timely and significant practical improvement in the presenting acute symptoms as a result of this Intensive Outpatient Program. I do not believe this patient will benefit from a lesser level of care or could be adequately and appropriately treated in a less restrictive environment. My decision is based on the preceding clinical information.
[2023-10-14 10:22] VITALS: BP 144/68; PULSE 80; RESP 20; TEMP 36.3; O2SAT 90
[2023-10-16 10:11] VITALS: BP 152/77; PULSE 74; RESP 20; TEMP 37; O2SAT 90
--- NOTE | 2023-10-16 10:17 | PC.NURSE ---
No nursing group due to MD visit.
[2023-10-21 10:27] VITALS: BP 122/62; PULSE 80; RESP 20; TEMP 37; O2SAT 93
--- NOTE | 2023-10-28 09:39 | PC.NURSE ---
The patient called this morning to say she was not feeling well and will not make her scheduled session today.
--- NOTE | 2023-10-30 10:13 | PC.NURSE ---
No nursing group due to MD visit.
[2023-10-30 11:05] VITALS: BP 133/80; PULSE 73; RESP 20; TEMP 36.9; O2SAT 96
--- NOTE | 2023-10-30 12:46 | WPDSLSPROGRE ---
Progress HPI Progress HPI Visit Attended By patient and staff History Obtained From patient Chief Complaint 3 week follow-up HPI this is a routine follow-up for depression. Patient continues to enjoy the program, participates well. She is working on coping skills, self-esteem, anxiety reduction. Says that her head is still somewhat sore from her fall a few weeks ago. Patient will be seeing the combining machine operator next month. Is not using her CPAP but does use oxygen at night. Sleep is variable. Continues on Prozac 10 mg q.a.m. and Cymbalta 90 mg q.a.m.. continues to do well with her new bed. Average Number of Hours of Sleep 8 Sleep Quality sleep throughout the night Change in PMFSH Releveant to Presenting Illness Yes Describe Changes in PMFSH As above Review of Systems Review of Systems Constitutional Reports other ( obesity, hypothyroidism) Respiratory Reports other Cardiovascular Reports other ( hypertension, AFib) Gastrointestinal Reports WNL Musculoskeletal Reports abnormal gait, Reports assistive device, Reports diminished strength, Reports muscle stiffness and Reports other ( chronic pain) Neurologic Reports WNL Skin Reports WNL ADL's Reports WNL Exam Physical Exam Review of Lab Studies n/a Hygiene good General Behavior/Attitude Toward Examiner pleasant and cooperative Pain No Psychiatric Exam Level of Consciousness alert Orientation person, place, time and situation Speech normal rate/tone/volume/prosody and coherent Language able to comprehend questions Mood Less depressed Affect full range, appropriate and congruent Thought Processes/Form logical, linear and goal directed Thought Content diminished depressive symptoms Delusions none Homicidal/Assaultive Ideation none Suicidal Ideation none Hallucinations none Attention/Concentration focused Attention/Concentration Testing Methods observation/interview Short Term Memory Impairment none STM Testing Methods clinical interview (assessment/observation) 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 Memory Impairment none LTM Testing Methods recall of biographical information Intellectual Functioning roughly average Intellectual Functioning Assessed By current events Insight fair and improving Insight Assessed By ability to recognize & acknowledge mental illness, ability to understand the implications of mental illness, understanding of treatment options and ability to comply with treatment Judgement fair and improving Judgement Assessed By exploring recent decision-making MMSE n/a Patient Assets patient is willing to accept treatment, able to perform ADLs Patient Liabilities morbid obesity, mobility issues Assessment and Plan Clinical Impression/Diag Clinical Impression/Diagnosis F 33.2, progressing well, continue meds, continue IOP Progress Overview Reason for Continued Services in an Intensive Outpatient Program continued impaired mood and.or depression, patient would decompenste at a lower level of care, not at baseline level of functioning and high risk for relapse Treatment To Be Provided medication management and group/individual/rec therapy Discharge Disposition/Level of Care PCP Anticipated Discharge 8-12 weeks Certification Statement Certification Statement I believe this patient requires the services of the Intensive Outpatient Program and that there is reasonable expectation that the patient will make timely and significant practical improvement in the presenting acute symptoms as a result of this Intensive Outpatient Program. I do not believe this patient will benefit from a lesser level of care or could be adequately and appropriately treated in a less restrictive environment. My decision is based on the preceding clinical information.
--- NOTE | 2023-11-04 09:27 | PC.NURSE ---
No nursing group due to nurse meeting.
[2023-11-04 10:04] VITALS: BP 146/78; PULSE 78; RESP 20; TEMP 36.7; O2SAT 93
--- NOTE | 2023-11-06 08:05 | SLSTHERAPY ---
11/06/2023 Phone call received from Dinora's daughter canceling Dinora's attendance for 11/06/2023 group due to illness; Dinora is scheduled to return to group 11/10/2023. 8:06
[2023-11-11 10:00] VITALS: BP 142/78; PULSE 83; RESP 20; TEMP 36.3; O2SAT 93
--- NOTE | 2023-11-13 09:08 | PC.NURSE ---
The patient called and let us know that she was in the hospital and would not make her scheduled session today.
--- NOTE | 2023-11-17 14:20 | PC.NURSE ---
This nurse spoke with the patient's and she is currently in the ICU and will not make any scheduled sessions this week.
--- NOTE | 2023-11-17 16:08 | SLSTHERAPY ---
11/17/2023 Dinora's , Tariq, arrived at the [facility] SLS office to inforn staff of Dinora's current hospitalization due to respiratory complications; Dinora will be absent from group 11/18/2023 & 11/20/2023 due to hospitalization. [id number]
--- NOTE | 2023-11-25 07:59 | PC.NURSE ---
The patient is still in the hospital and will not be able to attend her scheduled session today.
--- NOTE | 2023-11-27 13:06 | PC.NURSE ---
The patient continues to be in the hospital. She will not be able to attend her scheduled session today.
--- NOTE | 2023-12-03 13:48 | WPDSLSDC ---
Discharge Summary Mental Status see response to treatment/treatment course summary Reason for Admission the patient is a 73-year-old white female that presented on 09/05/2022 of the long history of depression anxiety, with previous admits on 08/18/2019 and 02/15/2021. At the time of this admission the patient endorsed feelings of depressed and anxious mood, decreased energy, fatigue, low motivation, decreased in interest in activities, hopelessness, worthlessness, irritability, poor concentration, weight gain, and passive suicidal ideations. Most of her stress revolves around her morbid obesity and other physical issues. She has missed being independent and felt like a burden on her . Medications included duloxetine 90 mg q.a.m. and fluoxetine 10 mg q.a.m.. Treatment Plan Utilization/Treatment Supportive/cognitive therapy utilized, medications for continued. Provided educational many subjects including safety, sleep, nutrition, overall general health, falls, coping skills, grief, behavior activation, self-care, communication, boundaries, benefits of exercising, organization, medication compliance, among others. Response to TX/Treatment Course Summary Patient had been doing well in the program but was admitted to the hospital on 11/12/2019 for prior to completing the program. She presented with shortness of breath and atrial fibrillation and following her hospital stay she was admitted to a residential facility to rehab during the week of 11/24/2023. Unable to ascertain mental status on discharge is patient was not available for an exam. Aftercare Plan Continue current medications, follow-up with PCP p.r.n.. Continue all activities as tolerated. The patient is currently a chcf will continue receiving physical and occupational therapy. [facility] staff will follow-up with patient after her but discharge due to medical reasons. Discharge Diagnosis F 33.2
== END 2023-12-03 14:27 | disposition short-term general hospital (02) ==
LOC: CHSSENLIFE 11:30
PROVIDERS: PCP Family Medicine; Visit Provider Psychiatry & Neurology Psychiatry
DX: F33.2 Major depressive disorder, recurrent severe without psychotic features (principal)
CPT/HCPCS: 36600; 82375; 82805; 83050; 90853; 94618; 99213; G0463

== ENCOUNTER 2023-12-14 03:15 | Emergency (ER) | payer MEDICARE, MEDICAID, SELFPAY ==
[2023-12-14] VITALS (49 sets, daily range): BP systolic 50–193; BP diastolic 25–147; PULSE 71–128; RESP 14–32; TEMP 36.9; O2SAT 72–100
--- NOTE | ~2023-12-14 | XR_ITS ---
EXAMINATION: XR chest port-a-cath/central DATE: 12/14/2023 04:08 INDICATION: Central line placement TECHNIQUE: frontal view of the chest was obtained. COMPARISON: Chest radiograph dated 12/14/2023 FINDINGS: Tip of a right internal jugular central venous catheter at the mid superior vena cava. Endotracheal t ube tip 3.0 cm above the asif. Persistent elevation the right hemidiaphragm. Diffuse bilateral indistinct interstitial pattern and m ild opacities consistent with mild pulmonary edema. Mild airspace opacities at the bilateral lower casie ngs which could represent additional marrow edema, atelectasis or pneumonia. Cardiomegaly. IMPRESSION: 1. No significant change in mild pulmonary edema with mild airspace opacities at the lower lung zones which could represent locally more severe pulmonary edema, atelectasis or pneumonia. 2. Cardiomegaly. Reviewed, dictated and finalized at location A. IMPRESSION: 1. No significant change in mild pulmonary edema with mild airspace opacities a t the lower lung zones which could represent locally more severe pulmonary isha a, atelectasis or pneumonia. 2. Cardiomegaly.
--- NOTE | ~2023-12-14 | XR_ITS ---
EXAMINATION: XR abdomen gastric tube insert DATE: 12/14/2023 06:22 INDICATION: Nasogastric tube placement TECHNIQUE: A supine view of the abdomen and lower chest was obtained for evaluation of feeding tube placement. COMPARISON: None. FINDINGS: Nasogastric tube tip in proximal side port in the body of the stomach. No dilated loops of gas-filled bowel in the visualized abdomen. Surgical clips in the pelvis. Endotracheal tube tip 3.2 cm above th e asif. Opacities in the right mid and lower lung which could represent atelectasis or pneumonia. IMPRESSION: 1. Nasogastric tube in the stomach. Reviewed, dictated and finalized at location A.
--- NOTE | ~2023-12-14 | XR_ITS ---
EXAMINATION: XR chest ET placement DATE: 12/14/2023 04:07 INDICATION: Endotracheal tube placement TECHNIQUE: frontal view of the chest was obtained. COMPARISON: Chest radiograph dated 11/24/2023 FINDINGS: Endotracheal tube tip 1.3 cm above the asif. Cardiomegaly. Elevation the right hemidiaphragm. Bilat eral increased interstitial pattern with mild perihilar and basilar opacities. No pleural effusion or pneumothorax. IMPRESSION: 1. Likely congestive heart failure with cardiomegaly and mild pulmonary edema. 2. Perihilar and basilar opacities bladder improved on the right and slightly worsened on the left wh ich favors atelectasis with differential including more focal pulmonary edema or pneumonia. Reviewed, dictated and finalized at location A. IMPRESSION: 1. Likely congestive heart failure with cardiomegaly and mild pulmonary edema. 2. Perihilar and basilar opacities bladder improved on the right and slightly w orsened on the left which favors atelectasis with differential including more f ocal pulmonary edema or pneumonia.
--- NOTE | 2023-12-14 03:25 | PC.NURSE ---
preparing for intubation. RT at the bedside
[2023-12-14] MEDS: SODIUM CHLORIDE 0.9% IV 500 ML 999 ML IV CONT (03:26)
[2023-12-14] MEDS: SUCCINYLCHOLINE CHLORIDE 20 MG/ML 10 ML VIAL 140 MG IV PUSH (03:26)
[2023-12-14] MEDS: ETOMIDATE 20 MG/10 ML AMPUL IV PUSH (03:26)
--- NOTE | 2023-12-14 03:28 | PC.NURSE ---
Addendum entered by Ester Lowery RN 12/14/23 05:08: 7.5 ett, 24 at the teeth Original Note: Intubated x [address] Reyna. Good color change, lung leblanc noted in all leblanc.
[2023-12-14] MEDS: LORazepam INJ (*CRX) 2 MG/ML VIAL IV PUSH ×2 (03:30→04:05)
--- NOTE | 2023-12-14 03:31 | PC.NURSE ---
xray at the bedside
--- NOTE | 2023-12-14 03:34 | PC.NURSE ---
ETT tube pulled back by Dr Davies to 22 at the lip
--- NOTE | 2023-12-14 03:39 | PC.NURSE ---
16F larson placed by Karma CRISTOBAL. Approx 25 ml yellow urine output noted
--- NOTE | 2023-12-14 03:41 | PC.NURSE ---
Set up for central line to right IJ
[2023-12-14] MEDS: PROPOFOL IV EMULSION 100 ML 4.2 MG IV CONT (03:42)
[2023-12-14] MEDS: ROCURONIUM BROMIDE 50 MG/5 ML VIAL IV PUSH (04:02)
[2023-12-14 04:12] LABS: Hematocrit 41.6 % (35.0-42.0); Hemoglobin 12.1 g/dL (11.7-13.8); Mean Corpuscular HGB Conc 29.1 g/dL (32-36); Mean Corpuscular Hemoglobin 30.3 pg (27.0-31.0); Mean Corpuscular Volume 104.3 fL (78.0-102.0); Mean Platelet Volume 9.5 fl (9.2-11.8); Platelet Count Result 303 K/mm3 (150-420); Red Blood Count 3.99 M/mm3 (4.20-5.40); White Blood Count 3.4 K/mm3 (4.8-10.8)
--- NOTE | 2023-12-14 04:15 | ECG_ITS ---
Test Date: 2023-12-14 04:13:11 Measurements Intervals [place] Rate: 119 P: 0 MS: 0 QRS: 75 QRSD: 93 T: 83 QT: 359 QTc: 505 Interpretive Statements ATRIAL FIBRILLATION WITH RAPID VENTRICULAR RESPONSE BASELINE WANDER- I, II, III ABNORMAL ECG Compared to ECG 11/23/2023 15:44:20 ATRIAL FIBRILLATION NOW PRESENT Electronically Signed On 12-15-2023 08:18:52 CDT by Jani Zamudio D.O.
[2023-12-14] MEDS: methylPREDNISolone SOD SUCC 125 MG VIAL IV PUSH (04:17)
[2023-12-14 04:28] LABS: D Dimer 0.41 mg/L (0.19-0.50); INR 1.1; Partial Thromboplastin Time 25.4 Sec (23.9-30.70)
--- NOTE | 2023-12-14 04:28 | ED.SOB ---
HPI - SOB/Dyspnea General Chief Complaint: Shortness of Breath/Dyspnea Stated Complaint: SOB Time Seen by Provider: 12/14/23 04:13 Source: family and EMS Mode of arrival: EMS History of Present Illness HPI Narrative: 73-year-old female ex-smoker obesity, LIANNE, diabetes mellitus, hypothyroidism,COPD hypertension, diastolic dysfunction, paroxysmal atrial fibrillation ( On Eliquis, metoprolol, amiodarone and Cardizem) was recently admitted to [facility] from 11/13/2023-11/24/2023 for acute on chronic hypoxic hypercarbic respiratory failure secondary to COPD, pulmonary edema and pneumonia( see supplemental oxygen 1-2 L per minute, 3 L during exertion, CPAP at night with a 3 L bleed in). She was treated with vancomycin and cefepime. she presents to the ER with -- worsening of her chronic shortness of breath for the past 3 days. -- Last night the patient developed acute respiratory distress. She was noted to have taken off CPAP mask. EMS was summoned who brought her to the EMS. -- On presentation to the ED the patient is noted to be hypoxic with an oxygen saturation of 72% on rounded breather mask. The patient is blood pressure was noted to be 150/100. Peripheral cyanosis noted. Severe bilateral wheezing with decreased air entry -- the patient was noted to be very drowsy and difficult to arouse. the patient was emergently intubated and placed on mechanical ventilation. The patient had placement of a right IJ central line. The patient was placed on AC 14/4 50/50% with a PEEP of +5 with an ABG of 742/52/74/95%. Chest x-ray revealed bilateral lung infiltrates suggestive of pulmonary edema. Cannot rule out pneumonia. The patient was cultured and started on vancomycin and Zosyn. She received Solu-Medrol and 40 mg of IV Lasix. post intubation and sedation the patient dropped her blood pressure with systolic in the 50s. The patient received 250 mL of normal saline bolus and was started on IV Levophed. MD elicited complaint: shortness of breath and cough Pertinent past history: COPD and congestive heart failure Onset (ago): day(s) ( Three days) Timing: constant Severity: severe Associated symptoms: cough and wheezing Treatment prior to arrival: oxygen Related Data Home oxygen amount: delivered by CPAP Home Medications Medication Instructions Recorded Confirmed fluoxetine 10 mg capsule 10 mg PO DAILY 04/23/21 12/08/23 aspirin 81 mg chewable tablet 81 mg PO DAILY@0800 11/12/23 12/08/23 (Children's Aspirin) atorvastatin 10 mg tablet 10 mg PO DAILY 11/12/23 12/08/23 empagliflozin 10 mg tablet 10 mg PO DAILY 11/12/23 12/08/23 (Jardiance) duloxetine 60 mg capsule,delayed 60 mg PO DAILY 12/08/23 12/08/23 release Allergies Allergy/AdvReac Type Severity Reaction Status Date / Time Penicillins Allergy Unknown Unknown Verified 12/08/23 14:21 lorazepam [From Ativan] AdvReac Severe Confusion Verified 12/08/23 14:21 venlafaxine [From Effexor] AdvReac Mild Insomnia Verified 12/08/23 14:21 codeine AdvReac Unknown got tired Verified 12/08/23 14:21 albuterol AdvReac Palpitation Verified 12/08/23 14:21 s Review of Systems Review of Systems: Patient is sedated, intubated and mechanically ventilated. [facility] Past Medical History Medical History Acute hyperkalemia Acute UTI Anxiety Asthma Cellulitis of left leg CHF (congestive heart failure) COPD (chronic obstructive pulmonary disease) Hypercholesteremia Hypertension Localized edema Lymphedema Major depression Morbid obesity Obesity PAF (paroxysmal atrial fibrillation) PAF (paroxysmal atrial fibrillation) Situational anxiety Sleep apnea Tobacco abuse Surgical History Surgical History H/O gastric sleeve H/O: hysterectomy Family History Family History Father Diabetes mellitus
[2023-12-14] MEDS: IPRATROPIUM 0.5 MG/ALBUTEROL SULFATE 2.5 MG AMPUL.NEB 3 ML INHALATION (04:29)
[2023-12-14 04:35] LABS: Lactic Acid Reflex 1.5 mmol/L (0.4-2.0)
[2023-12-14] MEDS: AMIODARONE 150 MG/D5W 100 ML 150 MG/100 ML BAG 600 MG IV CONT (04:36)
--- NOTE | 2023-12-14 04:39 | PC.NURSE ---
abgABG being drawn from left groin by Dr Davies
[2023-12-14 04:43] LABS: Alanine Aminotransferase 22 U/L (14-59); Albumin Level 2.9 g/dL (3.4-5.0); Alkaline Phosphatase 138 U/L (46-116); Anion Gap 2 mmol/L (4-12); Aspartate Amino Transferase 29 U/L (15-37); Bilirubin,Total 0.5 mg/dL (0.00-1.00); Blood Urea Nitrogen 23 mg/dL (7-18); Calcium 8.7 mg/dL (8.5-10.1); Carbon Dioxide 44 mmol/L (21-32); Chloride 99 mmol/L (98-108); Estimated CRCL calculation 47 ml/min; Estimated Glomerular Filt Rate 38; Glucose 227 mg/dL (70-99); NT Pro B Type Natriuretic Pept 4137 pg/mL (0-125); Osmolality Calculated 310 mOsm/kg (285-295); Potassium 3.8 mmol/L (3.5-5.1); Sodium 145 mmol/L (136-145); Thyroid Stimulating Hormone 9.46 uIU/mL (0.36-3.74); Total Protein 6.5 g/dL (6.4-8.2); Triglycerides 96 mg/dL (0-150); Troponin I 23.8 ng/L (0.00-60.4)
[2023-12-14 04:56] LABS: Base Excess ABG 6.8 mmol/L (0-2); HCO3 ABG 32.5 mmol/L (23-29); Oxygen Content ABG 15.3 %vol (16.0-22.0); Oxygen Saturation ABG 95.2 % (95-97); Oxyhemoglobin 94.8 % (94-100); PCO2 ABG 51.6 mmHg (35-45); PO2 ABG 73.7 mmHg (75-85); Total Hemoglobin 11.4 g/dL (12.0-18.0); pH ABG 7.42 (7.35-7.45)
--- NOTE | 2023-12-14 04:56 | PCRCNOTE ---
0315 Patient arrived to the room on neb mask . Patient was placed on NRB. Provider at bedside. Patient intubated at 0328 with a 7.5 ETT @24 teeth. Intubation on first attempt with a possitive color change and bilateral BS. Ventilator settings : CMV 450/16/+5/100% per Dr. Davies
[2023-12-14 05:00] LABS: Device VENTILATOR; Site Drawn LEFT FEMORAL
[2023-12-14] MEDS: INSULIN HUMAN REGULAR (*BKC) 1,000 UNITS/10 ML VIAL 5 UNITS SUB-Q (05:00)
[2023-12-14] MEDS: FUROSEMIDE INJ 40 MG/4 ML VIAL IV PUSH (05:01)
[2023-12-14 05:07] LABS: Arterial Blood Gas Minute Volume 7.2 LPM; Arterial Blood Gas PEEP 5 cmH2O; Arterial Blood Gas Tidal Volume 452 ml; Arterial Blood Gas Vent Mode CMV; Arterial Blood Gas Ventilator rate 16 /MIN; Peak Inspiratory Pressure 36 cmH2O
--- NOTE | 2023-12-14 05:11 | PC.NURSE ---
family brought back to the room.
[2023-12-14] MEDS: SODIUM CHLORIDE 0.9% IV 1,000 ML 999 ML (05:14)
[2023-12-14] MEDS: NOREPINEPHRINE 8 MG/D5W 250 ML 8 MG/250 ML BAG 9.38 MG IV CONT (05:15)
[2023-12-14 05:22] LABS: Band Neutrophils Percent 0 % (0-6); Basophils Absolute Manual 0.03 K/mm3 (0-0.1); Basophils Percent Manual 1 % (0-1); Eosinophils Absolute Manual 0.13 K/mm3 (0.02-0.50); Eosinophils Percent Manual 4 % (1-6); Lymphocytes Absolute Manual 0.85 K/mm3 (1.1-4.5); Lymphocytes Percent Manual 25 % (18-44); Monocytes Absolute Manual 0.13 K/mm3 (0.1-0.90); Monocytes Percent Manual 4 % (3-9); Neutrophils Absolute Manual 2.24 K/mm3 (1.7-7.2); Neutrophils Percent Manual 66 % (46-73); Platelet Clumps Present; Platelet Estimate Adequate (Adequate); Total Cells Counted 100
[2023-12-14 05:23] LABS: Atypical Lymphocytes Present; Schistocytes None Seen
[2023-12-14] MEDS: CEFEPIME 2 GM/NS 50 ML 2 GM/50 ML BAG IVPB (05:36)
[2023-12-14] MEDS: GLUCAGON FOR INJ 1 MG VIAL IV PUSH (05:41)
[2023-12-14 05:46] LABS: SARS-CoV-2 RNA PCR Negative (Negative)
[2023-12-14 05:47] LABS: Influenza A QL RT-PCR Negative (Negative); Influenza B QL RT-PCR Negative (Negative); RSV RNA, RT-PCR Negative (Negative)
--- NOTE | 2023-12-14 05:47 | PC.NURSE ---
family at the bedside talking amongst themselves.
[2023-12-14] MEDS: KETAMINE HCL (*CRX) 500 MG/10 ML VIAL 100 MG IV PUSH (05:54)
--- NOTE | 2023-12-14 06:04 | PC.NURSE ---
OG tube placed by dr gonzalez. xray was called for placement
[2023-12-14] MEDS: VANCOMYCIN 1,250 MG/NS 250 ML 1,250 MG/250 ML BAG 166.67 MG IVPB (06:13)
--- NOTE | 2023-12-14 06:13 | PC.NURSE ---
Called [facility] @ 0610, they accepted and gave a 20 min ETA.
--- NOTE | 2023-12-14 06:15 | PC.NURSE ---
dark colored output in og tube. connected to suction
--- NOTE | 2023-12-14 06:19 | PC.NURSE ---
spoke with pharmacist at [facility]. Patient is to have 2500mg of vancomycin. We are starting 1250mg here and the second 1250 will be started at [facility].
--- NOTE | 2023-12-14 06:36 | PC.NURSE ---
[facility] 156 here. Report hubert Chan RN.
--- NOTE | 2023-12-14 06:45 | PC.NURSE ---
[facility] team getting patient set up for transport
--- NOTE | 2023-12-17 10:58 | PC.NURSE ---
PRELIMINARY BLOOD CULTURE RESULTS: GRAM POSITIVE COCCI IN CLUSTERS ISOLATED IN AEROBIC BOTTLE ONLY. [facility]ST[facility] AT [facility] IS NOTIFIED.
--- NOTE | 2023-12-20 12:07 | PC.NURSE ---
PT FINAL BLOOD CULTURE POSITIVE STAPHYLOCOCCUS EPIDERMIDIS
--- NOTE | 2023-12-22 08:55 | PC.NURSE ---
final blood culture report x1 reviewed. Staph epidermidis isolated. this pt was transferred to [facility]. [facility] called...pt has been discharged. PMD, dr Jeong, called and culture report shared with office nurse.
== END 2023-12-14 07:46 | disposition short-term general hospital (02) ==
PROVIDERS: Emergency Provider Internal Medicine Critical Care Medicine; PCP Family Medicine
DX: J44.1 Chronic obstructive pulmonary disease with (acute) exacerbation (principal); G47.33 Obstructive sleep apnea (adult) (pediatric); I11.0 Hypertensive heart disease with heart failure; I50.33 Acute on chronic diastolic (congestive) heart failure; E66.01 Morbid (severe) obesity due to excess calories; J96.21 Acute and chronic respiratory failure with hypoxia; N17.9 Acute kidney failure, unspecified; E11.9 Type 2 diabetes mellitus without complications; E03.9 Hypothyroidism, unspecified; I48.0 Paroxysmal atrial fibrillation; F17.210 Nicotine dependence, cigarettes, uncomplicated
CPT/HCPCS: 31500; 36415; 36556; 36600; 80053; 82805; 83605; 83735; 83880; 84443; 84478; 84484; 85025; 85380; 85610; 85730; 87040; 87147; 87181; 87637; 93005; 94002; 94640; 96361; 96365; 96366; 96367; 96368; 96375; 96376; 99285; C1751; J0282; J0330; J0692; J1610; J1815; J1940; J2060; J2704; J2919; J3370; J7030; J7040

== ENCOUNTER 2023-12-14 08:31 | Inpatient (IN) | payer MEDICARE, MEDICAID, SELFPAY ==
[2023-12-14] VITALS (39 sets, daily range): BP systolic 93–127; BP diastolic 63–107; PULSE 88–137; RESP 12–30; TEMP 36.8–37.1; O2SAT 93–100; BMI 63.0
--- NOTE | ~2023-12-14 | XR_ITS ---
EXAMINATION: XR chest 1V portable DATE: 12/14/2023 09:26 INDICATION: Respiratory failure TECHNIQUE: frontal view of the chest was obtained. COMPARISON: Chest radiograph dated 12/14/2023 4:01 AM FINDINGS: Endotracheal tube tip 2.0 cm above the asif. Right internal jugular central venous catheter tip at the midsuperior vena cava. Nasogastric tube extends below the left hemidiaphragm with distal tip col limated off the study. Elevation the right hemidiaphragm. There are worsening airspace opacities in the right lower lung zon e. There is been some improvement in aeration of the left lung as well as continued improvement in th e bilateral increased indistinct interstitial pattern consistent with improving pulmonary edema. No p neumothorax or left-sided pleural effusion. Cardiomegaly. IMPRESSION: 1. Improvement in now minimal pulmonary edema but with worsening airspace opacities in the right lowe r lung zone which could represent atelectasis, pneumonia, small pleural effusion or some combination thereof. 2.2. Cardiomegaly. Reviewed, dictated and finalized at location A. IMPRESSION: 1. Improvement in now minimal pulmonary edema but with worsening airspace opaci ties in the right lower lung zone which could represent atelectasis, pneumonia, small pleural effusion or some combination thereof. 2.2. Cardiomegaly.
--- NOTE | ~2023-12-14 | CT_ITS ---
CT Scan of the Chest without Contrast: Clinical Indication: Respiratory failure Technique: Contiguous sections were acquired throughout the chest without intravenous contrast. Dose reduction technique was used on this scan by utilizing automated exposure control and iterative recon struction technique. The dose-length product (DLP) was 1134.58 mGy-cm. COMPARISON: 11/17/2023 Findings: Endotracheal tube, NG tube, and right-sided central venous line are in satisfactory positio ns. There is no evidence of any significant mediastinal, hilar or axillary lymphadenopathy. The mediastin al soft tissues appear normal. Probable minimal left pleural effusion. No right pleural effusion. No pericardial effusion. There is extensive right middle and lower lobe consolidation, which could reflect atelectasis versus possibly pneumonia. There is minimal left basilar atelectasis. Images through the upper abdomen reveal no abnormalities. Impression: Extensive right middle and lower lobe consolidation. Correlate for atelectasis versus pneumonia. Minimal left pleural effusion with minimal left basilar atelectasis. Reviewed, dictated and finalized at [facility]. Impression: Extensive right middle and lower lobe consolidation. Correlate for atelectasis versus pneumonia. Minimal left pleural effusion with minimal left basilar atelectasis.
--- NOTE | ~2023-12-14 | XR_ITS ---
Portable chest x-ray Comparison: 12/16/2023 Clinical History: Respiratory failure Findings: Endotracheal tube, NG tube, and right IJ line are in satisfactory positions. There is biba silar haziness and interstitial pattern. Minimal bilateral pleural effusions are present. Cardiomedia stinal silhouette is stable. Bones and soft tissues are unremarkable. Impression: Bibasilar hazy and interstitial disease. Correlate for pulmonary edema and/or chronic interstitial di sease. Minimal bilateral pleural effusions. Support tubes, as above. Reviewed, dictated and finalized at location . Impression: Bibasilar hazy and interstitial disease. Correlate for pulmonary edema and/or c hronic interstitial disease. Minimal bilateral pleural effusions. Support tubes, as above.
--- NOTE | ~2023-12-14 | XR_ITS ---
Portable chest x-ray Comparison: 12/14/2023 Clinical History: Respiratory failure Findings: Endotracheal tube, right IJ line, and NG tube are in satisfactory positions. There is hazy bibasilar airspace consolidation. Cardiomediastinal silhouette is stable. Bones and soft tissues ar e unremarkable. Impression: Bibasilar pulmonary edema/atelectasis. Correlate clinically for pneumonia. Support tubes, as above. Reviewed, dictated and finalized at location . Impression: Bibasilar pulmonary edema/atelectasis. Correlate clinically for pneumonia. Support tubes, as above.
--- NOTE | ~2023-12-14 | XR_ITS ---
Portable chest x-ray Comparison: 12/15/2023 Clinical History: Respiratory failure Findings: Endotracheal tube, NG tube, and right IJ line are in satisfactory positions. Probable mini mal left pleural effusion. There is right perihilar and right basilar hazy airspace disease. There is minimal left basilar airspace disease. Cardiomediastinal silhouette is stable. Bones and soft tissu es are unremarkable. Impression: Probable mild pulmonary edema/atelectatic change bilaterally. Correlate clinically for pneumonia. Minimal left pleural effusion. Support tubes, as above. Reviewed, dictated and finalized at location . Impression: Probable mild pulmonary edema/atelectatic change bilaterally. Correlate clinica lly for pneumonia. Minimal left pleural effusion. Support tubes, as above.
--- NOTE | ~2023-12-14 | US_ITS ---
US renal BI Ordering provider: Archie Mcclain MD History: . ADRIEL . Comparison: None. Technique: Ultrasound bilateral kidneys. Findings: RIGHT KIDNEY: Measures 8.8x 4.9x 5.2 cm in length which is normal in size. No renal cysts. No renal m ass or visualized echogenic stones. Otherwise, normal echotexture and contour. No hydronephrosis. Nor mal renal cortical thickness. LEFT KIDNEY: Measures 10.3x 5.6x 5.7 cm in length which is normal in size. No renal cysts. No renal m ass or visualized echogenic stones. Otherwise, normal echotexture and contour. No hydronephrosis. Nor mal renal cortical thickness. BLADDER: Not visualized. IMPRESSION: No definite abnormality seen. Reviewed, dictated and finalized at location A.
--- NOTE | 2023-12-14 05:50 | PC.NURSE ---
Report received from sEter CRISTOBAL at [facility]. RN to call with eta on EMS.
--- NOTE | 2023-12-14 08:15 | ADMGEN ---
This patient, Dinora Gusman, was admitted to Intensive Care Unit-6. Patient/family oriented to hospital policies and general routines including ID bracelet, bed and alarms, visiting hours, pain management, procedures, bathroom and other care routines, personal items, smoking policy, room service/diet, and visiting hours. Information on how to activate the Rapid Response Team has been discussed. Patient/Family are encouraged to report perceived risks to care and to ask questions if they do not understand what they are told or what they should do.
--- NOTE | 2023-12-14 08:54 | ECG_ITS ---
Test Date: 2023-12-14 12:24:05 Measurements Intervals [place] Rate: 93 P: 0 IN: 0 QRS: 57 QRSD: 93 T: 65 QT: 415 QTc: 518 Interpretive Statements ATRIAL FIBRILLATION BASELINE ARTIFACT- I, III, AVL ABNORMAL ECG Compared to ECG 11/23/2023 15:44:20 No significant changes Electronically Signed On 12-14-2023 19:34:15 CDT by Jani Zamudio D.O.
[2023-12-14] MEDS: FENTANYL 2,500MCG/NS250ML(*CRX 2,500 MCG/250 ML BAG IV CONT (09:05)
[2023-12-14] MEDS: NOREPINEPHRINE 8 MG/D5W 250 ML 8 MG/250 ML BAG 9.38 MG IV CONT (09:06)
[2023-12-14] MEDS: MIDAZOLAM 100MG/NS 100ML(*CRX) 100 MG/100 ML BAG IV CONT (09:06)
--- NOTE | 2023-12-14 09:16 | WPDCNINT ---
Assessment and Plan Assessment and plan (1) Respiratory failure with hypoxia and hypercapnia: Qualifiers: Chronicity: acute on chronic Qualified Code(s): J96.21 - Acute and chronic respiratory failure with hypoxia; J96.22 - Acute and chronic respiratory failure with hypercapnia Code(s): J96.91 - Respiratory failure, unspecified with hypoxia; J96.92 - Respiratory failure, unspecified with hypercapnia Status: Acute Assessment and Plan: Acute on chronic respiratory failure which is multifactorial and secondary to baseline COPD may be exacerbated, congestive heart failure which is exacerbated and possibility of pneumonia. Patient also has obstructive sleep apnea and obesity hypoventilation syndrome. BNP 4157. Diffuse wheezing on exam. Chest x-ray as above Patient now intubated and sedated and on mechanical ventilation Vent settings reviewed and decrease tidal volume to 450. She is on 5 of PEEP and 40% FiO2 Chest x-ray reviewed. Will check CT of the chest for better evaluation as patient is morbidly obese Continue empiric antibiotics in the form of vancomycin Rocephin and doxycycline to cover for community-acquired pneumonia. Cultures have been sent and are pending. Check sputum cultures, procalcitonin level Short course of Solu-Medrol IV and bronchodilators Diuresis Low tidal volume ventilation Check EKG and serial troponin (2) Acute exacerbation of chronic obstructive pulmonary disease: Code(s): J44.1 - Chronic obstructive pulmonary disease with (acute) exacerbation Status: Acute Assessment and Plan: See above (3) Acute on chronic diastolic CHF (congestive heart failure): Code(s): I50.33 - Acute on chronic diastolic (congestive) heart failure Status: Acute Assessment and Plan: BNP 4 137 Echo 11/13 Summary 1. Technically challenging echocardiogram presumably because of obesity. 2. Definity contrast utilized to improve visualization. 3. Hyperdynamic left ventricular systolic function with concentric LVH. 4. Grade 2 diastolic noncompliance. 5. No significant valvular dysfunction. (4) Acute kidney injury: Code(s): N17.9 - Acute kidney failure, unspecified Status: Acute Assessment and Plan: Patient presented with creatinine 1.37 which is slightly elevated Patient does not have any history of chronic kidney disease Patient has already received Lasix in the ER and will hold further Lasix at this time Check urine electrolytes and CK level Will order additional workup if creatinine does not improve (5) PAF (paroxysmal atrial fibrillation): Code(s): I48.0 - Paroxysmal atrial fibrillation Status: Chronic Assessment and Plan: Patient in AFib with controlled ventricular rate Hold anticoagulation aspirin due to concern of upper GI bleeding (6) Upper GI bleed: Code(s): K92.2 - Gastrointestinal hemorrhage, unspecified Status: Acute Assessment and Plan: Patient has some brown aspirate coming from her OG tube could be aspirated blood from traumatic intubation Patient also is on anticoagulation and at risk of upper GI bleed Hold anticoagulation aspirin at this time Protonix IV q.12 hours Monitor hemoglobin and transfuse if needed Consult GI depending on course (7) Hyperglycemia: Code(s): R73.9 - Hyperglycemia, unspecified Status: Acute Assessment and Plan: Sliding scale insulin ordered (8) Hypothyroidism: Code(s): E03.9 - Hypothyroidism, unspecified Status: Acute Assessment and Plan: TSH elevated Increase levothyroxine dose to 50 mcg (9) Community acquired pneumonia: Code(s): J18.9 - Pneumonia, unspecified organism Status: Acute Assessment and Plan: See above (10) LIANNE (obstructive sleep apnea): Code(s): G47.33 - Obstructive sleep apnea (adult) (pediatric) Status: Chronic Assessment and Plan: See above (11) Obesity hypoventilati
[2023-12-14 09:28] LABS: Glucose Point of Care 157 mg/dl (65-105)
[2023-12-14 09:54] LABS: Appearance Urine Clear (Clear); Bilirubin Urine Negative (Negative); Blood Urine Negative (Negative); Color Urine Yellow (Yellow); Glucose Urine UA 3+ mg/dL (Negative); Ketones Urine Negative (Negative); Leukocyte Esterase Ur Negative LEU/UL (Negative); Nitrate Urine Negative (Negative); Protein Urine Negative (Negative); Specific Grav Ur 1.015 (1.001-1.035); Urobilinogen Urine 0.2 mg/dL (<2.0)
[2023-12-14 09:55] LABS: Creatine Kinase 30 U/L (30-135); Hemoglobin A1C 6.3 % (<5.7)
[2023-12-14 10:08] LABS: Add Urine Microscopic? NO
[2023-12-14 10:10] LABS: Troponin I 0.052 ng/mL (0.000-0.034)
[2023-12-14] MEDS: MINERAL OIL/WHITE PETROLATUM OINTMENT 1 APPLIC EACH EYE ×2 (10:12→20:41)
[2023-12-14] MEDS: AMIODARONE HCL 200 MG TABLET FEED TUBE ×2 (10:12→16:57)
[2023-12-14] MEDS: VANCOMYCIN 1,250 MG/NS 250 ML 1,250 MG/250 ML BAG 166.67 MG IVPB (10:12)
[2023-12-14] MEDS: ATORVASTATIN 10 MG TABLET PO (10:12)
[2023-12-14] MEDS: PANTOPRAZOLE SODIUM IV 40 MG VIAL IV PUSH ×2 (10:13→20:32)
[2023-12-14] MEDS: DOXYCYCLINE 100 MG/NS 100 ML 100 MG/100 ML BAG IVPB ×2 (10:13→20:36)
[2023-12-14] MEDS: cefTRIAXone 2 GM/NS 100 ML 2 GM/100 ML BAG IVPB (10:13)
[2023-12-14 10:16] LABS: Procalcitonin 0.3 ng/mL
[2023-12-14 10:24] LABS: Sodium Urine Random 77 meq/L
[2023-12-14 10:49] LABS: MRSA (PCR) DETECTED (NOT DETECTE)
--- NOTE | 2023-12-14 12:28 | PC.NURSE ---
Patient transfer from [facility]. Time of arrival: 814 transported by [facility] team. Patient arrived on 7mcg of levophed and ventilator settings pre-established from [facility]. Patient arrives with a Messer catheter in place, OG tube, ET tube, and left internal jugular central line in place. MD aware of patients arrival, vital signs obtained and placement of all lines and tubes verified.
--- NOTE | 2023-12-14 12:41 | PM.IMHP ---
H&P: HPI History of Present Illness Date/Time: 12/14/23 12:41 Chief Complaint: Respiratory failure Narrative: 73-year-old female presented to the outside hospital with worsening shortness of breath. Past few days. Last night sudden distress called. She was hypoxic and 72% reviewed are take severe bilateral wheezy also difficult to arouse and hence was emergently intubated and placed on mechanical ventilation. Chest x-ray revealed bilateral lung infiltrates suggestive of pulmonary cup revealed WBC of I have G7 0.42/51/73/32 EKG showed atrial fibrillation of [address] changes. Started on broad-spectrum antibiotics for possible pneumonia with vancomycin and Zosyn. She also received Solu-Medrol for COPD exacerbation and IV Lasix. She was then transferred to ICU at [facility] for further treatment. She is currently intubated and sedated started on Levophed. Family at bedside and discussed with them. Review of Systems Review of Systems: ROS unobtainable: Yes unobtainable due to endotracheal tube and unobtainable due to mental status PMFSH Past Medical History Medical History (Updated 12/14/23 @ 09:31 by Archie Mcclain MD) Acute hyperkalemia Acute UTI Anxiety Asthma Cellulitis of left leg CHF (congestive heart failure) COPD (chronic obstructive pulmonary disease) Hypercholesteremia Hypertension Localized edema Lymphedema Major depression Morbid obesity Obesity PAF (paroxysmal atrial fibrillation) PAF (paroxysmal atrial fibrillation) Situational anxiety Sleep apnea Tobacco abuse Surgical History Surgical History H/O gastric sleeve H/O: hysterectomy Family History Family History Father Diabetes mellitus Myocardial disease Mother Heart disease Sibling Diabetes mellitus Social History Social History Social History: Patient lives with her of 53 years, Tariq, who is her surrogate. She does not want any life sustaining measures including CPR or Intubation. She wishes to be a DNR at this time. She had 4 kids 3 girls and a boy. Smoking packs per day: 1.5 Smoking cigarettes per day: 30.0 Years smoked: 34 Smoking pack-years: 51.00 Smoking status: Former smoker Tobacco type: cigarettes Second hand tobacco smoke exposure: No Alcohol intake: never Substance use: never Substance use type: does not use Do You Feel Safe in your Home?: Yes Lack of Transportation: No Lack of Food: Sometimes True Current Housing: I Have Housing Concerned About Future Housing: No Difficulty Paying Gas/Electric Bills: No Difficulty Paying for Meds: No Currently Unemployed: No Education: High School Diploma/GED Difficulty w/ Childcare or Family Care: No Living arrangements: with family Occupation/Education: retired 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 Gender identity (if verbalized by the patient): Female Sexual Orientation (if Verbalized by the Patient): Straight or Heterosexual Spiritual care concerns: Yes Agree to blood products: Yes Meds Home Medications and Allergies Home Medications Medication Instructions Recorded Confirmed Type fluoxetine 10 mg capsule 10 mg PO DAILY 04/23/21 12/14/23 History levothyroxine 25 mcg tablet 25 mcg PO DAILY #30 tabs 10/14/21 12/14/23 Rx (Euthyrox) ipratropium bromide 17 2 puff inhalation TID PRN 06/18/23 12/14/23 Rx mcg/actuation HFA aerosol inhaler shortness of breath or wheezing (Atrovent HFA) #12.9 grams Breo Ellipta 100 mcg-25 mcg/dose 1 inh inhalation Q24H #60 ea 11/06/23 12/14/23 Rx powder for inhalation (fluticasone furoate-vilanterol) levalbuterol tartrate 45 1 - 2 puff inhalation Q6H PRN 11/06/23 12/14/23 Rx mcg/actuation aerosol inhaler shortness of breath or wheezing #15 grams aspirin 81 mg chewable tablet 8
[2023-12-14 13:26] LABS: Glucose Point of Care 114 mg/dl (65-105)
[2023-12-14] MEDS: LEVALBUTEROL NEB 1.25 MG/3 ML INHALATION ×2 (14:55→20:15)
[2023-12-14] MEDS: IPRATROPIUM BR 0.02% INH SOLN 0.5 MG/2.5 ML VIAL INHALATION ×2 (14:56→20:15)
[2023-12-14 16:18] LABS: Troponin I 0.057 ng/mL (0.000-0.034)
[2023-12-14 17:24] LABS: Glucose Point of Care 95 mg/dl (65-105)
--- NOTE | 2023-12-14 18:20 | PC.NURSE ---
[facility] flyer was given to patient.
[2023-12-14] MEDS: AMIODARONE 150 MG/D5W 100 ML 150 MG/100 ML BAG 600 MG IV CONT (20:14)
[2023-12-14 20:20] LABS: Basophils Percent Auto 0.3 % (0.2-1.2); Hematocrit 35.3 % (37.0-47.0); Hemoglobin 10.7 g/dL (12.0-15.0); Immature Granulocyte Absolute 0.02 K/mm3 (0.00-0.031); Immature Granulocyte Percent A 0.6 % (0-0.5); Lymphocytes Absolute Auto 0.44 K/mm3 (0.9-3.2); Mean Corpuscular HGB Conc 30.3 g/dl (32-36); Mean Corpuscular Hemoglobin 30.9 pg (26-34); Mean Platelet Volume 9.9 fl (7.4-10.4); Monocytes Absolute Auto 0.2 K/mm3 (0.1-0.6); Monocytes Percent Auto 5.7 % (2.6-8.5); Neutrophils Absolute Auto 2.5 K/mm3 (1.3-6.7); Neutrophils Percent Auto 79.4 % (45.5-73.1); Platelet Count Result 224 k/mm3 (150-375); Red Blood Count 3.46 M/mm3 (4.2-5.4); Red Cell Distribution Width 16.5 % (11.5-14.5); White Blood Count 3.1 K/mm3 (4.5-10.0)
[2023-12-14] MEDS: AMIODARONE 360 MG/D5W 200 ML 360 MG/200 ML BAG 33.33 MG IV CONT (20:29)
[2023-12-14 20:37] LABS: Blood Urea Nitrogen 31 mg/dL (7-17); Calcium 8.2 mg/dL (8.4-10.2); Carbon Dioxide > 40 mmol/L (22-30); Chloride 95 mmol/L (98-107); Estimated Glomerular Filt Rate 32; Glucose 127 mg/dL (65-110); Magnesium 1.7 mg/dL (1.6-2.3); Potassium 3.6 mmol/L (3.4-5.0); Sodium 141 mmol/L (137-145)
[2023-12-14 20:51] LABS: Glucose Point of Care 106 mg/dl (65-105)
[2023-12-14 21:47] LABS: Troponin I 0.045 ng/mL (0.000-0.034)
[2023-12-14] MEDS: POTASSIUM CHLORIDE 20 MEQ PACKET (FOR LIQUID) FEED TUBE (23:17)
[2023-12-15] VITALS (65 sets, daily range): BP systolic 70–122; BP diastolic 47–83; PULSE 95–128; RESP 12–18; TEMP 36.7–37.2; O2SAT 90–97; BMI 62.7
[2023-12-15] MEDS: LEVALBUTEROL NEB 1.25 MG/3 ML INHALATION ×4 (01:40→20:26)
[2023-12-15] MEDS: IPRATROPIUM BR 0.02% INH SOLN 0.5 MG/2.5 ML VIAL INHALATION ×4 (01:40→20:26)
[2023-12-15 01:46] LABS: Glucose Point of Care 113 mg/dl (65-105)
[2023-12-15] MEDS: AMIODARONE 360 MG/D5W 200 ML 360 MG/200 ML BAG 16.67 MG IV CONT (02:11)
[2023-12-15 05:12] LABS: Hematocrit 35.5 % (37.0-47.0); Hemoglobin 10.5 g/dL (12.0-15.0); Mean Corpuscular HGB Conc 29.6 g/dl (32-36); Mean Corpuscular Hemoglobin 30.5 pg (26-34); Mean Corpuscular Volume 103.2 fl (80-100); Mean Platelet Volume 9.9 fl (7.4-10.4); Platelet Count Result 241 k/mm3 (150-375); Red Blood Count 3.44 M/mm3 (4.2-5.4); White Blood Count 3.8 K/mm3 (4.5-10.0)
[2023-12-15 05:24] LABS: Alanine Aminotransferase 17 U/L (6-35); Alkaline Phosphatase 97 U/L (38-126); Anion Gap 7 mmol/L (4-12); Aspartate Amino Transferase 22 U/L (14-36); Bilirubin,Total 0.5 mg/dL (0.2-1.3); Blood Urea Nitrogen 36 mg/dL (7-17); Calcium 8.1 mg/dL (8.4-10.2); Carbon Dioxide 38 mmol/L (22-30); Chloride 95 mmol/L (98-107); Estimated Glomerular Filt Rate 26; Glucose 134 mg/dL (65-110); Magnesium 1.7 mg/dL (1.6-2.3); Potassium 3.6 mmol/L (3.4-5.0); Sodium 140 mmol/L (137-145)
[2023-12-15] MEDS: VANCOMYCIN 1,500 MG/NS 500 ML 1,500 MG/500 ML BAG 250 MG IVPB (05:46)
[2023-12-15] MEDS: LEVOTHYROXINE SODIUM 50 MCG TABLET PO (05:47)
[2023-12-15 05:49] LABS: Base Excess ABG 9.6 mEq/l (+/-2.0); Carboxyhemoglobin 0.3 % THb (0-2.0); Device VENTILATOR; Fractional Inspired Oxygen 35 %; Methemoglobin ABG 0.1 %THb (0-1.5); Modified Allen's Test Unable to perform; Oxygen Content ABG 14.4 %vol (16.0-22.0); Oxygen Saturation ABG 91.9 % (95.0-100.0); Oxyhemoglobin 90.4 % THb (90.0-100.0); PCO2 ABG 51.5 mmHg (35.0-45.0); PO2 ABG 60.7 mmHg (80.0-100.0); PO2 FiO2 Ratio Arterial Blood 1.73 %; Reduced Hemoglobin 9.2 %THb (0-5.0); Site Drawn LEFT RADIAL; Total Hemoglobin 11.3 g/dL (12.0-18.0)
[2023-12-15 05:50] LABS: Arterial Blood Gas PEEP 5 cmH2O; Arterial Blood Gas Tidal Volume 400 ml; Arterial Blood Gas Vent Mode CMV; Arterial Blood Gas Ventilator rate 16 /MIN
[2023-12-15] MEDS: MIDAZOLAM 100MG/NS 100ML(*CRX) 100 MG/100 ML BAG 7 MG IV CONT (07:12)
--- NOTE | 2023-12-15 08:05 | WPDINTPN ---
Progress Note: A&P Assessment and Plan (1) Respiratory failure with hypoxia and hypercapnia: Qualifiers: Chronicity: acute on chronic Qualified Code(s): J96.21 - Acute and chronic respiratory failure with hypoxia; J96.22 - Acute and chronic respiratory failure with hypercapnia Code(s): J96.91 - Respiratory failure, unspecified with hypoxia; J96.92 - Respiratory failure, unspecified with hypercapnia Status: Inactive Assessment and Plan: Acute on chronic respiratory failure which is multifactorial and secondary to baseline COPD may be exacerbated, congestive heart failure which is exacerbated and pneumonia/atelectasis. Patient also has obstructive sleep apnea and obesity hypoventilation syndrome. BNP 4157. Diffuse wheezing on exam. Patient now intubated and sedated and on mechanical ventilation Vent settings reviewed and tidal volume 400 She is on 5 of PEEP and 35% FiO2. Will increase PEEP to 8 CT chest 12/13 Impression: Extensive right middle and lower lobe consolidation. Correlate for atelectasis versus pneumonia. Minimal left pleural effusion with minimal left basilar atelectasis. Chest x-ray reviewed. Continue empiric antibiotics in the form of vancomycin Rocephin and doxycycline to cover for community-acquired pneumonia. Nasal MRSA screen is positive Cultures have been sent and are pending. procalcitonin level was low Continue short course of Solu-Medrol IV and continue bronchodilators Diuresis will be held due to worsening renal function Low tidal volume ventilation (2) Acute exacerbation of chronic obstructive pulmonary disease: Code(s): J44.1 - Chronic obstructive pulmonary disease with (acute) exacerbation Status: Acute Assessment and Plan: See above (3) Acute on chronic diastolic CHF (congestive heart failure): Code(s): I50.33 - Acute on chronic diastolic (congestive) heart failure Status: Acute Assessment and Plan: BNP 4 137 Echo 11/13 Summary 1. Technically challenging echocardiogram presumably because of obesity. 2. Definity contrast utilized to improve visualization. 3. Hyperdynamic left ventricular systolic function with concentric LVH. 4. Grade 2 diastolic noncompliance. 5. No significant valvular dysfunction. (4) Acute kidney injury: Code(s): N17.9 - Acute kidney failure, unspecified Status: Acute Assessment and Plan: Patient presented with creatinine 1.37 which is slightly elevated. Creatinine worse at 1.9 today Patient does not have any history of chronic kidney disease Patient has already received Lasix in the ER and will hold further Lasix at this time Normal CK level Check renal ultrasound (5) Upper GI bleed: Code(s): K92.2 - Gastrointestinal hemorrhage, unspecified Status: Acute Assessment and Plan: Patient has some brown aspirate coming from her OG tube which is likely aspirated blood from traumatic intubation Patient also is on anticoagulation and at risk of upper GI bleed I held her anticoagulation aspirin yesterday Protonix IV q.12 hours Hemoglobin has been stable now Continue to Monitor hemoglobin and transfuse if needed Start tube feeds and resume her anticoagulation (6) Hyperglycemia: Code(s): R73.9 - Hyperglycemia, unspecified Status: Acute Assessment and Plan: Sliding scale insulin ordered (7) Hypothyroidism: Code(s): E03.9 - Hypothyroidism, unspecified Status: Acute Assessment and Plan: TSH elevated Increase levothyroxine dose to 50 mcg (8) Community acquired pneumonia: Code(s): J18.9 - Pneumonia, unspecified organism Status: Acute Assessment and Plan: See above (9) LIANNE (obstructive sleep apnea): Code(s): G47.33 - Obstructive sleep apnea (adult) (pediatric) Status: Chronic Assessment and Plan: See above (10) Obesity hypoventilation syndrome: Code(s): E66.2 - Morbid (severe) obesity wi
[2023-12-15] MEDS: dexmedeTOMIDine 400 MCG/100 ML 400 MCG/100 ML BAG 7.05 MCG IV CONT (08:09)
[2023-12-15] MEDS: AMIODARONE 150 MG/D5W 100 ML 150 MG/100 ML BAG 600 MG IV CONT (08:14)
[2023-12-15] MEDS: DEXTROSE 50% 25 GM/50 ML SYRINGE IV PUSH (08:15)
[2023-12-15] MEDS: MAGNESIUM SULF 2 GM/WATER 50ML 2 GM/50 ML BAG IVPB (08:22)
[2023-12-15] MEDS: DOXYCYCLINE 100 MG/NS 100 ML 100 MG/100 ML BAG IVPB ×2 (08:23→20:38)
[2023-12-15] MEDS: AMIODARONE HCL 200 MG TABLET FEED TUBE ×2 (08:25→16:49)
[2023-12-15] MEDS: PANTOPRAZOLE SODIUM IV 40 MG VIAL IV PUSH ×2 (08:25→20:40)
[2023-12-15] MEDS: methylPREDNISolone SOD SUCC 125 MG VIAL 60 MG IV PUSH (08:25)
[2023-12-15] MEDS: POTASSIUM CHLORIDE 20 MEQ PACKET (FOR LIQUID) 40 MEQ FEED TUBE (08:26)
[2023-12-15] MEDS: MINERAL OIL/WHITE PETROLATUM OINTMENT 1 APPLIC EACH EYE ×2 (08:26→20:40)
[2023-12-15] MEDS: APIXABAN 5 MG TABLET PO ×2 (08:26→20:40)
[2023-12-15] MEDS: ATORVASTATIN 10 MG TABLET PO (08:26)
[2023-12-15 09:03] LABS: Glucose Point of Care 64 mg/dl (65-105)
[2023-12-15 09:03] LABS: Glucose Point of Care 100 mg/dl (65-105)
[2023-12-15] MEDS: cefTRIAXone 2 GM/NS 100 ML 2 GM/100 ML BAG IVPB (11:06)
[2023-12-15] MEDS: FENTANYL 2,500MCG/NS250ML(*CRX 2,500 MCG/250 ML BAG 12.5 MCG IV CONT (11:07)
[2023-12-15 11:45] LABS: Glucose Point of Care 141 mg/dl (65-105)
[2023-12-15 13:40] LABS: Glucose Point of Care 124 mg/dl (65-105)
[2023-12-15] MEDS: dexmedeTOMIDine 400 MCG/100 ML 400 MCG/100 ML BAG 21.15 MCG IV CONT (14:08)
[2023-12-15] MEDS: CENTRAL LINE FLUSH 10 ML IV PUSH ×2 (14:56→20:40)
--- NOTE | 2023-12-15 15:26 | PM.IMPN ---
Progress Note: A&P Assessment and Plan (1) Respiratory failure with hypoxia and hypercapnia: Qualifiers: Chronicity: acute on chronic Qualified Code(s): J96.21 - Acute and chronic respiratory failure with hypoxia; J96.22 - Acute and chronic respiratory failure with hypercapnia Code(s): J96.91 - Respiratory failure, unspecified with hypoxia; J96.92 - Respiratory failure, unspecified with hypercapnia Status: Inactive (2) Acute exacerbation of chronic obstructive pulmonary disease: Code(s): J44.1 - Chronic obstructive pulmonary disease with (acute) exacerbation Status: Acute (3) Acute on chronic diastolic CHF (congestive heart failure): Code(s): I50.33 - Acute on chronic diastolic (congestive) heart failure Status: Acute (4) Acute kidney injury: Code(s): N17.9 - Acute kidney failure, unspecified Status: Acute (5) PAF (paroxysmal atrial fibrillation): Code(s): I48.0 - Paroxysmal atrial fibrillation Status: Chronic (6) Upper GI bleed: Code(s): K92.2 - Gastrointestinal hemorrhage, unspecified Status: Acute (7) Hyperglycemia: Code(s): R73.9 - Hyperglycemia, unspecified Status: Acute (8) Hypothyroidism: Code(s): E03.9 - Hypothyroidism, unspecified Status: Acute (9) Community acquired pneumonia: Code(s): J18.9 - Pneumonia, unspecified organism Status: Acute (10) LIANNE (obstructive sleep apnea): Code(s): G47.33 - Obstructive sleep apnea (adult) (pediatric) Status: Chronic (11) Obesity hypoventilation syndrome: Code(s): E66.2 - Morbid (severe) obesity with alveolar hypoventilation Status: Acute (12) Hypercholesteremia: Code(s): E78.00 - Pure hypercholesterolemia, unspecified Status: Acute Plan 73-year-old female presented to the outside hospital with worsening shortness of breath. Past few days. Last night sudden distress and EMS called. In the ED She was hypoxic in 72% along with severe bilateral wheezing. also difficult to arouse and hence was emergently intubated and placed on mechanical ventilation. Chest x-ray revealed bilateral lung infiltrates suggestive of pulmonary cup revealed WBC of I have G7 0.42/51/73/32 EKG showed atrial fibrillation of [address] changes. Started on broad-spectrum antibiotics for possible pneumonia with vancomycin and Zosyn. She also received Solu-Medrol for COPD exacerbation and IV Lasix. She was then transferred to ICU at [facility] for further treatment. She is currently intubated and sedated started on Levophed. Family at bedside and discussed with them. Acute on chronic respiratory failure multifactorial suspected COPD exacerbation and CHF exacerbation with possibility of pneumonia. On vancomycin Rocephin and doxycycline pancultured Solu Medrol for COPD exacerbation Acute diastolic heart failure diuresis as tolerated however on hold due to worsening creatinine ADRIEL due to monitor with diuresis Paroxysmal atrial fibrillation anticoagulation on hold due to noted brown aspirate from OG likely traumatic. Worsening atrial fibrillation and was started on IV amiodarone Hypothyroidism Type 2 diabetes Hyperlipidemia DVT prophylaxis apixaban Code status full code she has opted to be DNR state. Power of banking attorney had reported that she was reverted to full code to have her intubated last night. Switching her to DNR is what being discussed while she is getting treated here in the ICU Subjective Date/time seen: 12/15/23 15:26 Interval history: Patient went into AFib with RVR and was started on amiodarone infusion overnight. Off Levophed since yesterday. Remains on mechanical ventilation. Labs reviewed. Review of Systems Review of Systems: ROS unobtainable: Yes unobtainable due to mental status Exam Narrative: General: Pt is sedated, intubated and on mechanical ventilation Lungs/Chest: Trachea central Coarse BS B/L, bilateral w
[2023-12-15] MEDS: INSULIN ASPART (*BKC) 100 UNITS/ML SUB-Q ×3 (16:49→23:33)
[2023-12-15 16:58] LABS: Glucose Point of Care 224 mg/dl (65-105)
[2023-12-15] MEDS: dexmedeTOMIDine 400 MCG/100 ML 400 MCG/100 ML BAG 14.1 MCG IV CONT (18:48)
[2023-12-15 20:26] LABS: Glucose Point of Care 231 mg/dl (65-105)
[2023-12-15 23:45] LABS: Glucose Point of Care 202 mg/dl (65-105)
[2023-12-16] VITALS (55 sets, daily range): BP systolic 100–119; BP diastolic 66–88; PULSE 101–146; RESP 12–20; TEMP 36.4–36.9; O2SAT 92–98
[2023-12-16] MEDS: dexmedeTOMIDine 400 MCG/100 ML 400 MCG/100 ML BAG 17.63 MCG IV CONT (01:05)
[2023-12-16] MEDS: IPRATROPIUM BR 0.02% INH SOLN 0.5 MG/2.5 ML VIAL INHALATION ×4 (02:17→20:02)
[2023-12-16] MEDS: LEVALBUTEROL NEB 1.25 MG/3 ML INHALATION ×4 (02:18→20:02)
[2023-12-16 04:34] LABS: Hematocrit 34.8 % (37.0-47.0); Hemoglobin 10.7 g/dL (12.0-15.0); Mean Corpuscular HGB Conc 30.7 g/dl (32-36); Mean Corpuscular Hemoglobin 31.3 pg (26-34); Mean Corpuscular Volume 101.8 fl (80-100); Mean Platelet Volume 10.2 fl (7.4-10.4); Platelet Count Result 226 k/mm3 (150-375); Red Blood Count 3.42 M/mm3 (4.2-5.4); White Blood Count 4.4 K/mm3 (4.5-10.0)
[2023-12-16 04:46] LABS: Estimated Glomerular Filt Rate 19
[2023-12-16 04:47] LABS: Alanine Aminotransferase 16 U/L (6-35); Albumin Level 3.4 g/dL (3.5-5.1); Alkaline Phosphatase 101 U/L (38-126); Anion Gap 8 mmol/L (4-12); Aspartate Amino Transferase 21 U/L (14-36); Bilirubin,Total 0.3 mg/dL (0.2-1.3); Blood Urea Nitrogen 51 mg/dL (7-17); Calcium 8.3 mg/dL (8.4-10.2); Carbon Dioxide 38 mmol/L (22-30); Chloride 93 mmol/L (98-107); Estimated Glomerular Filt Rate 19; Glucose 192 mg/dL (65-110); Magnesium 2.3 mg/dL (1.6-2.3); Potassium 4.2 mmol/L (3.4-5.0); Sodium 139 mmol/L (137-145)
[2023-12-16] MEDS: FENTANYL 2,500MCG/NS250ML(*CRX 2,500 MCG/250 ML BAG 12.5 MCG IV CONT (04:53)
[2023-12-16] MEDS: LEVOTHYROXINE SODIUM 50 MCG TABLET PO (05:37)
[2023-12-16] MEDS: dexmedeTOMIDine 400 MCG/100 ML 400 MCG/100 ML BAG 21.15 MCG IV CONT (05:37)
[2023-12-16] MEDS: CENTRAL LINE FLUSH 10 ML IV PUSH ×3 (05:37→20:11)
[2023-12-16 05:56] LABS: Alveolar/Arterial O2 Gradient 165.4 mmHg; Base Excess ABG 4.4 mEq/l (+/-2.0); Carboxyhemoglobin 0.4 % THb (0-2.0); Fractional Inspired Oxygen 45 %; HCO3 ABG 31.9 mEq/l (22.0-26.0); Methemoglobin ABG 0.2 %THb (0-1.5); Oxygen Content ABG 17.8 %vol (16.0-22.0); Oxygen Saturation ABG 95.7 % (95.0-100.0); PO2 ABG 86.1 mmHg (80.0-100.0); PO2 FiO2 Ratio Arterial Blood 1.91 %; Reduced Hemoglobin 4.4 %THb (0-5.0); Total Hemoglobin 13.3 g/dL (12.0-18.0); pH ABG 7.336 (7.350-7.450)
[2023-12-16 05:59] LABS: Arterial Blood Gas Vent Mode CMV; Arterial Blood Gas Ventilator rate 16 /MIN; Device VENTILATOR; Modified Allen's Test Pass; Site Drawn LEFT RADIAL
[2023-12-16 06:00] LABS: Arterial Blood Gas PEEP 8 cmH2O; Arterial Blood Gas Tidal Volume 400 ml
[2023-12-16 08:02] LABS: Glucose Point of Care 166 mg/dl (65-105)
[2023-12-16] MEDS: LEVALBUTEROL NEB 1.25 MG/3 ML 5 MG INHALATION (08:20)
[2023-12-16] MEDS: methylPREDNISolone SOD SUCC 125 MG VIAL IV PUSH (08:33)
[2023-12-16] MEDS: PANTOPRAZOLE SODIUM IV 40 MG VIAL IV PUSH ×2 (08:33→20:10)
[2023-12-16] MEDS: DOXYCYCLINE 100 MG/NS 100 ML 100 MG/100 ML BAG IVPB ×2 (08:33→20:10)
[2023-12-16] MEDS: APIXABAN 5 MG TABLET PO ×2 (08:33→20:10)
[2023-12-16] MEDS: ASPIRIN 325 MG TABLET FEED TUBE (08:33)
[2023-12-16] MEDS: AMIODARONE HCL 200 MG TABLET FEED TUBE (08:33)
[2023-12-16] MEDS: ATORVASTATIN 10 MG TABLET PO (08:33)
[2023-12-16] MEDS: MINERAL OIL/WHITE PETROLATUM OINTMENT 1 APPLIC EACH EYE ×2 (08:34→20:11)
[2023-12-16] MEDS: METOPROLOL TARTRATE 50 MG TAB PO ×2 (08:37→20:10)
--- NOTE | 2023-12-16 08:50 | WPDINTPN ---
Progress Note: A&P Assessment and Plan (1) Respiratory failure with hypoxia and hypercapnia: Qualifiers: Chronicity: acute on chronic Qualified Code(s): J96.21 - Acute and chronic respiratory failure with hypoxia; J96.22 - Acute and chronic respiratory failure with hypercapnia Code(s): J96.91 - Respiratory failure, unspecified with hypoxia; J96.92 - Respiratory failure, unspecified with hypercapnia Status: Inactive Assessment and Plan: Acute on chronic respiratory failure which is multifactorial and secondary to baseline COPD may be exacerbated, congestive heart failure which is exacerbated and pneumonia/atelectasis. Patient also has obstructive sleep apnea and obesity hypoventilation syndrome. BNP 4157. -12/13: Intubated in the ER -on CMV mode of ventilation, peep of 8, 45% FiO2, patient dyssynchronous with the ventilator likely related to decreased air entry, reactive airway disease -have asked the respiratory therapist to administer continues nebulizer with Xopenex -will give additional Solu-Medrol 125 mg IV x1 now and increase Solu-Medrol to 40 mg IV q.6 hours -chest x-ray and ABGs reviewed -Continue empiric antibiotics withf vancomycin Rocephin and doxycycline to cover for community-acquired pneumonia.(12/13) -Nasal MRSA screen is positive -12/13: Preliminary breath culture results are negative x2 -procalcitonin level was low -continue bronchodilators -Diuresis held due to worsening renal function CT chest 12/13 Impression: Extensive right middle and lower lobe consolidation. Correlate for atelectasis versus pneumonia. Minimal left pleural effusion with minimal left basilar atelectasis (2) Acute exacerbation of chronic obstructive pulmonary disease: Code(s): J44.1 - Chronic obstructive pulmonary disease with (acute) exacerbation Status: Acute Assessment and Plan: See above (3) Acute on chronic diastolic CHF (congestive heart failure): Code(s): I50.33 - Acute on chronic diastolic (congestive) heart failure Status: Acute Assessment and Plan: BNP 4137 Echo 11/13 Summary 1. Technically challenging echocardiogram presumably because of obesity. 2. Definity contrast utilized to improve visualization. 3. Hyperdynamic left ventricular systolic function with concentric LVH. 4. Grade 2 diastolic noncompliance. 5. No significant valvular dysfunction. (4) Acute kidney injury: Code(s): N17.9 - Acute kidney failure, unspecified Status: Acute Assessment and Plan: Patient presented with creatinine 1.37 which is slightly elevated. Creatinine worse at 2.50 this morning -patient has been on Lasix, losartan, at home. -she does not have any history of chronic kidney disease -patient has been on Lasix at home and received Lasix in the ER -Normal CK level -12/15/2023: Renal ultrasound - no definite abnormality seen -will consult nephrology -urine output has been low, -continue to monitor renal function, electrolytes and urine output (5) Upper GI bleed: Code(s): K92.2 - Gastrointestinal hemorrhage, unspecified Status: Acute Assessment and Plan: 12/14 Patient has some brown aspirate coming from her OG tube which is likely aspirated blood from traumatic intubation Patient also is on anticoagulation and at risk of upper GI bleed -continue Protonix IV q.12 hours -hemoglobin has been stable -Continue to Monitor hemoglobin and transfuse if needed -tolerating tube feeds (6) Hyperglycemia: Code(s): R73.9 - Hyperglycemia, unspecified Status: Acute Assessment and Plan: Continue Accu-Cheks and sliding scale insulin (7) Hypothyroidism: Code(s): E03.9 - Hypothyroidism, unspecified Status: Acute Assessment and Plan: TSH elevated Increase levothyroxine dose to 50 mcg (8) Community acquired pneumonia: Code(s): J18.9 - Pneumonia, unspecified organism Status: Acute Assessment
[2023-12-16 09:14] LABS: Eosinophil Urine None Seen % (None Seen); Urine Eos QC DJS
[2023-12-16] MEDS: MIDAZOLAM HCL (*CRX) 2 MG/2 ML VIAL IV PUSH (09:15)
[2023-12-16 09:50] LABS: Creatinine Urine 242.7 mg/dL; Total Protein Urine Random 40 mg/dL; Ur Ttl Prot Creatinine Ratio 0.16 mg/mg (0-0.20); Urea Random Urine 279 MG/DL
[2023-12-16 09:51] LABS: Sodium Urine Random 30 meq/L
[2023-12-16] MEDS: dexmedeTOMIDine 400 MCG/100 ML 400 MCG/100 ML BAG 24.68 MCG IV CONT ×2 (09:51→13:45)
--- NOTE | 2023-12-16 09:51 | P.CONNP_ITS ---
Assessment and Plan Assessment and plan (1) Acute kidney injury: Code(s): N17.9 - Acute kidney failure, unspecified Status: Acute Assessment and Plan: * normal creatinine at baseline * admitted with creatinine of 1.37mg/dl * ongoing worsening noted since admission -- creatinine up to 2.5mg/dl * concerning that urine output is declining as well * multifactorial etiology: * diuretics and losartan prior to admission * relative hypotension on admission * hypoxia * infection (pneumonia) * CHF exacerbation * evaluation to date noted: * renal ultrasound unremarkable * urine electrolytes prerenal * no significant proteinuria * urine eosinophils negative * CPK okay * 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 * follow trend of repeat labs and UOP (2) Respiratory failure with hypoxia and hypercapnia: Qualifiers: Chronicity: acute on chronic Qualified Code(s): J96.21 - Acute and chronic respiratory failure with hypoxia; J96.22 - Acute and chronic respiratory failure with hypercapnia Code(s): J96.91 - Respiratory failure, unspecified with hypoxia; J96.92 - Respiratory failure, unspecified with hypercapnia Status: Acute Assessment and Plan: * multifactorial etiology: * COPD exacerbation * congestive heart failure * pneumonia * obstructive sleep apnea * obesity hypoventilation syndrome * intubated and on mechanical ventilation * imaging noted * on steroids and bronchodilators * ventilator weaning when more stable (3) Acute on chronic diastolic CHF (congestive heart failure): Code(s): I50.33 - Acute on chronic diastolic (congestive) heart failure Status: Acute Assessment and Plan: * elevated BNP on admission * recent echo noted * diuresis on hold due to #1 * follow volume status (4) Community acquired pneumonia: Code(s): J18.9 - Pneumonia, unspecified organism Status: Acute Assessment and Plan: * on IV antibiotics * follow culture data * continue ventilator support (5) Upper GI bleed: Code(s): K92.2 - Gastrointestinal hemorrhage, unspecified Status: Acute Assessment and Plan: * reported brown aspirate from OG tube * on anticoagulation at baseline * aspirated blood from traumatic intubation(?) * follow trend of H/H * holding anticoagulation currently * on PPI (6) PAF (paroxysmal atrial fibrillation): Code(s): I48.0 - Paroxysmal atrial fibrillation Status: Chronic Assessment and Plan: * rate control strategy * on amiodarone * holding anticoagulation and aspirin due to concern of upper GI bleeding I will continue follow patient with you while she remains hospitalized and make further recommendations as deemed necessary. Thank you for allowing me to participate in care this patient. History of Present Illness Reason for Consult Consult date: 12/16/23 Reason for consult: acute renal failure Chief Complaint Chief complaint: A1C HHYPOXIC,HYPERCABIC RESPIRATORY FAILURE History of Present Illness Narrative: All the information I have obtained is from review of the electronic medical record as well as discussion with the physicians/nurses involved in the patient's care as the patient is unable to provide any history as she is intubated and on mechanical ventilation. The patient is a 73-year-old female with a past medical history as outlined below who presented to [facility] Emergency room with complaints of shortness of breath.
--- NOTE | 2023-12-16 09:51 | PM.CNNEP ---
Assessment and Plan Assessment and plan (1) Acute kidney injury: Code(s): N17.9 - Acute kidney failure, unspecified Status: Acute Assessment and Plan: normal creatinine at baseline admitted with creatinine of 1.37mg/dl ongoing worsening noted since admission -- creatinine up to 2.5mg/dl concerning that urine output is declining as well multifactorial etiology: diuretics and losartan prior to admission relative hypotension on admission hypoxia infection (pneumonia) CHF exacerbation evaluation to date noted: renal ultrasound unremarkable urine electrolytes prerenal no significant proteinuria urine eosinophils negative CPK okay 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 follow trend of repeat labs and UOP (2) Respiratory failure with hypoxia and hypercapnia: Qualifiers: Chronicity: acute on chronic Qualified Code(s): J96.21 - Acute and chronic respiratory failure with hypoxia; J96.22 - Acute and chronic respiratory failure with hypercapnia Code(s): J96.91 - Respiratory failure, unspecified with hypoxia; J96.92 - Respiratory failure, unspecified with hypercapnia Status: Acute Assessment and Plan: multifactorial etiology: COPD exacerbation congestive heart failure pneumonia obstructive sleep apnea obesity hypoventilation syndrome intubated and on mechanical ventilation imaging noted on steroids and bronchodilators ventilator weaning when more stable (3) Acute on chronic diastolic CHF (congestive heart failure): Code(s): I50.33 - Acute on chronic diastolic (congestive) heart failure Status: Acute Assessment and Plan: elevated BNP on admission recent echo noted diuresis on hold due to #1 follow volume status (4) Community acquired pneumonia: Code(s): J18.9 - Pneumonia, unspecified organism Status: Acute Assessment and Plan: on IV antibiotics follow culture data continue ventilator support (5) Upper GI bleed: Code(s): K92.2 - Gastrointestinal hemorrhage, unspecified Status: Acute Assessment and Plan: reported brown aspirate from OG tube on anticoagulation at baseline aspirated blood from traumatic intubation(?) follow trend of H/H holding anticoagulation currently on PPI (6) PAF (paroxysmal atrial fibrillation): Code(s): I48.0 - Paroxysmal atrial fibrillation Status: Chronic Assessment and Plan: rate control strategy on amiodarone holding anticoagulation and aspirin due to concern of upper GI bleeding I will continue follow patient with you while she remains hospitalized and make further recommendations as deemed necessary. Thank you for allowing me to participate in care this patient. History of Present Illness Reason for Consult Consult date: 12/16/23 Reason for consult: acute renal failure Chief Complaint Chief complaint: A1C HHYPOXIC,HYPERCABIC RESPIRATORY FAILURE History of Present Illness Narrative: All the information I have obtained is from review of the electronic medical record as well as discussion with the physicians/nurses involved in the patient's care as the patient is unable to provide any history as she is intubated and on mechanical ventilation. The patient is a 73-year-old female with a past medical history as outlined below who presented to [facility] Emergency room with complaints of shortness of breath. According to the patient's , the patient started having issues / problems with shortness of breath approximately two three days prior to her presentation to the emergency. Over this time frame, her shortness of breath continued to worsen to the point where she was unable to catch her breath just with attempts to use the restroom. She apparently has been having ongoing issues and problems with a cough that apparently was nonproductive. No reported chest pain, dizziness, lightheadedness
--- NOTE | 2023-12-16 11:22 | PCNFU ---
Nutrition Follow-Up Complete: Increased protein energy needs related to mechanical ventilation as evidenced by need for full tube feeding goal:Meet estimated protein energy needs Patient has limited progress at this time. Will continue current goal. Pt current nutrition is Vital AF 1.2 at 40 ml/hr . Nutrition recommendation: goal rate at 60 ml/hr day 3. Last recorded weight is 146.5 kg, up from 141 kg on admit. Bowel Motility: +BM reported 12/13 Labs Reviewed:Glu 192, Cr 2.5, GFR 19, BUN 51, Alb 3.4,Hct 34.8,Hgb 8.3 Meds Noted:Precedex, Fentanyl,Solu Medrol, Rocephin, Protonix Skin: WNL Additional Notes: Patient remains on mechanical vent. Tube feedings are being tolerated of Vital AF 1.2 at 40 ml/hr (1056 kcal/66 gm protein/713 ml water) Flush 30 ml q 4hours. Recommend increasing tube feedings to 60 ml/hr by Day 3 to meet kcal and protein needs. Plans for Hospice visit this afternoon with family. Monitor tube feeding tolerance, labs, vent settings, meds, output, plan of care Follow up Tuesdays and Fridays. Daily in ICU rounds
[2023-12-16 12:17] LABS: Glucose Point of Care 223 mg/dl (65-105)
[2023-12-16] MEDS: methylPREDNISolone SOD SUCC 40 MG VIAL IV PUSH ×3 (12:33→23:55)
[2023-12-16] MEDS: cefTRIAXone 2 GM/NS 100 ML 2 GM/100 ML BAG IVPB (12:33)
[2023-12-16] MEDS: INSULIN ASPART (*BKC) 100 UNITS/ML SUB-Q ×4 (12:33→23:59)
[2023-12-16] MEDS: AMIODARONE 150 MG/D5W 100 ML 150 MG/100 ML BAG 600 MG IV CONT (15:04)
--- NOTE | 2023-12-16 15:16 | PM.IMPN ---
Progress Note: A&P Assessment and Plan (1) Respiratory failure with hypoxia and hypercapnia: Qualifiers: Chronicity: acute on chronic Qualified Code(s): J96.21 - Acute and chronic respiratory failure with hypoxia; J96.22 - Acute and chronic respiratory failure with hypercapnia Code(s): J96.91 - Respiratory failure, unspecified with hypoxia; J96.92 - Respiratory failure, unspecified with hypercapnia Status: Inactive (2) Acute exacerbation of chronic obstructive pulmonary disease: Code(s): J44.1 - Chronic obstructive pulmonary disease with (acute) exacerbation Status: Acute (3) Acute on chronic diastolic CHF (congestive heart failure): Code(s): I50.33 - Acute on chronic diastolic (congestive) heart failure Status: Acute (4) Acute kidney injury: Code(s): N17.9 - Acute kidney failure, unspecified Status: Acute (5) PAF (paroxysmal atrial fibrillation): Code(s): I48.0 - Paroxysmal atrial fibrillation Status: Chronic (6) Upper GI bleed: Code(s): K92.2 - Gastrointestinal hemorrhage, unspecified Status: Acute (7) Hyperglycemia: Code(s): R73.9 - Hyperglycemia, unspecified Status: Acute (8) Hypothyroidism: Code(s): E03.9 - Hypothyroidism, unspecified Status: Acute (9) Community acquired pneumonia: Code(s): J18.9 - Pneumonia, unspecified organism Status: Acute (10) LIANNE (obstructive sleep apnea): Code(s): G47.33 - Obstructive sleep apnea (adult) (pediatric) Status: Chronic (11) Obesity hypoventilation syndrome: Code(s): E66.2 - Morbid (severe) obesity with alveolar hypoventilation Status: Acute (12) Hypercholesteremia: Code(s): E78.00 - Pure hypercholesterolemia, unspecified Status: Acute Plan 73-year-old female presented to the outside hospital with worsening shortness of breath. Past few days. Last night sudden distress and EMS called. In the ED She was hypoxic in 72% along with severe bilateral wheezing. also difficult to arouse and hence was emergently intubated and placed on mechanical ventilation. Chest x-ray revealed bilateral lung infiltrates suggestive of pulmonary cup revealed WBC of I have G7 0.42/51/73/32 EKG showed atrial fibrillation of [address]. Started on broad-spectrum antibiotics for possible pneumonia with vancomycin and Zosyn. She also received Solu-Medrol for COPD exacerbation and IV Lasix. She was then transferred to ICU at [facility] for further treatment. She is currently intubated and sedated started on Levophed. Family at bedside and discussed with them. Acute on chronic respiratory failure multifactorial suspected COPD exacerbation and CHF exacerbation with possibility of pneumonia. On vancomycin Rocephin and doxycycline pancultured Solu Medrol for COPD exacerbation . Acute diastolic heart failure diuresis as tolerated however on hold due to worsening creatinine . ADRIEL due to monitor with diuresis continues to worsen. Nephrology consulted. Paroxysmal atrial fibrillation anticoagulation on hold due to noted brown aspirate from OG likely traumatic. Worsening atrial fibrillation and was started on IV amiodarone Be switched to oral amiodarone and metoprolol now back to IV amiodarone Hypothyroidism Type 2 diabetes Hyperlipidemia DVT prophylaxis apixaban Code status full code she has opted to be DNR state. Power of mergers and acquisitions attorney had reported that she was reverted to full code to have her intubated last night. Switching her to DNR is what being discussed while she is getting treated here in the ICU . Switched to DNR today. Ongoing discussion and family deciding to move to comfort care tomorrow after all family gathers Subjective Date/time seen: 12/16/23 15:16 Interval history: remains in AFib with RVR. Switched back to IV amiodarone Afebrile. Creatinine bumped of further to 2.5 this a.m.. Chest x-ray with probable mild pulmonary ed
[2023-12-16] MEDS: AMIODARONE 360 MG/D5W 200 ML 360 MG/200 ML BAG 33.33 MG IV CONT (15:20)
[2023-12-16 16:40] LABS: Glucose Point of Care 317 mg/dl (65-105)
[2023-12-16] MEDS: dexmedeTOMIDine 400 MCG/100 ML 400 MCG/100 ML BAG 28.2 MCG IV CONT (17:30)
[2023-12-16 18:05] LABS: Vancomycin Trough 31.8 ug/mL (10.0-20.0)
[2023-12-16 20:34] LABS: Glucose Point of Care 355 mg/dl (65-105)
[2023-12-16] MEDS: dexmedeTOMIDine 400 MCG/100 ML 400 MCG/100 ML BAG 35.25 MCG IV CONT (20:47)
[2023-12-16] MEDS: AMIODARONE 360 MG/D5W 200 ML 360 MG/200 ML BAG 16.67 MG IV CONT (20:51)
[2023-12-16] MEDS: FENTANYL 2,500MCG/NS250ML(*CRX 2,500 MCG/250 ML BAG 20 MCG IV CONT (20:52)
[2023-12-16] MEDS: PROPOFOL IV EMULSION 100 ML 4.4 MG IV CONT (21:31)
--- NOTE | 2023-12-16 21:41 | PC.NURSE ---
Pt remains asynchronous with ventilator despite increase in sedation, Dr. Mendenhall notified, RN received order to d/c precedex and initiate propofol gtt. Will continue to monitor.
[2023-12-17] VITALS (32 sets, daily range): BP systolic 91–131; BP diastolic 61–87; PULSE 101–129; RESP 16; TEMP 36.3–37.1; O2SAT 95–96
[2023-12-17 00:06] LABS: Glucose Point of Care 293 mg/dl (65-105)
[2023-12-17] MEDS: IPRATROPIUM BR 0.02% INH SOLN 0.5 MG/2.5 ML VIAL INHALATION ×3 (02:00→13:52)
[2023-12-17] MEDS: LEVALBUTEROL NEB 1.25 MG/3 ML INHALATION ×3 (02:00→13:52)
[2023-12-17] MEDS: PROPOFOL IV EMULSION 100 ML 17.58 MG IV CONT (03:41)
[2023-12-17 04:24] LABS: Hematocrit 33.1 % (37.0-47.0); Hemoglobin 10.3 g/dL (12.0-15.0); Mean Corpuscular HGB Conc 31.1 g/dl (32-36); Mean Corpuscular Hemoglobin 31.2 pg (26-34); Mean Corpuscular Volume 100.3 fl (80-100); Mean Platelet Volume 10.1 fl (7.4-10.4); Platelet Count Result 213 k/mm3 (150-375); White Blood Count 5.1 K/mm3 (4.5-10.0)
[2023-12-17 04:36] LABS: Alanine Aminotransferase 16 U/L (6-35); Albumin Level 3.1 g/dL (3.5-5.1); Alkaline Phosphatase 108 U/L (38-126); Anion Gap 10 mmol/L (4-12); Aspartate Amino Transferase 18 U/L (14-36); Bilirubin,Total 0.5 mg/dL (0.2-1.3); Blood Urea Nitrogen 61 mg/dL (7-17); Calcium 8.7 mg/dL (8.4-10.2); Carbon Dioxide 34 mmol/L (22-30); Chloride 92 mmol/L (98-107); Estimated Glomerular Filt Rate 18; Glucose 218 mg/dL (65-110); Magnesium 2.1 mg/dL (1.6-2.3); Potassium 3.9 mmol/L (3.4-5.0); Sodium 136 mmol/L (137-145); Triglycerides 124 mg/dL (<150)
[2023-12-17] MEDS: INSULIN ASPART (*BKC) 100 UNITS/ML SUB-Q ×3 (04:45→16:34)
[2023-12-17 05:04] LABS: Alveolar/Arterial O2 Gradient 153.4 mmHg; Base Excess ABG 5.6 mEq/l (+/-2.0); Carboxyhemoglobin 0.2 % THb (0-2.0); Fractional Inspired Oxygen 40 %; HCO3 ABG 30.4 mEq/l (22.0-26.0); Methemoglobin ABG 0.1 %THb (0-1.5); Oxygen Content ABG 14.8 %vol (16.0-22.0); Oxygen Saturation ABG 96.1 % (95.0-100.0); Oxyhemoglobin 95.8 % THb (90.0-100.0); PCO2 ABG 45.2 mmHg (35.0-45.0); PO2 ABG 79.8 mmHg (80.0-100.0); Reduced Hemoglobin 3.9 %THb (0-5.0); Site Drawn LEFT RADIAL; Total Hemoglobin 10.9 g/dL (12.0-18.0); pH ABG 7.445 (7.350-7.450)
[2023-12-17 05:05] LABS: Arterial Blood Gas PEEP 8 cmH2O; Arterial Blood Gas Tidal Volume 400 ml; Arterial Blood Gas Vent Mode CMV; Arterial Blood Gas Ventilator rate 16 /MIN; Device VENTILATOR; Modified Allen's Test Unable to perform
[2023-12-17] MEDS: methylPREDNISolone SOD SUCC 40 MG VIAL IV PUSH ×2 (05:21→11:52)
[2023-12-17] MEDS: CENTRAL LINE FLUSH 10 ML IV PUSH ×2 (05:21→13:45)
[2023-12-17] MEDS: LEVOTHYROXINE SODIUM 50 MCG TABLET PO (05:27)
--- NOTE | 2023-12-17 07:22 | WPDINTPN ---
Progress Note: A&P Assessment and Plan (1) Respiratory failure with hypoxia and hypercapnia: Qualifiers: Chronicity: acute on chronic Qualified Code(s): J96.21 - Acute and chronic respiratory failure with hypoxia; J96.22 - Acute and chronic respiratory failure with hypercapnia Code(s): J96.91 - Respiratory failure, unspecified with hypoxia; J96.92 - Respiratory failure, unspecified with hypercapnia Status: Inactive Assessment and Plan: Acute on chronic respiratory failure which is multifactorial and secondary to baseline COPD may be exacerbated, congestive heart failure which is exacerbated and pneumonia/atelectasis. Patient also has obstructive sleep apnea and obesity hypoventilation syndrome. BNP 4157. -12/13: Intubated in the ER -on CMV mode of ventilation, peep of 8, 40% FiO2, patient's dyssynchrony has improved -continue Solu-Medrol -continue bronchodilators -chest x-ray and ABGs reviewed -Continue empiric antibiotics with vancomycin Rocephin and doxycycline to cover for community-acquired pneumonia.(12/13) -12/14/2023: Blood cultures showing Gram-positive cocci in clusters, 1/2 bottles -Nasal MRSA screen is positive -procalcitonin level was low -Diuresis held due to worsening renal function Sedated with fentanyl and propofol infusion CT chest 12/13 Impression: Extensive right middle and lower lobe consolidation. Correlate for atelectasis versus pneumonia. Minimal left pleural effusion with minimal left basilar atelectasis (2) Acute exacerbation of chronic obstructive pulmonary disease: Code(s): J44.1 - Chronic obstructive pulmonary disease with (acute) exacerbation Status: Acute Assessment and Plan: See above (3) Acute on chronic diastolic CHF (congestive heart failure): Code(s): I50.33 - Acute on chronic diastolic (congestive) heart failure Status: Acute Assessment and Plan: BNP 4137 -diuresis currently on hold given worsening renal function and decreased urine output Echo 11/13 Summary 1. Technically challenging echocardiogram presumably because of obesity. 2. Definity contrast utilized to improve visualization. 3. Hyperdynamic left ventricular systolic function with concentric LVH. 4. Grade 2 diastolic noncompliance. 5. No significant valvular dysfunction. (4) Acute kidney injury: Code(s): N17.9 - Acute kidney failure, unspecified Status: Acute Assessment and Plan: Patient presented with creatinine 1.37 which is slightly elevated. Elevated BUN/creatinine this morning --> 61/2.60 -patient has been on Lasix, losartan, at home. -she does not have any history of chronic kidney disease -patient has been on Lasix at home and received Lasix in the hospital -currently diuresis hold -Normal CK level -12/15/2023: Renal ultrasound - no definite abnormality seen -appreciate Nephrology evaluation recommendation -urine output has been low, -continue to monitor renal function, electrolytes and urine output (5) Upper GI bleed: Code(s): K92.2 - Gastrointestinal hemorrhage, unspecified Status: Acute Assessment and Plan: 12/14 Patient has some brown aspirate coming from her OG tube which is likely aspirated blood from traumatic intubation Patient also is on anticoagulation and at risk of upper GI bleed -continue Protonix IV q.12 hours -hemoglobin has been stable -Continue to Monitor hemoglobin and transfuse if needed -tolerating tube feeds (6) Hyperglycemia: Code(s): R73.9 - Hyperglycemia, unspecified Status: Acute Assessment and Plan: Continue Accu-Cheks and sliding scale insulin -hyperglycemia also likely related to steroids (7) Hypothyroidism: Code(s): E03.9 - Hypothyroidism, unspecified Status: Acute Assessment and Plan: TSH elevated Continue levothyroxine (8) Community acquired pneumonia: Code(s): J18.9 - Pneumonia, unspecified organism Status:
[2023-12-17 07:55] LABS: Glucose Point of Care 195 mg/dl (65-105)
[2023-12-17] MEDS: ATORVASTATIN 10 MG TABLET PO (08:00)
[2023-12-17] MEDS: METOPROLOL TARTRATE 50 MG TAB PO (08:00)
[2023-12-17] MEDS: APIXABAN 5 MG TABLET PO (08:00)
[2023-12-17] MEDS: ASPIRIN 325 MG TABLET FEED TUBE (08:00)
[2023-12-17] MEDS: PANTOPRAZOLE SODIUM IV 40 MG VIAL IV PUSH (08:05)
[2023-12-17] MEDS: DOXYCYCLINE 100 MG/NS 100 ML 100 MG/100 ML BAG IVPB (08:06)
[2023-12-17] MEDS: MINERAL OIL/WHITE PETROLATUM OINTMENT 1 APPLIC EACH EYE (08:06)
[2023-12-17] MEDS: AMIODARONE 360 MG/D5W 200 ML 360 MG/200 ML BAG 16.67 MG IV CONT (08:16)
[2023-12-17] MEDS: PROPOFOL IV EMULSION 100 ML 13.19 MG IV CONT ×2 (09:35→16:29)
[2023-12-17] MEDS: FENTANYL 2,500MCG/NS250ML(*CRX 2,500 MCG/250 ML BAG 15 MCG IV CONT (09:44)
[2023-12-17] MEDS: cefTRIAXone 2 GM/NS 100 ML 2 GM/100 ML BAG IVPB (10:29)
--- NOTE | 2023-12-17 11:48 | PCFNICU ---
ICU Rounding Note: Pt current nutrition is Vital AF 1.2 at 40 ml/hr. Nutrition recommendation: No further recommendations at this time. Last recorded weight is 147.3 kg, up from 141 kg on admit. Bowel Motility: Last reported BM 12/13 Labs Reviewed: Glu 218,GFR 18, BUN 61, Cr 2.6, Alb 3.1 Meds Noted: Rocephin, Protonix, Propofol 15 amsu=171 kcals, Fentanyl, Solu Medrol. Skin:WNL Additional Notes: Patient is now a DNR. Family meeting with hospice 12/15 with plans for comfort measures. Tube feedings remains at same rate of Vital AF 1.2 at 40 ml/hr and tolerating with a water flush at 30 ml q 4 hours. At this time no further nutritional recommendations needed. Agree with diet orders. Following daily in ICU rounds. Monitor tube feeding tolerance, labs, vent settings, meds, output, plan of care Follow up Tuesdays and Fridays. .
[2023-12-17 12:03] LABS: Glucose Point of Care 208 mg/dl (65-105)
[2023-12-17 16:34] LABS: Glucose Point of Care 219 mg/dl (65-105)
[2023-12-17] MEDS: LORazepam INJ (*CRX) 2 MG/ML VIAL IV PUSH (18:09)
[2023-12-17] MEDS: MORPHINE SULFATE INJ (*CRX) 10 MG/ML AMP 5 MG IV PUSH (18:09)
--- NOTE | 2023-12-17 19:30 | PC.NURSE ---
Spoke with [facility] to release body.
--- NOTE | 2023-12-17 19:37 | PC.NURSE ---
Called [facility], patient is not an candidate for donation. Talked to Balta. Reference #[id number]
--- NOTE | 2023-12-17 19:43 | PC.NURSE ---
Spoke with Robbin at [facility]. They have accepted for their facility and will mushroom picker the patient.
--- NOTE | 2023-12-17 20:51 | PM.DDS ---
Discharge Summary Date and Time Date of : 12/17/23 Time of : 20:51 Provider Pronounced By: 2 RNs Name of First RN That Pronounced: Sarahy Marte RN Name of Second RN That Pronounced: Milady Ramos RN Probable Cause of Probable Cause of : Respiratory failure Summary Hospital Course: Patient presented with acute on chronic respiratory failure felt to be multifactorial and secondary to baseline COPD with exacerbation, acute diastolic CHF and pneumonia/atelectasis. Patient also has LIANNE with obesity hypoventilation syndrome. BNP 4157. Patient was intubated in the ER on presentation and admitted to the ICU. She was treated appropriately with steroids, antibiotics and bronchodilators. Blood cultures showing Staph epidermidis felt to be a contaminant. She was also started on diuretic therapy but held after developing ADRIEL. She developed an upper GI bleed felt related to traumatic intubation. The perioperative nurse discussed the care of the patient with family. Discussion included that possibility that the patient may need dialysis. The family stated that her wishes would not be for intubation or resuscitated and to be made comfort measures so she could go in peace. All the family members present agreed to comfort measures. Family members were able to come and say their goodbyes and then care was withdrawn and patient was made comfortable on 12/17/2023. The patient passed a short time later.
== END 2023-12-17 18:39 | disposition expired | DRG 208 ==
PROVIDERS: Internal Medicine; Internal Medicine Nephrology; Admitting Provider Internal Medicine; PCP Family Medicine; Visit Provider Internal Medicine
DX: J44.1 Chronic obstructive pulmonary disease with (acute) exacerbation (principal); J18.9 Pneumonia, unspecified organism; I50.33 Acute on chronic diastolic (congestive) heart failure; J96.21 Acute and chronic respiratory failure with hypoxia; J96.22 Acute and chronic respiratory failure with hypercapnia; J98.11 Atelectasis; E66.2 Morbid (severe) obesity with alveolar hypoventilation; Z68.44 Body mass index [BMI] 60.0-69.9, adult; N17.9 Acute kidney failure, unspecified; K92.2 Gastrointestinal hemorrhage, unspecified; J44.0 Chronic obstructive pulmonary disease with (acute) lower respiratory infection; I48.0 Paroxysmal atrial fibrillation; E87.8 Other disorders of electrolyte and fluid balance, not elsewhere classified; R73.9 Hyperglycemia, unspecified; E03.9 Hypothyroidism, unspecified; Z79.01 Long term (current) use of anticoagulants; Z99.3 Dependence on wheelchair; Z74.01 Bed confinement status; Z87.891 Personal history of nicotine dependence; Z66 Do not resuscitate; Z51.5 Encounter for palliative care
CPT/HCPCS: 36415; 36600; 71045; 71250; 76775; 80048; 80053; 80202; 81001; 81003; 81050; 82375; 82550; 82565; 82570; 82805; 82948; 83036; 83050; 83735; 84145; 84156; 84300; 84478; 84484; 84540; 85025; 85027; 85999; 87070; 87205; 87641; 93005; 94002; 94003; 94640; A9270; J0282; J0696; J1815; J2060; J2250; J2270; J2470; J2704; J2919; J3010; J3370; J3475